=== PATIENT | male | born 1960 ===

== ENCOUNTER → 2020-06-30 15:35 | Outpatient (BNVA) | payer OTHER, SELFPAY | PROVIDERS: Visit Provider Surgery | DX: K61.0 Anal abscess (principal); Z98.890 Other specified postprocedural states | CPT/HCPCS: 99213 ==

== ENCOUNTER → 2020-08-13 15:09 | Outpatient (BNVA) | payer OTHER, SELFPAY | PROVIDERS: Visit Provider Dietitian, Registered | DX: Z76.89 Persons encountering health services in other specified circumstances (principal) ==

== ENCOUNTER → 2020-09-01 15:40 | Outpatient (BNVA) | payer OTHER, SELFPAY | PROVIDERS: Visit Provider Surgery | DX: K62.89 Other specified diseases of anus and rectum (principal) | CPT/HCPCS: 99212 ==

== ENCOUNTER → 2020-09-07 13:16 | Outpatient (BNVA) | payer OTHER, SELFPAY | PROVIDERS: Visit Provider Nurse Practitioner Gerontology | DX: Z76.89 Persons encountering health services in other specified circumstances (principal) ==

== ENCOUNTER → 2020-09-08 14:40 | Outpatient (BNVA) | payer OTHER, SELFPAY | PROVIDERS: Visit Provider Surgery | DX: L72.9 Follicular cyst of the skin and subcutaneous tissue, unspecified (principal) | CPT/HCPCS: 99212 ==

== ENCOUNTER 2020-09-21 09:04 | Day surgery (SDC) | payer OTHER, SELFPAY ==
[2020-09-16 09:50] VITALS: BMI 28.1
--- NOTE | 2020-09-16 09:52 | HO.ANESPROP2 ---
Documented by User: Johanna Yaneli 09/16/20 09:59 HPI - Anesthesia Eval Consult details Narrative: 60yo M for Wider Excision left buttocks Cyst (Previously done under local) [facility] Past Medical History Medical History Arthritis Diabetes type 2, controlled High cholesterol Hyperlipidemia LDL goal <100 Lazy eye of left side Smoking Type 2 diabetes mellitus with diabetic polyneuropathy Type 2 diabetes mellitus with hyperglycemia, with long-term current use of insulin Family History Family History Father No problems noted. Mother History of cardiovascular disorder Surgical History Surgical History History of hemorrhoids History of penile implant (~03/17/20) History of renal stone (~06/01/20) History of sebaceous cyst (~05/28/20) Social History Social History Smoking Status: Current every day smoker Tobacco Type: Cigarette Second Hand Smoke Exposure: No Meds Allergies Allergy/AdvReac Type Severity Reaction Status Date / Time No Known Allergies Allergy Verified 09/21/20 10:24 [No Known Allergies*] Home Medications Medication Instructions Recorded Confirmed Type atorvastatin 40 mg tablet 40 mg PO DAILY 06/27/20 09/08/20 History empagliflozin 10 mg tablet 10 mg PO DAILY 06/27/20 09/08/20 History flash glucose sensor #1 ea 06/27/20 09/08/20 History ibuprofen 800 mg tablet 800 mg PO TID 06/27/20 09/08/20 History pantoprazole 40 mg tablet,delayed 40 mg PO DAILY 06/27/20 09/08/20 History release sertraline 25 mg tablet 25 mg PO DAILY 06/27/20 09/08/20 History duloxetine 20 mg capsule,delayed 20 mg PO BID cap 09/07/20 09/08/20 History release glucose 4 gram chewable tablet 4 g PO tab 09/07/20 09/08/20 History insulin glargine 100 unit/mL (3 32 unit SUBCUT QPM ml 09/07/20 09/08/20 History mL) subcutaneous pen metformin 500 mg tablet 500 mg PO BID tab 09/07/20 09/08/20 History pen needle, diabetic 32 gauge x #50 ea 09/07/20 09/08/20 History Exam Exam Date and Time: September 16, 2020951 Height,Weight and Vital Signs: Height 5 ft 8 in Weight 84 kg Pertinent Lab Results Pertinent Lab Results: Laboratory Tests 03/20/20 03/20/20 21:59 21:59 WBC 8.9 Hgb 10.9 L D Hct 32.5 L D Plt Count 112 L Sodium 139 Potassium 3.5 Chloride 107 BUN 13 Creatinine 1.08 Assessment and Plan Assessment Anesthesia Assessment: Chart Reviewed Documented by User: Kody Oglesby MD 09/21/20 11:07 [facility] Past Medical History Medical History Arthritis Diabetes type 2, controlled High cholesterol Hyperlipidemia LDL goal <100 Lazy eye of left side Smoking Type 2 diabetes mellitus with diabetic polyneuropathy Type 2 diabetes mellitus with hyperglycemia, with long-term current use of insulin Family History Family History Father No problems noted. Mother History of cardiovascular disorder Surgical History Surgical History History of hemorrhoids History of penile implant (~03/17/20) History of renal stone (~06/01/20) History of sebaceous cyst (~05/28/20) Social History Social History Smoking Status: Current every day smoker Tobacco Type: Cigarette Second Hand Smoke Exposure: No Meds Allergies Allergy/AdvReac Type Severity Reaction Status Date / Time No Known Allergies Allergy Verified 09/21/20 10:24 [No Known Allergies*] Home Medications Medication Instructions Recorded Confirmed Type atorvastatin 40 mg tablet 40 mg PO DAILY 06/27/20 09/08/20 History empagliflozin 10 mg tablet 10 mg PO DAILY 06/27/20 09/08/20 History flash glucose sensor #1 ea 06/27/20 09/08/20 History ibuprofen 800 mg tablet 800 mg PO TID 06/27/20 09/08/20 History pantoprazole 40 mg tablet,delayed 40 mg PO DAILY 06/27/20 09/08/20 History release sertraline 25 mg tablet 25 mg PO DAILY 06/27/20 09/08/20 History duloxetine 20 mg capsule,delayed 20 mg PO BID cap 09/07/20 09/08/20 History release glucose 4 gram chewable tablet 4 g PO tab 09/07/20 09/08/20 History insulin glargine 100 unit/mL (3 32 unit SUBCUT QPM ml 09/07/20 09/08/20 History mL) subcutaneous pen metformin 500 mg tablet 500 mg PO BID tab 09/07/20 09/08/20 History pen needle, diabetic 32 gauge x #50 ea 09/07/20 09/08/20 History 5 Exam Airway Mallampati Class: II TM Dist: >3cm Neck ROM: Full Denture: Upper Loose/Missing/Broken Teeth: Yes Heart: RRR Lungs: nl Assessment and Plan Assessment Anesthesia Assessment: Anesthesia Plan Discussed and Chart Reviewed Final Anesthetic Review NPO: Yes ASA Class: III Final Preanesthetic Review: No Changes in Pt Med Stat, Meds/Allgs Chart Reviewed, Consent Obtained/Reviewed and Anes Risks/Benef Reviewed Patient Risk: Low Procedure Risk: Intermediate Anesthetic Plan Anesthetic Plan: MAC: Disposition: Standard PACU
[2020-09-21 10:34] VITALS: BP 102/68; PULSE 80; RESP 18; TEMP 36.2; O2SAT 98
[2020-09-21 10:42] LABS: Glucose, Whole Blood 150 mg/dL (60-115)
[2020-09-21] MEDS: Lactated Ringers 1,000 ML 100 ML IVCONT (10:54)
--- NOTE | 2020-09-21 11:07 | MHC.SHP ---
Pre-Procedural Eval Section A The patient is an INPATIENT: No Changes since office visit: Yes Patient answered all questions; No Cold of Flu in the past 2 weeks, No New Medical Problems and No Changes in Medication The History & Physical has been completed within 30 days and I have reviewed it.: Yes Section B Chief Complaint: follicular cyst of skin on buttocks Allergies: Allergies Allergy/AdvReac Type Severity Reaction Status Date / Time No Known Allergies Allergy Verified 09/21/20 10:24 [No Known Allergies*] Plan Diagnosis/Plan: Unchanged I have reviewed the history and physical and performed a pertinent physical examination on my patient. No changes have occurred unless specified.
--- NOTE | 2020-09-21 11:57 | W.PM.OPN ---
Operative Note Operative Note Date of Service: 09/21/20 Narrative: Preoperative diagnosis: Left buttock recurrence cyst Postoperative diagnosis: Same Procedure: Wide excision of left buttock recurrence cyst Surgeon: Ramiro Segundo MD [facility] Program Representative: SERG Cid Indications for procedure: 60-year-old male presenting with a recurrent infected cyst of the posterior left buttock just lateral to the intergluteal cleft. This was previously excised but has become infected once again with a palpable nodularity suggestive of a recurrence cyst. Operative findings: Patient found to have an area of inflammation with a well-healed incision the lateral intergluteal cleft extending over the left buttock. Lesion measured approximately 4 cm x 2 cm. Specimen: Cyst left buttock Complications: None Estimated blood loss: 5 mL Procedure details: Patient was brought to the OR and placed in a supine position. After administering light sedation he was placed in a prone position. The left buttock was prepped with Betadine and draped in a sterile fashion. A surgical time-out was called and consent confirmed. Patient received preoperative antibiotics and Venodyne boots were in place. Local anesthesia consisting of 0.75% Sensorcaine with epinephrine was then infiltrated circumferentially around the previous excision site. A 15 blade was then used to create an elliptical incision around the previous excision site measuring 4 by 2 cm. This was carried out through subcutaneous tissue and around the cyst wall. Hemostasis was assured using electrocautery. The cyst was excised and sent to pathology for further examination. Wounds were recheck for hemostasis using electrocautery. Deep subcutaneous tissue was then reapproximated using interrupted 3 0 Polysorb sutures. Dermis was reapproximated using interrupted 3 0 Polysorb sutures. Skin was then closed using interrupted 3 0 nylon sutures. Sterile dressings were then applied. The patient tolerated the procedure well. Sponge, instrument, and needle counts reported as correct. The patient was transferred to PACU in stable condition.
--- NOTE | 2020-09-21 12:04 | PM.OP ---
Brief Operative Note Date of Service: 09/21/20 Pre-op diagnosis: Recurrent left buttock cyst Post-op diagnosis: same Procedure: Excision of a recurrent left buttock cyst Implants: None Surgeon: Ramiro Segundo MD Anesthesia: MAC [employer]str[employer] Bi Developer: Airam Griggs Estimated blood loss (mL): 5 Pathology: other (Recurrent left buttock cyst) Condition: stable Disposition: PACU
[2020-09-21 12:05] VITALS: BP 90/55; PULSE 69; RESP 16; TEMP 36.4; O2SAT 98
[2020-09-21 12:20] VITALS: BP 97/60; PULSE 68; RESP 16; O2SAT 97
[2020-09-21 12:35] VITALS: BP 96/54; PULSE 79; RESP 17; TEMP 36.6; O2SAT 99
[2020-09-21 12:50] VITALS: BP 106/66; PULSE 62; RESP 17; O2SAT 99
--- NOTE | 2020-09-21 13:29 | HO.POSTANES ---
Post Anesthesia Evaluation Post Anesthesia Evaluation Vital Signs: Vital Signs Temp Pulse Resp BP Pulse Ox 09/21/20 12:50 97.8 F 62 17 106/66 99 09/21/20 12:35 97.8 F 79 17 96/54 L 99 09/21/20 12:20 68 16 97/60 97 09/21/20 12:05 97.6 F 69 16 90/55 L 98 09/21/20 10:34 97.1 F 80 18 102/68 98 Anesthesia: General (tiva) Mental Status: Awake Pain Control: Satisfactory Nausea/Vomiting: None Hydration: Adequate Anesthesia-Related Issues: No Anes. Related Issues
== END 2020-09-21 13:51 | disposition home or self-care (01) ==
PROVIDERS: Visit Provider Surgery
PROC: (CPT 11406; principal; 2020-09-21 10:10)
DX: L72.0 Epidermal cyst (principal); E11.65 Type 2 diabetes mellitus with hyperglycemia; E11.42 Type 2 diabetes mellitus with diabetic polyneuropathy; Z79.4 Long term (current) use of insulin; F17.210 Nicotine dependence, cigarettes, uncomplicated; Z96.0 Presence of urogenital implants
CPT/HCPCS: 11406; 12032; 82947; 88304; J2250; J2370; J2405; J3010

== ENCOUNTER 2020-09-21 09:41 | Outpatient (REF) | payer OTHER, SELFPAY ==
[2020-09-21 11:13] LABS: Hematocrit 46.6 % (42-52); Hemoglobin 15.5 g/dl (14.0-18.0); Mean Corpuscular HGB Conc 33.3 g/dl (31.0-36.0); Mean Corpuscular Hemoglobin 30.5 pg (27.0-33.0); Mean Corpuscular Volume 91.6 fL (80-98); Mean Platelet Volume 13.1 fL (9.4-12.4); PLT CLUMP 1; Red Blood Count 5.09 X10*6/uL (4.60-5.80); Red Cell Distribution Width 12.5 % (11.0-16.0)
[2020-09-21 11:29] LABS: Alanine Aminotransferase 27 U/L (0-40); Albumin Level 4.2 g/dL (3.5-5.0); Alkaline Phosphatase 86 U/L (39-117); Anion Gap 12 (12-20); Aspartate Amino Transferase 19 U/L (5-37); Bilirubin Total 0.5 mg/dL (0.0-1.0); Blood Urea Nitrogen 14 mg/dL (9-16); Calcium 9.2 mg/dL (8.4-10.2); Carbon Dioxide 27 mmol/L (22-29); Chloride 107 mmol/L (96-108); Cholesterol 199 mg/dL; Estimated Glomerular Filt Rate > 60; Glucose Fasting 159 mg/dL (60-99); HDL Cholesterol 29 mg/dL; LDL Cholesterol Calculated 113 mg/dl; Potassium 4.7 mmol/l (3.3-5.1); Sodium 141 mmol/L (135-145); Total Protein 7.2 g/dL (6.5-8.0); Triglycerides 289 mg/dL
[2020-09-21 11:30] LABS: Estimated Average Glucose 157 mg/dL; Hemoglobin A1c % 7.1 %
[2020-09-21 11:33] LABS: Alanine Aminotransferase 26 U/L (0-40); Alkaline Phosphatase 83 U/L (39-117); Aspartate Amino Transferase 20 U/L (5-37); Bilirubin Direct 0.2 mg/dL (0.0-0.5); Bilirubin Total 0.5 mg/dL (0.0-1.0); Total Protein 7.1 g/dL (6.5-8.0)
[2020-09-21 11:54] LABS: Free T4 (Free Thyroxine) 0.79 ng/dL (0.71-1.85); Prostate Specific Antigen 0.83 ng/mL (<0.05-4.0); Thyroid Stimulating Hormone 0.55 uIU/mL (0.32-4.0)
[2020-09-21 11:59] LABS: Vitamin B12 548 pg/mL (200-900)
[2020-09-21 12:03] LABS: Creatinine Urine 76.48 mg/dL
[2020-09-21 14:00] LABS: White Blood Count 6.9 X10*3/uL (4.8-10.8)
[2020-09-21 14:01] LABS: Platelet Count 121 X10*3/uL (160-400)
== END 2020-09-21 09:42 | disposition home or self-care (01) ==
LOC: HO.LAB 09:41
PROVIDERS: Visit Provider Nurse Practitioner Gerontology
DX: E11.42 Type 2 diabetes mellitus with diabetic polyneuropathy (principal); Z79.4 Long term (current) use of insulin
CPT/HCPCS: 36415; 80053; 80061; 80076; 82043; 82248; 82607; 83036; 84153; 84439; 84443; 85027

== ENCOUNTER → 2020-09-29 11:55 | Outpatient (BNVA) | payer OTHER, SELFPAY | PROVIDERS: Visit Provider Surgery | DX: L72.9 Follicular cyst of the skin and subcutaneous tissue, unspecified (principal) | CPT/HCPCS: 99212 ==

== ENCOUNTER → 2020-10-06 14:06 | Outpatient (BNVA) | payer OTHER, SELFPAY | PROVIDERS: Visit Provider Surgery | DX: L72.9 Follicular cyst of the skin and subcutaneous tissue, unspecified (principal) | CPT/HCPCS: 99212 ==

== ENCOUNTER 2020-10-29 13:15 | Emergency (ER) | payer OTHER, SELFPAY ==
--- NOTE | ~2020-10-29 | XR_ITS ---
EXAMINATION: XR FOOT, LEFT CLINICAL INFORMATION: Injury. Pain. COMPARISON: None TECHNIQUE: AP, lateral, and oblique views of the left foot. FINDINGS: No fracture or dislocation. Alignment is anatomic. Joint spaces are maintained. The soft tissues are unremarkable. XR/XR foot LT min 3V IMPRESSION: No fracture or malalignment.
--- NOTE | 2020-10-29 13:51 | ED_ITS ---
HPI - General Adult General Chief complaint: Dizziness Stated complaint: toe inj Time Seen by Provider: 10/29/20 13:51 Related Data Home Medications Medication Instructions Recorded Confirmed flash glucose sensor #1 ea 06/27/20 10/06/20 ibuprofen 800 mg tablet 800 mg PO TID 06/27/20 10/06/20 pantoprazole 40 mg tablet,delayed 40 mg PO DAILY 06/27/20 10/06/20 release sertraline 25 mg tablet 25 mg PO DAILY 06/27/20 10/06/20 duloxetine 20 mg capsule,delayed 20 mg PO BID cap 09/07/20 10/06/20 release glucose 4 gram chewable tablet 4 g PO tab 09/07/20 10/06/20 metformin 500 mg tablet 500 mg PO BID tab 09/07/20 10/06/20 pen needle, diabetic 32 gauge x #50 ea 09/07/20 10/06/20 Previous Rx's Medication Instructions Recorded blood sugar diagnostic #25 ea 09/07/20 flash glucose sensor 1 ea TOPICAL Q2W #2 ea 09/07/20 amoxicillin 875 mg-potassium 1 tab PO BID #20 tab 09/10/20 clavulanate 125 mg tablet atorvastatin 80 mg tablet 80 mg PO DAILY #30 tab 09/29/20 insulin glargine 100 unit/mL (3 32 unit SUBCUT QPM 30 Days #15 ml 09/29/20 mL) subcutaneous pen insulin lispro 100 unit/mL 15 unit SUBCUT TID 30 Days #15 ml 09/29/20 subcutaneous pen empagliflozin 10 mg tablet 10 mg PO DAILY #30 tab 10/07/20 blood sugar diagnostic #150 ea 10/21/20 Allergies Allergy/AdvReac Type Severity Reaction Status Date / Time No Known Allergies Allergy Verified 10/29/20 13:56 [No Known Allergies*] [facility] Past Medical History Medical History Arthritis Diabetes type 2, controlled High cholesterol Hyperlipidemia LDL goal <100 Lazy eye of left side Smoking Type 2 diabetes mellitus with diabetic polyneuropathy Type 2 diabetes mellitus with hyperglycemia, with long-term current use of insulin Surgical History History of hemorrhoids History of penile implant (~03/17/20) History of renal stone (~06/01/20) History of sebaceous cyst (~05/28/20) Family History Family History Father No problems noted. Mother History of cardiovascular disorder Social History Social History Smoking Status: Current every day smoker Tobacco Type: Cigarette Second Hand Smoke Exposure: No Course Course Course Narrative: 1350-This is a rapid medical exam. 60 yo male with IDDM, neuropathy, HLD here with weakness, tired, dizzy and feeling like his blood sugar is low x 1 day. Also injured left foot 10 days ago. Has alot of pain over the 3rd and 4th toes, worsened with weight bearing. Will check labs, EKG, left foot x-ray. Deferred HPI, ROS, PE for primary provider. Discharge Plan Discharge Prescriptions: No Action atorvastatin 80 mg tablet 80 mg PO DAILY Qty: 30 RF: 6 Lantus Solostar U-100 Insulin 100 unit/mL (3 mL) insulin pen 32 unit subcut QPM 30 Days Qty: 15 RF: 2 insulin lispro [Humalog KwikPen Insulin] 100 unit/mL insulin pen 15 unit subcut TID 30 Days Qty: 15 RF: 2 empagliflozin [Jardiance] 10 mg tablet 10 mg PO DAILY Qty: 30 RF: 2 (DME) FreeStyle Lite Strips Strip See Rx Instructions .ROUTE .MEDSUPPLY Qty: 150 RF: 6 (DME) pen needle, diabetic 32 gauge x 5/32 needle See Rx Instructions ea subcut QID Qty: 50 RF: 0 FreeStyle Mayco 14 Day Sensor Kit 1 ea topical Q2W Qty: 2 RF: 11 (DME) FreeStyle Precision Junaid Strips Strip See Rx Instructions .ROUTE .MEDSUPPLY Qty: 25 RF: 11 sertraline 25 mg tablet 25 mg PO DAILY RF: 0 pantoprazole 40 mg tablet,delayed release (DR/EC) 40 mg PO DAILY RF: 0 (DME) flash glucose sensor Kit See Rx Instructions ea topical .MEDSUPPLY Qty: 1 RF: 0 ibuprofen 800 mg tablet 800 mg PO TID RF: 0 duloxetine 20 mg capsule,delayed release(DR/EC) 20 mg PO BID RF: 0 glucose 4 gram tablet,chewable 4 g PO RF: 0 metformin 500 mg tablet 500 mg PO BID RF: 0 amoxicillin-pot clavulanate [Augmentin] 875-125 mg tablet 1 tab PO BID Qty: 20 RF: 0
[2020-10-29 13:52] VITALS: BP 114/69; PULSE 98; RESP 18; TEMP 37; O2SAT 95; BMI 28.1
--- NOTE | 2020-10-29 13:57 | ECG_ITS ---
Test Reason : DIZZINESS Blood Pressure : / mmHG Vent. Rate : 074 BPM Atrial Rate : 074 BPM P-R Int : 168 ms QRS Dur : 078 ms QT Int : 368 ms P-R-T Axes : 062 055 037 degrees QTc Int : 408 ms Normal sinus rhythm Normal ECG When compared with ECG of 17-MAR-2020 06:40, No significant change was found Referred By: Bridgett Whitehead Electronically Signed By:ALECIA REYES
[2020-10-29 13:59] LABS: Glucose, Whole Blood 178 mg/dL (60-115)
[2020-10-29 14:48] LABS: MANUAL DIFF FLAG NO
[2020-10-29 14:50] LABS: Basophils Absolute Auto 0.1 X10*3/uL (0.0-0.2); Basophils Percent Auto 0.9 % (0-2); Eosinophils Absolute Auto 0.3 X10*3/uL (0.0-0.4); Eosinophils Percent Auto 4.9 % (0-4); Hematocrit 44.4 % (42-52); Hemoglobin 14.6 g/dl (14.0-18.0); Imm Gran Abs Auto 0.03 X10*3/uL (0.00-0.03); Imm Gran Pct Auto 0.4 % (0.0-0.4); Lymphocytes Absolute Auto 2.9 X10*3/uL (1.2-4.9); Lymphocytes Percent Auto 42.4 % (20-40); Mean Corpuscular HGB Conc 32.9 g/dl (31.0-36.0); Mean Corpuscular Hemoglobin 29.9 pg (27.0-33.0); Mean Platelet Volume 12.4 fL (9.4-12.4); Monocytes Absolute Auto 0.5 X10*3/uL (0.1-1.2); Monocytes Percent Auto 7.4 % (2-11); Platelet Count 113 X10*3/uL (160-400); Red Blood Count 4.88 X10*6/uL (4.60-5.80); Red Cell Distribution Width 12.7 % (11.0-16.0); White Blood Count 6.7 X10*3/uL (4.8-10.8)
[2020-10-29 15:19] LABS: Alanine Aminotransferase 25 U/L (0-40); Anion Gap 12 (12-20); Aspartate Amino Transferase 17 U/L (5-37); Bilirubin Direct 0.2 mg/dL (0.0-0.5); Bilirubin Total 0.2 mg/dL (0.0-1.0); Blood Urea Nitrogen 14 mg/dL (9-16); Calcium 9.1 mg/dL (8.4-10.2); Carbon Dioxide 27 mmol/L (22-29); Chloride 105 mmol/L (96-108); Estimated Glomerular Filt Rate > 60; Glucose Random 133 mg/dL (60-115); Magnesium 2.1 mg/dL (1.6-2.6); Potassium 4.1 mmol/L (3.3-5.1); Sodium 140 mmol/L (135-145)
[2020-10-29 15:20] LABS: Alkaline Phosphatase 86 U/L (39-117)
[2020-10-29 21:06] LABS: Glucose, Whole Blood 121 mg/dL (60-115)
== END 2020-10-29 20:23 | disposition left against medical advice (07) ==
PROVIDERS: Nurse Practitioner Family; Emergency Provider Internal Medicine
DX: M79.672 Pain in left foot (principal); E11.9 Type 2 diabetes mellitus without complications; Z79.4 Long term (current) use of insulin; Z79.899 Other long term (current) drug therapy
CPT/HCPCS: 36415; 73630; 80048; 80076; 82947; 83735; 85025; 93005; 99282; 99283

== ENCOUNTER → 2020-11-17 12:29 | Outpatient (BNVA) | payer OTHER, SELFPAY | PROVIDERS: PCP Internal Medicine; Visit Provider Dietitian, Registered ==

== ENCOUNTER 2021-02-01 12:27 | Outpatient (REF) | payer OTHER, SELFPAY ==
[2021-02-01 14:08] LABS: MANUAL DIFF FLAG NO
[2021-02-01 14:17] LABS: Basophils Absolute Auto 0.1 X10*3/uL (0.0-0.2); Basophils Percent Auto 0.5 % (0-2); Eosinophils Absolute Auto 0.3 X10*3/uL (0.0-0.4); Eosinophils Percent Auto 2.7 % (0-4); Hematocrit 45.4 % (42-52); Imm Gran Abs Auto 0.03 X10*3/uL (0.00-0.03); Imm Gran Pct Auto 0.3 % (0.0-0.4); Lymphocytes Absolute Auto 4.7 X10*3/uL (1.2-4.9); Mean Corpuscular Hemoglobin 30.5 pg (27.0-33.0); Mean Corpuscular Volume 92.3 fL (80-98); Monocytes Absolute Auto 0.6 X10*3/uL (0.1-1.2); Neutrophils Absolute Auto 4.2 X10*3/uL (2.0-8.3); Neutrophils Percent Auto 42.5 % (45-73); Platelet Count 133 X10*3/uL (160-400); Red Blood Count 4.92 X10*6/uL (4.60-5.80); Red Cell Distribution Width 12.8 % (11.0-16.0); White Blood Count 9.8 X10*3/uL (4.8-10.8)
== END 2021-02-01 12:28 | disposition home or self-care (01) ==
LOC: HO.HMGCLDS 12:27
PROVIDERS: PCP Internal Medicine; Visit Provider Internal Medicine
DX: D69.6 Thrombocytopenia, unspecified (principal)
CPT/HCPCS: 36415; 85025

== ENCOUNTER → 2021-03-02 13:00 | Outpatient (BNVA) | payer OTHER, SELFPAY | PROVIDERS: PCP Internal Medicine; Visit Provider Nurse Practitioner Gerontology | DX: E11.65 Type 2 diabetes mellitus with hyperglycemia (principal); E11.42 Type 2 diabetes mellitus with diabetic polyneuropathy; E78.5 Hyperlipidemia, unspecified; F17.200 Nicotine dependence, unspecified, uncomplicated; Z79.4 Long term (current) use of insulin | CPT/HCPCS: 82947 ==

== ENCOUNTER → 2021-05-18 13:46 | Outpatient (BNVA) | payer OTHER, SELFPAY | PROVIDERS: PCP Internal Medicine; Visit Provider Dietitian, Registered | DX: E11.65 Type 2 diabetes mellitus with hyperglycemia (principal) | CPT/HCPCS: 97803 ==

== ENCOUNTER → 2021-06-03 12:17 | Outpatient (BNVA) | payer OTHER, SELFPAY | PROVIDERS: PCP Internal Medicine; Visit Provider Nurse Practitioner Gerontology | DX: E11.65 Type 2 diabetes mellitus with hyperglycemia (principal); E11.42 Type 2 diabetes mellitus with diabetic polyneuropathy; E78.5 Hyperlipidemia, unspecified; F17.200 Nicotine dependence, unspecified, uncomplicated; Z79.4 Long term (current) use of insulin | CPT/HCPCS: 82947; 83036; 99212 ==

== ENCOUNTER 2021-06-08 12:40 | Outpatient (REF) | payer OTHER, SELFPAY | END 2021-06-08 12:41 | disposition home or self-care (01) | LOC: HO.HMGCLDS 12:40 | PROVIDERS: PCP Internal Medicine; Visit Provider Internal Medicine | DX: Z20.822 Contact with and (suspected) exposure to COVID-19 (principal) | CPT/HCPCS: C9803; U0003; U0005 ==

== ENCOUNTER 2021-07-08 16:36 | Outpatient (REF) | payer OTHER, SELFPAY ==
--- NOTE | ~2021-07-08 | US_ITS ---
EXAMINATION: US THYROID CLINICAL INFORMATION: Nontoxic goiter, unspecified. COMPARISON: None TECHNIQUE: Linear transducer blevins-scale and color Doppler examination with attention to the region of the thyroid. FINDINGS: SIZE: Measurements of the thyroid lobes and nodules are given in sagittal, anteroposterior and transverse dimensions respectively. Right Thyroid Lobe: 5.1 x 2.7 x 2.9 cm, volume 21 mL. Parenchyma: The gland echotexture is heterogeneous. Thyroid vascularity is normal. Left Thyroid Lobe: 5.2 x 3.2 x 2.7 cm, volume 23 mL. Parenchyma: The gland echotexture is heterogeneous. Thyroid vascularity is normal. Isthmus: 0.1 cm in maximum AP dimension. Estimated total number of nodules greater than or equal to 1 cm: 5. There are multiple additional bilateral thyroid nodules. Timber Surveyor nodules are described as follows: 1. Location: Right mid pole. Size: 1.4 x 1.1 x 1.8 cm, volume 1.4 mL. Nodule characteristics: Composition: Solid/almost completely solid (2). Echogenicity: Isoechoic (1). Shape: Not taller than wide (0). Margins: Smooth (0). Echogenic Foci: None (0). ACR TI-RADS total points: 3 ACR TI-RADS category: 3 2. Location: Right lower pole. Size: 1.4 x 1.1 x 0.9 cm, volume 0.68 mL. Nodule characteristics: Composition: Mixed cystic and solid (1). Echogenicity: Hypoechoic (2). Shape: Not taller than wide (0). Margins: Smooth (0). Echogenic Foci: None (0). ACR TI-RADS total points: 3 ACR TI-RADS category: 3 3. Location: Left upper pole. Size: 1.0 x 0.3 x 0.8 cm, volume 0.13 mL. Nodule characteristics: Composition: Solid/almost completely solid (2). Echogenicity: Hypoechoic (2). Shape: Not taller than wide (0). Margins: Smooth (0). Echogenic Foci: None (0). ACR TI-RADS total points: 4 ACR TI-RADS category: 4 4. Location: Left mid pole. Size: 1.8 x 1.0 x 1.5 cm, volume 1.4 mL. Nodule characteristics: Composition: Mixed cystic and solid (1). Echogenicity: Hypoechoic (2). Shape: Not taller than wide (0). Margins: Smooth (0). Echogenic Foci: None (0). ACR TI-RADS total points: 3 ACR TI-RADS category: 3 5. Location: Left mid pole. Size: 1.7 x 0.6 x 1.0 cm, volume 0.53 mL. Nodule characteristics: Composition: Solid/almost completely solid (2). Echogenicity: Isoechoic (1). Shape: Not taller than wide (0). Margins: Smooth (0). Echogenic Foci: None (0). ACR TI-RADS total points: 3 ACR TI-RADS category: 3 NODES: No lymphadenopathy is seen in the tissue surrounding the thyroid gland. US/US thyroid IMPRESSION: Heterogeneous thyroid parenchyma with normal vascularity. Thyromegaly. Multiple bilateral thyroid nodules with ultrasound characteristics consistent with TI-RADS category 3. These nodules measure 1.7 to 1.8 cm in greatest dimension. Followup ultrasound recommended in 1, 3, and 5 years. Upper left thyroid nodule measuring 1.0 cm with ultrasound characteristics consistent with TI-RADS category 4. Followup ultrasound recommended in 1, 2, 3, and 5 years. ACR TI-RADS RECOMMENDATION REFERENCE: Ultrasound-guided fine-needle aspiration, followup ultrasound, no further followup. * TR1 (0 point) and TR 2 (2 points): No FNA or followup. * TR3 (3 points): FNA if more than or equal to 2.5 cm in maximum dimension, followup ultrasound in 1, 3 and 5 years if 1.5 to 2.4 cm in maximum dimension. * TR4 (4-6 points): FNA if more than or equal to 1.5 cm in maximum dimension, followup ultrasound in 1, 2, 3 and 5 years if 1 to 1.4 cm in maximum dimension. * TR5 (more than or equal to 7 points): FNA if more than or equal to 1 cm in maximum dimension, followup ultrasound every year for 5 years if 0.5 to 0.9 cm in maximum dimension. * TR3, TR4 or TR5 nodules that are below the size threshold for followup receive no followup.
== END 2021-07-08 16:37 | disposition home or self-care (01) ==
LOC: HO.US 16:36
PROVIDERS: PCP Internal Medicine; Visit Provider Internal Medicine
DX: E04.9 Nontoxic goiter, unspecified (principal)
CPT/HCPCS: 76536

== ENCOUNTER 2021-08-27 06:56 | Outpatient (REF) | payer OTHER, SELFPAY ==
[2021-08-27 08:36] LABS: Creatinine Urine 151.54 mg/dL; Microalbum/Creatinine Ratio Ur 31.6 ug/mg cr
[2021-08-27 08:41] LABS: Alanine Aminotransferase 22 U/L (0-40); Alkaline Phosphatase 84 U/L (39-117); Anion Gap 13 (12-20); Aspartate Amino Transferase 15 U/L (5-37); Bilirubin Total 0.7 mg/dL (0.0-1.0); Blood Urea Nitrogen 13 mg/dL (9-16); Calcium 9.5 mg/dL (8.4-10.2); Carbon Dioxide 27 mmol/L (22-29); Chloride 107 mmol/L (96-108); Cholesterol 188 mg/dL; Estimated Glomerular Filt Rate > 60; Glucose Fasting 171 mg/dL (60-99); HDL Cholesterol 24 mg/dL; LDL Cholesterol Calculated 121 mg/dl; Potassium 4.8 mmol/L (3.3-5.1); Sodium 142 mmol/L (135-145); Triglycerides 216 mg/dL
[2021-08-27 08:54] LABS: Free T4 (Free Thyroxine) 0.87 ng/dL (0.71-1.85); Thyroid Stimulating Hormone 0.41 uIU/mL (0.32-4.0); Vitamin D 25-OH Total 7.2 ng/mL (>30)
[2021-08-30 14:42] LABS: Thyroglobulin Antibodies <1 IU/mL (< or = 1); Thyroid Peroxidase Antibodies 3 IU/mL (<9)
== END 2021-08-27 06:57 | disposition home or self-care (01) ==
LOC: HO.LAB 06:56
PROVIDERS: PCP Internal Medicine; Visit Provider Nurse Practitioner Gerontology
DX: E11.65 Type 2 diabetes mellitus with hyperglycemia (principal); E04.9 Nontoxic goiter, unspecified; Z79.4 Long term (current) use of insulin
CPT/HCPCS: 36415; 80053; 80061; 82043; 82306; 84439; 84443; 86376; 86800

== ENCOUNTER → 2021-08-30 11:08 | Outpatient (BNVA) | payer OTHER, SELFPAY | PROVIDERS: PCP Internal Medicine; Visit Provider Internal Medicine | DX: E04.2 Nontoxic multinodular goiter (principal); E55.9 Vitamin D deficiency, unspecified | CPT/HCPCS: 99212 ==

== ENCOUNTER → 2021-10-07 12:30 | Outpatient (BNVA) | payer OTHER, SELFPAY | PROVIDERS: PCP Internal Medicine; Visit Provider Nurse Practitioner Gerontology | DX: E11.65 Type 2 diabetes mellitus with hyperglycemia (principal); E11.42 Type 2 diabetes mellitus with diabetic polyneuropathy; E78.5 Hyperlipidemia, unspecified; E55.9 Vitamin D deficiency, unspecified; F17.200 Nicotine dependence, unspecified, uncomplicated; Z79.4 Long term (current) use of insulin; Z79.84 Long term (current) use of oral hypoglycemic drugs | CPT/HCPCS: 82947; 83036; 99212 ==

== ENCOUNTER → 2021-11-18 12:33 | Outpatient (BNVA) | payer OTHER, SELFPAY | PROVIDERS: PCP Internal Medicine; Visit Provider Dietitian, Registered | DX: E11.65 Type 2 diabetes mellitus with hyperglycemia (principal); Z71.3 Dietary counseling and surveillance | CPT/HCPCS: 97803 ==

== ENCOUNTER → 2022-01-13 12:50 | Outpatient (BNVA) | payer OTHER, SELFPAY | PROVIDERS: PCP Internal Medicine; Visit Provider Nurse Practitioner Gerontology | DX: E11.65 Type 2 diabetes mellitus with hyperglycemia (principal); E11.42 Type 2 diabetes mellitus with diabetic polyneuropathy; E78.5 Hyperlipidemia, unspecified; E55.9 Vitamin D deficiency, unspecified; F17.210 Nicotine dependence, cigarettes, uncomplicated; Z79.4 Long term (current) use of insulin; Z79.899 Other long term (current) drug therapy | CPT/HCPCS: 82947; 83036; 99212 ==

== ENCOUNTER → 2022-05-18 13:05 | Outpatient (BNVA) | payer OTHER, SELFPAY | PROVIDERS: PCP Internal Medicine; Visit Provider Dietitian, Registered | DX: E11.65 Type 2 diabetes mellitus with hyperglycemia (principal) | CPT/HCPCS: 97803 ==

== ENCOUNTER 2022-08-24 09:07 | Outpatient (REF) | payer OTHER, SELFPAY ==
--- NOTE | 2022-08-24 09:53 | PM.OP ---
Brief Operative Note Date of Service: 08/24/22 Pre-op diagnosis: Multinodular Thyroid Procedure: This is doctor Temi Moody. This is an ultrasound-guided fine-needle aspiration report. Date of Examination: 08/24/2022 Indication: Multinodular Thyroid Porcedure: Procedure was explained to the patient. Alternatives, the risk and benefits were discussed. Written consent was obtained. A time-out was also obtained. After sterile preparation, fine-needle aspiration of a right mid pole 2.5 cm thyroid nodule was performed using direct ultrasound guidance to confirm accurate needle placement. Four aspirations were made using 27 gauge needles. Samples were submitted for cytology. 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 The patient tolerated the procedure well. Aftercare instructions were provided. Impression: Uncomplicated fine needle aspiration biopsy of a right mid pole 2.5 cm thyroid nodule thyroid nodule under ultrasound guidance. Of note, the patient has a diffuse goiter that extends substernally bilaterally. No nodules were identified in the Left lobe. It was difficult to determine if the R lobe contained one large heterogenous nodule, or multiple nodules conglomerated together. We checked a bryan sign which was positive. The patient is also complaining of compressive symptoms, though he is quite nonchalant about this (dysphagia as well as vocal hoarseness). I advised a total thyroidectomy at this time as well as CT neck to determine the extent of substernal extension of the thyroid and also any posterior extension. All of his questions were answered. I will send the surgical referral now. Surgeon: Temi Moody, DO Was an Glass Crusher used for this Procedure?: No Estimated blood loss (mL): 0
[2022-08-24] MEDS: Lidocaine HCl 1 % MPF 5 ML VIAL SUBCUT (10:10)
== END 2022-08-24 09:08 | disposition home or self-care (01) ==
LOC: HO.US 09:07
PROVIDERS: Visit Provider Internal Medicine
DX: E04.2 Nontoxic multinodular goiter (principal)
CPT/HCPCS: 10005; 88173

== ENCOUNTER 2022-09-14 10:01 | Outpatient (REF) | payer OTHER, SELFPAY ==
[2022-09-14 12:14] LABS: Alanine Aminotransferase 23 U/L (0-40); Alkaline Phosphatase 86 U/L (39-117); Anion Gap 14 (12-20); Aspartate Amino Transferase 16 U/L (5-37); Bilirubin Total 0.8 mg/dL (0.0-1.0); Blood Urea Nitrogen 16 mg/dL (9-16); Calcium 9.7 mg/dL (8.4-10.2); Carbon Dioxide 26 mmol/L (22-29); Chloride 105 mmol/L (96-108); Estimated Glomerular Filt Rate 57; Free T4 (Free Thyroxine) 0.94 ng/dL (0.71-1.85); Glucose Random 294 mg/dL (60-115); Phosphorus 3.8 mg/dL (2.7-4.5); Potassium 4.5 mmol/L (3.3-5.1); Sodium 140 mmol/L (135-145); Thyroid Stimulating Hormone 0.48 uIU/mL (0.32-4.0); Total Protein 7.1 g/dL (6.5-8.0); Vitamin D 25-OH Total 32.6 ng/mL (>30)
[2022-09-15 17:47] LABS: Calcium (PTHI) 9.9 mg/dL (8.6-10.3); PTHI 59 pg/mL (16-77)
== END 2022-09-14 10:02 | disposition home or self-care (01) ==
LOC: HO.LAB 10:01
PROVIDERS: PCP Internal Medicine; Visit Provider Internal Medicine
DX: E04.2 Nontoxic multinodular goiter (principal); E55.9 Vitamin D deficiency, unspecified
CPT/HCPCS: 36415; 80053; 82306; 83970; 84100; 84439; 84443; 99212

== ENCOUNTER 2022-09-16 12:59 | Outpatient (REF) | payer OTHER, SELFPAY ==
--- NOTE | ~2022-09-16 | CT_ITS ---
EXAMINATION: CT SOFT TISSUE NECK WITHOUT CONTRAST CLINICAL INFORMATION: Nontoxic multinodular goiter. COMPARISON: Thyroid ultrasound 07/08/2021. TECHNIQUE: Helical imaging was performed in the axial plane with generation of coronal and sagittal reformatted images. This CT examination was performed using dose optimization techniques as appropriate, including one or more of the following: Automated exposure control, iterative reconstruction, and adjustment of technique factors (mA and/or kVp) according to patient size (this includes techniques or standardized protocols for targeted exams where dose is matched to indication/reason for exam). Fleischner Society criteria for the followup of incidental pulmonary nodules was implemented if appropriate. DLP: 410 mGy-cm. FINDINGS: There is an enlarged heterogeneous thyroid gland which coincides with the findings demonstrated on the sonographic imaging from 08/24/2022. There are no pathologically enlarged cervical lymph nodes. No mediastinal or axillary adenopathy is visualized within the [id number] of this examination. Pharyngeal mucosal spaces are symmetric. Parapharyngeal and retromaxillary fat is preserved. Field Placement Director spaces are normal. The parotid and submandibular glands are normal. The tongue base and epiglottis are normal. Preepiglottic fat is preserved. Glottic and subglottic airways are widely patent. Lung apices are clear. The aortic arch apex is unremarkable. Carotid spaces are unremarkable. There is advanced multilevel degenerative spondylosis of the cervical spine. Disc osteophyte spurring in conjunction with facet degenerative change at C3-C4 causes severe canal stenosis with likely compression of the cervical spinal cord. There is also at least moderate canal stenosis at levels of C2-C3, C4-C5, and C5-C6. There is no acute osseous finding. No worrisome lytic or blastic osseous lesion. There are exuberant anterior disc osteophyte complexes at multiple levels within the cervical spine. The skull base is grossly intact. No mastoid middle ear effusion. [id number] paranasal sinus disease. Limited visualization of the intracranial anatomy reveals no abnormal finding. CT/CT soft tissue neck wo IV con IMPRESSION: There is a multinodular thyroid goiter. No pathologically enlarged cervical lymph nodes. There is advanced multilevel degenerative spondylosis of the cervical spine causing severe canal stenosis and likely compression of the cervical cord at C3-C4. There is also at least moderate canal stenosis at levels of C2-C3, C4-C5, and C5-C6. If there are clinical symptoms of compressive myelopathy then a dedicated cervical spine MRI can be obtained for better anatomic characterization of the cord and canal.
== END 2022-09-16 13:00 | disposition home or self-care (01) ==
LOC: HO.CT 12:59
PROVIDERS: Visit Provider Internal Medicine
DX: E04.2 Nontoxic multinodular goiter (principal)
CPT/HCPCS: 70490

== ENCOUNTER → 2023-02-15 13:54 | Outpatient (BNVA) | payer OTHER, SELFPAY | PROVIDERS: PCP Internal Medicine; Visit Provider Internal Medicine | DX: E04.2 Nontoxic multinodular goiter (principal); E55.9 Vitamin D deficiency, unspecified | CPT/HCPCS: 99212 ==

== ENCOUNTER 2023-03-10 12:22 | Outpatient (REF) | payer OTHER, SELFPAY ==
[2023-03-10 16:02] LABS: Creatinine Urine 96.82 mg/dL; Microalbum/Creatinine Ratio Ur 67.1 ug/mg cr
[2023-03-10 16:08] LABS: Estimated Average Glucose 157 mg/dL; Hemoglobin A1c % 7.1 %
[2023-03-10 18:49] LABS: Alanine Aminotransferase 19 U/L (0-40); Albumin Level 4.2 g/dL (3.5-5.0); Alkaline Phosphatase 84 U/L (39-117); Anion Gap 16 (12-20); Aspartate Amino Transferase 17 U/L (5-37); Bilirubin Total 0.8 mg/dL (0.0-1.0); Blood Urea Nitrogen 11 mg/dL (9-16); Calcium 10.3 mg/dL (8.4-10.2); Carbon Dioxide 22 mmol/L (22-29); Chloride 108 mmol/L (96-108); Cholesterol 199 mg/dL; Estimated Glomerular Filt Rate > 60; Glucose Random 143 mg/dL (60-115); HDL Cholesterol 27 mg/dL; LDL Cholesterol Calculated 121 mg/dl; Sodium 142 mmol/L (135-145); Triglycerides 256 mg/dL
[2023-03-10 19:07] LABS: Free T4 (Free Thyroxine) 0.98 ng/dL (0.71-1.85); Thyroid Stimulating Hormone 0.44 uIU/mL (0.32-4.0)
[2023-03-10 19:13] LABS: Vitamin B12 412 pg/mL (200-900)
[2023-03-12 14:29] LABS: LDL Cholesterol Direct 136 mg/dL (<100)
== END 2023-03-10 12:23 | disposition home or self-care (01) ==
LOC: HO.LAB 12:22
PROVIDERS: PCP Internal Medicine; Visit Provider Internal Medicine
DX: E04.2 Nontoxic multinodular goiter (principal); E55.9 Vitamin D deficiency, unspecified; E11.65 Type 2 diabetes mellitus with hyperglycemia; E78.5 Hyperlipidemia, unspecified; I10 Essential (primary) hypertension; Z79.4 Long term (current) use of insulin
CPT/HCPCS: 36415; 80053; 80061; 82043; 82607; 82947; 83036; 83721; 84439; 84443; 99212

== ENCOUNTER 2023-04-12 14:13 | Outpatient (AMB) | payer OTHER, SELFPAY ==
--- NOTE | 2023-04-12 14:45 | A.OFFVIS_ITS ---
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: F/U T2DM Web Page Designer Required: No Accompanied by: Self / Same As Patient Allergies No Known Allergies [No Known Allergies*] Allergy (Verified 03/29/23 14:01) HPI Comprehensive Diabetes Asmnt Most Recent Diabetes Results: Microalb/Creat Ratio 67.1 ug/mg cr 03/10/23 Cholesterol 199 mg/dL 03/10/23 HDL Cholesterol 27 mg/dL 03/10/23 Triglycerides 256 mg/dL 03/10/23 Creatinine 1.03 mg/dL (0.5-1.4) 03/10/23 Blood Urea Nitrogen 11 mg/dL (9-16) 03/10/23 Sodium 142 mmol/L (135-145) 03/10/23 Potassium 4.0 mmol/L (3.3-5.1) 03/10/23 Chloride 108 mmol/L (96-108) 03/10/23 Carbon Dioxide 22 mmol/L (22-29) 03/10/23 Calcium 10.3 mg/dL (8.4-10.2) H 03/10/23 AST 17 U/L (5-37) 03/10/23 ALT 19 U/L (0-40) 03/10/23 Total Protein 8.0 g/dL (6.5-8.0) 03/10/23 Albumin 4.2 g/dL (3.5-5.0) 03/10/23 [facility] Medical History Arthritis Diabetes type 2, controlled High cholesterol HLD (hyperlipidemia) HTN (hypertension) Hyperlipidemia LDL goal <100 Lazy eye of left side Multinodular thyroid Multinodular thyroid Smoking Type 2 diabetes mellitus with diabetic polyneuropathy Type 2 diabetes mellitus with hyperglycemia, with long-term current use of insulin Vitamin D deficiency Surgical History History of hemorrhoids History of penile implant (~03/17/20) History of renal stone (~06/01/20) History of sebaceous cyst (~05/28/20) History of surgery Family History Father No problems noted. Mother History of cardiovascular disorder Social History Household Members: None Housing: Apartment Alcohol intake: never Patient Tobacco Use Status: Current everyday Tobacco user Cigarette Packs Per Day: 1 e-Cigarette/Vaping Use: Currently Using Second Hand Smoke Exposure: No Substance Use Type: Marijuana service: No Current occupational status: retired Cognitive needs: No Hearing needs: No Vision needs: Yes Assessment & Plan Assessment & Plan (1) Type 2 diabetes mellitus with hyperglycemia, with long-term current use of insulin: Code(s): E11.65 - Type 2 diabetes mellitus with hyperglycemia; Z79.4 - [facility] (current) use of insulin Plan: Learning objectives: The patient was provided with verbal and written education on the following topics as outlined below. The patient met all learning objectives and was able to verbalize understanding and provide teach back of education topics discussed . The patient was provided with the opportunity to ask questions and all questions were answered. Patient Assessment Assess patient education level/literacy/barriers Patient questions/concerns: Patient reports that he started Ozempic 0.25 mg approximately 4 weeks ago, patient his having significant nausea and some vomiting for the past 2 weeks. Patient reports he has lost his appetite and sometimes even thinking about food makes him feel nauseous. At today's visit he seemed to be in discomfort due to GI pain. Recommended to patient he stop Ozempic, message will be sent to Dr. Barker. If pain persists also recommended patient contact PCP, if vomiting and fever developed recommended patient go to ED. What is Diabetes? Pathophysiology How the body produces and uses insulin Identify type of DM Risk factors Signs of Diabetes Brief overview of Diabetes Management Monitoring blood sugar Following a meal plan Regular exercise Maintaining a healthy weight Taking medication as needed Members of the care team (PCP, RN, MA, RD, CDE, lead software architect) Blood glucose monitoring When/how often to test Target blood sugar ranges Patient using freestyle Mayco 2 Patient's average glucose for the past 2 weeks 189 mg/dL Patient above target 53% Patient at target 47% Patient below target 0% Introduction to Nutrition Importance of healthy diet in managing DM Diet is personalized to individual preference Review patient?s regular diet/food preferences Who prepares meals/does food shopping/ Dining out?/ Barriers? How diet effects glucose Eating 3 balanced meals a day with small, healthy snacks between meals Review food groups Carbohydrates: What is a carbohydrate/Which food/food groups are considered carbohydrates Effect of carbohydrates on blood glucose Portion sizes Reading food labels Basic carb counting (if applicable per nursing assessment) Plate method Meal planning Recommendations: Follow plate method, consistent carbs and read nutritional labels. Smart Goal: Patient will keep meals from 45-to 60 carbs per meal Educational Materials: The patient was provided with the following written educational materials: Planning Healthy Meals Handout Patient Response to instructions: Comprehension of Instructions: Fair Readiness to make changes: Contemplation How confident they feel about making changes: Positive . Patient Instructions: Include regular daily activity. ADA recommends 30 minutes of exercise 5 days a week. Weight loss talk to PCP or Tool Specialist before starting new plan. Test blood sugar as directed; Fasting and 2hpp largest meal. Watch trends in results. Utilize results and to assess how food, physical activity and medications affect blood sugar results. Bring glucometer or CGM to next visit. Be knowledgeable about diabetes medication, its action, side effects, efficacy, toxicity, prescribed dosage, appropriate timing and frequency of administration, effect of missed and delayed doses and instructions for storage, travel and safety Discuss alternative to Ozempic with Dr. Barker at next provider visit on 12/23/2022 Coding Level of Care Code Est Pt Level 1 (84702) Diagnoses Type 2 diabetes mellitus with hyperglycemia, with long-term current use of insulin E11.65; Z79.4
== END 2023-04-12 14:57 | disposition home or self-care (01) ==
PROVIDERS: PCP Internal Medicine; Visit Provider Registered Nurse Diabetes Educator
DX: E11.65 Type 2 diabetes mellitus with hyperglycemia (principal); Z79.4 Long term (current) use of insulin

== ENCOUNTER → 2023-04-12 14:13 | Outpatient (BNVA) | payer OTHER, SELFPAY | PROVIDERS: PCP Internal Medicine; Visit Provider Registered Nurse Diabetes Educator | DX: E11.65 Type 2 diabetes mellitus with hyperglycemia (principal); Z79.4 Long term (current) use of insulin | CPT/HCPCS: 99211 ==

== ENCOUNTER 2023-10-03 12:59 | Outpatient (REF) | payer OTHER, SELFPAY ==
[2023-10-03 17:39] LABS: Estimated Average Glucose 174 mg/dL; Hemoglobin A1c % 7.7 % (<6.0)
[2023-10-03 17:47] LABS: Alanine Aminotransferase 38 U/L (0-40); Albumin Level 4.2 g/dL (3.5-5.0); Alkaline Phosphatase 74 U/L (39-117); Anion Gap 16 (12-20); Aspartate Amino Transferase 47 U/L (5-37); Bilirubin Total 0.5 mg/dL (0.0-1.0); Blood Urea Nitrogen 15 mg/dL (9-16); Calcium 9.9 mg/dL (8.4-10.2); Carbon Dioxide 23 mmol/L (22-29); Chloride 103 mmol/L (96-108); Estimated Glomerular Filt Rate > 60; Glucose Random 84 mg/dL (60-115); Potassium 3.7 mmol/L (3.3-5.1); Sodium 138 mmol/L (135-145); Total Protein 8.2 g/dL (6.5-8.0)
[2023-10-03 17:54] LABS: Free T4 (Free Thyroxine) 0.98 ng/dL (0.71-1.85); Thyroid Stimulating Hormone 0.83 uIU/mL (0.32-4.0)
== END 2023-10-03 13:00 | disposition home or self-care (01) ==
LOC: HO.HMGCLDS 12:59
PROVIDERS: PCP Internal Medicine; Visit Provider Internal Medicine
DX: E04.2 Nontoxic multinodular goiter (principal); E11.65 Type 2 diabetes mellitus with hyperglycemia
CPT/HCPCS: 36415; 80053; 83036; 84439; 84443

== ENCOUNTER 2023-10-12 13:46 | Outpatient (AMB) | payer OTHER, SELFPAY ==
[2023-10-12 13:47] VITALS: BP 106/64; PULSE 95; BMI 29.2
--- NOTE | 2023-10-12 13:47 | A.OFFVIS_ITS ---
Intake Vital Signs 10/12/23 13:47 Height 5 ft 8 in Weight 192 lb 3.889 oz BMI 29.2 BP 106/64 Blood Pressure Location Lt brachial Position Sitting Pulse 95 Pulse Source Pulse Oximeter Intake Visit Reasons: F/U T2DM and NTMNG-confirmed Intake Note: Patient presents today to follow up on DMT2 and NTMNG follow up visit. Last Diabetic Eye exam: 11/2022 Last Podiatry Visit: 08/2023 Random Glucose: 142 mg/dl HgA1C: 7.7% 10/03/23 Early Years Teacher Required: No Accompanied by: Self / Same As Patient Allergies No Known Allergies [No Known Allergies*] Allergy (Verified 10/12/23 13:59) Medication List - Last Reconciled 10/12/23 by Yvon Warner MD acetaminophen ER (Tylenol Arthritis Pain) 650 mg PO Q12H 30 days blood sugar diagnostic (FreeStyle Precision Junaid Strips) As directed checks 4X/day cholecalciferol (vitamin D3) 50 mcg PO DAILY 30 days diazepam mg PO docusate sodium 100 mg PO BID PRN duloxetine 30 mg PO BID empagliflozin (Jardiance) 25 mg PO QAM flash glucose sensor (FreeStyle Mayco 14 Day Sensor kit) 1 ea topical Q2W glucose 4 grams PO Humalog KwikPen Insulin (insulin lispro) 19 units (0.19 mL) subcut TID NS insulin glargine (Lantus Solostar U-100 Insulin) 32 units subcut QPM lancets (FreeStyle Lancets) As directed three time a day metformin 1,000 mg PO BID pantoprazole 40 mg PO DAILY 90 days pen needle, diabetic five times a day pneumococcal 23-sean ps vaccine (Pneumovax-23) 0.5 mL IM ONCE 30 days rosuvastatin 40 mg PO DAILY sertraline 25 mg PO DAILY HPI HPI Comments History of Present Illness Details 63 YO M with PMHx T2DM, Multinodular thy roid who is seen in F/U for T2DM and a multinodular thyroid.. The patient last saw Dr. Barker on 03/10/2023 Initially diagnosed with T2DM in 1989. Was initially started on treatment with Metformin. Current regimen Metformin 1000 mg PO BID, Jardiance 25 mg PO daily, Lantus 32 units qHS and Lispro 19 units AC. . Had tried Ozempic but had to stop because of nausea or vomiting. Lapse in insulin use at end of yr /beginning of new yr Has CGM Expedit.use. 14 days of data downloaded and interpreted from 09/29/2023 through 10/12/2023. This reveals an average glucose of 209, with GMI of 8.3%. He is at goal 40% of the time, above goal 60% of the time, and below goal 0% of the time. Reports low sugars occasionally, not often. Has symptoms of fatigue with low sugars. Treats lows with candy. Checks sugar after to ensure it is rising. Treats according to rule of 15's. Most recent A1C 7.7% 10/03/2023 Has eyes checked yearly, last eye exam 11/2022, has retinopathy. Denies neuropathy, sees podiatry. Denies nephropathy, not on MINE/ARB. No recent UAC on file. Has HLD, on rosuvastatin 40 mg PO daily. No recent LDL on file. Denies CAD. Diet: Does not follow any particular diet. Weight: Stable Has not had diabetes education. 2) Multinodular Thyroid: He had an US completed due to a thyroid nodule that was palpated during his exam by Parris Neff.? This revealed a multinodular thyroid, and he was then referred to me for FNA biopsy. I performed an FNA biopsy of his RMP 2.5 cm thyroid nodule 08/24/2022 with benign cytology. At that time he was found to have a large goiter with substernal extension.? Mayco sign was positive.? He was complaining of hoarseness of voice and some dysphagia.? He was referred to Dr. Mustafa for a surgical thyroidectomy and also CT of the neck was ordered.? Decision was made not to operate He denies any symptoms of hyper or hypothyroidism currently.? He denies a personal history of head or neck irradiation.? He denies a family history of thyroid cancer. He saw Dr. Mustafa but did not want to proceed with thyroidectomy US Thyroid: 07/08/2021 Right Thyroid Lobe: 5.1 x 2.7 x 2.9 cm, volume 21 mL. Parenchyma: The gland echotexture is heterogeneous. Thyroid vascularity is normal. Left Thyroid Lobe: 5.2 x 3.2 x 2.7 cm, volume 23 mL. Parenchyma: The gland echotexture is heterogeneous. Thyroid vascularity is normal. Isthmus: 0.1 cm in maximum AP dimension. Estimated total number of nodules greater than or equal to 1 cm: 5. There are multiple additional bilateral thyroid nodules. Orchestra Teacher nodules are described as follows: 1. Location: Right mid pole. ?? ? Size: 1.4 x 1.1 x 1.8 cm, volume 1.4 mL. ?? ? Nodule characteristics: ?? ? Composition: Solid/almost completely solid (2). ?? ? Echogenicity: Isoechoic (1). ?? ? Shape: Not taller than wide (0). ?? ? Margins: Smooth (0). ?? ? Echogenic Foci: None (0).? ACR TI-RADS total points: 3 ?? ? ACR TI-RADS category: 3 2. Location: Right lower pole. ?? ? Size: 1.4 x 1.1 x 0.9 cm, volume 0.68 mL. ?? ? Nodule characteristics: ?? ? Composition: Mixed cystic and solid (1). ?? ? Echogenicity: Hypoechoic (2). ?? ? Shape: Not taller than wide (0). ?? ? Margins: Smooth (0). ?? ? Echogenic Foci: None (0). ?? ? ACR TI-RADS total points: 3 ?? ? ACR TI-RADS category: 3 3. Location: Left upper pole. ?? ? Size: 1.0 x 0.3 x 0.8 cm, volume 0.13 mL. ?? ? Nodule characteristics: ?? ? Composition: Solid/almost completely solid (2). ?? ? Echogenicity: Hypoechoic (2). ?? ? Shape: Not taller than wide (0). ?? ? Margins: Smooth (0). ?? ? Echogenic Foci: None (0).? ACR TI-RADS total points: 4 ?? ? ACR TI-RADS category: 4 4. Location: Left mid pole. ?? ? Size: 1.8 x 1.0 x 1.5 cm, volume 1.4 mL. ?? ? Nodule characteristics: ?? ? Composition: Mixed cystic and solid (1). ?? ? Echogenicity: Hypoechoic (2). ?? ? Shape: Not taller than wide (0). ?? ? Margins: Smooth (0). ?? ? Echogenic Foci: None (0).? ACR TI-RADS total points: 3 ?? ? ACR TI-RADS category: 3 5.? Location: Left mid pole. ?? ? Size: 1.7 x 0.6 x 1.0 cm, volume 0.53 mL. ?? ? Nodule characteristics: ?? ? Composition: Solid/almost completely solid (2). ?? ? Echogenicity: Isoechoic (1). ?? ? Shape: Not taller than wide (0). ?? ? Margins: Smooth (0). ?? ? Echogenic Foci: None (0).? ACR TI-RADS total points: 3 ?? ? ACR TI-RADS category: 3 NODES: No lymphadenopathy is seen in the tissue surrounding the thyroid gland. CT Neck: 09/16/2022 FINDINGS: There is an enlarged heterogeneous thyroid gland which coincides with the findings demonstrated on the sonographic imaging from 08/24/2022. There are no pathologically enlarged cervical lymph nodes. No mediastinal or axillary adenopathy is visualized within the [id number] of this examination. Pharyngeal mucosal spaces are symmetric. Parapharyngeal and retromaxillary fat is preserved. Credit Assessment Analyst spaces are normal. The parotid and submandibular glands are normal. The tongue base and epiglottis are normal. Preepiglottic fat is preserved. Glottic and subglottic airways are widely patent. Lung apices are clear. The aortic arch apex is unremarkable. Carotid spaces are unremarkable. There is advanced multilevel degenerative spondylosis of the cervical spine. Disc osteophyte spurring in conjunction with facet degenerative change at C3-C4 causes severe canal stenosis with likely compression of the cervical spinal cord. There is also at least moderate canal stenosis at levels of C2-C3, C4-C5, and C5-C6. There is no acute osseous finding. No worrisome lytic or blastic osseous lesion. There are exuberant anterior disc osteophyte complexes at multiple levels within the cervical spine. The skull base is grossly intact. No mastoid middle ear effusion. [id number] paranasal sinus disease. Limited visualization of the intracranial anatomy reveals no abnormal finding. CT/CT soft tissue neck wo IV con IMPRESSION: There is a multinodular thyroid goiter. No pathologically enlarged cervical lymph nodes. There is advanced multilevel degenerative spondylosis of the cervical spine causing severe canal stenosis and likely compression of the cervical cord at C3-C4. There is also at least moderate canal stenosis at levels of C2-C3, C4-C5, and C5-C6. If there are clinical symptoms of compressive myelopathy then a dedicated cervical spine MRI can be obtained for better anatomic characterization of the cord and canal. [facility] Medical History Arthritis Diabetes type 2, controlled High cholesterol HLD (hyperlipidemia) HTN (hypertension) Hyperlipidemia LDL goal <100 Lazy eye of left side Multinodular thyroid Multinodular thyroid Smoking Type 2 diabetes mellitus with diabetic polyneuropathy Type 2 diabetes mellitus with hyperglycemia, with long-term current use of insulin Vitamin D deficiency Surgical History History of surgery History of renal stone (~06/01/20) History of sebaceous cyst (~05/28/20) History of penile implant (~03/17/20) History of hemorrhoids Family History Father No problems noted. Mother History of cardiovascular disorder Social History Household Members: None Housing: Apartment Alcohol intake: never Patient Tobacco Use Status: Current everyday Tobacco user Cigarette Packs Per Day: 1 e-Cigarette/Vaping Use: Currently Using Second Hand Smoke Exposure: No Substance Use Type: Marijuana service: No Current occupational status: retired Cognitive needs: No Hearing needs: No Vision needs: Yes Physical Exam Vital Signs: Last Vital Signs Pulse 95 10/12/23 13:47 BP 106/64 10/12/23 13:47 BMI result Body Mass Index 29.2 Absence of Cushingoid features. Absence of acromegalic features. Neck exam reveals nl size thyroid about 15 gms. No thyroid nodules palpable. No carotid bruits present. Lungs CTA. Heart S1 S2, Reg R/R. No M/R/ G. Skin exam reveals absence of vitiligo or acanthosis nigricans. Abdominal exam reveals Soft NT/ND with NA BS. No organomegaly present. There is a positive Mayco sign Neck Other: . Extrem Other: Visual exam of foot performed. No ulcerations or open lesions. No onchomycosis, no callouses.Pulses 2 + distally Sensation intact to monofilament exam. Vibratory sensation sensed is decreased with 128 Hz tuning fork Results Reviewed Results Reviewed: Laboratory Last Values Glucose (Clinic) 142 mg/dL (60-115) H 10/12/23 13:56 Assessment & Plan Assessment & Plan (1) Type 2 diabetes mellitus with hyperglycemia: Code(s): E11.65 - Type 2 diabetes mellitus with hyperglycemia Qualifiers: Diabetes mellitus prison insulin use: with intermodal customer service use Qualified Code(s): E11.65 - Type 2 diabetes mellitus with hyperglycemia; Z79.4 - remote computer terminal operator (current) use of insulin Plan: This is a 63-year-old male with a history of type 2 diabetes being treated with Jardiance, metformin and basal-bolus insulin with poor glycemic control and known microvascular complications namely retinopathy. The plan is to talk to the patient about potentially starting an alternative G LP 1/GI P like Mounjaro. He will be told to report any hypoglycemia for adjustment of insulin. Will have him follow up with museum educator. Went over correlation of poor glycemic control development of progression of complications. We will check anti-shu 65 antibodies to rule out type 1 diabetes (2) HLD (hyperlipidemia): Code(s): E78.5 - Hyperlipidemia, unspecified Plan: LDL is not at goal on rosuvastatin 40 mg. However, patient admits to n oncompliance . Will recheck lipid profile in 2 months' time once patient takes rosuvastatin on a regular basis (3) Multinodular thyroid: Code(s): E04.2 - Nontoxic multinodular goiter Plan: History of multinodular goiter FNA biopsy of his RMP 2.5 cm thyroid nodule 08/24/2022 with benign cytology. Appears to be clinically biochemically euthyroid Discussed possible need for thyroidectomy considering compressive symptoms and [place] sign. He is dealing with some other health issues but states in the future he will contact Dr. Mustafa to schedule a thyroidectomy (4) Type 2 diabetes mellitus with diabetic polyneuropathy: Code(s): E11.42 - Type 2 diabetes mellitus with diabetic polyneuropathy Qualifiers: Diabetes mellitus prison insulin use: with intermodal customer service use Qualified Code(s): E11.42 - Type 2 diabetes mellitus with diabetic polyneuropathy; Z79.4 - nursing home (current) use of insulin Plan: See above (5) Hyperlipidemia LDL goal <100: Code(s): E78.5 - Hyperlipidemia, unspecified Plan: See above Orders: Orders Glutamic acid decarboxylase Ab Today E11.42 - Type 2 diabetes mellitus with diabetic polyneuropathy Lipid Panel 2 Months E78.5 - Hyperlipidemia, unspecified Medications: New flash glucose scanning reader (FreeStyle Mayco 2 [place]) As directed 1 ea 0RF insulin glargine (Lantus Solostar U-100 Insulin) 32 units (0.32 mL) subcut QPM 45 mL 0RF E11.65 - Type 2 diabetes mellitus with hyperglycemia, Z79.4 - nursing home (current) use of insulin flash glucose sensor (FreeStyle Mayco 2 Sensor kit) As directed change every 14 days 2 ea 5RF Refilled pen needle, diabetic five times a day 150 ea 11RF Discontinued flash glucose sensor (FreeStyle Mayco 14 Day Sensor kit) Discontinued Reason: Doctor's Order 1 ea topical Q2W 2 ea 11RF E11.42 - Type 2 diabetes mellitus with diabetic polyneuropathy, Z79.4 - remote computer terminal operator (current) use of insulin Coding Level of Care Code Est Pt Level 4 (96131) Diagnoses Type 2 diabetes mellitus with hyperglycemia, with long-term current use of insulin E11.65; Z79.4 Diabetes mellitus prison insulin use: with prison use HLD (hyperlipidemia) E78.5 Multinodular thyroid E04.2 Type 2 diabetes mellitus with diabetic polyneuropathy, with long-term current use of insulin E11.42; Z79.4 Diabetes mellitus intermodal customer service insulin use: with intermodal customer service use Hyperlipidemia LDL goal <100 E78.5
[2023-10-12 14:01] LABS: Glucose, Whole Blood 142 mg/dL (60-115)
== END 2023-10-12 14:37 | disposition home or self-care (01) ==
PROVIDERS: PCP Internal Medicine; Visit Provider Internal Medicine Endocrinology, Diabetes & Metabolism
DX: E11.65 Type 2 diabetes mellitus with hyperglycemia (principal); Z79.4 Long term (current) use of insulin; E78.5 Hyperlipidemia, unspecified; E04.2 Nontoxic multinodular goiter; E11.42 Type 2 diabetes mellitus with diabetic polyneuropathy
CPT/HCPCS: 99214

== ENCOUNTER → 2023-10-12 13:46 | Outpatient (BNVA) | payer OTHER, SELFPAY | PROVIDERS: PCP Internal Medicine; Visit Provider Internal Medicine Endocrinology, Diabetes & Metabolism | DX: E11.65 Type 2 diabetes mellitus with hyperglycemia (principal); E11.42 Type 2 diabetes mellitus with diabetic polyneuropathy; E78.5 Hyperlipidemia, unspecified; E04.2 Nontoxic multinodular goiter; Z79.4 Long term (current) use of insulin | CPT/HCPCS: 82947; 99212 ==

== ENCOUNTER 2023-10-23 14:50 | Outpatient (AMB) | payer OTHER, SELFPAY ==
--- NOTE | 2023-10-23 15:34 | A.OFFVIS_ITS ---
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: T2DM Allopathic Doctor Required: No Accompanied by: Self / Same As Patient Allergies No Known Allergies [No Known Allergies*] Allergy (Verified 10/12/23 13:59) HPI Comprehensive Diabetes Asmnt Most Recent Diabetes Results: Microalb/Creat Ratio 67.1 ug/mg cr 03/10/23 Cholesterol 199 mg/dL 03/10/23 HDL Cholesterol 27 mg/dL 03/10/23 Triglycerides 256 mg/dL 03/10/23 Creatinine 1.14 mg/dL (0.5-1.4) 10/03/23 Blood Urea Nitrogen 15 mg/dL (9-16) 10/03/23 Sodium 138 mmol/L (135-145) 10/03/23 Potassium 3.7 mmol/L (3.3-5.1) 10/03/23 Chloride 103 mmol/L (96-108) 10/03/23 Carbon Dioxide 23 mmol/L (22-29) 10/03/23 Calcium 9.9 mg/dL (8.4-10.2) 10/03/23 AST 47 U/L (5-37) H 10/03/23 ALT 38 U/L (0-40) 10/03/23 Total Protein 8.2 g/dL (6.5-8.0) H 10/03/23 Albumin 4.2 g/dL (3.5-5.0) 10/03/23 [facility] Medical History Arthritis Diabetes type 2, controlled High cholesterol HLD (hyperlipidemia) HTN (hypertension) Hyperlipidemia LDL goal <100 Lazy eye of left side Multinodular thyroid Multinodular thyroid Smoking Type 2 diabetes mellitus with diabetic polyneuropathy Type 2 diabetes mellitus with hyperglycemia, with long-term current use of insulin Vitamin D deficiency Surgical History History of surgery History of renal stone (~06/01/20) History of sebaceous cyst (~05/28/20) History of penile implant (~03/17/20) History of hemorrhoids Family History Father No problems noted. Mother History of cardiovascular disorder Social History Household Members: None Housing: Apartment Alcohol intake: never Patient Tobacco Use Status: Current everyday Tobacco user Cigarette Packs Per Day: 1 e-Cigarette/Vaping Use: Currently Using Second Hand Smoke Exposure: No Substance Use Type: Marijuana service: No Current occupational status: retired Cognitive needs: No Hearing needs: No Vision needs: Yes Assessment & Plan Assessment & Plan (1) Type 2 diabetes mellitus with hyperglycemia, with long-term current use of insulin: Code(s): E11.65 - Type 2 diabetes mellitus with hyperglycemia; Z79.4 - skilled nursing (current) use of insulin Plan: Learning objectives: The patient was provided with verbal and written education on the following topics as outlined below. Assess patient education level/literacy/barriers Patient questions/concerns, at visit with Dr. Timmy Warner changed patient's mealtime insulin from lispro to Fiasp, reviewed with patient difference between actions. Instructed patient once he begins Fiasp he will no longer be administering lispro. Also discussed with patient the importance of scanning Mayco 2 sensor every 4-6 hours while awake, patient was currently using Mayco 14 day which did not have alerts and alarms. Patient will now upgrade to Mayco 2, instructed patient if he needs assistance setting up Mayco 2 torrey on smart phone or new Mayco 2 platform consultant to contact ict educator In addition patient will have J LUIS antibody test drawn before next visit with Dr. Warner, patient reported that he had had adverse GI side effects when taking Ozempic, discussed side effects of Moujaro with Pt. Encourage patient to discuss GLP 1 at next visit with provider The patient met all learning objectives and was able to verbalize understanding and provide teach back of education topics discussed . The patient was provided with the opportunity to ask questions and all questions were answered. Topics covered in today?s session included: Medications (If applicable) * Name of medication? * Dosing/administration instructions? * Mechanism of action? * Potential side effects? * Potential adverse reaction and appropriate treatment? * Review onset, peak, duration Assess for concerns re: insurance coverage, cost, barriers to compliance Insulin/Injectables (If applicable) * Storage/care of insulin?? * Injection sites? * Site rotation? * Onset, peak, duration * Drawing up insulin? * Injecting insulin/other injectables? * Sharps disposal Continuous blood glucose monitoring (if applicable) Hypoglycemia and Hyperglycemia * Signs and symptoms? * Causes?? * Treatment? * Preventing hypoglycemia? * When to seek medical attention * Blood glucose targets and how you feel when your blood glucose is in and out of your target ranges. * Monitoring and knowing your A1C. * What can make blood glucose go up and down and preventing high and low blood glucose. * Review of blood sugar targets in expected goal range and outside of expected goal range. * Problem solving and preventing hyper/hypoglycemia. * Sick day management of diabetes. * Using blood sugar results in decision making process in managing diabetes. ?Patient was receptive to information provided and participated in the discussion. Asked?appropriate questions and demonstrated good understanding of the topics discussed.? ? Comprehension of Instructions: Fair Readiness to make changes:? contemplation How confident they feel about making changes:fair Coding Level of Care Code Est Pt Level 1 (96530) Diagnoses Type 2 diabetes mellitus with hyperglycemia, with long-term current use of insulin E11.65; Z79.4
== END 2023-10-23 15:47 | disposition home or self-care (01) ==
PROVIDERS: PCP Internal Medicine; Visit Provider Registered Nurse Diabetes Educator
DX: E11.65 Type 2 diabetes mellitus with hyperglycemia (principal); Z79.4 Long term (current) use of insulin

== ENCOUNTER → 2023-10-23 14:50 | Outpatient (BNVA) | payer OTHER, SELFPAY | PROVIDERS: PCP Internal Medicine; Visit Provider Registered Nurse Diabetes Educator | DX: E11.65 Type 2 diabetes mellitus with hyperglycemia (principal); Z79.4 Long term (current) use of insulin | CPT/HCPCS: 99211 ==

== ENCOUNTER 2023-10-27 14:00 | Outpatient (AMB) | payer OTHER, SELFPAY ==
[2023-10-27 14:03] VITALS: BP 122/72; PULSE 104; O2SAT 95; BMI 28.9
--- NOTE | 2023-10-27 14:03 | A.OFFPC_ITS ---
Vital Signs 10/27/23 14:03 Height 5 ft 8 in Weight 190 lb BMI 28.9 BP 122/72 Blood Pressure Location Rt brachial Position Sitting Pulse 104 H Pulse Source Pulse Oximeter Pulse Oximetry (%) 95 Oxygen Delivery Method Room Air Intake Visit Reasons: Annual Pe Allergies No Known Allergies [No Known Allergies*] Allergy (Verified 10/27/23 14:03) Medication List - Last Reconciled 10/27/23 by Sandra Hodges MD acetaminophen ER (Tylenol Arthritis Pain) 650 mg PO Q12H 30 days blood sugar diagnostic ([employer]iki[employer] Precision Junaid Strips) As directed checks 4X/day cholecalciferol (vitamin D3) 50 mcg PO DAILY 30 days diazepam mg PO docusate sodium 100 mg PO BID PRN duloxetine 30 mg PO BID empagliflozin (Jardiance) 25 mg PO QAM flash glucose scanning reader ([employer]Style Mayco 2 [place]) As directed flash glucose sensor ([employer]Style Mayco 2 Sensor kit) As directed change every 14 days insulin aspart (niacinamide) 100 unit/mL (3 mL) (Fiasp FlexTouch U-100 Insulin) 19 units subcut TID insulin glargine (Lantus Solostar U-100 Insulin) 32 units (0.32 mL) subcut QPM lancets (FreeStyle Lancets) As directed three time a day metformin 1,000 mg PO BID pantoprazole 40 mg PO DAILY 90 days pen needle, diabetic five times a day rosuvastatin 40 mg PO DAILY sertraline 25 mg PO DAILY Tobacco use date assessed: 10/27/23 Fall risk assessment: No Falls in past year Last assessed Fall Risk: 10/27/23 Dental Screening Dental Screen Date: 10/27/23 Did you have a dental visit in the last 12 months?: Yes Did you have a dental problem in the last 6 months where you did not have access to dental care?: No Was dental information given to patient?: Patient has dentist HPI Annual Pe HPI Details Patient is 63-year-old gentleman with a history of diabetes mellitus currently seeing endocrinology for the management Patient have chronic pilonidal cyst or that he is seeing surgery and has been having a number of procedure He has a polyneuropathy secondary to diabetes Continued to smoke 1 pack per day patient says that he has tried to stop many time but he can not BMI is slightly elevated need to lose weight Patient also have a arthritis multiple joints Chronic GERD, stable with pantoprazole He is also seeing Neurology for anxiety Tells me that he had a colonoscopy done last year at [facility] G[facility] Only medication from this office is pantoprazole Patient also needed paperwork filled for state reimbursement due to his health , supplemental manager financial planning Which I have filled for him [facility] Medical History HTN (hypertension) HLD (hyperlipidemia) Multinodular thyroid Vitamin D deficiency Multinodular thyroid Type 2 diabetes mellitus with hyperglycemia, with long-term current use of insulin Type 2 diabetes mellitus with diabetic polyneuropathy Hyperlipidemia LDL goal <100 Smoking Lazy eye of left side Arthritis High cholesterol Diabetes type 2, controlled Surgical History History of surgery History of renal stone (~06/01/20) History of sebaceous cyst (~05/28/20) History of penile implant (~03/17/20) History of hemorrhoids Family History Father No problems noted. Mother History of cardiovascular disorder Social History Household Members: None Housing: Apartment Alcohol intake: never Patient Tobacco Use Status: Current everyday Tobacco user Cigarette Packs Per Day: 1 e-Cigarette/Vaping Use: Currently Using Second Hand Smoke Exposure: No Substance Use Type: Marijuana service: No Current occupational status: retired Cognitive needs: No Hearing needs: No Vision needs: Yes Questionnaire Thrive Questionnaire Date Thrive assessed: 08/10/22 AUDIT C Alcohol Use Questionnaire (AUDIT-C) 1. How often do you have a drink containing alcohol?: Never 3. How often do you have six or more drinks on one occasion?: Never Total Score: 0 Score Reviewed/Action Taken: Yes J LUIS-7 AMB Questionnaire J LUIS-7 Date J LUIS - 7 assessed: 08/10/22 Source: Developed by Drs. Yvon Rodgers, Yanely Koch, Magdy Cee and colleagues, with an educational jyotsna from [employer]. Review of Systems Const Denies chills and Denies fever(s) ENT Denies epistaxis and Denies nasal discharge Card Denies chest pain Resp Denies chest congestion, Denies cough and Denies hemoptysis GI Denies diarrhea and Denies nausea Skin/Breast Denies rash Neuro Reports no additional complaints Psych Reports no additional complaints Endo Reports no additional complaints Physical exam (Primary Care) Vital Signs: Last Vital Signs Pulse 104 H 10/27/23 14:03 BP 122/72 10/27/23 14:03 Pulse Ox 95 10/27/23 14:03 Oxygen Delivery Method Room Air 10/27/23 14:03 BMI result Body Mass Index 28.9 Tobacco/Smoking Status: Tobacco use Status Tobacco use date assessed 10/27/23 10/27/23 14:10 Patient Tobacco Use Status Current everyday Tobacco 10/27/23 14:10 e-Cigarette/Vaping Use Currently Using 10/27/23 14:10 Thrive Assessment: Date of Thrive Assessment Date Thrive assessed 08/10/22 10/27/23 14:10 Const General: cooperative, comfortable and no acute distress Orientation/consciousness: patient oriented x3 HENMT Head: Yes normocephalic Eyes General: appearance normal, both eyes and all related structures Neck Neck: Yes supple Resp Effort & Inspection: normal respiratory effort, no cough and no stridor Cardio Rhythm: regular rhythm Heart sounds: S1 normal heart sound present and S2 normal heart sound present Skin General skin exam: turgor normal Neuro General: patient oriented x3, tone normal and moves all extremities Extrem Right lower extremity: no edema Left lower extremity: no edema Assessment and Plan Assessment & Plan (1) Type 2 diabetes mellitus with diabetic polyneuropathy: Code(s): E11.42 - Type 2 diabetes mellitus with diabetic polyneuropathy Qualifiers: Diabetes mellitus residential insulin use: 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 Qualified Code(s): E11.42 - Type 2 diabetes mellitus with diabetic polyneuropathy; Z79.4 - termite exterminator (current) use of insulin (2) Dyspepsia: Code(s): R10.13 - Epigastric pain (3) Smoking: Code(s): F17.200 - Nicotine dependence, unspecified, uncomplicated (4) Arthrosis: Code(s): M19.90 - Unspecified osteoarthritis, unspecified site (5) HLD (hyperlipidemia): Code(s): E78.5 - Hyperlipidemia, unspecified Qualifiers: Hyperlipidemia type: unspecified Qualified Code(s): E78.5 - Hyperlipidemia, unspecified (6) Cervical stenosis of spinal canal: Code(s): M48.02 - Spinal stenosis, cervical region (7) Thrombocytopenia: Code(s): D69.6 - Thrombocytopenia, unspecified (8) Type 2 diabetes mellitus with hyperglycemia, with long-term current use of insulin: Code(s): E11.65 - Type 2 diabetes mellitus with hyperglycemia; Z79.4 - assisted (current) use of insulin (9) Perianal cyst: Code(s): K62.89 - Other specified diseases of anus and rectum (10) Nicotine dependence: Code(s): F17.200 - Nicotine dependence, unspecified, uncomplicated Qualifiers: Nicotine product type: cigarettes Substance use status: uncomplicated Qualified Code(s): F17.210 - Nicotine dependence, cigarettes, uncomplicated Plan Patient is 63-year-old gentleman with a history of diabetes mellitus currently seeing endocrinology for the management Patient have chronic pilonidal cyst or that he is seeing surgery and has been having a number of procedure He has a polyneuropathy secondary to diabetes Continued to smoke 1 pack per day patient says that he has tried to stop many time but he can not BMI is slightly elevated need to lose weight Patient also have a arthritis multiple joints Chronic GERD, stable with pantoprazole He is also seeing Neurology for anxiety Tells me that he had a colonoscopy done 2021 at [facility] G[facility] Only medication from this office is pantoprazole Patient also needed paperwork filled for state reimbursement due to his health , supplemental manager financial planning Which I have filled for him Coding Level of Care Code Est Pt Level 4 (80870) Diagnoses Type 2 diabetes mellitus with diabetic polyneuropathy, with long-term current use of insulin E11.42; Z79.4 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
== END 2023-10-27 16:21 | disposition home or self-care (01) ==
PROVIDERS: PCP Internal Medicine; Visit Provider Internal Medicine
DX: E11.42 Type 2 diabetes mellitus with diabetic polyneuropathy (principal); Z79.4 Long term (current) use of insulin; D69.6 Thrombocytopenia, unspecified; E11.65 Type 2 diabetes mellitus with hyperglycemia; R10.13 Epigastric pain; F17.200 Nicotine dependence, unspecified, uncomplicated; M19.90 Unspecified osteoarthritis, unspecified site; M48.02 Spinal stenosis, cervical region; E78.5 Hyperlipidemia, unspecified; K62.89 Other specified diseases of anus and rectum; F17.210 Nicotine dependence, cigarettes, uncomplicated
CPT/HCPCS: 99214

== ENCOUNTER 2023-12-21 14:42 | Outpatient (AMB) | payer OTHER, SELFPAY ==
--- NOTE | 2023-12-21 15:20 | MHC.AMDMED ---
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: DM-confirmed Assistant Federal Public Defender Required: No Accompanied by: Self / Same As Patient Allergies No Known Allergies [No Known Allergies*] Allergy (Verified 10/27/23 14:03) HPI Comprehensive Diabetes Asmnt Most Recent Diabetes Results: Hemoglobin A1c 9.0 % 05/07/19 Microalb/Creat Ratio 67.1 ug/mg cr 03/10/23 Cholesterol 199 mg/dL 03/10/23 HDL Cholesterol 27 mg/dL 03/10/23 Triglycerides 256 mg/dL 03/10/23 Creatinine 1.14 mg/dL (0.5-1.4) 10/03/23 Blood Urea Nitrogen 15 mg/dL (9-16) 10/03/23 Sodium 138 mmol/L (135-145) 10/03/23 Potassium 3.7 mmol/L (3.3-5.1) 10/03/23 Chloride 103 mmol/L (96-108) 10/03/23 Carbon Dioxide 23 mmol/L (22-29) 10/03/23 Calcium 9.9 mg/dL (8.4-10.2) 10/03/23 AST 47 U/L (5-37) H 10/03/23 ALT 38 U/L (0-40) 10/03/23 Total Protein 8.2 g/dL (6.5-8.0) H 10/03/23 Albumin 4.2 g/dL (3.5-5.0) 10/03/23 [facility] Medical History HTN (hypertension) HLD (hyperlipidemia) Multinodular thyroid Vitamin D deficiency Multinodular thyroid Type 2 diabetes mellitus with hyperglycemia, with long-term current use of insulin Type 2 diabetes mellitus with diabetic polyneuropathy Hyperlipidemia LDL goal <100 Smoking Lazy eye of left side Arthritis High cholesterol Diabetes type 2, controlled Surgical History History of surgery History of renal stone (~06/01/20) History of sebaceous cyst (~05/28/20) History of penile implant (~03/17/20) History of hemorrhoids Family History Father No problems noted. Mother History of cardiovascular disorder Social History Household Members: None Housing: Apartment Alcohol intake: never Patient Tobacco Use Status: Current everyday Tobacco user Cigarette Packs Per Day: 1 e-Cigarette/Vaping Use: Currently Using Second Hand Smoke Exposure: No Substance Use Type: Marijuana service: No Current occupational status: retired Cognitive needs: No Hearing needs: No Vision needs: Yes Assessment & Plan Assessment & Plan (1) Type 2 diabetes mellitus with diabetic polyneuropathy: Code(s): E11.42 - Type 2 diabetes mellitus with diabetic polyneuropathy Qualifiers: Diabetes mellitus fdc insulin use: with fdc use Qualified Code(s): E11.42 - Type 2 diabetes mellitus with diabetic polyneuropathy; Z79.4 - equipment operator intermodal yard (current) use of insulin Plan: Personal Continuous Glucose Monitor: Patients CGM information reviewed Reviewed patient's sensor data: Hypoglycemia: ? 1% Hyperglycemia:? 43% Time in Range:? 56% Average glucose for the last 2 weeks? 171 mg/dL Patient has not started the Fiasp, he is still using Mayco 14 day sensors and has not had J LUIS antibody test drawn Patient had 1 episode overnight hypoglycemia. Patient reports he took his lispro, and his Lantus and then did not eat supper. Reviewed with patient how to treat hypoglycemia with rule of 15s, patient uses schedules to treat low blood sugar At today's visit set up Mayco 2 torrey in patient's phone, encourage patient to switch to Mayco 2 sensors which contain hypoglycemia alerts Reviewed how to interpret trend arrows Reminded patient that to check finger sticks if symptoms do not match sensor reading. Discussed lag time between finger stick and sensor data.? Patient able to insert sensor independently at home without issue.? Instructed patient if he has difficulty setting, Mayco 2 sensor or any issues after starting Fiasp to contact electronic equipment repairmen Patient Instructions: Follow-up with electronic equipment repairmen in 3 months Coding Level of Care Code Est Pt Level 1 (46045) Diagnoses Type 2 diabetes mellitus with diabetic polyneuropathy, with long-term current use of insulin E11.42; Z79.4 Diabetes mellitus emt intermediate insulin use: with fdc use
== END 2023-12-21 15:23 | disposition home or self-care (01) ==
PROVIDERS: PCP Internal Medicine; Visit Provider Registered Nurse Diabetes Educator
DX: E11.42 Type 2 diabetes mellitus with diabetic polyneuropathy (principal); Z79.4 Long term (current) use of insulin

== ENCOUNTER → 2023-12-21 14:42 | Outpatient (BNVA) | payer OTHER, SELFPAY | PROVIDERS: PCP Internal Medicine; Visit Provider Registered Nurse Diabetes Educator | DX: E11.42 Type 2 diabetes mellitus with diabetic polyneuropathy (principal); Z79.4 Long term (current) use of insulin | CPT/HCPCS: 99211 ==

== ENCOUNTER 2024-01-09 10:50 | Outpatient (REF) | payer OTHER, SELFPAY ==
[2024-01-09 14:35] LABS: Cholesterol 170 mg/dL (<200); HDL Cholesterol 30 mg/dL (>40); LDL Cholesterol Calculated 95 mg/dL (<100); Triglycerides 227 mg/dL (<150)
== END 2024-01-09 10:51 | disposition home or self-care (01) ==
LOC: HO.HMGCLDS 10:50
PROVIDERS: PCP Internal Medicine; Visit Provider Internal Medicine Endocrinology, Diabetes & Metabolism
DX: E78.5 Hyperlipidemia, unspecified (principal)
CPT/HCPCS: 36415; 80061

== ENCOUNTER 2024-03-05 11:24 | Outpatient (AMB) | payer OTHER, SELFPAY ==
--- NOTE | 2024-03-05 11:31 | MHC.OFFWIV ---
Intake Vital Signs 03/05/24 11:32 Height 5 ft 8 in Weight 180 lb BMI 27.4 BP 102/62 Blood Pressure Location Lt brachial Position Sitting Pulse 100 Pulse Source Pulse Oximeter Temp 98.9 F Temp Source Oral Pulse Oximetry (%) 98 Oxygen Delivery Method Room Air Intake Visit Reasons: EP Severe case of Diarrhea/has sample Intake Note: pt here c/o severe diarrhea x 1 week. Patient Tobacco Use Status: Current everyday Tobacco user Allergies No Known Allergies [No Known Allergies*] Allergy (Verified 03/05/24 11:32) HPI HPI Comments History of Present Illness Details Patient is a 63-year-old male complaining of 1 week of severe diarrhea. He states his diarrhea is watery, foul smelling and he has associated gas and bloating. He denies any bloody or black stools, he denies mucus in his stools, he denies any travel to foreign countries recently or history of diverticulitis or diverticulosis. He denies any fevers. He said on February 08 had surgery at [facility] for his fistula and they did give him on medication he believes his metronidazole after the surgery. He has brought a sample and with him today. He states he is able to drink but has reduced p.o. intake with food [facility] Medical History HTN (hypertension) HLD (hyperlipidemia) Multinodular thyroid Vitamin D deficiency Multinodular thyroid Type 2 diabetes mellitus with hyperglycemia, with long-term current use of insulin Type 2 diabetes mellitus with diabetic polyneuropathy Hyperlipidemia LDL goal <100 Smoking Lazy eye of left side Arthritis High cholesterol Diabetes type 2, controlled Surgical History History of surgery History of renal stone (~06/01/20) History of sebaceous cyst (~05/28/20) History of penile implant (~03/17/20) History of hemorrhoids Family History Father No problems noted. Mother History of cardiovascular disorder Social History Household Members: None Housing: Apartment Alcohol intake: never Patient Tobacco Use Status: Current everyday Tobacco user Cigarette Packs Per Day: 1 e-Cigarette/Vaping Use: Currently Using Second Hand Smoke Exposure: No Substance Use Type: Marijuana service: No Current occupational status: retired Cognitive needs: No Hearing needs: No Vision needs: Yes Review of Systems Const All systems reviewed & are unremarkable except as noted in HPI and below Physical Exam Vital Signs: Last Vital Signs Temp 98.9 F 03/05/24 11:32 Pulse 100 03/05/24 11:32 BP 102/62 03/05/24 11:32 Pulse Ox 98 03/05/24 11:32 Oxygen Delivery Method Room Air 03/05/24 11:32 BMI result Body Mass Index 27.4 Const General: cooperative, healthy appearing, comfortable, no acute distress and well developed Orientation/consciousness: patient oriented x3 Limitations: no limitations HEENT Head: Yes normal to inspection Eyes General: appearance normal, both eyes and all related structures Neck Neck: Yes normal visual inspection and Yes full ROM Resp Effort & Inspection: normal respiratory effort and able to speak in complete sentences GI Inspection: Yes normal to inspection Palpation (GI): Soft to palpation and nontender Skin General skin exam: no rashes or lesions noted Neuro General: patient oriented x3 Extrem General: Yes normal to inspection Assessment & Plan Assessment & Plan (1) Watery diarrhea: Code(s): R19.7 - Diarrhea, unspecified Plan: Sent for GI panel and C diff testing with recent antibiotic use. Advised to keep up with p.o. intake and that I would call him with the results as soon as I have them. Plan See above Orders: Orders CDiff Gene PCR Today R19.7 - Diarrhea, unspecified GI Panel Today R19.7 - Diarrhea, unspecified Coding Level of Care Code Est Pt Level 4 (27373) Diagnoses Watery diarrhea R19.7
[2024-03-05 11:32] VITALS: BP 102/62; PULSE 100; TEMP 37.2; O2SAT 98; BMI 27.4
== END 2024-03-05 12:44 | disposition home or self-care (01) ==
PROVIDERS: PCP Internal Medicine; Visit Provider Physician Assistant
DX: R19.7 Diarrhea, unspecified (principal)
CPT/HCPCS: 99213

== ENCOUNTER 2024-03-05 12:10 | Outpatient (REF) | payer OTHER, SELFPAY ==
[2024-03-05 20:51] LABS: CDiff Gene PCR NEGATIVE (Negative)
[2024-03-06 11:23] LABS: Adenovirus F 40/41 Not Detected (Not Detect.); Astrovirus Not Detected (Not Detect.); Campylobacter Not Detected (Not Detect.); Cryptosporidium Not Detected (Not Detect.); Cyclospora cayetanensis Not Detected (Not Detect.); E. coli EAEC Not Detected (Not Detect.); E. coli EPEC Not Detected (Not Detect.); E. coli ETEC Not Detected (Not Detect.); E. coli STEC Not Detected (Not Detect.); Entamoeba histolytica Not Detected (Not Detect.); Giardia lamblia Not Detected (Not Detect.); Norovirus GI/GII Not Detected (Not Detect.); Plesiomonas shigelloides Not Detected (Not Detect.); Rotavirus A Not Detected (Not Detect.); Salmonella Not Detected (Not Detect.); Sapovirus Not Detected (Not Detect.); Shigella sp./EIEC Not Detected (Not Detect.); Vibrio Not Detected (Not Detect.); Vibrio Cholerae Not Detected (Not Detect.); Yersinia enterocolitica Not Detected (Not Detect.)
== END 2024-03-05 12:11 | disposition home or self-care (01) ==
LOC: HO.LAB 12:10
PROVIDERS: Visit Provider Physician Assistant
DX: R19.7 Diarrhea, unspecified (principal)
CPT/HCPCS: 87493; 87507

== ENCOUNTER 2024-03-25 13:52 | Outpatient (AMB) | payer OTHER, SELFPAY ==
--- NOTE | 2024-03-25 14:16 | MHC.AMDMED ---
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 Required: No Accompanied by: Self / Same As Patient Allergies No Known Allergies [No Known Allergies*] Allergy (Verified 03/05/24 11:32) HPI Comprehensive Diabetes Asmnt Most Recent Diabetes Results: Hemoglobin A1c 9.0 % 05/07/19 Microalb/Creat Ratio 67.1 ug/mg cr 03/10/23 Cholesterol 170 mg/dL (<200) 01/09/24 HDL Cholesterol 30 mg/dL (>40) L 01/09/24 Triglycerides 227 mg/dL (<150) H 01/09/24 Creatinine 1.14 mg/dL (0.5-1.4) 10/03/23 Blood Urea Nitrogen 15 mg/dL (9-16) 10/03/23 Sodium 138 mmol/L (135-145) 10/03/23 Potassium 3.7 mmol/L (3.3-5.1) 10/03/23 Chloride 103 mmol/L (96-108) 10/03/23 Carbon Dioxide 23 mmol/L (22-29) 10/03/23 Calcium 9.9 mg/dL (8.4-10.2) 10/03/23 AST 47 U/L (5-37) H 10/03/23 ALT 38 U/L (0-40) 10/03/23 Total Protein 8.2 g/dL (6.5-8.0) H 10/03/23 Albumin 4.2 g/dL (3.5-5.0) 10/03/23 [facility] Medical History HTN (hypertension) HLD (hyperlipidemia) Multinodular thyroid Vitamin D deficiency Multinodular thyroid Type 2 diabetes mellitus with hyperglycemia, with long-term current use of insulin Type 2 diabetes mellitus with diabetic polyneuropathy Hyperlipidemia LDL goal <100 Smoking Lazy eye of left side Arthritis High cholesterol Diabetes type 2, controlled Surgical History History of surgery History of renal stone (~06/01/20) History of sebaceous cyst (~05/28/20) History of penile implant (~03/17/20) History of hemorrhoids Family History Father No problems noted. Mother History of cardiovascular disorder Social History Household Members: None Housing: Apartment Alcohol intake: never Patient Tobacco Use Status: Current everyday Tobacco user Cigarette Packs Per Day: 1 e-Cigarette/Vaping Use: Currently Using Second Hand Smoke Exposure: No Substance Use Type: Marijuana service: No Current occupational status: retired Cognitive needs: No Hearing needs: No Vision needs: Yes Assessment & Plan Assessment & Plan (1) Type 2 diabetes mellitus with hyperglycemia, with long-term current use of insulin: Code(s): E11.65 - Type 2 diabetes mellitus with hyperglycemia; Z79.4 - predatory animal exterminator (current) use of insulin Plan: Personal Continuous Glucose Monitor: Patients CGM information reviewed Reviewed patient's sensor data: Hypoglycemia: ? 0% Hyperglycemia:?49% Time in Range:? 50% Average glucose for the last 2 weeks 190? mg/dL Patient is still using Humalog for mealtime insulin has not switched over Fiasp, due to postprandial hyperglycemia recommended patient increase Humalog to 22 units before meals. Patient is currently taking Lantus 34 units, he has 3 episodes of hypoglycemia in the last 14 days in the machine mover. Because of increased to prandial insulin and would recommend to patient to reduce Lantus to 30 units daily, if he continues to have machine mover hypoglycemia reduce Lantus further to 28 units. Reviewed how to treat hypoglycemia with rule of 15s Patient has been having chronic diarrhea, was told by MD at [facility] to discontinue Jardiance 25 mg, and metformin 1000 mg b.i.d. Patient does have upcoming appointment with Dr. Warner in 03/2024. Recommended patient discuss if it is appropriate for him to start on alternative oral diabetes medication at this time Reviewed how to interpret trend arrows Reminded patient that to check finger sticks if symptoms do not match sensor reading. Discussed lag time between finger stick and sensor data.? Patient able to insert sensor independently at home without issue.? Portions of this note were created using voice recognition software, please excuse any words or phrases that may have been misinterpreted. Coding Level of Care Code Est Pt Level 1 (75139) Diagnoses Type 2 diabetes mellitus with hyperglycemia, with long-term current use of insulin E11.65; Z79.4
== END 2024-03-25 14:19 | disposition home or self-care (01) ==
PROVIDERS: PCP Internal Medicine; Visit Provider Registered Nurse Diabetes Educator
DX: E11.65 Type 2 diabetes mellitus with hyperglycemia (principal); Z79.4 Long term (current) use of insulin

== ENCOUNTER → 2024-03-25 13:52 | Outpatient (BNVA) | payer OTHER, SELFPAY | PROVIDERS: PCP Internal Medicine; Visit Provider Registered Nurse Diabetes Educator | DX: E11.65 Type 2 diabetes mellitus with hyperglycemia (principal); Z79.4 Long term (current) use of insulin | CPT/HCPCS: 99211 ==

== ENCOUNTER 2024-03-25 14:22 | Outpatient (REF) | payer OTHER, SELFPAY ==
[2024-03-25 16:45] LABS: Free T4 (Free Thyroxine) 0.91 ng/dL (0.71-1.85); Thyroid Stimulating Hormone 0.19 uIU/mL (0.32-4.0)
[2024-03-28 17:24] LABS: Glutamic acid decarboxylase Ab <5 IU/mL (<5)
== END 2024-03-25 14:23 | disposition home or self-care (01) ==
LOC: HO.LAB 14:22
PROVIDERS: Internal Medicine; PCP Internal Medicine; Visit Provider Internal Medicine Endocrinology, Diabetes & Metabolism
DX: E11.42 Type 2 diabetes mellitus with diabetic polyneuropathy (principal); E04.2 Nontoxic multinodular goiter
CPT/HCPCS: 36415; 84439; 84443; 86341

== ENCOUNTER 2024-04-10 14:08 | Outpatient (AMB) | payer OTHER, SELFPAY ==
[2024-04-10 14:09] VITALS: BP 120/70; PULSE 96; O2SAT 97; BMI 28.1
--- NOTE | 2024-04-10 14:09 | MHC.PC.OV ---
Vital Signs 04/10/24 14:09 Height 5 ft 8 in Weight 185 lb BMI 28.1 BP 120/70 Blood Pressure Location Rt brachial Position Sitting Pulse 96 Pulse Source Pulse Oximeter Pulse Oximetry (%) 97 Oxygen Delivery Method Room Air Intake Visit Reasons: PE Shoe Worker Required: No Accompanied by: Self / Same As Patient Allergies No Known Allergies [No Known Allergies*] Allergy (Verified 04/10/24 14:10) Medication List - Last Reconciled 04/10/24 by Sandra Hodges MD acetaminophen ER (Tylenol Arthritis Pain) 650 mg PO Q12H 30 days blood sugar diagnostic (Nflight TechnologyStyle Precision Junaid Strips) DIRECTED TO CHECK BLOOD SUGAR 4X/DAY diazepam mg PO docusate sodium 100 mg PO BID PRN duloxetine 30 mg PO BID empagliflozin (Jardiance) 25 mg PO QAM flash glucose scanning reader (Nflight TechnologyStyle Mayco 2 [place]) DIRECTED flash glucose sensor (FreeStyle Mayco 2 Sensor kit) As directed change every 14 days insulin aspart (niacinamide) 100 unit/mL (3 mL) (Fiasp FlexTouch U-100 Insulin) 19 units subcut TID insulin glargine (Lantus Solostar U-100 Insulin) 32 units (0.32 mL) subcut QPM lancets (FreeStyle Lancets) As directed three time a day metformin 1,000 mg PO BID pantoprazole 40 mg PO DAILY 90 days pen needle, diabetic five times a day rosuvastatin 40 mg PO DAILY sertraline 25 mg PO DAILY Tobacco use date assessed: 10/27/23 Fall risk assessment: No Falls in past year Last assessed Fall Risk: 04/10/24 Dental Screening Dental Screen Date: 10/27/23 HPI PE HPI Details Patient is 63-year-old gentleman came in today for physical exam Only medication patient is getting from this office is pantoprazole and Tylenol for arthritis Patient has developed diarrhea for the past 2 months which is not getting better He was seen in walk-in clinic extensive stool studies were done and they came back all negative He has taken Imodium [id number] which does slow down the diarrhea He is complaining of cramping before the diarrhea I am prescribing dicyclomine to be taken 20 minutes before meals Also patient was instructed to eliminate all dairy I will be booking him appointment with the gastroenterology for further evaluation. Recently he had labs done and his TSH level came back at 0.19, patient says that he has appointment with Dr. Warner for evaluation coming up Continue to smoke 1 pack per day once again patient was advised to stop as soon as possible Patient says that the colonoscopy was in 2021 at [facility] He is also seeing Endocrinology for the management of diabetes And neurologist for anxiety, sertraline is through neurology Telemedicine visit in 2 weeks to see if dicyclomine is helping him [facility] Medical History HTN (hypertension) HLD (hyperlipidemia) Multinodular thyroid Vitamin D deficiency Multinodular thyroid Type 2 diabetes mellitus with hyperglycemia, with long-term current use of insulin Type 2 diabetes mellitus with diabetic polyneuropathy Hyperlipidemia LDL goal <100 Smoking Lazy eye of left side Arthritis High cholesterol Diabetes type 2, controlled Surgical History History of surgery History of renal stone (~06/01/20) History of sebaceous cyst (~05/28/20) History of penile implant (~03/17/20) History of hemorrhoids Family History Father No problems noted. Mother History of cardiovascular disorder Social History Household Members: None Housing: Apartment Alcohol intake: never Patient Tobacco Use Status: Current everyday Tobacco user Cigarette Packs Per Day: 1 e-Cigarette/Vaping Use: Currently Using Second Hand Smoke Exposure: No Substance Use Type: Marijuana service: No Current occupational status: retired Cognitive needs: No Hearing needs: No Vision needs: Yes Questionnaire PHQ-9 Over the last 2 weeks, how often have you been bothered by any of the following problems? 47463 - PHQ-9 Billing: Patient declined-do not bill Source: Developed by Drs. Yvon Rodgers, Yanely Koch, Magdy Cee and colleagues, with an educational jyotsna from [employer]. Thrive Questionnaire Date Thrive assessed: 04/10/24 I am a: Patient What is your living situation today?: I choose not to answer this question Within the past 12 months, did the food you bought not last and you didn't have the money to get more?: I choose not to answer this question Within the past 12 months, did you worry whether your food would run out before you got money to buy more?: I choose not to answer this question Do you have trouble paying for medicines?: I choose not to answer this question Do you have trouble getting transportation to medical appointments?: I choose not to answer this question Do you have trouble paying your heating and electricity bill?: I choose not to answer this question Do you have trouble taking care of your child, family member or friend?: I choose not to answer this question Do you have trouble with day-to-day activities such as bathing, preparing meals, shopping, managing finances, etc.?: I choose not to answer this question Are you currently unemployed and looking for a job?: I choose not to answer this question Are you interested in more education?: I choose not to answer this question Please select the resources that you would like help with: None Currently or been in a relationship where the following occur: I choose not to answer THRIVE Score: 0 AUDIT C Alcohol Use Questionnaire (AUDIT-C) 1. How often do you have a drink containing alcohol?: Never 3. How often do you have six or more drinks on one occasion?: Never Total Score: 0 Score Reviewed/Action Taken: Yes J LUIS-7 AMB Questionnaire J LUIS-7 Date J LUIS - 7 assessed: 04/10/24 Source: Developed by Drs. Yvon Rodgers, Yanely Koch, Magdy Cee and colleagues, with an educational jyotsna from [employer]. J LUIS-7 Assessment Billing J LUIS-7 Assessment Tool: pt declined-do not bill Review of Systems Const Denies chills, Denies fever(s) and Denies headache(s) Eyes Denies blurry vision ENT Denies headache(s), Denies nasal discharge, Denies nasal obstruction, Denies odynophagia and Denies sinus pain Card Denies chest pain at rest and Denies chest pain with activity Resp Denies cough and Denies hemoptysis GI Denies odynophagia, Denies vomiting and Denies hematemesis Reports as per HPI Musc Denies abnormal gait Skin/Breast Reports as per HPI Neuro Denies Neuro-related abnormal movements, Denies Abnormal speech present, Denies abnormal gait and Denies headache(s) Psych Denies mood swings and Denies paranoia Endo Reports as per HPI Jose/Lymph Reports as per HPI Aller/Immun Reports as per HPI Physical exam (Primary Care) Vital Signs: Last Vital Signs Pulse 96 04/10/24 14:09 BP 120/70 04/10/24 14:09 Pulse Ox 97 04/10/24 14:09 Oxygen Delivery Method Room Air 04/10/24 14:09 BMI result Body Mass Index 28.1 Tobacco/Smoking Status: Tobacco use Status Tobacco use date assessed 10/27/23 04/10/24 14:11 Patient Tobacco Use Status Current everyday Tobacco 04/10/24 14:11 e-Cigarette/Vaping Use Currently Using 04/10/24 14:11 Thrive Assessment: Date of Thrive Assessment Date Thrive assessed 04/10/24 04/10/24 14:11 Currently or been in a relationship where the following occur: I choose not to answer Const General: cooperative, comfortable and no acute distress Orientation/consciousness: patient oriented x3 HENMT Head: Yes normocephalic and Yes atraumatic Eyes General: appearance normal, both eyes and all related structures Pupils: Equal, round and reactive pupils present EOM: EOMs intact bilaterally Neck Neck: Yes supple and No lymphadenopathy Thyroid: Thyroid normal Lymphatic: no lymphadenopathy noted Chest Breast/axilla palpation: normal palpation of the breasts Resp Effort & Inspection: normal respiratory effort and able to speak in complete sentences Auscultation: clear to auscultation bilaterally Cardio Heart sounds: S1 normal heart sound present and S2 normal heart sound present GI Palpation (GI): Soft to palpation and nontender Auscultation: normal bowel sounds General: Yes no CVA tenderness Back/Spine/Pelvis Back: no CVA tenderness Skin General skin exam: elasticity normal and turgor normal Neuro General: patient oriented x3 and gait normal Cranial nerves: Yes Equal, round and reactive pupils present Speech: No Abnormal speech present Coordination: Romberg test negative Extrem General: Yes normal exam except as noted and No edema Assessment and Plan Assessment & Plan (1) Encounter for general adult medical examination with abnormal findings: Code(s): Z00.01 - Encounter for general adult medical examination with abnormal findings (2) Watery diarrhea: Code(s): R19.7 - Diarrhea, unspecified (3) Abdominal cramping: Code(s): R10.9 - Unspecified abdominal pain (4) Low TSH level: Code(s): R79.89 - Other specified abnormal findings of blood chemistry (5) Type 2 diabetes mellitus with diabetic polyneuropathy: Code(s): E11.42 - Type 2 diabetes mellitus with diabetic polyneuropathy Qualifiers: Diabetes mellitus skilled nursing insulin use: with longitudinal float operator use Qualified Code(s): E11.42 - Type 2 diabetes mellitus with diabetic polyneuropathy; Z79.4 - intermediate card tender (current) use of insulin (6) Dyspepsia: Code(s): R10.13 - Epigastric pain (7) Smoking: Code(s): F17.200 - Nicotine dependence, unspecified, uncomplicated (8) Arthrosis: Code(s): M19.90 - Unspecified osteoarthritis, unspecified site (9) HLD (hyperlipidemia): Code(s): E78.5 - Hyperlipidemia, unspecified Qualifiers: Hyperlipidemia type: unspecified Qualified Code(s): E78.5 - Hyperlipidemia, unspecified (10) Cervical stenosis of spinal canal: Code(s): M48.02 - Spinal stenosis, cervical region (11) Thrombocytopenia: Code(s): D69.6 - Thrombocytopenia, unspecified (12) Type 2 diabetes mellitus with hyperglycemia, with long-term current use of insulin: Code(s): E11.65 - Type 2 diabetes mellitus with hyperglycemia; Z79.4 - intermediate card tender (current) use of insulin (13) Perianal cyst: Code(s): K62.89 - Other specified diseases of anus and rectum (14) Nicotine dependence: Code(s): F17.200 - Nicotine dependence, unspecified, uncomplicated Qualifiers: Nicotine product type: cigarettes Substance use status: uncomplicated Qualified Code(s): F17.210 - Nicotine dependence, cigarettes, uncomplicated Plan Patient is 63-year-old gentleman came in today for physical exam Only medication patient is getting from this office is pantoprazole and Tylenol for arthritis Patient has developed diarrhea for the past 2 months which is not getting better He was seen in walk-in clinic extensive stool studies were done and they came back all negative He has taken Imodium [id number] which does slow down the diarrhea He is complaining of cramping before the diarrhea I am prescribing dicyclomine to be taken 20 minutes before meals Also patient was instructed to eliminate all dairy I will be booking him appointment with the gastroenterology for further evaluation. Recently he had labs done and his TSH level came back at 0.19, patient says that he has appointment with Dr. Warner for evaluation coming up Continue to smoke 1 pack per day once again patient was advised to stop as soon as possible Patient says that the colonoscopy was in 2021 at [facility] He is also seeing Endocrinology for the management of diabetes And neurologist for anxiety, sertraline is through neurology Patient has failed tandem walk today Telemedicine visit in 2 weeks to see if dicyclomine is helping him Orders: Referrals Gastroenterology Referral R19.7 - Diarrhea, unspecified Medications: New dicyclomine 20 mg PO TID 15 days 45 tabs 0RF Abdominal cramping Coding Level of Care Code Est Pt Level 4 (52226) Est Pt Prev Care >65y(65277) Diagnoses Encounter for general adult medical examination with abnormal findings Z00.01 Watery diarrhea R19.7 Abdominal cramping R10.9 Low TSH level R79.89 Type 2 diabetes mellitus with diabetic polyneuropathy, with long-term current use of insulin E11.42; Z79.4 Diabetes mellitus skilled nursing insulin use: with skilled nursing use Dyspepsia R10.13 Smoking F17.200 Arthrosis M19.90 Hyperlipidemia, unspecified hyperlipidemia type E78.5 Hyperlipidemia type: unspecified Cervical stenosis of spinal canal M48.02 Thrombocytopenia D69.6 Type 2 diabetes mellitus with hyperglycemia, with long-term current use of insulin E11.65; Z79.4 Perianal cyst K62.89 Cigarette nicotine dependence without complication F17.210 Nicotine product type: cigarettes Substance use status: uncomplicated
== END 2024-04-10 14:38 | disposition home or self-care (01) ==
PROVIDERS: PCP Internal Medicine; Visit Provider Internal Medicine
DX: Z00.01 Encounter for general adult medical examination with abnormal findings (principal); R19.7 Diarrhea, unspecified; R10.9 Unspecified abdominal pain; R79.89 Other specified abnormal findings of blood chemistry; E11.42 Type 2 diabetes mellitus with diabetic polyneuropathy; Z79.4 Long term (current) use of insulin; R10.13 Epigastric pain; F17.200 Nicotine dependence, unspecified, uncomplicated; M19.90 Unspecified osteoarthritis, unspecified site; E78.5 Hyperlipidemia, unspecified; D69.6 Thrombocytopenia, unspecified; E11.65 Type 2 diabetes mellitus with hyperglycemia; M48.02 Spinal stenosis, cervical region; K62.89 Other specified diseases of anus and rectum; F17.210 Nicotine dependence, cigarettes, uncomplicated
CPT/HCPCS: 99214; 99397

== ENCOUNTER 2024-04-12 14:25 | Outpatient (AMB) | payer OTHER, SELFPAY ==
--- NOTE | 2024-04-12 14:26 | A.OFFVIS_ITS ---
Vital Signs 04/12/24 14:35 Height 5 ft 8 in Weight 187 lb 6.287 oz BMI 28.5 BP 122/80 Blood Pressure Location Rt brachial Position Sitting Pulse 86 Pulse Source Pulse Oximeter Intake Visit Reasons: DM/CONFIRMED Intake Note: New patient presents today to establish treatment for DMT2 Last diabetic eye exam was on- DUE Last Podiatry visit was on- Pt does not see a Materials Handling Coordinator Random Glucose- 102 mg/dL, Today Most resent HgA1C- 7.6%, 04/12/2024 Cell Assembly Pinner Required: No Accompanied by: Self / Same As Patient Allergies No Known Allergies [No Known Allergies*] Allergy (Verified 04/12/24 14:35) Medication List - Last Reconciled 04/12/24 by Meghan Harp PA-C acetaminophen ER (Tylenol Arthritis Pain) 650 mg PO Q12H 30 days blood sugar diagnostic (FreeStyle Precision Junaid Strips) DIRECTED TO CHECK BLOOD SUGAR 4X/DAY diazepam mg PO dicyclomine 20 mg PO TID 15 days docusate sodium 100 mg PO BID PRN duloxetine 30 mg PO BID empagliflozin (Jardiance) 25 mg PO QAM flash glucose scanning reader (FreeStyle Mayco 2 [place]) DIRECTED flash glucose sensor (FreeStyle Mayco 2 Sensor kit) As directed change every 14 days insulin glargine (Lantus Solostar U-100 Insulin) 32 units (0.32 mL) subcut QPM insulin lispro (Humalog KwikPen (U-100) Insulin) 19 units subcut lancets (FreeStyle Lancets) As directed three time a day metformin 1,000 mg PO BID pantoprazole 40 mg PO DAILY 90 days pen needle, diabetic five times a day rosuvastatin 40 mg PO DAILY sertraline 25 mg PO DAILY HPI HPI DM/CONFIRMED: Details: 63 YO M with PMHx T2DM, Multinodular thyroid who is seen in F/U for T2DM. The patient last saw Dr. Warner on 10/12/23. Initially diagnosed with T2DM in 1989. Was initially started on treatment with Metformin. Current regimen Metformin 1000 mg PO BID, Jardiance 25 mg PO daily, Lantus 32 units qHS and Lispro 15-19 units AC. . Had tried Ozempic but had to stop because of nausea or vomiting. Has CGM Freestyle Mayco. 14 days of data downloaded and interpreted-This reveals an average glucose of 142, with GMI of 6.7%. He is very high 2%, high 21%, target 73%, low 4% -He has the freestyle2 right now and states that he did vegetable picker the three and will use it next time. -Most of the low blood sugars are occurring in the evening from 15:00 to 21:00. Has symptoms of fatigue with low sugars. Treats lows with candy. Checks sugar after to ensure it is rising. Treats according to rule of 15's. He states that his sugars are running low in the evening because he has not wanted to eat as much because he has had diarrhea for the last 2 months. He states that it every day. He states he has had stool studies, imaging and has tried different medications most recently trying Bentyl. He has an upcoming appointment with GI. No weight loss or abdominal pain. No travel. He has never had issues before the metformin causing diarrhea. No known family history of IBD. Last TSH did come back low. He states because of the reduced portion sizes over the last week he has actually cut down on has looks well. He is now taking between 15-19 units depending on what he is eating. Since making this adjustment he has not had any lows. Most recent A1C 7.6. Has eyes checked yearly, has retinopathy. Denies neuropathy, sees podiatry. Denies nephropathy, not on MINE/ARB. Has HLD, on rosuvastatin 40 mg PO daily. LDL 95 Denies CAD. Diet: Does not follow any particular diet. Thyroid: rechecking tsh next month. He has a follow up arranged with Dr. Warner in April. [facility] Medical History HTN (hypertension) HLD (hyperlipidemia) Multinodular thyroid Vitamin D deficiency Multinodular thyroid Type 2 diabetes mellitus with hyperglycemia, with long-term current use of insulin Type 2 diabetes mellitus with diabetic polyneuropathy Hyperlipidemia LDL goal <100 Smoking Lazy eye of left side Arthritis High cholesterol Diabetes type 2, controlled Surgical History History of surgery History of renal stone (~06/01/20) History of sebaceous cyst (~05/28/20) History of penile implant (~03/17/20) History of hemorrhoids Family History Father No problems noted. Mother History of cardiovascular disorder Social History Household Members: None Housing: Apartment Alcohol intake: never Patient Tobacco Use Status: Current everyday Tobacco user Cigarette Packs Per Day: 1 e-Cigarette/Vaping Use: Currently Using Second Hand Smoke Exposure: No Substance Use Type: Marijuana service: No Current occupational status: retired Cognitive needs: No Hearing needs: No Vision needs: Yes Physical Exam Vital Signs: Last Vital Signs Pulse 86 04/12/24 14:35 BP 122/80 04/12/24 14:35 BMI result Body Mass Index 28.5 Const Orientation/consciousness: patient oriented x3 Neck Neck: Yes no lymphadenopathy Carotids: no bruits Resp Auscultation: clear to auscultation bilaterally Cardio Rate: regular rate Rhythm: regular rhythm Heart sounds: S1 normal heart sound present and S2 normal heart sound present Peripheral pulses: dorsalis pedis present Neuro General: patient oriented x3, gait normal and no focal motor deficits Extrem Other: Skin intact. General: Yes normal to inspection Results AMB Hemoglobin A1c AMB Hemoglobin A1c 7.6 % Last Edit by SOPHIE Ayon on 04/12/24 14:51 Results Reviewed Results Reviewed: Laboratory Last Values Glucose (Clinic) 102 mg/dL (60-115) 04/12/24 14:41 Laboratory Tests 10/03/23 10/12/23 01/09/24 13:25 13:56 10:55 Glucose (Clinic) 142 H Random Glucose 84 Estimat Average Glucose 174 Hemoglobin A1c % 7.7 H Calcium 9.9 Total Bilirubin 0.5 AST 47 H ALT 38 Alkaline Phosphatase 74 Triglycerides 227 H Cholesterol 170 HDL Cholesterol 30 L Assessment & Plan Assessment & Plan (1) Type 2 diabetes mellitus with hyperglycemia, with long-term current use of insulin: Code(s): E11.65 - Type 2 diabetes mellitus with hyperglycemia; Z79.4 - police captain (current) use of insulin Category: Medical Plan: He is going to continue current regimen. He is being worked up for this diarrhea. He is reduce his mealtime insulin depending on what he is eating. No longer getting hypoglycemic events. He is going to consider switching to the freestyle Mayco 3. He has this at home. Follow-up in 3 months. Labs prior to appointment. (2) HTN (hypertension): Code(s): I10 - Essential (primary) hypertension Category: Medical Qualifiers: Hypertension type: primary hypertension Qualified Code(s): I10 - Essential (primary) hypertension Plan: BP WNL. Continue current regimen (3) Low TSH level: Code(s): R79.89 - Other specified abnormal findings of blood chemistry Category: Medical Plan: Has follow-up arranged. Orders: Orders AMB Hemoglobin A1c Today E11.9 - Type 2 diabetes mellitus without complications Microalbumin, Random (w Creat) 3 Months E11.65 - Type 2 diabetes mellitus with hyperglycemia, I10 - Essential (primary) hypertension, Z79.4 - police captain (current) use of insulin Hemoglobin A1c 3 Months E11.65 - Type 2 diabetes mellitus with hyperglycemia, I10 - Essential (primary) hypertension, Z79.4 - [facility] (current) use of insulin Lipid Panel 3 Months E11.65 - Type 2 diabetes mellitus with hyperglycemia, I10 - Essential (primary) hypertension, Z79.4 - police captain (current) use of insulin Medications: New glucose (Dex4 Glucose) until symptoms of low blood sugar are controlled 16 grams (4 x 4 gram) PO Q15M PRN 100 tabs 0RF hypoglycemia cholecalciferol (vitamin D3) 50 mcg PO DAILY 90 caps 3RF Coding Level of Care Code Est Pt Level 4 (67987) Complex EM visit Add On G2211 Diagnoses Type 2 diabetes mellitus with hyperglycemia, with long-term current use of insulin E11.65; Z79.4 Primary hypertension I10 Hypertension type: primary hypertension Low TSH level R79.89
[2024-04-12 14:35] VITALS: BP 122/80; PULSE 86; BMI 28.5
[2024-04-12 14:45] LABS: Glucose, Whole Blood 102 mg/dL (60-115)
== END 2024-04-12 14:59 | disposition home or self-care (01) ==
PROVIDERS: PCP Internal Medicine; Visit Provider Physician Assistant
DX: E11.65 Type 2 diabetes mellitus with hyperglycemia (principal); Z79.4 Long term (current) use of insulin; I10 Essential (primary) hypertension; R79.89 Other specified abnormal findings of blood chemistry; E11.9 Type 2 diabetes mellitus without complications
CPT/HCPCS: 99214; G2211

== ENCOUNTER → 2024-04-12 14:25 | Outpatient (BNVA) | payer OTHER, SELFPAY | PROVIDERS: PCP Internal Medicine; Visit Provider Nurse Practitioner Adult Health | DX: E11.65 Type 2 diabetes mellitus with hyperglycemia (principal); I10 Essential (primary) hypertension; R79.89 Other specified abnormal findings of blood chemistry; Z79.4 Long term (current) use of insulin | CPT/HCPCS: 82947; 83036; 99212 ==

== ENCOUNTER 2024-04-25 08:15 | Outpatient (AMB) | payer OTHER, SELFPAY ==
--- NOTE | 2024-04-25 08:33 | MHC.PC.OV ---
Intake Visit Reasons: 2 week follow up Allergies No Known Allergies [No Known Allergies*] Allergy (Verified 04/25/24 08:33) Medication List - Last Reconciled 04/25/24 by Sandra Hodges MD acetaminophen ER (Tylenol Arthritis Pain) 650 mg PO Q12H 30 days blood sugar diagnostic (FreeStyle Precision Junaid Strips) DIRECTED TO CHECK BLOOD SUGAR 4X/DAY cholecalciferol (vitamin D3) 50 mcg PO DAILY diazepam mg PO dicyclomine 20 mg PO TID 15 days docusate sodium 100 mg PO BID PRN duloxetine 30 mg PO BID empagliflozin (Jardiance) 25 mg PO QAM flash glucose scanning reader (The [employer] 2 [place]) DIRECTED flash glucose sensor (The [employer] May[employer] 2 Sensor kit) As directed change every 14 days glucose (Dex4 Glucose) 16 grams (4 x 4 gram) PO Q15M PRN insulin glargine (Lantus Solostar U-100 Insulin) 32 units (0.32 mL) subcut QPM insulin lispro (Humalog KwikPen (U-100) Insulin) 19 units subcut lancets (FreeStyle Lancets) As directed three time a day metformin 1,000 mg PO BID pantoprazole 40 mg PO DAILY 90 days pen needle, diabetic five times a day rosuvastatin 40 mg PO DAILY sertraline 25 mg PO DAILY Tobacco use date assessed: 04/25/24 Fall risk assessment: No Falls in past year Last assessed Fall Risk: 04/25/24 Dental Screening Dental Screen Date: 04/25/24 Did you have a dental visit in the last 12 months?: Yes Did you have a dental problem in the last 6 months where you did not have access to dental care?: No Was dental information given to patient?: Patient has dentist HPI 2 week follow up HPI Details I started him on dicyclomine 20 mg when he verbalize to having diarrhea for few weeks his gastro apt is not until few weeks he is feeling better taking dicyclomine tid he may increase the dose to qid especially 20 min before meals PFSH Medical History HTN (hypertension) HLD (hyperlipidemia) Multinodular thyroid Vitamin D deficiency Multinodular thyroid Type 2 diabetes mellitus with hyperglycemia, with long-term current use of insulin Type 2 diabetes mellitus with diabetic polyneuropathy Hyperlipidemia LDL goal <100 Smoking Lazy eye of left side Arthritis High cholesterol Diabetes type 2, controlled Surgical History History of surgery History of renal stone (~06/01/20) History of sebaceous cyst (~05/28/20) History of penile implant (~03/17/20) History of hemorrhoids Family History Father No problems noted. Mother History of cardiovascular disorder Social History Household Members: None Housing: Apartment Alcohol intake: never Patient Tobacco Use Status: Current everyday Tobacco user Cigarette Packs Per Day: 1 e-Cigarette/Vaping Use: Currently Using Second Hand Smoke Exposure: No Substance Use Type: Marijuana service: No Current occupational status: retired Cognitive needs: No Hearing needs: No Vision needs: Yes Questionnaire Thrive Questionnaire Date Thrive assessed: 04/10/24 AUDIT C Alcohol Use Questionnaire (AUDIT-C) 1. How often do you have a drink containing alcohol?: Never 3. How often do you have six or more drinks on one occasion?: Never Total Score: 0 Score Reviewed/Action Taken: Yes J LUIS-7 AMB Questionnaire J LUIS-7 Date J LUIS - 7 assessed: 04/10/24 Source: Developed by Drs. Yvon Rodgers, Yanely Koch, Magdy Cee and colleagues, with an educational jyotsna from [employer] ([employer]). Review of Systems Const Denies chills and Denies fever(s) ENT Denies epistaxis and Denies nasal discharge Card Denies chest pain Resp Denies chest congestion, Denies cough and Denies hemoptysis GI Denies nausea Skin/Breast Denies rash Neuro Reports no additional complaints Psych Reports no additional complaints Endo Reports no additional complaints Physical exam (Primary Care) Tobacco/Smoking Status: Tobacco use Status Tobacco use date assessed 04/25/24 04/25/24 08:34 Patient Tobacco Use Status Current everyday Tobacco 04/25/24 08:34 e-Cigarette/Vaping Use Currently Using 04/25/24 08:34 Thrive Assessment: Date of Thrive Assessment Date Thrive assessed 04/10/24 04/25/24 08:34 Telehealth Telehealth Telehealth Platform: [employer] Location of provider rendering services: practice address Location of patient: address on file Patient Identification confirmed using: Name, : Yes Telehealth method: voice only Patient verbally consented to treatment: Yes Patient verbally consented to billing insurance company: Yes Patient informed of any privacy concerns related to visit: Yes Minutes spent on Phone/Video with Pt.: 12 Assessment and Plan Assessment & Plan (1) Watery diarrhea: Code(s): R19.7 - Diarrhea, unspecified Plan I started him on dicyclomine 20 mg when he verbalize to having diarrhea for few weeks his gastro apt is not until few weeks he is feeling better taking dicyclomine tid he may increase the dose to qid especially 20 min before meals Medications: Changed From dicyclomine 20 mg PO TID 15 days 45 tabs 0RF Abdominal cramping To dicyclomine 20 mg PO QID 120 tabs 1RF Abdominal cramping 30 days Coding Level of Care Code Tele Est Pt Level 3 (43771) Diagnoses Watery diarrhea R19.7
== END 2024-04-25 11:17 | disposition home or self-care (01) ==
LOC: HO.HMGC 08:15
PROVIDERS: PCP Internal Medicine; Visit Provider Internal Medicine
DX: R19.7 Diarrhea, unspecified (principal)
CPT/HCPCS: 99441

== ENCOUNTER → 2024-05-02 10:21 | Outpatient (REF) | payer OTHER, SELFPAY ==
--- NOTE | ~2024-05-02 | NM_ITS ---
EXAMINATION: THYROID UPTAKE AND SCAN CLINICAL INFORMATION: Nontoxic multinodular goiter. COMPARISON: CT of the soft tissue neck done on 09/16/2022. TECHNIQUE: Following the oral administration of 273 microcuries of I-123 sodium iodide, thyroid uptake was performed and expressed as a percentage of the administrated dose. Gamma scintillation camera images of the thyroid in the anterior and right and left anterior oblique views were obtained using a pinhole collimator following the administration of 10 mCi Tc-99m pertechnetate. FINDINGS: The uptake is 3.45% at 4 hours and 11.60% at 24 hours (Normal radioiodine uptake at 4 to 6 hours is about 5-15% and at 24 hours is 10% to 30%). The radioiodine uptake is normal. The radiopertechnetate thyroid scintigram shows minimal tracer avidity within the entire thyroid gland, most consistent with diffuse thyroiditis. Subtle focal asymmetric increased tracer avidity however is noted along the mid medial aspect of the left and mid to inferior aspect of the right lobe of the gland. The findings appear concordant between iodine as well as technetium pertechnetate images. NM/NM thyroid w uptake IMPRESSION: 1. Normal radioiodine uptake. 2. Minimal tracer avidity involving the thyroid gland on both iodine as well as technetium pertechnetate, consistent with nonspecific diffuse thyroiditis. 3. Superimposed mild focal asymmetric warm nodule at inferior medial part of the right and mid medial part of the left lobe of the gland.
== END ==
LOC: HO.NUCMED 10:21
PROVIDERS: PCP Internal Medicine; Visit Provider Internal Medicine Endocrinology, Diabetes & Metabolism
DX: E04.2 Nontoxic multinodular goiter (principal)
CPT/HCPCS: 78014; A9512; A9516

== ENCOUNTER 2024-05-06 13:27 | Outpatient (AMB) | payer OTHER, SELFPAY ==
[2024-05-06 13:28] VITALS: BP 102/56; PULSE 64; BMI 28.6
--- NOTE | 2024-05-06 13:28 | MHC.OFFVIS ---
Vital Signs 05/06/24 13:28 Height 5 ft 8 in Weight 188 lb 0.869 oz BMI 28.6 BP 102/56 L Blood Pressure Location Lt brachial Position Sitting Pulse 64 Pulse Source Pulse Oximeter Intake Visit Reasons: f/u after US-confirmed Intake Note: Patient present today for ultrasound follow up. Education Program Manager Required: No Accompanied by: Self / Same As Patient Allergies No Known Allergies [No Known Allergies*] Allergy (Verified 05/06/24 13:32) HPI Comments Details: 63 YO M with PMHx T2DM, Multinodular thyroid who is seen in F/U for T2DM and a multinodular thyroid.. Initially diagnosed with T2DM in 1989. Was initially started on treatment with Metformin. Current regimen Metformin 1000 mg PO BID, Jardiance 25 mg PO daily, Lantus 32 units qHS and Lispro 19 units AC. . Had tried Ozempic but had to stop because of nausea or vomiting. Lapse in insulin use at end of yr /beginning of new yr Has CGM [employer]. 14 days of data downloaded and interpreted from 09/29/2023 through 10/12/2023. This reveals an average glucose of 209, with GMI of 8.3%. He is at goal 40% of the time, above goal 60% of the time, and below goal 0% of the time. Reports low sugars occasionally, not often. Has symptoms of fatigue with low sugars. Treats lows with candy. Checks sugar after to ensure it is rising. Treats according to rule of 15's. Most recent A1C 7.7% 10/03/2023 Has eyes checked yearly, last eye exam 11/2022, has retinopathy. Denies neuropathy, sees podiatry. Denies nephropathy, not on MINE/ARB. No recent UAC on file. Has HLD, on rosuvastatin 40 mg PO daily. No recent LDL on file. Denies CAD. Diet: Does not follow any particular diet. Weight: Stable Has not had diabetes education. 2) Multinodular Thyroid: He had an US completed due to a thyroid nodule that was palpated during his exam by Parris Neff.? This revealed a multinodular thyroid, and he was then referred to me for FNA biopsy. I performed an FNA biopsy of his RMP 2.5 cm thyroid nodule 08/24/2022 with benign cytology. At that time he was found to have a large goiter with substernal extension.? [place] sign was positive.? He was complaining of hoarseness of voice and some dysphagia.? He was referred to Dr. Mustafa for a surgical thyroidectomy and also CT of the neck was ordered.? Decision was made not to operate He denies any symptoms of hyper or hypothyroidism currently.? He denies a personal history of head or neck irradiation.? He denies a family history of thyroid cancer. He saw Dr. Mustafa but did not want to proceed with thyroidectomy US Thyroid: 07/08/2021 Right Thyroid Lobe: 5.1 x 2.7 x 2.9 cm, volume 21 mL. Parenchyma: The gland echotexture is heterogeneous. Thyroid vascularity is normal. Left Thyroid Lobe: 5.2 x 3.2 x 2.7 cm, volume 23 mL. Parenchyma: The gland echotexture is heterogeneous. Thyroid vascularity is normal. Isthmus: 0.1 cm in maximum AP dimension. Estimated total number of nodules greater than or equal to 1 cm: 5. There are multiple additional bilateral thyroid nodules. [place] nodules are described as follows: 1. Location: Right mid pole. ?? ? Size: 1.4 x 1.1 x 1.8 cm, volume 1.4 mL. ?? ? Nodule characteristics: ?? ? Composition: Solid/almost completely solid (2). ?? ? Echogenicity: Isoechoic (1). ?? ? Shape: Not taller than wide (0). ?? ? Margins: Smooth (0). ?? ? Echogenic Foci: None (0).? ACR TI-RADS total points: 3 ?? ? ACR TI-RADS category: 3 2. Location: Right lower pole. ?? ? Size: 1.4 x 1.1 x 0.9 cm, volume 0.68 mL. ?? ? Nodule characteristics: ?? ? Composition: Mixed cystic and solid (1). ?? ? Echogenicity: Hypoechoic (2). ?? ? Shape: Not taller than wide (0). ?? ? Margins: Smooth (0). ?? ? Echogenic Foci: None (0). ?? ? ACR TI-RADS total points: 3 ?? ? ACR TI-RADS category: 3 3. Location: Left upper pole. ?? ? Size: 1.0 x 0.3 x 0.8 cm, volume 0.13 mL. ?? ? Nodule characteristics: ?? ? Composition: Solid/almost completely solid (2). ?? ? Echogenicity: Hypoechoic (2). ?? ? Shape: Not taller than wide (0). ?? ? Margins: Smooth (0). ?? ? Echogenic Foci: None (0).? ACR TI-RADS total points: 4 ?? ? ACR TI-RADS category: 4 4. Location: Left mid pole. ?? ? Size: 1.8 x 1.0 x 1.5 cm, volume 1.4 mL. ?? ? Nodule characteristics: ?? ? Composition: Mixed cystic and solid (1). ?? ? Echogenicity: Hypoechoic (2). ?? ? Shape: Not taller than wide (0). ?? ? Margins: Smooth (0). ?? ? Echogenic Foci: None (0).? ACR TI-RADS total points: 3 ?? ? ACR TI-RADS category: 3 5.? Location: Left mid pole. ?? ? Size: 1.7 x 0.6 x 1.0 cm, volume 0.53 mL. ?? ? Nodule characteristics: ?? ? Composition: Solid/almost completely solid (2). ?? ? Echogenicity: Isoechoic (1). ?? ? Shape: Not taller than wide (0). ?? ? Margins: Smooth (0). ?? ? Echogenic Foci: None (0).? ACR TI-RADS total points: 3 ?? ? ACR TI-RADS category: 3 NODES: No lymphadenopathy is seen in the tissue surrounding the thyroid gland. CT Neck: 09/16/2022 FINDINGS: There is an enlarged heterogeneous thyroid gland which coincides with the findings demonstrated on the sonographic imaging from 08/24/2022. There are no pathologically enlarged cervical lymph nodes. No mediastinal or axillary adenopathy is visualized within the [id number] of this examination. Pharyngeal mucosal spaces are symmetric. Parapharyngeal and retromaxillary fat is preserved. Back Tender Cylinder spaces are normal. The parotid and submandibular glands are normal. The tongue base and epiglottis are normal. Preepiglottic fat is preserved. Glottic and subglottic airways are widely patent. Lung apices are clear. The aortic arch apex is unremarkable. Carotid spaces are unremarkable. There is advanced multilevel degenerative spondylosis of the cervical spine. Disc osteophyte spurring in conjunction with facet degenerative change at C3-C4 causes severe canal stenosis with likely compression of the cervical spinal cord. There is also at least moderate canal stenosis at levels of C2-C3, C4-C5, and C5-C6. There is no acute osseous finding. No worrisome lytic or blastic osseous lesion. There are exuberant anterior disc osteophyte complexes at multiple levels within the cervical spine. The skull base is grossly intact. No mastoid middle ear effusion. Bsre-sc-[id number] paranasal sinus disease. Limited visualization of the intracranial anatomy reveals no abnormal finding. CT/CT soft tissue neck wo IV con IMPRESSION: There is a multinodular thyroid goiter. No pathologically enlarged cervical lymph nodes. There is advanced multilevel degenerative spondylosis of the cervical spine causing severe canal stenosis and likely compression of the cervical cord at C3-C4. There is also at least moderate canal stenosis at levels of C2-C3, C4-C5, and C5-C6. If there are clinical symptoms of compressive myelopathy then a dedicated cervical spine MRI can be obtained for better anatomic characterization of the cord and canal. Thyroid uptake and scan was performed with pertechonate unfortunately but showed [address] [place] [address] Nuclear Medicine Report Signed Patient: Gerson Mazariegos MR#: [id number] : 1960 Acct:[id number] Age/Sex: 63 / M ADM Date: 05/02/24 Loc: [facility] Attending Dr: Yvon Warner MD Ordering Physician: Yvon Warner MD Date of Service: 05/02/24 Procedure(s): NM thyroid w uptake Accession Number(s): [id number] cc: Yvon Warner MD; Sandra Hodges MD~ EXAMINATION: THYROID UPTAKE AND SCAN CLINICAL INFORMATION: Nontoxic multinodular goiter. COMPARISON: CT of the soft tissue neck done on 09/16/2022. TECHNIQUE: Following the oral administration of 273 microcuries of I-123 sodium iodide, thyroid uptake was performed and expressed as a percentage of the administrated dose. Gamma scintillation camera images of the thyroid in the anterior and right and left anterior oblique views were obtained using a pinhole collimator following the administration of 10 mCi Tc-99m pertechnetate. FINDINGS: The uptake is 3.45% at 4 hours and 11.60% at 24 hours (Normal radioiodine uptake at 4 to 6 hours is about 5-15% and at 24 hours is 10% to 30%). The radioiodine uptake is normal. The radiopertechnetate thyroid scintigram shows minimal tracer avidity within the entire thyroid gland, most consistent with diffuse thyroiditis. Subtle focal asymmetric increased tracer avidity however is noted along the mid medial aspect of the left and mid to inferior aspect of the right lobe of the gland. The findings appear concordant between iodine as well as technetium pertechnetate images. NM/NM thyroid w uptake IMPRESSION: 1. Normal radioiodine uptake. 2. Minimal tracer avidity involving the thyroid gland on both iodine as well as technetium pertechnetate, consistent with nonspecific diffuse thyroiditis. 3. Superimposed mild focal asymmetric warm nodule at inferior medial part of the right and mid medial part of the left lobe of the gland. [facility] Medical History HTN (hypertension) HLD (hyperlipidemia) Multinodular thyroid Vitamin D deficiency Multinodular thyroid Type 2 diabetes mellitus with hyperglycemia, with long-term current use of insulin Type 2 diabetes mellitus with diabetic polyneuropathy Hyperlipidemia LDL goal <100 Smoking Lazy eye of left side Arthritis High cholesterol Diabetes type 2, controlled Surgical History History of surgery History of renal stone (~06/01/20) History of sebaceous cyst (~05/28/20) History of penile implant (~03/17/20) History of hemorrhoids Family History Father No problems noted. Mother History of cardiovascular disorder Social History Household Members: None Housing: Apartment Alcohol intake: never Patient Tobacco Use Status: Current everyday Tobacco user Cigarette Packs Per Day: 1 e-Cigarette/Vaping Use: Currently Using Second Hand Smoke Exposure: No Substance Use Type: Marijuana service: No Current occupational status: retired Cognitive needs: No Hearing needs: No Vision needs: Yes Physical Exam Const Other: Thyroid gland is normal size weighs about 15 g . There are no discrete nodules palpated. There is a negative [place] sign Assessment & Plan Assessment & Plan (1) Multinodular thyroid: Code(s): E04.2 - Nontoxic multinodular goiter Category: Medical Plan: History of multinodular goiter FNA biopsy of his RMP 2.5 cm thyroid nodule 08/24/2022 with benign cytology. Appears to be clinically euthyroid but last TSH was slightly suppressed. Thyroid scan done with pertechnate showed the nodule that was previously biopsied to be cold Plan is to repeat TSH, free T4, free T3. With a mild degree of TSH suppression, do not feel a a anti-thyroid medications warranted at the present time. However will refer to Dr. Liban roper medical case manager starting this practice with expertise in thyroid ultrasound to correlate the previous ultrasound with the scan. At this point, patient does not want to consider surgery it does not appear he has compressive symptoms on today's exam. If TSH becomes suppressed to <0.1, may consider use of anti-thyroid medication at that point Orders: Orders Triiodothyronine T3 Free Today E04.2 - Nontoxic multinodular goiter Free T4 (Free Thyroxine) Today E04.2 - Nontoxic multinodular goiter Thyroid Stimulating Hormone Today E04.2 - Nontoxic multinodular goiter Coding Level of Care Code Est Pt Level 3 (92614) Diagnoses Multinodular thyroid E04.2
== END 2024-05-06 13:41 | disposition home or self-care (01) ==
PROVIDERS: PCP Internal Medicine; Visit Provider Internal Medicine Endocrinology, Diabetes & Metabolism
DX: E04.2 Nontoxic multinodular goiter (principal)
CPT/HCPCS: 99213

== ENCOUNTER → 2024-05-06 13:27 | Outpatient (BNVA) | payer OTHER, SELFPAY | PROVIDERS: PCP Internal Medicine; Visit Provider Internal Medicine Endocrinology, Diabetes & Metabolism | DX: E04.2 Nontoxic multinodular goiter (principal); E11.9 Type 2 diabetes mellitus without complications; Z79.84 Long term (current) use of oral hypoglycemic drugs; Z79.4 Long term (current) use of insulin | CPT/HCPCS: 99212 ==

== ENCOUNTER 2024-05-28 14:00 | Outpatient (AMB) | payer OTHER, SELFPAY ==
--- NOTE | 2024-05-28 14:20 | A.OFFVIS_ITS ---
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: 30 min Hopper Operator Required: No Accompanied by: Self / Same As Patient Allergies No Known Allergies [No Known Allergies*] Allergy (Verified 05/06/24 13:32) HPI Comprehensive Diabetes Asmnt Most Recent Diabetes Results: Hemoglobin A1c 9.0 % 05/07/19 Microalb/Creat Ratio 67.1 ug/mg cr 03/10/23 Cholesterol 170 mg/dL (<200) 01/09/24 HDL Cholesterol 30 mg/dL (>40) L 01/09/24 Triglycerides 227 mg/dL (<150) H 01/09/24 Creatinine 1.14 mg/dL (0.5-1.4) 10/03/23 Blood Urea Nitrogen 15 mg/dL (9-16) 10/03/23 Sodium 138 mmol/L (135-145) 10/03/23 Potassium 3.7 mmol/L (3.3-5.1) 10/03/23 Chloride 103 mmol/L (96-108) 10/03/23 Carbon Dioxide 23 mmol/L (22-29) 10/03/23 Calcium 9.9 mg/dL (8.4-10.2) 10/03/23 AST 47 U/L (5-37) H 10/03/23 ALT 38 U/L (0-40) 10/03/23 Total Protein 8.2 g/dL (6.5-8.0) H 10/03/23 Albumin 4.2 g/dL (3.5-5.0) 10/03/23 [facility] Medical History HTN (hypertension) HLD (hyperlipidemia) Multinodular thyroid Vitamin D deficiency Multinodular thyroid Type 2 diabetes mellitus with hyperglycemia, with long-term current use of insulin Type 2 diabetes mellitus with diabetic polyneuropathy Hyperlipidemia LDL goal <100 Smoking Lazy eye of left side Arthritis High cholesterol Diabetes type 2, controlled Surgical History History of surgery History of renal stone (~06/01/20) History of sebaceous cyst (~05/28/20) History of penile implant (~03/17/20) History of hemorrhoids Family History Father No problems noted. Mother History of cardiovascular disorder Social History Household Members: None Housing: Apartment Alcohol intake: never Patient Tobacco Use Status: Current everyday Tobacco user Cigarette Packs Per Day: 1 e-Cigarette/Vaping Use: Currently Using Second Hand Smoke Exposure: No Substance Use Type: Marijuana service: No Current occupational status: retired Cognitive needs: No Hearing needs: No Vision needs: Yes Assessment & Plan Assessment & Plan (1) Type 2 diabetes mellitus with hyperglycemia, with long-term current use of insulin: Code(s): E11.65 - Type 2 diabetes mellitus with hyperglycemia; Z79.4 - intermediate designer (current) use of insulin Plan: Learning objectives: The patient was provided with verbal and written education on the following topics as outlined below. The patient met all learning objectives and was able to verbalize understanding and provide teach back of education topics discussed . The patient was provided with the opportunity to ask questions and all questions were answered. Patient Assessment Assess patient education level/literacy/barriers Patient questions/concerns, patient's last A1c on 04/12/2024 7.6%. Reviewed with patient target A1c. Patient is currently taking Lantus 30 units Humalog 19 units before meals Jardiance 25 mg daily Metformin 1000 mg b.i.d. Exercise Medical clearance Effect of exercise on blood sugar Start slowly and gradually increase pace/duration over time Goal amount of exercise Checking blood glucose/have a source of carbs with you Patient reports he does walk several times a week around his building, encourage patient to add 10-15 minutes of resistance exercises as well as his walking Medications (If applicable) * Name of medication * Dosing/administration instructions * Mechanism of action * Potential side effects * Potential adverse reaction and appropriate treatment * Review onset, peak, duration Assess for concerns re: insurance coverage, cost, barriers to compliance Insulin/Injectables (If applicable) * Storage/care of insulin * Injection sites * Site rotation * Onset, peak, duration * Drawing up insulin * Injecting insulin/other injectables * Sharps disposal Continuous blood glucose monitoring (if applicable) Hypoglycemia and Hyperglycemia * Signs and symptoms * Causes * Treatment * Preventing hypoglycemia * When to seek medical attention Medical alert bracelet Lifestyle * Work * Travel * Stress management * Problem solving Know your goals * A1C * Blood sugar targets * Blood pressure * Cholesterol/LDL Urine microalbumin Smart Goal Assessment: Patient will keep meals from 45-60 g of carbohydrate Pt met goal 50% New Goal:? Patient will bring meter to every visit at [facility] Educational Materials: The patient was provided with the following written educational materials: ADCES 7 Healthy Behaviors Reducing Risks handout Patient Response to instructions: Comprehension of Instructions: Positive Readiness to make changes: Action How confident they feel about making changes: Fair Portions of this note were created using voice recognition software, please excuse any words or phrases that may have been misinterpreted. Patient Instructions: Include regular daily activity. ADA recommends 30 minutes of exercise 5 days a week. Weight loss talk to PCP or Newspaper Manager before starting new plan. Test blood sugar as directed; Fasting and 2hpp largest meal. Watch trends in results. Utilize results and to assess how food, physical activity and medications affect blood sugar results. Bring glucometer or CGM to next visit. Be knowledgeable about diabetes medication, its action, side effects, efficacy, toxicity, prescribed dosage, appropriate timing and frequency of administration, effect of missed and delayed doses and instructions for storage, travel and safety. Problem solving techniques to monitor hypo/hyperglycemia episodes and treatments. Reduce risk reduction behaviors, smoking cessation, regular eye, foot and dental examinations. Patient will follow-up in 3 months Coding Level of Care Code Est Pt Level 1 (96520) Diagnoses Type 2 diabetes mellitus with hyperglycemia, with long-term current use of insulin E11.65; Z79.4
== END 2024-05-28 14:29 | disposition home or self-care (01) ==
PROVIDERS: PCP Internal Medicine; Visit Provider Registered Nurse Diabetes Educator
DX: E11.65 Type 2 diabetes mellitus with hyperglycemia (principal); Z79.4 Long term (current) use of insulin

== ENCOUNTER → 2024-05-28 14:00 | Outpatient (BNVA) | payer OTHER, SELFPAY | PROVIDERS: PCP Internal Medicine; Visit Provider Registered Nurse Diabetes Educator | DX: E11.65 Type 2 diabetes mellitus with hyperglycemia (principal); Z79.4 Long term (current) use of insulin | CPT/HCPCS: 99211 ==

== ENCOUNTER 2024-06-28 10:43 | Outpatient (AMB) | payer OTHER, SELFPAY ==
--- NOTE | 2024-06-28 10:44 | MHC.OFFVIS ---
Vital Signs 06/28/24 10:45 Height 5 ft 8 in Weight 189 lb 9.561 oz BMI 28.8 BP 129/66 Blood Pressure Location Lt brachial Position Sitting Pulse 87 Intake Visit Reasons: Diarrhea; transfer AB > TH Intake Note: Gerson presents in the office as a new patient for diarrhea. CC: He states that he had a colonoscopy at [facility] 2 weeks ago and he had a poor prep. No constipation - stictly diarrhea. He states he does not get pains and denies any blood in the stool. Radio Electrician Required: No Allergies No Known Allergies [No Known Allergies*] Allergy (Verified 06/28/24 11:02) HPI HPI Diarrhea; transfer AB > TH: Details: HPI 63 yr old m being seen for assessment for diarrhea 3 month of liquid stools can be severe at times no blood no abdominal pain no nausea or vomiting had at the beginning he had colo scheduled 2 weeks ago at [facility] but was r/s due to prep issues PCP gave bentyl which helps, prn imodium stool was neg for c diff and neg for GI PCR he had recent sigmoidoscopy with poor prep and anstomosis noted, due for repeat soon--he has established care there with Dr Westbrook ROS: Constitutional : No Weight loss, No Fever, No Chills ENT/Mouth : No sore throat, No Rhinorrhea Eyes: No Swelling, No Redness Cardiovascular : No Chest Pain, No SOB, No Edema Respiratory : No Cough, No Sputum, No Wheezing Gastrointestinal : see HPI Genitourinary : NO Dysuria, No Urinary Frequency, No Hematuria, No Urgency--he has hesitancy for last 3 months Musculoskeletal : + joint pain, No Myalgias, No Joint Swelling Skin : No Skin Lesions, No rash Neuro : No Weakness, No Numbness, No Dizziness, No Headache Psych : No Anxiety/Panic, No Depression Heme/Lymph: No Bruising, No Lymphadenopathy Endocrine : No Polyuria, No Polydipsia All other systems reviewed and are negative. PFSH Medical History HTN (hypertension) HLD (hyperlipidemia) Multinodular thyroid Vitamin D deficiency Multinodular thyroid Type 2 diabetes mellitus with hyperglycemia, with long-term current use of insulin Type 2 diabetes mellitus with diabetic polyneuropathy Hyperlipidemia LDL goal <100 Smoking Lazy eye of left side Arthritis High cholesterol Diabetes type 2, controlled Surgical History History of surgery History of renal stone (~06/01/20) History of sebaceous cyst (~05/28/20) History of penile implant (~03/17/20) History of hemorrhoids Family History Father No problems noted. Mother History of cardiovascular disorder Social History Household Members: None Housing: Apartment Alcohol intake: never Patient Tobacco Use Status: Current everyday Tobacco user Cigarette Packs Per Day: 1 e-Cigarette/Vaping Use: Currently Using Second Hand Smoke Exposure: No Substance Use Type: Marijuana no alcohol EXAM: GENERAL: The patient is well developed and nontoxic. VITAL SIGNS:see workflow HEENT: Nonicteric sclerae, PERRLA, EOMI. Oropharynx clear. Moist mucous membranes. Conjunctivae appear well perfused. No thyroid mass. CHEST: Chest wall is nontender. HEART: Regular rate and rhythm without murmurs. LUNGS: Clear to auscultation bilaterally. ABDOMEN: Soft, positive bowel sounds, nontender, no organomegaly.no flank tenderness SKIN: No rash, no excessive bruising, petechiae, or purpura. NEUROLOGIC: Cranial nerves II-XII intact without motor/sensory deficit. Psych: normal affect A/P: 1/ Diarrhea, many causes possible, could be colitis, BAM, drug effect, microscopic colitis PLAN: 1/ He wants to f/u with Gi at [facility], if any issues can reach back to us, would also recommend EGD as well [facility] Medical History Type 2 diabetes mellitus with hyperglycemia Hyperlipidemia LDL goal <100 Cyst of buttocks Establishing care with new doctor, encounter for Dyspepsia Encounter for general adult medical examination with abnormal findings Vocal cord polyp Hospital discharge follow-up Arthrosis Abdominal cramping HTN (hypertension) HLD (hyperlipidemia) Multinodular thyroid Vitamin D deficiency Multinodular thyroid Type 2 diabetes mellitus with hyperglycemia, with long-term current use of insulin Type 2 diabetes mellitus with diabetic polyneuropathy Smoking Lazy eye of left side Arthritis High cholesterol Diabetes type 2, controlled Surgical History (Updated 06/28/24 @ 11:02 by SOPHIE Hazel) Hx of colonoscopy History of surgery History of renal stone (~06/01/20) History of sebaceous cyst (~05/28/20) History of penile implant (~03/17/20) History of hemorrhoids Family History Father No problems noted. Mother History of cardiovascular disorder Social History Household Members: None Housing: Apartment Alcohol intake: never Patient Tobacco Use Status: Current everyday Tobacco user Cigarette Packs Per Day: 1 e-Cigarette/Vaping Use: Currently Using Second Hand Smoke Exposure: No Substance Use Type: Marijuana service: No Current occupational status: retired Cognitive needs: No Hearing needs: No Vision needs: Yes Assessment & Plan Assessment & Plan (1) Watery diarrhea: Code(s): R19.7 - Diarrhea, unspecified Category: Medical Plan: see above Coding Level of Care Code New Pt Level 3 (38173) Diagnoses Watery diarrhea R19.7
[2024-06-28 10:45] VITALS: BP 129/66; PULSE 87; BMI 28.8
== END 2024-06-28 11:27 | disposition home or self-care (01) ==
PROVIDERS: PCP Internal Medicine; Visit Provider Internal Medicine Gastroenterology
DX: R19.7 Diarrhea, unspecified (principal)
CPT/HCPCS: 99203

== ENCOUNTER → 2024-06-28 10:43 | Outpatient (BNVA) | payer OTHER, SELFPAY | PROVIDERS: PCP Internal Medicine; Visit Provider Internal Medicine Gastroenterology | DX: R19.7 Diarrhea, unspecified (principal) | CPT/HCPCS: 99202 ==

== ENCOUNTER 2024-07-16 14:04 | Outpatient (AMB) | payer OTHER, SELFPAY ==
[2024-07-16 14:09] VITALS: BP 110/68; PULSE 65; BMI 29.4
--- NOTE | 2024-07-16 14:09 | A.OFFVIS_ITS ---
Vital Signs 3 07/16/24 14:09 Height 5 ft 8 in Weight 193 lb 5.526 oz BMI 29.4 BP 110/68 Blood Pressure Location Lt brachial Position Sitting Pulse 65 Pulse Source Pulse Oximeter Intake Visit Reasons: MNG-lvm Intake Note: Patient present today for MNG follow up visit. Insurance Premium Auditor Required: No Accompanied by: Self / Same As Patient Allergies No Known Allergies [No Known Allergies*] Allergy (Verified 07/16/24 14:21) HPI Comments Details: 63 YO M with PMHx T2DM, Multinodular thyroid who is seen in F/U for multinodular thyroid.. Also seen in our practice for type 2 diabetes mellitus, has upcoming appointment with Sasha rubio in [place] on 07/22/2024 for management of diabetes mellitus. Was previously being seen by Dr. Warner for multinodular thyroid, last visit April 2024. Multinodular Thyroid: HPI from prior visit He had an US completed due to a thyroid nodule that was palpated during exam by Parris Neff in 2019 or 2021.? This revealed a multinodular thyroid, and he was then referred to Dr. Barker for FNA biopsy. Dr. Barker performed an FNA biopsy of his RMP 2.5 cm thyroid nodule 08/24/2022 with benign cytology. At that time he was found to have a large goiter with substernal extension.? Mayco sign was positive.? He was complaining of hoarseness of voice and some dysphagia.? He was referred to Dr. Mustafa for a surgical thyroidectomy and also CT of the neck was ordered.? Decision was made not to operate ,He saw Dr. Mustafa but did not want to proceed with thyroidectomy He denies any symptoms of hyper or hypothyroidism currently.? He denies a personal history of head or neck irradiation.? He denies a family history of thyroid cancer. Most recently labs from March 2024 showed low TSH of 0.19. Previously he has always had normal TSH. Free T4 was normal at 0.91. Thyroid uptake and scan April 2024 showed minimal tracer avidity overall consistent with thyroiditis. It did possibly point towards slightly increased uptake in the right inferior and left mid poles. Interval history He has been having loose stools for the past 3 months Dysphagia persists but not worsened Denies palpitations, excessive diaphoresis, weight changes, tremors. Physical exam General: sitting comfortably in no acute distress HEENT: normocephalic/atraumatic, moist oral mucosa Neck: supple, palpable 1-2 cm thyroid nodule on the right side, palpable 2 cm thyroid nodule on left side, no dorsocervical or supraclavicular fat pads Cardiac: normal heart sounds Pulm: normal breath sounds B/L, no added breath sounds Abd: not distended, no tenderness Extremities: no edema, no signs of myxedema Neuro: AAO x3, Speech: normal, no facial droop, moving all 4 extremities [facility] Medical History (Updated 07/16/24 @ 14:31 by Yadi Louie MD) Subclinical hyperthyroidism Type 2 diabetes mellitus with hyperglycemia Hyperlipidemia LDL goal <100 Cyst of buttocks Establishing care with new doctor, encounter for Dyspepsia Encounter for general adult medical examination with abnormal findings Vocal cord polyp Hospital discharge follow-up Arthrosis Abdominal cramping HTN (hypertension) HLD (hyperlipidemia) Multinodular thyroid Vitamin D deficiency Multinodular thyroid Type 2 diabetes mellitus with hyperglycemia, with long-term current use of insulin Type 2 diabetes mellitus with diabetic polyneuropathy Smoking Lazy eye of left side Arthritis High cholesterol Diabetes type 2, controlled Surgical History (Updated 06/28/24 @ 11:02 by SOPHIE Hazel) Hx of colonoscopy History of surgery History of renal stone (~06/01/20) History of sebaceous cyst (~05/28/20) History of penile implant (~03/17/20) History of hemorrhoids Family History Father No problems noted. Mother History of cardiovascular disorder Social History Household Members: None Housing: Apartment Alcohol intake: never Patient Tobacco Use Status: Current everyday Tobacco user Cigarette Packs Per Day: 1 e-Cigarette/Vaping Use: Currently Using Second Hand Smoke Exposure: No Substance Use Type: Marijuana service: No Current occupational status: retired Cognitive needs: No Hearing needs: No Vision needs: Yes Results Reviewed Results Reviewed: Laboratory Tests 09/21/20 08/27/21 09/14/22 10:05 07:13 10:49 TSH 0.55 0.41 0.48 Free T4 0.79 0.87 0.94 06/16/23 01/09/24 07/01/24 14:08 13:25 14:41 TSH 0.44 0.83 0.19 L Free T4 0.98 0.98 0.91 Laboratory Tests 08/27/21 07:13 Thyroglobulin Antibody <1 Thyroid Peroxidase Ab 3 THYROID UPTAKE AND SCAN April 2024 CLINICAL INFORMATION: Nontoxic multinodular goiter. COMPARISON: CT of the soft tissue neck done on 09/16/2022. TECHNIQUE: Following the oral administration of 273 microcuries of I-123 sodium iodide, thyroid uptake was performed and expressed as a percentage of the administrated dose. Gamma scintillation camera images of the thyroid in the anterior and right and left anterior oblique views were obtained using a pinhole collimator following the administration of 10 mCi Tc-99m pertechnetate. FINDINGS: The uptake is 3.45% at 4 hours and 11.60% at 24 hours (Normal radioiodine uptake at 4 to 6 hours is about 5-15% and at 24 hours is 10% to 30%). The radioiodine uptake is normal. The radiopertechnetate thyroid scintigram shows minimal tracer avidity within the entire thyroid gland, most consistent with diffuse thyroiditis. Subtle focal asymmetric increased tracer avidity however is noted along the mid medial aspect of the left and mid to inferior aspect of the right lobe of the gland. The findings appear concordant between iodine as well as technetium pertechnetate images. NM/NM thyroid w uptake IMPRESSION: 1. Normal radioiodine uptake. 2. Minimal tracer avidity involving the thyroid gland on both iodine as well as technetium pertechnetate, consistent with nonspecific diffuse thyroiditis. 3. Superimposed mild focal asymmetric warm nodule at inferior medial part of the right and mid medial part of the left lobe of the gland. CT SOFT TISSUE NECK WITHOUT CONTRAST Sep 15 CLINICAL INFORMATION: Nontoxic multinodular goiter. COMPARISON: Thyroid ultrasound 07/08/2021. TECHNIQUE: Helical imaging was performed in the axial plane with generation of coronal and sagittal reformatted images. This CT examination was performed using dose optimization techniques as appropriate, including one or more of the following: Automated exposure control, iterative reconstruction, and adjustment of technique factors (mA and/or kVp) according to patient size (this includes techniques or standardized protocols for targeted exams where dose is matched to indication/reason for exam). Fleischner Society criteria for the followup of incidental pulmonary nodules was implemented if appropriate. DLP: 410 mGy-cm. FINDINGS: There is an enlarged heterogeneous thyroid gland which coincides with the findings demonstrated on the sonographic imaging from 08/24/2022. There are no pathologically enlarged cervical lymph nodes. No mediastinal or axillary adenopathy is visualized within the [id number] of this examination. Pharyngeal mucosal spaces are symmetric. Parapharyngeal and retromaxillary fat is preserved. Eyeglass Cutter spaces are normal. The parotid and submandibular glands are normal. The tongue base and epiglottis are normal. Preepiglottic fat is preserved. Glottic and subglottic airways are widely patent. Lung apices are clear. The aortic arch apex is unremarkable. Carotid spaces are unremarkable. There is advanced multilevel degenerative spondylosis of the cervical spine. Disc osteophyte spurring in conjunction with facet degenerative change at C3-C4 causes severe canal stenosis with likely compression of the cervical spinal cord. There is also at least moderate canal stenosis at levels of C2-C3, C4-C5, and C5-C6. There is no acute osseous finding. No worrisome lytic or blastic osseous lesion. There are exuberant anterior disc osteophyte complexes at multiple levels within the cervical spine. The skull base is grossly intact. No mastoid middle ear effusion. [id number] paranasal sinus disease. Limited visualization of the intracranial anatomy reveals no abnormal finding. CT/CT soft tissue neck wo IV con IMPRESSION: There is a multinodular thyroid goiter. No pathologically enlarged cervical lymph nodes. There is advanced multilevel degenerative spondylosis of the cervical spine causing severe canal stenosis and likely compression of the cervical cord at C3-C4. There is also at least moderate canal stenosis at levels of C2-C3, C4-C5, and C5-C6. If there are clinical symptoms of compressive myelopathy then a dedicated cervical spine MRI can be obtained for better anatomic characterization of the cord and canal. US THYROID nov 15 CLINICAL INFORMATION: Nontoxic goiter, unspecified. COMPARISON: None TECHNIQUE: Linear transducer blevins-scale and color Doppler examination with attention to the region of the thyroid. FINDINGS: SIZE: Measurements of the thyroid lobes and nodules are given in sagittal, anteroposterior and transverse dimensions respectively. Right Thyroid Lobe: 5.1 x 2.7 x 2.9 cm, volume 21 mL. Parenchyma: The gland echotexture is heterogeneous. Thyroid vascularity is normal. Left Thyroid Lobe: 5.2 x 3.2 x 2.7 cm, volume 23 mL. Parenchyma: The gland echotexture is heterogeneous. Thyroid vascularity is normal. Isthmus: 0.1 cm in maximum AP dimension. Estimated total number of nodules greater than or equal to 1 cm: 5. There are multiple additional bilateral thyroid nodules. 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 Location: Right mid pole. Size: 1.4 x 1.1 x 1.8 cm, volume 1.4 mL. Nodule characteristics: Composition: Solid/almost completely solid (2). Echogenicity: Isoechoic (1). Shape: Not taller than wide (0). Margins: Smooth (0). Echogenic Foci: None (0). ACR TI-RADS total points: 3 ACR TI-RADS category: 3 2. Location: Right lower pole. Size: 1.4 x 1.1 x 0.9 cm, volume 0.68 mL. Nodule characteristics: Composition: Mixed cystic and solid (1). Echogenicity: Hypoechoic (2). Shape: Not taller than wide (0). Margins: Smooth (0). Echogenic Foci: None (0). ACR TI-RADS total points: 3 ACR TI-RADS category: 3 3. Location: Left upper pole. Size: 1.0 x 0.3 x 0.8 cm, volume 0.13 mL. Nodule characteristics: Composition: Solid/almost completely solid (2). Echogenicity: Hypoechoic (2). Shape: Not taller than wide (0). Margins: Smooth (0). Echogenic Foci: None (0). ACR TI-RADS total points: 4 ACR TI-RADS category: 4 4. Location: Left mid pole. Size: 1.8 x 1.0 x 1.5 cm, volume 1.4 mL. Nodule characteristics: Composition: Mixed cystic and solid (1). Echogenicity: Hypoechoic (2). Shape: Not taller than wide (0). Margins: Smooth (0). Echogenic Foci: None (0). ACR TI-RADS total points: 3 ACR TI-RADS category: 3 5. Location: Left mid pole. Size: 1.7 x 0.6 x 1.0 cm, volume 0.53 mL. Nodule characteristics: Composition: Solid/almost completely solid (2). Echogenicity: Isoechoic (1). Shape: Not taller than wide (0). Margins: Smooth (0). Echogenic Foci: None (0). ACR TI-RADS total points: 3 ACR TI-RADS category: 3 NODES: No lymphadenopathy is seen in the tissue surrounding the thyroid gland. US/US thyroid IMPRESSION: Heterogeneous thyroid parenchyma with normal vascularity. Thyromegaly. Multiple bilateral thyroid nodules with ultrasound characteristics consistent with TI-RADS category 3. These nodules measure 1.7 to 1.8 cm in greatest dimension. Followup ultrasound recommended in 1, 3, and 5 years. Upper left thyroid nodule measuring 1.0 cm with ultrasound characteristics consistent with TI-RADS category 4. Followup ultrasound recommended in 1, 2, 3, and 5 years. Assessment & Plan Assessment & Plan (1) Subclinical hyperthyroidism: Code(s): E05.90 - Thyrotoxicosis, unspecified without thyrotoxic crisis or storm Category: Medical Plan: Patient with labs in March 2024 showing TSH low at 0.19 with normal free T4 of 0.9. He has previously never had abnormal thyroid function. He did develop loose stools recently but otherwise denies any other symptoms of hyperthyroidism. TPO and thyroglobulin antibody levels have been negative in the past. We will check a TSI antibody level. He does not have any history of heart disease, no history of fracture/osteoporosis. However given his age if he has subclinical hyperthyroidism he could qualify for treatment potentially. Hence she will evaluate with a TSI antibody level. I will also repeat his thyroid function testing since before this he has always had normal thyroid function. Less he has a history of nodule so more likely if he does have subclinical hyperthyroidism this is from toxic multinodular goiter. He had a thyroid uptake and scan in April 2024 which showed decreased avidity overall consistent with thyroiditis but did show slightly warmer areas in the region of right inferior and left mid poles this process assistant with heterogenous appearance and likely toxic multinodular goiter. I discussed with him that treatment for these would be total thyroidectomy ideally to get rid of both is nodules and subclinical hyperthyroidism. 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 We can also consider low-dose methimazole for this. Plan: -repeat free T4, TSH, check TSI antibody levels, also check total T3 (2) Multinodular thyroid: Code(s): E04.2 - Nontoxic multinodular goiter Category: Medical Plan: Patient with no family history of thyroid cancer with no personal history of head or neck radiation who is coming in for follow up of multinodular goiter. Recently as mentioned above he has developed subclinical hyperthyroidism and a set of labs in March 2024 with thyroid uptake and scan from April 2024 showing heterogenous areas of increased tracer uptake consistent with toxic multinodular goiter. He has had biopsy July [address] Barker of his right midpole nodule which she measured as 2.5 cm during the biopsy, with benign cytology. His last thyroid ultrasound was from 2020 which had not shown such a big nodule. At this time he has not had any recent ultrasound. We will repeat a thyroid ultrasound. He has had some persistent compressive symptoms such as hoarseness of voice and dysphagia that have not significantly worsened. He was evaluated by Dr. Flavio Mustafa at [facility] in February [address] scan of the soft tissue neck as well Plan: -ordered thyroid ultrasound -follow up in 12 weeks to discuss results Plan I spent 30 minutes in reviewing the record, seeing the patient and documenting in the medical record. Orders: Orders 2 Free T4 (Free Thyroxine) Today E05.90 - Thyrotoxicosis, unspecified without thyrotoxic crisis or storm Triiodothyronine T3 Total Today E05.90 - Thyrotoxicosis, unspecified without thyrotoxic crisis or storm Thyroid Stimulating Immunoglob Today E05.90 - Thyrotoxicosis, unspecified without thyrotoxic crisis or storm Thyroid Stimulating Hormone Today E05.90 - Thyrotoxicosis, unspecified without thyrotoxic crisis or storm US thyroid Today E04.2 - Nontoxic multinodular goiter Patient Instructions: Do blood work We will contact you with results over the phone Do thyroid ultrasound Follow up in 12 weeks to discuss results Coding Level of Care Code Est Pt Level 4 (40615) Diagnoses Subclinical hyperthyroidism E05.90 Multinodular thyroid E04.2 Time Spent (min) 30
== END 2024-07-16 14:38 | disposition home or self-care (01) ==
PROVIDERS: PCP Internal Medicine; Visit Provider Student in an Organized Health Care Education/Training Program
DX: E05.90 Thyrotoxicosis, unspecified without thyrotoxic crisis or storm (principal); E04.2 Nontoxic multinodular goiter
CPT/HCPCS: 99214

== ENCOUNTER → 2024-07-16 14:04 | Outpatient (BNVA) | payer OTHER, SELFPAY | PROVIDERS: PCP Internal Medicine; Visit Provider Student in an Organized Health Care Education/Training Program | DX: E04.2 Nontoxic multinodular goiter (principal); E05.90 Thyrotoxicosis, unspecified without thyrotoxic crisis or storm | CPT/HCPCS: 99212 ==

== ENCOUNTER 2024-07-22 13:47 | Outpatient (AMB) | payer OTHER, SELFPAY ==
--- NOTE | 2024-07-22 13:51 | A.OFFVIS_ITS ---
Vital Signs 07/22/24 13:53 Height 5 ft 8 in Weight 191 lb 12.835 oz BMI 29.2 BP 118/78 Blood Pressure Location Rt brachial Position Sitting Pulse 96 Pulse Source Pulse Oximeter Intake Visit Reasons: DM/CONFIRMED Intake Note: Patient presents today to re-establish treatment for Type Diabetes Mellitus: Last Diabetic eye exam was on: 11/2023 Last Podiatry exam was on: Does not see a Con[facility] Most recent HbA1c: 8.1%, 07/22/2024 Random Glucose- 199 mg/dL, Today Corporation Secretary Required: No Accompanied by: Self / Same As Patient Allergies No Known Allergies [No Known Allergies*] Allergy (Verified 07/22/24 13:54) Medication List - Last Reconciled 07/22/24 by Meghan Harp PA-C acetaminophen ER (Tylenol Arthritis Pain) 650 mg PO Q12H 30 days blood sugar diagnostic (FreeStyle Precision Junaid Strips) DIRECTED TO CHECK BLOOD SUGAR 4X/DAY cholecalciferol (vitamin D3) 50 mcg PO DAILY diazepam mg PO dicyclomine 20 mg PO QID 30 days docusate sodium 100 mg PO BID PRN duloxetine 30 mg PO BID empagliflozin (Jardiance) 25 mg PO QAM flash glucose scanning reader (CreditPing.comStyle Mayco 2 [place]) DIRECTED flash glucose sensor (FreeStyle Amyco 2 Sensor kit) As directed change every 14 days gabapentin 100 mg PO TID glucose (Dex4 Glucose) 16 grams (4 x 4 gram) PO Q15M PRN insulin glargine (Lantus Solostar U-100 Insulin) 30 units subcut QPM insulin lispro (Humalog KwikPen (U-100) Insulin) 19 units subcut lancets (FreeStyle Lancets) As directed three time a day loperamide mg PO BID pantoprazole 40 mg PO DAILY 90 days pen needle, diabetic five times a day rosuvastatin 40 mg PO DAILY sertraline 25 mg PO DAILY HPI HPI DM/CONFIRMED: Details: Patient is a 63 YO M with PMHx T2DM, multinodular goiter, chronic diarrhea, rectal fistulas, htn, hld, and memory changes. Endo: Dm- Initially diagnosed with T2DM in 1989. His last A1c was 7.6. Today his A1c is 8.1. He is currently on Lantus 30 units nightly, Humalog 19 units, Jardiance 25 mg daily/ - At last visit we d/cd the metformin which helped lessen the diarrhea. Diarrhea still present and being worked up. He is dealing with a rectal fistula and int ermittent infections. Believes this is contributing to elevated glucose readings. -Ozempic cause nausea vomiting. States so severe does not want to try another GLP. Metformin caused diarrhea. Has CGM [employer] Libre2 but forgot the reader at home. States blood sugars are generally normal. States that sometimes he will get hypoglycemic around 22:00 and he has been eating a little less dinner because of the diarrhea. He does wake up slightly elevated blood sugars. Has eyes checked yearly, has retinopathy. Denies neuropathy, sees podiatry. Denies nephropathy, not on MINE/ARB. Has HLD, on rosuvastatin 40 mg PO daily. LDL 95 Denies CAD. CV: bp today is 118/78, GI: dealing with a rectal fistula and getting intermittently infected. [facility] Medical History (Updated 07/16/24 @ 14:31 by Yadi Louie MD) Subclinical hyperthyroidism Type 2 diabetes mellitus with hyperglycemia Hyperlipidemia LDL goal <100 Cyst of buttocks Establishing care with new doctor, encounter for Dyspepsia Encounter for general adult medical examination with abnormal findings Vocal cord polyp Hospital discharge follow-up Arthrosis Abdominal cramping HTN (hypertension) HLD (hyperlipidemia) Multinodular thyroid Vitamin D deficiency Multinodular thyroid Type 2 diabetes mellitus with hyperglycemia, with long-term current use of insulin Type 2 diabetes mellitus with diabetic polyneuropathy Smoking Lazy eye of left side Arthritis High cholesterol Diabetes type 2, controlled Surgical History Hx of colonoscopy History of surgery History of renal stone (~06/01/20) History of sebaceous cyst (~05/28/20) History of penile implant (~03/17/20) History of hemorrhoids Family History Father No problems noted. Mother History of cardiovascular disorder Social History Household Members: None Housing: Apartment Alcohol intake: never Patient Tobacco Use Status: Current everyday Tobacco user Cigarette Packs Per Day: 1 e-Cigarette/Vaping Use: Currently Using Second Hand Smoke Exposure: No Substance Use Type: Marijuana service: No Current occupational status: retired Cognitive needs: No Hearing needs: No Vision needs: Yes Physical Exam Vital Signs: Last Vital Signs Pulse 96 07/22/24 13:53 BP 118/78 07/22/24 13:53 BMI result Body Mass Index 29.2 Const Orientation/consciousness: patient oriented x3 Neck Neck: Yes no lymphadenopathy Carotids: no bruits Resp Auscultation: clear to auscultation bilaterally Cardio Rate: regular rate Rhythm: regular rhythm Heart sounds: S1 normal heart sound present and S2 normal heart sound present Neuro General: patient oriented x3, gait normal and no focal motor deficits Extrem General: Yes normal to inspection Results AMB Hemoglobin A1c AMB Hemoglobin A1c 8.1 % Last Edit by SOPHIE Ayon on 07/22/24 14:15 Results Reviewed Results Reviewed: Laboratory Last Values Glucose (Clinic) 199 mg/dL (60-115) H 07/22/24 14:01 Hgb A1c (Clinic) 8.1 % (4.0-6.0) H 07/22/24 14:13 Laboratory Tests 01/09/24 03/25/24 04/12/24 10:55 14:41 14:51 Hgb A1c (Clinic) 7.6 H Triglycerides 227 H Cholesterol 170 LDL Cholesterol, Calc 95 HDL Cholesterol 30 L TSH 0.19 L 07/22/24 14:13 Hgb A1c (Clinic) 8.1 H Triglycerides Cholesterol LDL Cholesterol, Calc HDL Cholesterol TSH Assessment & Plan Assessment & Plan (1) Type 2 diabetes mellitus with hyperglycemia, with long-term current use of insulin: Code(s): E11.65 - Type 2 diabetes mellitus with hyperglycemia; Z79.4 - snf (current) use of insulin Category: Medical Plan: Increase Lantus to 34 nightly. Decrease the Humalog to 16 units 3 times a day as he is eating less. Continue Jardiance. Follow up in 3 months. Labs prior to appointment. Patient understands and agrees with this plan. (2) HTN (hypertension): Code(s): I10 - Essential (primary) hypertension Category: Medical Qualifiers: Hypertension type: primary hypertension Qualified Code(s): I10 - Essential (primary) hypertension Plan: WNL. Continue current regimen Orders: Orders AMB Hemoglobin A1c Today E11.65 - Type 2 diabetes mellitus with hyperglycemia, Z79.4 - ocean transportation intermediary (current) use of insulin Medications: Changed From insulin glargine (Lantus Solostar U-100 Insulin) 30 units subcut QPM E11.65 - Type 2 diabetes mellitus with hyperglycemia, Z79.4 - ocean transportation intermediary (current) use of insulin To insulin glargine (Lantus Solostar U-100 Insulin) 34 units (0.34 mL) subcut QPM 15 mL 0RF E11.65 - Type 2 diabetes mellitus with hyperglycemia, Z79.4 - snf (current) use of insulin From insulin lispro (Humalog KwikPen (U-100) Insulin) 19 units subcut To insulin lispro (Humalog KwikPen (U-100) Insulin) with meals 16 units (0.16 mL) subcut TID 15 mL 3RF Refilled cholecalciferol (vitamin D3) 50 mcg PO DAILY 90 caps 3RF Discontinued metformin Discontinued Reason: Duplicate 1,000 mg PO BID 180 tabs 1RF E11.65 - Type 2 diabetes mellitus with hyperglycemia, Z79.4 - snf (current) use of insulin Coding Level of Care Code Est Pt Level 4 (48878) Diagnoses Type 2 diabetes mellitus with hyperglycemia, with long-term current use of insulin E11.65; Z79.4 Primary hypertension I10 Hypertension type: primary hypertension
[2024-07-22 13:53] VITALS: BP 118/78; PULSE 96; BMI 29.2
[2024-07-22 14:09] LABS: Glucose, Whole Blood 199 mg/dL (60-115)
== END 2024-07-22 14:34 | disposition home or self-care (01) ==
LOC: HO.ENCR 13:47
PROVIDERS: PCP Internal Medicine; Visit Provider Physician Assistant
DX: E11.65 Type 2 diabetes mellitus with hyperglycemia (principal); Z79.4 Long term (current) use of insulin; I10 Essential (primary) hypertension

== ENCOUNTER → 2024-07-22 13:47 | Outpatient (BNVA) | payer OTHER, SELFPAY | PROVIDERS: PCP Internal Medicine; Visit Provider Physician Assistant | DX: E11.65 Type 2 diabetes mellitus with hyperglycemia (principal); I10 Essential (primary) hypertension; Z79.4 Long term (current) use of insulin | CPT/HCPCS: 82947; 83036; 99212 ==

== ENCOUNTER 2024-08-27 13:55 | Outpatient (AMB) | payer OTHER, SELFPAY ==
--- NOTE | 2024-08-27 13:58 | MHC.AMDMED ---
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: 30 min-confirmed Extract Operator Required: No Accompanied by: Self / Same As Patient Allergies No Known Allergies [No Known Allergies*] Allergy (Verified 07/22/24 13:54) HPI Comprehensive Diabetes Asmnt Most Recent Diabetes Results: Hemoglobin A1c 9.0 % 05/07/19 Microalb/Creat Ratio 67.1 ug/mg cr 03/10/23 Cholesterol 170 mg/dL (<200) 01/09/24 HDL Cholesterol 30 mg/dL (>40) L 01/09/24 Triglycerides 227 mg/dL (<150) H 01/09/24 Creatinine 1.14 mg/dL (0.5-1.4) 10/03/23 Blood Urea Nitrogen 15 mg/dL (9-16) 10/03/23 Sodium 138 mmol/L (135-145) 10/03/23 Potassium 3.7 mmol/L (3.3-5.1) 10/03/23 Chloride 103 mmol/L (96-108) 10/03/23 Carbon Dioxide 23 mmol/L (22-29) 10/03/23 Calcium 9.9 mg/dL (8.4-10.2) 10/03/23 AST 47 U/L (5-37) H 10/03/23 ALT 38 U/L (0-40) 10/03/23 Total Protein 8.2 g/dL (6.5-8.0) H 10/03/23 Albumin 4.2 g/dL (3.5-5.0) 10/03/23 [facility], [facility] Medical History (Updated 07/16/24 @ 14:31 by Yadi Louie MD) Subclinical hyperthyroidism Type 2 diabetes mellitus with hyperglycemia Hyperlipidemia LDL goal <100 Cyst of buttocks Establishing care with new doctor, encounter for Dyspepsia Encounter for general adult medical examination with abnormal findings Vocal cord polyp Hospital discharge follow-up Arthrosis Abdominal cramping HTN (hypertension) HLD (hyperlipidemia) Multinodular thyroid Vitamin D deficiency Multinodular thyroid Type 2 diabetes mellitus with hyperglycemia, with long-term current use of insulin Type 2 diabetes mellitus with diabetic polyneuropathy Smoking Lazy eye of left side Arthritis High cholesterol Diabetes type 2, controlled Surgical History Hx of colonoscopy History of surgery History of renal stone (~06/01/20) History of sebaceous cyst (~05/28/20) History of penile implant (~03/17/20) History of hemorrhoids Family History Father No problems noted. Mother History of cardiovascular disorder Social History Household Members: None Housing: Apartment Alcohol intake: never Patient Tobacco Use Status: Current everyday Tobacco user Cigarette Packs Per Day: 1 e-Cigarette/Vaping Use: Currently Using Second Hand Smoke Exposure: No Substance Use Type: Marijuana service: No Current occupational status: retired Cognitive needs: No Hearing needs: No Vision needs: Yes Assessment & Plan Assessment & Plan (1) Type 2 diabetes mellitus with hyperglycemia, with long-term current use of insulin: Code(s): E11.65 - Type 2 diabetes mellitus with hyperglycemia; Z79.4 - terminal make up operator (current) use of insulin Plan: Personal Continuous Glucose Monitor: Patients CGM information reviewed, Pt uses [id number] Mayco 2, with smart phone Sensor data: Hypoglycemia: ?1% Hyperglycemia:? 44% Time in Range:? 55% Average glucose for the last 2 weeks? 173 mg/dL Patient's last A1c on 07/22/2024 8.1% Instructed patient to try and scan Mayco 2 sensor every 4-6 hours while awake in order to capture consistent data. Discussed with patient: Storage/care of insulin?? Injection sites? Site rotation? Onset, peak, duration Explained to patient importance of eating consistent carbohydrates when taking fixed dose of insulin before meals Patient reports that he takes anywhere from 15 to 19 units of mealtime insulin, if glucose level is high before bedtime he will take correction of Humalog 6 units, in addition reports eating high carbohydrate snacks before bedtime, which is causing spiking glucose level. Encourage patient to reduce carbohydrate snack at bedtime, low carbohydrate snack list given to patient Reviewed with patient how to treat low blood sugar with rule of 15s Reminded patient that to check finger sticks if symptoms do not match sensor reading. Patient able to insert sensor independently at home without issue.? Smart goal Assessment: Patient has been bringing meter [facility] Portions of this note were created using voice recognition software, please excuse any words or phrases that may have been misinterpreted. Patient Instructions: Follow-up with dominatrix in 3 months Coding Level of Care Code Est Pt Level 1 (04776) Diagnoses Type 2 diabetes mellitus with hyperglycemia, with long-term current use of insulin E11.65; Z79.4
--- OUTSIDE RECORDS SUMMARY | 2024-09-03 14:47 | XMS_ITS | Data Portability ---
Author Organization [facility] [place] [place] [facility] Address [address] [place] [address] Care Team Providers Care Executive Chairman Of The Board Name Role Phone HIM CCA OTHER Assessment Encounter Date Assessment Date Assessment LastModified by Organization Details LastModified Time 03/04/2024 03/04/2024 I have reviewed and agree with the assessment and plan as documented by the health and fitness professor. I provided real time medical direction for this encounter and was immediately available to provide additional phone based assistance as needed. History as noted by health and fitness professor. Pt with history of DM, recent surgery for anal fissure about 1 month ago, reporting history of intermittent diarrhea in past as well as constipation, now reports about 5 days of water brown NB diarrhea 4-6 episodes/d as well as occasional incontinence at night time. He reports a single episode of NB vomiting several days ago but this has resolved. Using immodium at home with no relief. No abdominal pain, fevers, chills. Tolerating po fluids well. No recent foreign travel. Had been prescribed flagyl after his surgery last month but was only taking this intermittently. On exam, pt appears well, no distress. Vitals ok, abdomen soft, non tender. POC BMP ok, anion gap normal. Blood sugar 236. H/H normal. Impression: Pt reports 5 days of watery, NB diarrhea up to 6x/d, no abdominal pain or fevers. No relief with immodium. Afebrile, abdomen soft and non tender on exam today. POC BMP is reassuring with normal lytes and renal function. Speak with patient that he will need to provide a stool sample for testing to help guide treatment and management. [facility], this will have to be arranged through the pt's primary care team. Pt reports that he was at his surgeon's office for a follow up visit 3 days ago but left the office before being seen since his scheduled ride had come to pick him up. Pt told to call and arrange for a visit with his primary care for evaluation and to have them arrange for stool testing including c. diff, C&S, O&P and calprotectin. He is also told to reschedule the f/u with his surgeon that he missed 3d ago. For Primary Care Team: Please contact this patient this week to arrange for repeat visit and stool testing. Pt instructed to seek medical attention right away with any worsening or new symptoms, which are reviewed with him. [email or web address] Not available 03/04/2024 10:43:28 Plan of Treatment Reminders Order Date Submit Date Provider Last Modified By Organization Details Last Modified Time Details Appointments None recorded . Lab BMP, serum or plasma 024 03/04/20 [facility], [address] [place] [address], [id number], 10:05:19 Referral None recorded . Procedures None recorded . Surgeries None recorded . Imaging None recorded . Medication Orders None recorded . Patient TargetsNo targets recorded. Patient InstructionsNo instructions recorded. Reason for Referral None Reported. Results Created Date Observation Date Name Description Value Unit Range Abnormal Flag Note LastModifiedBy Organization Detail LastModifiedTime Result Notes None recorded. Medical Equipment None Reported. Medications Name Sig Start Date Stop Date Status Note LastModified by Organization Details LastModified Time acetaminophe n 325 mg tablet TAKE 3 TABS BY MOUTH EVERY 6 HOURS FOR 14 DAYS active Not Available Not Available No t Available ibuprofen 800 mg tablet TAKE 1 TABLET BY MOUTH 3 TIMES A DAY NEEDED active Not Available Not Available No t Available acetaminophe n ER 650 mg tablet,exten ded release TAKE 1 TABLET BY MOUTH EVERY 12 HOURS active Not Available Not Available No t Available ofloxacin 0.3 % ear drops INSTILL 10 DROPS INTO BOTH EARS DAILY FOR 10 DAYS active Not Available Not Available No t Available hydromorphon e 2 mg tablet TAKE 2 TABLET BY MOUTH EVERY 6 HOURS NEEDED FOR MODERATE PAIN FOR 5 DAYS active Not Available Not Available No t Available pantoprazole 40 mg tablet,delay ed release TAKE 1 TABLET BY MOUTH EVERY DAY active Not Available Not Available No t Available docusate sodium 100 mg capsule TAKE 1 CAPSULE BY MOUTH 2 TIMES A DAY NEEDED FOR CONSTIPATIO N active Not Available Not Available No t Available sertraline 25 mg tablet active Not Available Not Available Not Available gabapentin 100 mg capsule TAKE 1 CAPSULE BY MOUTH 3 TIMES A DAY active Not Available Not Available Not Available fluticasone propionate 50 mcg/actuatio n nasal spray,suspen genia SPRAY 1 SPRAY INTO EACH NOSTRIL EVERY DAY active Not Available Not Available No t Available diazepam 5 mg tablet TAKE 1 TABLET BY MOUTH 3 TIMES A DAY NEEDED FOR ANAL SPASM active Not Available Not Available No t Available amoxicillin 875 mg-potassium clavulanate 125 mg tablet TAKE 1 TABLET BY MOUTH EVERY 12 HOURS UNTIL GONE active Not Available Not Available N ot Available insulin lispro (U-100) 100 unit/mL subcutaneous pen 19 UNIT (0.19 ML) SUBCUTANEOU SLY 4 TIMES A DAY active Not Available Not Available No t Available rosuvastatin 40 mg tablet TAKE 1 TABLET BY MOUTH EVERY DAY active Not Available Not Available No t Available duloxetine 30 mg capsule,connor yed release TAKE 1 CAPSULE BY MOUTH TWICE A DAY active Not Available Not Available No t Available Lantus Solostar U-100 Insulin 100 unit/mL (3 mL) subcutaneous pen INJECT 30 UNITS SUBCUTANEOU SLY EVERY EVENING active Not Available Not Available No t Available Gavilax 17 gram/dose oral powder TAKE 17 GM BY MOUTH DAILY active Not Available Not Available No t Available Vitamin D3 50 mcg (2,000 unit) capsule TAKE 1 CAPSULE DAILY active Not Available Not Available No t Available Jardiance 25 mg tablet TAKE 1 TABLET BY MOUTH EVERY DAY IN THE MORNING active Not Available Not Available No t Available Probiotic Formula (inulin) 1 billion cell-250 mg capsule TAKE 1 CAPSULE BY MOUTH EVERY DAY (NC) active Not Available Not Available No t Available FreeStyle Precision Junaid Strips active Not Available Not Available N ot Available Vitals Date Recorded Body temperature Body weight Body height Heart rate Oxygen saturation Oxygen saturation in Arterial blood by Pulse oximetry Respiratory rate Systolic blood pressure Diastolic blood pressure Provider Name and Address Organization Details Last Updated DateTime 4 98.4 [degF] 83310.8 g 162.56 cm 80 /min 98 % 98 % 14 /min 125 mm[Hg] 84 mm[Hg] Not Available [facility] 4 20:02:34 Date Recorded Oxygen saturation Oxygen saturation in Arterial blood by Pulse oximetry Body weight Heart rate Body height Respiratory rate Body temperature Systolic blood pressure Diastolic blood pressure Provider Name and Address Organization Details Last Updated DateTime 98 % 98 % 49007.5 6 g 98 /min 172.72 cm 16 /min 97.3 [degF] 154 mm[Hg] 61 mm[Hg] Not Available [facility] 10:03:23 Social History None recorded. Functional Status None recorded. Mental Status None recorded. Family History Nothing Reported. Medical History No medical history recorded. Past Encounters Encounter ID Performer Location Encounter Start Date Encounter Closed Date Diagnosis/Indication Diagnosis SNOMED-CT Code Diagnosis ICD10 Code [id number] Marilu Schmid MD [facility] [address] [place] [phone] 09/30/2023 20:02:30 10/01/2023 15:25:02 Viral upper respiratory tract infection 680273603 J06.9 [id number] Greyson Wan MD [facility] [address] [place] [phone] 03/04/2024 10:03:18 03/06/2024 04:37:12 Diarrhea 24179976 R19.7 Health Concerns Section Related Observation LastModified by Organization Detai ls LastModified Time None Recorded Concern Status LastModified by Organization Details LastModified Time None Recorded Advance Directives Directive None Recorded Payers Encounter Date Sequence Insurance Name Policy Number Policy Warner Covered Member ID Warner Member ID Guarantor Name 09/30/2023 1 [facility] - DOS ON OR AFTER 2022 - DUAL ELIGIBLE - [facility] OPTIONS AND ONE CARE (MEDICARE REPLACEMENT/ADV ANTAGE - HMO) Gerson Allam [id number] Gerson A Allam 03/04/2024 1 [facility] - DOS ON OR AFTER 2022 - DUAL ELIGIBLE - [facility] OPTIONS AND ONE CARE (MEDICARE REPLACEMENT/ADV ANTAGE - HMO) Gerson Allam [id number] Gerson A Allam Notes Date Note Type Note Provider Name and Address Organization Details Recorded Time 09/30/2023 text/html [facility] Nurse Triage Notes (Agatha Hernández): Reason For Request: URI Chief Complaints: URI PMH: Diabetes, Other Allergies: Unknown Comments: Verified identity / address Member started having URI symptoms yesterday. Member MEDEIROS/ congestion/ but denies cough/ fever/ chills/ n/v/d. Member has increased fatigue. Member has taken Nasal spray but it has not helped. Member denies any sob. Member BS WNL 135 PMH > RA > DM2 ................... ................... ................... ................... ................... ................... ................... ........ Team Manager Note From Ramiro Reyes: PT caox3 complains of headache and nasal congestion and tiredness x 24 hours. Pt denies chest pain, chest congestion, cough, sore throat, difficulty breathing, n/v/d, dizziness, weakness or any other pain or complaints. Pt reports he used nasal decongestant but couldn't get it to work. Pt pink warm and dry, secondary exam unremarkable. Lung sounds clear, negative increased work of breathing. Several large sneezes with thick discharge noted. No redness to sputum or throat. Pt covid and flu negative via rapid test. [facility] advises supportive care, nasal rinse, steam and antihistamine if needed. Red flags and pt education discussed. Pt assisted with his nasal spray. ................... ................... ................... ................... ................... ................... ................... ........ Disposition: Eduardo Schmid MD [address] [facility],[address], [place], [address], [employer] 10/01/2023 02:50:55 03/04/2024 text/html This was a supervised home visit with health and fitness professor Teto Beckett. [facility] Nurse Triage Notes (Odette Chin): Chief Complaints: Diarrhea PMH: Diabetes Allergies: No Known Comments: Diarrhea ongoing for the past week. Incontinent during sleep. States diarrhea is severe. Vomited last week. No known fever. Since surgical procedure in January member states health has declined. Unsteady balance, dizziness. On Oxycodone 10mg daily since January. Team Manager POC Test [facility] from [facility] (09:59:37) pH: 7.41 pH units pCO2: 35.8 mmHg pO2: 65.7 mmHg Na: 145 mmol/L K: 4.0 mmol/L iCa: 1.19 mmol/L Cl: 110 mmol/L TCO2: 22.6 mEq/L Hct: 47 % Hb: 15.8 g/dL Glu: 236 mg/dL Lac: 1.7 mmol/L Cr: 0.9 mg/dL BUN: 8 mg/dL A ................... ................... ................... ................... ................... ................... ................... ........ Team Manager Note From Teto Beckett: Pt reports having 13 surgeries over the past 4 years to treat his anal fissures. Most recent surgery was 02/09/24. Today pt ? ? severe? watery diarrhea 4-6 times per day. Pt had appointment with surgeon on Monday but was forced to leave w/o being seen due to ride constraints. Pt sts he vomited once 4 days ago. Pt denies CP, SOB, ABD discomfort, fever, chills. Pt is alert, NAD. VSS. Afebrile. Non focal neuro exam. Normal gait. Lungs CTA. ABD is soft, non tender, non distended. No LE edema. Unremarkable POC labs. Pt instructed to continue the Imodium per directions and to f/u with PCP for stool testing. Red flags reviewed. ................... ................... ................... ................... ................... ................... ................... ........ Disposition: Fulfilled Greyson Wan MD [address] [facility],[address], [place], [phone], [facility] 03/04/2024 10:43:44
== END 2024-08-27 14:31 | disposition home or self-care (01) ==
PROVIDERS: PCP Internal Medicine; Visit Provider Registered Nurse Diabetes Educator
DX: E11.65 Type 2 diabetes mellitus with hyperglycemia (principal); Z79.4 Long term (current) use of insulin

== ENCOUNTER → 2024-08-27 13:55 | Outpatient (BNVA) | payer OTHER, SELFPAY | PROVIDERS: PCP Internal Medicine; Visit Provider Registered Nurse Diabetes Educator | DX: E11.65 Type 2 diabetes mellitus with hyperglycemia (principal); Z79.4 Long term (current) use of insulin | CPT/HCPCS: 99211 ==

== ENCOUNTER 2024-10-08 13:54 | Outpatient (AMB) | payer OTHER, SELFPAY ==
--- NOTE | 2024-10-08 13:57 | A.OFFVIS_ITS ---
Vital Signs 3 10/08/24 13:58 Height 5 ft 8 in Weight 194 lb 3.636 oz BMI 29.5 BP 106/74 Blood Pressure Location Rt brachial Position Sitting Pulse 96 Pulse Source Pulse Oximeter Intake Visit Reasons: MNG Intake Note: Patient present today for MNG follow up. Remote Sensing Specialist Required: No Accompanied by: Self / Same As Patient Allergies No Known Allergies [No Known Allergies*] Allergy (Verified 10/08/24 14:02) HPI Comments Details: 63 YO M with PMHx T2DM, Multinodular thyroid who is seen in F/U for multinodular thyroid.. Also seen in our practice for type 2 diabetes mellitus, last visit with Sasha GRAY on 07/22/2024 for management of diabetes mellitus. Multinodular Thyroid: HPI from prior visit He had an US completed due to a thyroid nodule that was palpated during exam by Parris Neff in 2019 or 2021.? This revealed a multinodular thyroid, and he was then referred to Dr. Barker for FNA biopsy. Dr. Barker performed an FNA biopsy of his RMP 2.5 cm thyroid nodule 08/24/2022 with benign cytology. At that time he was found to have a large goiter with substernal extension.? Greybull sign was positive.? He was complaining of hoarseness of voice and some dysphagia.? He was referred to Dr. Mustafa for a surgical thyroidectomy and also CT of the neck was ordered.? Decision was made not to operate ,He saw Dr. Mustafa but did not want to proceed with thyroidectomy He denies any symptoms of hyper or hypothyroidism currently.? He denies a personal history of head or neck irradiation.? He denies a family history of thyroid cancer. Most recently labs from March 2024 showed low TSH of 0.19. Previously he has always had normal TSH. Free T4 was normal at 0.91. Thyroid uptake and scan April 2024 showed minimal tracer avidity overall consistent with thyroiditis. It did possibly point towards slightly increased uptake in the right inferior and left mid poles. Interval history Continues to report loose stools 3-4 times a day , and now having heat intolerance and diarrhea Weight stable , reports tremors, denies palpitations Dysphagia persists but not worsened Didnt do blood work or ultrasound thyroid Physical exam General: sitting comfortably in no acute distress HEENT: normocephalic/atraumatic, moist oral mucosa Neck: supple, palpable 1-2 cm thyroid nodule on the right side, palpable 2 cm thyroid nodule on left side, no dorsocervical or supraclavicular fat pads Cardiac: normal heart sounds Pulm: normal breath sounds B/L, no added breath sounds Abd: not distended, no tenderness Extremities: no edema, no signs of myxedema, no tremors Neuro: AAO x3, Speech: normal, no facial droop, moving all 4 extremities Laboratory Tests 09/21/20 08/27/21 09/14/22 10:05 07:13 10:49 TSH 0.55 0.41 0.48 Free T4 0.79 0.87 0.94 03/10/23 10/03/23 03/25/24 14:08 13:25 14:41 TSH 0.44 0.83 0.19 L Free T4 0.98 0.98 0.91 Laboratory Tests 08/27/21 07:13 Thyroglobulin Antibody <1 Thyroid Peroxidase Ab 3 THYROID UPTAKE AND SCAN April 2024 CLINICAL INFORMATION: Nontoxic multinodular goiter. COMPARISON: CT of the soft tissue neck done on 09/16/2022. TECHNIQUE: Following the oral administration of 273 microcuries of I-123 sodium iodide, thyroid uptake was performed and expressed as a percentage of the administrated dose. Gamma scintillation camera images of the thyroid in the anterior and right and left anterior oblique views were obtained using a pinhole collimator following the administration of 10 mCi Tc-99m pertechnetate. FINDINGS: The uptake is 3.45% at 4 hours and 11.60% at 24 hours (Normal radioiodine uptake at 4 to 6 hours is about 5-15% and at 24 hours is 10% to 30%). The radioiodine uptake is normal. The radiopertechnetate thyroid scintigram shows minimal tracer avidity within the entire thyroid gland, most consistent with diffuse thyroiditis. Subtle focal asymmetric increased tracer avidity however is noted along the mid medial aspect of the left and mid to inferior aspect of the right lobe of the gland. The findings appear concordant between iodine as well as technetium pertechnetate images. NM/NM thyroid w uptake IMPRESSION: 1. Normal radioiodine uptake. 2. Minimal tracer avidity involving the thyroid gland on both iodine as well as technetium pertechnetate, consistent with nonspecific diffuse thyroiditis. 3. Superimposed mild focal asymmetric warm nodule at inferior medial part of the right and mid medial part of the left lobe of the gland. CT SOFT TISSUE NECK WITHOUT CONTRAST Sep 15 CLINICAL INFORMATION: Nontoxic multinodular goiter. COMPARISON: Thyroid ultrasound 07/08/2021. TECHNIQUE: Helical imaging was performed in the axial plane with generation of coronal and sagittal reformatted images. This CT examination was performed using dose optimization techniques as appropriate, including one or more of the following: Automated exposure control, iterative reconstruction, and adjustment of technique factors (mA and/or kVp) according to patient size (this includes techniques or standardized protocols for targeted exams where dose is matched to indication/reason for exam). Fleischner Society criteria for the followup of incidental pulmonary nodules was implemented if appropriate. DLP: 410 mGy-cm. FINDINGS: There is an enlarged heterogeneous thyroid gland which coincides with the findings demonstrated on the sonographic imaging from 08/24/2022. There are no pathologically enlarged cervical lymph nodes. No mediastinal or axillary adenopathy is visualized within the [id number] of this examination. Pharyngeal mucosal spaces are symmetric. Parapharyngeal and retromaxillary fat is preserved. Medical Physics Researcher spaces are normal. The parotid and submandibular glands are normal. The tongue base and epiglottis are normal. Preepiglottic fat is preserved. Glottic and subglottic airways are widely patent. Lung apices are clear. The aortic arch apex is unremarkable. Carotid spaces are unremarkable. There is advanced multilevel degenerative spondylosis of the cervical spine. Disc osteophyte spurring in conjunction with facet degenerative change at C3-C4 causes severe canal stenosis with likely compression of the cervical spinal cord. There is also at least moderate canal stenosis at levels of C2-C3, C4-C5, and C5-C6. There is no acute osseous finding. No worrisome lytic or blastic osseous lesion. There are exuberant anterior disc osteophyte complexes at multiple levels within the cervical spine. The skull base is grossly intact. No mastoid middle ear effusion. Ilwk-in-[id number] paranasal sinus disease. Limited visualization of the intracranial anatomy reveals no abnormal finding. CT/CT soft tissue neck wo IV con IMPRESSION: There is a multinodular thyroid goiter. No pathologically enlarged cervical lymph nodes. There is advanced multilevel degenerative spondylosis of the cervical spine causing severe canal stenosis and likely compression of the cervical cord at C3-C4. There is also at least moderate canal stenosis at levels of C2-C3, C4-C5, and C5-C6. If there are clinical symptoms of compressive myelopathy then a dedicated cervical spine MRI can be obtained for better anatomic characterization of the cord and canal. US THYROID nov 15 CLINICAL INFORMATION: Nontoxic goiter, unspecified. COMPARISON: None TECHNIQUE: Linear transducer blevins-scale and color Doppler examination with attention to the region of the thyroid. FINDINGS: SIZE: Measurements of the thyroid lobes and nodules are given in sagittal, anteroposterior and transverse dimensions respectively. Right Thyroid Lobe: 5.1 x 2.7 x 2.9 cm, volume 21 mL. Parenchyma: The gland echotexture is heterogeneous. Thyroid vascularity is normal. Left Thyroid Lobe: 5.2 x 3.2 x 2.7 cm, volume 23 mL. Parenchyma: The gland echotexture is heterogeneous. Thyroid vascularity is normal. Isthmus: 0.1 cm in maximum AP dimension. Estimated total number of nodules greater than or equal to 1 cm: 5. There are multiple additional bilateral thyroid nodules. Stock Roller nodules are described as follows: 1. Location: Right mid pole. Size: 1.4 x 1.1 x 1.8 cm, volume 1.4 mL. Nodule characteristics: Composition: Solid/almost completely solid (2). Echogenicity: Isoechoic (1). Shape: Not taller than wide (0). Margins: Smooth (0). Echogenic Foci: None (0). ACR TI-RADS total points: 3 ACR TI-RADS category: 3 2. Location: Right lower pole. Size: 1.4 x 1.1 x 0.9 cm, volume 0.68 mL. Nodule characteristics: Composition: Mixed cystic and solid (1). Echogenicity: Hypoechoic (2). Shape: Not taller than wide (0). Margins: Smooth (0). Echogenic Foci: None (0). ACR TI-RADS total points: 3 ACR TI-RADS category: 3 3. Location: Left upper pole. Size: 1.0 x 0.3 x 0.8 cm, volume 0.13 mL. Nodule characteristics: Composition: Solid/almost completely solid (2). Echogenicity: Hypoechoic (2). Shape: Not taller than wide (0). Margins: Smooth (0). Echogenic Foci: None (0). ACR TI-RADS total points: 4 ACR TI-RADS category: 4 4. Location: Left mid pole. Size: 1.8 x 1.0 x 1.5 cm, volume 1.4 mL. Nodule characteristics: Composition: Mixed cystic and solid (1). Echogenicity: Hypoechoic (2). Shape: Not taller than wide (0). Margins: Smooth (0). Echogenic Foci: None (0). ACR TI-RADS total points: 3 ACR TI-RADS category: 3 5. Location: Left mid pole. Size: 1.7 x 0.6 x 1.0 cm, volume 0.53 mL. Nodule characteristics: Composition: Solid/almost completely solid (2). Echogenicity: Isoechoic (1). Shape: Not taller than wide (0). Margins: Smooth (0). Echogenic Foci: None (0). ACR TI-RADS total points: 3 ACR TI-RADS category: 3 NODES: No lymphadenopathy is seen in the tissue surrounding the thyroid gland. US/US thyroid IMPRESSION: Heterogeneous thyroid parenchyma with normal vascularity. Thyromegaly. Multiple bilateral thyroid nodules with ultrasound characteristics consistent with TI-RADS category 3. These nodules measure 1.7 to 1.8 cm in greatest dimension. Followup ultrasound recommended in 1, 3, and 5 years. Upper left thyroid nodule measuring 1.0 cm with ultrasound characteristics consistent with TI-RADS category 4. Followup ultrasound recommended in 1, 2, 3, and 5 years. [facility] Medical History (Updated 07/16/24 @ 14:31 by Yadi Louie MD) Subclinical hyperthyroidism Type 2 diabetes mellitus with hyperglycemia Hyperlipidemia LDL goal <100 Cyst of buttocks Establishing care with new doctor, encounter for Dyspepsia Encounter for general adult medical examination with abnormal findings Vocal cord polyp Hospital discharge follow-up Arthrosis Abdominal cramping HTN (hypertension) HLD (hyperlipidemia) Multinodular thyroid Vitamin D deficiency Multinodular thyroid Type 2 diabetes mellitus with hyperglycemia, with long-term current use of insulin Type 2 diabetes mellitus with diabetic polyneuropathy Smoking Lazy eye of left side Arthritis High cholesterol Diabetes type 2, controlled Surgical History Hx of colonoscopy History of surgery History of renal stone (~06/01/20) History of sebaceous cyst (~05/28/20) History of penile implant (~03/17/20) History of hemorrhoids Family History Father No problems noted. Mother History of cardiovascular disorder Social History Household Members: None Housing: Apartment Alcohol intake: never Patient Tobacco Use Status: Current everyday Tobacco user Cigarette Packs Per Day: 1 e-Cigarette/Vaping Use: Currently Using Second Hand Smoke Exposure: No Substance Use Type: Marijuana service: No Current occupational status: retired Cognitive needs: No Hearing needs: No Vision needs: Yes Physical Exam Vital Signs: BMI result Body Mass Index 29.5 Assessment & Plan Assessment & Plan (1) Subclinical hyperthyroidism: Code(s): E05.90 - Thyrotoxicosis, unspecified without thyrotoxic crisis or storm Category: Medical Plan: Patient with labs in March 2024 showing TSH low at 0.19 with normal free T4 of 0.9. He has previously never had abnormal thyroid function. TPO and thyroglobulin antibody levels have been negative in the past. We will check a TSI antibody level. He does not have any history of heart disease, no history of fracture/osteoporosis. However given his age if he has subclinical hyperthyroidism he could qualify for treatment potentially. Hence will evaluate with a TSI antibody level. I will also repeat his thyroid function testing since before this he has always had normal thyroid function. Less he has a history of nodule so more likely if he does have subclinical hyperthyroidism this is from toxic multinodular goiter. He had a thyroid uptake and scan in April 2024 which showed decreased avidity overall consistent with thyroiditis but did show slightly warmer areas in the region of right inferior and left mid poles this executive assistant with heterogenous appearance and likely toxic multinodular goiter. I discussed with him that treatment for these would be total thyroidectomy ideally to get rid of both is nodules and subclinical hyperthyroidism. 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 We can also consider low-dose methimazole for this. Last visit we had ordered all the above testing but he forgot to get the thyroid ultrasound as well as blood work done. Reiterated to him importance of getting his testing done in follow up in 4 weeks. Plan: -check free T4, TSH, check TSI antibody levels, also check total T3 -follow up in 4 weeks (2) Multinodular thyroid: Code(s): E04.2 - Nontoxic multinodular goiter Category: Medical Plan: Patient with no family history of thyroid cancer with no personal history of head or neck radiation who is coming in for follow up of multinodular goiter. Recently as mentioned above he has developed subclinical hyperthyroidism and a set of labs in March 2024 with thyroid uptake and scan from April 2024 showing heterogenous areas of increased tracer uptake consistent with toxic multinodular goiter. He has had biopsy July [address] Barker of his right midpole nodule which she measured as 2.5 cm during the biopsy, with benign cytology. His last thyroid ultrasound was from 2020 which had not shown such a big nodule. At this time he has not had any recent ultrasound. We will repeat a thyroid ultrasound. He has had some persistent compressive symptoms such as hoarseness of voice and dysphagia that have not significantly worsened. He was evaluated by Dr. Flavio Mustafa at [facility] in February [address] scan of the soft tissue neck as well, however he did not want to get surgery. 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 Louie and Meghan Harp Follow up in 4 weeks Coding Level of Care Code Est Pt Level 3 (65373) Diagnoses Subclinical hyperthyroidism E05.90 Multinodular thyroid E04.2
[2024-10-08 13:58] VITALS: BP 106/74; PULSE 96; BMI 29.5
== END 2024-10-08 14:30 | disposition home or self-care (01) ==
PROVIDERS: PCP Internal Medicine; Visit Provider Student in an Organized Health Care Education/Training Program
DX: E05.90 Thyrotoxicosis, unspecified without thyrotoxic crisis or storm (principal); E04.2 Nontoxic multinodular goiter
CPT/HCPCS: 99213

== ENCOUNTER → 2024-10-08 13:54 | Outpatient (BNVA) | payer OTHER, SELFPAY | PROVIDERS: PCP Internal Medicine; Visit Provider Student in an Organized Health Care Education/Training Program | DX: E05.90 Thyrotoxicosis, unspecified without thyrotoxic crisis or storm (principal); E04.2 Nontoxic multinodular goiter | CPT/HCPCS: 99212 ==

== ENCOUNTER 2024-10-17 14:01 | Outpatient (REF) | payer OTHER, SELFPAY ==
--- NOTE | ~2024-10-17 | US_ITS ---
EXAMINATION: US THYROID HISTORY: E04.2 - Nontoxic multinodular goiter TECHNIQUE: Real-time grayscale ultrasound imaging was performed and images were reviewed. COMPARISON: Comparison is made with the prior examination dated 07/08/2021. FINDINGS: SIZE: The right thyroid lobe measures 6.7 x 4.0 x 3.1 cm. The left thyroid lobe measures 6.2 x 3.2 x 2.8 cm. The isthmus measures 11 mm. FLOW: Flow to the gland is normal. ECHOGENICITY: The echotexture of the gland is heterogeneous. NODULES: Multiple bilateral thyroid nodules are again identified with imaging characteristics is as follows: Nodule #: 1 Location: Right upper pole measuring 2.1 x 1.2 x 2.0 cm (previously 1.4 x 1.1 x 1.8 cm). Shape: Ovoid Margins: Ill-defined Echotexture: Hyperechoic Morphology: Solid Calcifications: None TIRADS: TR3: Mildly suspicious. Nodule #: 2 Location: Interpolar region of the right thyroid lobe measuring 1.2 x 1.0 x 1.3 cm (previously 1.4 x 1.1 x 0.9 cm). Shape: Round Margins: Ill-defined Echotexture: Hypoechoic Morphology: Indeterminate Calcifications: None TIRADS: TR4: Moderately suspicious. Nodule #: 3 Location: Mid to lower pole of the right thyroid lobe measuring 3.4 x 2.0 x 2.5 cm. This is a new nodule from the prior study. Shape: Ovoid Margins: Smooth Echotexture: Hyperechoic Morphology: Solid Calcifications: None TIRADS: TR3: Mildly suspicious. Nodule #: 4 Location: Upper pole of the left thyroid lobe measuring 1.6 x 0.7 x 1.0 cm (previously 1.7 x 0.6 x 1.0 cm. Shape: Ovoid Margins: Smooth Echotexture: Hyperechoic Morphology: Mostly solid Calcifications: None TIRADS: TR3: Mildly suspicious. Nodule #: 4 Location: Midportion of the left thyroid lobe measuring 1.8 x 1.6 x 1.8 cm (previously 1.7 x 1.0 x 1.5 cm). Shape: Ovoid Margins: Smooth Echotexture: Hyperechoic Morphology: Mixed Calcifications: None TIRADS: TR3: Mildly suspicious. US/US thyroid IMPRESSION: Multiple thyroid nodules are again identified as described above. There is a new mildly suspicious 3.4 x 2.0 x 2.5 cm nodule in the mid to lower pole region of the right thyroid lobe for which ultrasound-guided fine needle aspiration is recommended. ACR TI-RADS Guidelines TR1: Benign, No follow-up or biopsy required TR2: Not Suspicious, No biopsy indicated TR3: Mildly Suspicious, FNA if >= 2.5 cm, Follow if >= 1.5 cm TR4: Moderately Suspicious, FNA if >= 1.5 cm, Follow if >= 1.0 cm TR5: Highly Suspicious, FNA if >= 1.0 cm, Follow if >= 0.5 cm Electronically signed by: Yvon Morrison MD 10/21/2024 09:10 AM [facility]
--- OUTSIDE RECORDS SUMMARY | 2024-10-17 16:38 | XMS_ITS | Data Portability ---
Author Organization [employer] Address [address] [place] [address] Care Team Providers Care Nurse Supervisor Name Role Phone HIM CCA OTHER Assessment Encounter Date Assessment Date Assessment LastModified by Organization Details LastModified Time 03/04/2024 03/04/2024 I have reviewed and agree with the assessment and plan as documented by the literacy consultant. I provided real time medical direction for this encounter and was immediately available to provide additional phone based assistance as needed. History as noted by literacy consultant. Pt with history of DM, recent surgery [...] to help guide treatment and management. [facility] [...] BMP, serum or plasma 024 [facility]04/[facility], [address] [place] [address], [phone], 10:05:19 Referral None recorded . Procedures None [...] Details Last Updated DateTime 4 98.4 [degF] 42405.8 g 162.56 cm 80 /min 98 % 98 % 14 /min 125 mm[Hg] 84 mm[Hg] Not Available [facility] - production 4 20:02:34 Date Recorded Oxygen saturation Oxygen saturation in Arterial blood by Pulse oximetry Body weight Heart rate Body height Respiratory rate Body temperature Systolic blood pressure Diastolic blood pressure Provider Name and Address Organization Details Last Updated DateTime 4 98 % 98 % 66740.5 6 g 98 /min 172.72 cm 16 /min 97.3 [degF] 154 mm[Hg] 61 mm[Hg] Not Available [facility] 4 10:03:23 Social History None recorded. Functional Status None recorded. Mental Status None recorded. Family History Nothing Reported. Medical History No medical history recorded. Past Encounters Encounter ID Performer Location Encounter Start Date Encounter Closed Date Diagnosis/Indication Diagnosis SNOMED-CT Code Diagnosis ICD10 Code Diagnosis Note [id number] Marilu Schmid MD Main - [facility] [address] [place] [phone] 09/30/2023 20:02:30 10/01/2023 15:25:02 Viral upper respiratory tract infection [id number] J06.9 I provided real -time medical direction via phone for this encounter, and was available for additional phone based assistance as needed. I have reviewed and agree with the Assessment and Plan as documented by the Book Reviewer. Patient given the opportunit y to ask questions. 63 yo w/ 24h of URI (nasal congestion + fatigue). no cough/sob. covid/flu negative. lungs clear, exam reassuring . recommende d supportive care (nasal rinse, antihistam ine). advised calling back if worsens. [id number] Greyson Wan MD Main - [facility] [address] [place] [phone] 03/04/2024 10:03:18 03/06/2024 04:37:12 Diarrhea 76129100 R19.7 Health Concerns Section Related Observation LastModified by Organization Detai ls LastModified Time None Recorded Concern Status LastModified by Organization Details LastModified Time None Recorded Advance Directives Directive None Recorded Payers Encounter Date Sequence Insurance Name Policy Number Policy Warner Covered Member ID Warner Member ID Guarantor Name 09/30/2023 1 [facility] [employer] - DOS ON OR AFTER 2022 - DUAL ELIGIBLE - SENIOR LIVING OPTIONS AND ONE CARE (MEDICARE REPLACEMENT/ADV ANTAGE - HMO) Gerson Allam [id number] Gerson hCoe Allam 03/04/2024 1 [facility] [employer] - DOS ON OR AFTER 2022 - DUAL ELIGIBLE - SENIOR LIVING OPTIONS AND ONE CARE (MEDICARE REPLACEMENT/ADV ANTAGE - HMO) Gerson Allam [id number] Gerson Mazariegos Notes Date Note Type Note Provider Name [...] ................... ................... ................... ................... ................... ................... ........ Book Reviewer Note From Ramiro Reyes: PT caox3 complains [...] covid and flu negative via rapid test. [facility] advises supportive care, nasal rinse, steam and antihistamine if needed. Red flags and pt education discussed. Pt assisted with his nasal spray. ................... ................... ................... ................... ................... ................... ................... ........ Disposition: Fulfilled Marilu Schmid MD [address] [facility],[address], [place], [phone], [employer] 10/01/2023 02:50:55 03/04/2024 text/html This was a supervised home visit with literacy consultant Teto Beckett. CRC Nurse Triage Notes (Odette Chin): Chief Complaints: Diarrhea PMH: Diabetes Allergies: No Known Comments: Diarrhea ongoing for the past week. Incontinent during sleep. States diarrhea is severe. Vomited last week. No known fever. Since surgical procedure in January member states health has declined. Unsteady balance, dizziness. On Oxycodone 10mg daily since January. Book Reviewer POC Test Results from Teto Beckett [facility] (09:59:37) pH: 7.41 pH units pCO2: 35.8 mmHg pO2: 65.7 mmHg Na: 145 mmol/L K: 4.0 mmol/L iCa: 1.19 mmol/L Cl: 110 mmol/L TCO2: 22.6 mEq/L Hct: 47 % Hb: 15.8 g/dL Glu: 236 mg/dL Lac: 1.7 mmol/L Cr: 0.9 mg/dL BUN: 8 mg/dL A ................... ................... ................... ................... ................... ................... ................... ........ Book Reviewer Note From Teto Beckett: Pt reports having [...] ........ Disposition: Fulfilled Greyson Wan MD [address] [facility],[address], [place], [phone], [employer] 03/04/2024 10:43:44
== END 2024-10-17 14:02 | disposition home or self-care (01) ==
LOC: HO.US 14:01
PROVIDERS: PCP Internal Medicine; Visit Provider Student in an Organized Health Care Education/Training Program
DX: E04.2 Nontoxic multinodular goiter (principal)
CPT/HCPCS: 76536

== ENCOUNTER → 2024-10-17 14:03 | Outpatient (BNV) | payer OTHER, SELFPAY | PROVIDERS: PCP Internal Medicine; Visit Provider Radiology Diagnostic Radiology | DX: E04.2 Nontoxic multinodular goiter (principal) | CPT/HCPCS: 76536 ==

== ENCOUNTER 2024-11-05 10:36 | Outpatient (REF) | payer OTHER, SELFPAY ==
[2024-11-05 11:30] LABS: Estimated Average Glucose 183 mg/dL; Hemoglobin A1C 246.0249 umol/L; Total Hemoglobin (HGBA1C) 3868.8837 umol/L
--- OUTSIDE RECORDS SUMMARY | 2024-11-05 11:52 | XMS_ITS | Clinical Summary ---
Author Organization [facility] Address [address] [place] [address] Care Team Providers Care Backroom Associate Name Role Phone Marcela Foster DDAnette Primary Care Provider [phone] Source Comments PLEASE NOTE, if this patient is a minor, it may be UNLAWFUL to discuss sensitive information that is contained in these records (such as FAMILY PLANNING, MENTAL HEALTH or SUBSTANCE ABUSE) with the minor patient's parent or other person without the patient's specific authorization.[facility] Social History Tobacco Use Types Packs/Day Years Used Date Smoking Tobacco: Never Assessed Social Connections Answer Date Recorded Social Connections and Isolation 0 01/11/2021 Financial Resource Strain Answer Date R ecorded Financial Resource Strain 0 2020 Stress Answer Date Recorded Stress 0 01/11/2021 Physical Activity Answer Date Recorded Physical Activity 0 01/11/2021 Food Insecurity Answer Date Recorded Food 0 01/11/2021 Transportation Needs Answer Date Record ed Transportation 0 01/11/2021 Housing Stability Answer Date Recorded Housing 0 01/11/2021 Safety and Environment Answer Date Bryce rded Safety 0 01/11/2021 Utilities Answer Date Recorded Utilities 0 01/11/2021 Employment Answer Date Recorded Employment 0 01/11/2021 Sex and Gender Information Value Date Recorded Sex Assigned at Not on file Legal Sex Male 8:56 AM PDT Gender Identity Not on file Sexual Orientation Not on file Plan of Treatment Not on file Insurance [place] MEDICA[place] DENTAL [facility] Care Teams Backroom Associate Relationship Specialty Start Date End Date Marcela Foster DDS [address] [place] [phone] PCP - General Dental Food Dehydrator Operator 05/09/19
--- OUTSIDE RECORDS SUMMARY | 2024-11-05 11:52 | XMS_ITS | Data Portability ---
Author Organization [employer] Address [address] [place] [address] Care Team Providers Care Solar Process Engineer Name Role Phone HIM CCA OTHER Assessment Encounter Date Assessment Date Assessment LastModified by Organization Details LastModified Time 03/04/2024 03/04/2024 I have reviewed and agree with the assessment and plan as documented by the fuel manager. I provided real time medical direction for this encounter and was immediately available to provide additional phone based assistance as needed. History as noted by fuel manager. Pt with history of DM, recent surgery [...] to help guide treatment and management. Unfortunately[facility] [...] BMP, serum or plasma 024 03/04/20 [facility], [address] [place] [address], [phone], 10:05:19 Referral None recorded . Procedures None [...] Details Last Updated DateTime 4 98.4 [degF] 55211.8 g 162.56 cm 80 /min 98 % [...] Updated DateTime 4 98 % 98 % 32509.5 6 g 98 /min 172.72 cm 16 [...] SNOMED-CT Code Diagnosis ICD10 Code Diagnosis Note [id number] Marilu Schmid MD [facility] - [facility] [address] [place] [phone] 09/30/2023 20:02:30 10/01/2023 15:25:02 Viral upper respiratory tract infection [id number] J06.9 I provided real -time medical direction via phone for this encounter, and was available for additional phone based assistance as needed. I have reviewed and agree with the Assessment and Plan as documented by the Epic Specialist. Patient given the opportunit y to ask questions. 63 yo w/ 24h of URI (nasal congestion + fatigue). no cough/sob. covid/flu negative. lungs clear, exam reassuring . recommende d supportive care (nasal rinse, antihistam ine). advised calling back if worsens. [id number] Greyson Wan MD [facility] - [facility] [address] [place] [phone] 03/04/2024 10:03:18 03/06/2024 04:37:12 Diarrhea [id number] R19.7 Health Concerns Section Related Observation LastModified by Organization Detai ls LastModified Time None Recorded Concern Status LastModified by Organization Details LastModified Time None Recorded Advance Directives Directive None Recorded Payers Encounter Date Sequence Insurance Name Policy Number Policy Warner Covered Member ID Warner Member ID Guarantor Name 09/30/2023 1 [facility] - DOS ON OR AFTER 2022 - DUAL ELIGIBLE - DETENTION OPTIONS AND ONE CARE (MEDICARE REPLACEMENT/ADV ANTAGE - HMO) Gerson Allam [id number] Gerson Choe Allam 03/04/2024 1 [facility] - DOS ON OR AFTER 2022 - DUAL ELIGIBLE - DETENTION OPTIONS AND ONE CARE (MEDICARE REPLACEMENT/ADV ANTAGE - HMO) Gerson Allam [id number] Gerson Mazariegos Notes Date Note Type Note [...] ................... ................... ................... ................... ................... ................... ........ Epic Specialist Note From Ramiro Ryees: PT caox3 complains of headache and nasal [...] covid and flu negative via rapid test. [facility] advises supportive care, nasal rinse, steam and antihistamine if needed. Red flags and pt education discussed. Pt assisted with his nasal spray. ................... ................... ................... ................... ................... ................... ................... ........ Disposition: Fulfilled Marilu Schmid MD [address] [facility],[address], [place], [address], [employer] 10/01/2023 02:50:55 03/04/2024 text/html This was a supervised home visit with fuel manager Teto Beckett. CRC Nurse Triage Notes (Odette Chin): Chief Complaints: Diarrhea PMH: Diabetes Allergies: No Known Comments: Diarrhea ongoing for the past week. Incontinent during sleep. States diarrhea is severe. Vomited last week. No known fever. Since surgical procedure in January member states health has declined. Unsteady balance, dizziness. On Oxycodone 10mg daily since January. Epic Specialist POC Test Results from Teto Beckett [facility] (09:59:37) pH: 7.41 pH units pCO2: 35.8 mmHg pO2: 65.7 mmHg Na: 145 mmol/L K: 4.0 mmol/L iCa: 1.19 mmol/L Cl: 110 mmol/L TCO2: 22.6 mEq/L Hct: 47 % Hb: 15.8 g/dL Glu: 236 mg/dL Lac: 1.7 mmol/L Cr: 0.9 mg/dL BUN: 8 mg/dL A ................... ................... ................... ................... ................... ................... ................... ........ 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 Most recent surgery was 02/09/24. Today pt ? s evere? watery diarrhea 4-6 times per day. Pt [...] ........ Disposition: Fulfilled Greyson Wan MD [address] [facility],[address], [place], [address], [employer] 03/04/2024 10:43:44
[2024-11-05 12:52] LABS: Cholesterol 190 mg/dL (<200); HDL Cholesterol 30 mg/dL (>40); LDL Cholesterol Calculated 111 mg/dL (<100); Triglycerides 249 mg/dL (<150)
[2024-11-05 13:00] LABS: Free T4 (Free Thyroxine) 0.97 ng/dL (0.71-1.85)
[2024-11-05 13:09] LABS: Creatinine Urine 73.98 mg/dL; Microalbum/Creatinine Ratio Ur 32.4 ug/mg cr (<30)
[2024-11-06 23:29] LABS: Triiodothyronine T3 Total 96 ng/dL (76-181)
[2024-11-11 15:48] LABS: Thyroid Stimulating Immunoglob <89 % baseline (<140)
== END 2024-11-05 10:37 | disposition home or self-care (01) ==
LOC: HO.LAB 10:36
PROVIDERS: Absent Provider Student in an Organized Health Care Education/Training Program; PCP Internal Medicine; Visit Provider Physician Assistant
DX: I10 Essential (primary) hypertension (principal); E05.90 Thyrotoxicosis, unspecified without thyrotoxic crisis or storm; E11.65 Type 2 diabetes mellitus with hyperglycemia; Z79.4 Long term (current) use of insulin
CPT/HCPCS: 36415; 80061; 82043; 82570; 83036; 84439; 84443; 84445; 84480

== ENCOUNTER 2024-11-06 14:34 | Outpatient (AMB) | payer OTHER, SELFPAY ==
[2024-11-06 14:39] VITALS: BP 120/66; PULSE 88; O2SAT 96; BMI 29.5
--- NOTE | 2024-11-06 14:39 | MHC.PC.OV ---
Vital Signs 11/06/24 14:39 Height 5 ft 8 in Weight 194 lb BMI 29.5 BP 120/66 Blood Pressure Location Rt brachial Position Sitting Pulse 88 Pulse Source Pulse Oximeter Pulse Oximetry (%) 96 Oxygen Delivery Method Room Air Intake Visit Reasons: Annual PE Allergies No Known Allergies [No Known Allergies*] Allergy (Verified 11/06/24 14:40) Medication List - Last Reconciled 11/06/24 by Sandra Hodges MD acetaminophen ER (Tylenol Arthritis Pain) 650 mg PO Q12H 30 days blood sugar diagnostic (Qualiteam SoftwareStyle Precision Junaid Strips) DIRECTED TO CHECK BLOOD SUGAR 4X/DAY cholecalciferol (vitamin D3) 50 mcg PO DAILY diazepam mg PO dicyclomine 20 mg PO QID 30 days docusate sodium 100 mg PO BID PRN duloxetine 30 mg PO BID empagliflozin (Jardiance) 25 mg PO QAM flash glucose scanning reader (Qualiteam SoftwareStyle [place] 2 [place]) DIRECTED flash glucose sensor (Qualiteam SoftwareStyle [place] 2 Sensor kit) As directed change every 14 days gabapentin 100 mg PO TID glucose (Dex4 Glucose) 16 grams (4 x 4 gram) PO Q15M PRN insulin glargine (Lantus Solostar U-100 Insulin) 34 units (0.34 mL) subcut QPM insulin lispro (Humalog KwikPen (U-100) Insulin) 19 units (0.19 mL) subcut TID lancets (FreeStyle Lancets) As directed three time a day loperamide mg PO BID pantoprazole 40 mg PO DAILY 90 days pen needle, diabetic five times a day rosuvastatin 40 mg PO DAILY sertraline 25 mg PO DAILY Tobacco use date assessed: 11/06/24 Fall risk assessment: No Falls in past year Last assessed Fall Risk: 11/06/24 Dental Screening Dental Screen Date: 11/06/24 Did you have a dental visit in the last 12 months?: Yes Did you have a dental problem in the last 6 months where you did not have access to dental care?: No Was dental information given to patient?: Patient has dentist HPI Annual PE HPI Details Physical exam - The patient is a 64-year-old male presenting for a physical examination and management of ongoing medical issues. - Persistent tobacco use disorder, with the patient smoking one pack daily and no current intention to cease. - History and management of diabetes mellitus, under node js developer care, with recent blood tests performed. 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 - Presented with difficulties in maintaining balance, especially during physical activities, indicating possible neurologic involvement. To be discussed with the Neurology Health Maintenance - Blood tests recommended for kidney and liver function to monitor metabolic impact of medications. - Advisement to keep hemoglobin A1c below 7 to prevent complications associated with high glucose levels. - Encouraged exercises to improve balance and reduce wobbliness. Diagnostic results - Recent blood test results for sugar and thyroid conducted by node js developer. Patient Instructions - Continue current medication regimen as prescribed. - Inform Dr. Hodges neurology about memory issues and the use of both sertraline and duloxetine in the upcoming visit. - Practice balance exercises regularly at home to improve stability. - Complete recommended kidney and liver function blood tests. Review of Systems - General: No fever no chills - Neurological: No headaches no dizziness - Ear nose throat: No sore throat no hearing difficulty no ear pain - Cardiovascular: No syncope, no chest pain, no palpitations - Gastrointestinal: No nausea vomiting or diarrhea - Endocrine: No polyuria polydipsia no heat intolerance - Genitourinary: No dysuria - Skin: No new complaints Physical Exam General: Cooperative, healthy appearing, comfortable, no acute distress Orientation: Patient oriented x3 Head: Normal to inspection Ears: Within normal limit visually Nose: Normal external nose present Face and sinus: Normal facial exam Eyes: Appearance normal, extraocular movement intact pupils reactive Neck: Normal visual inspection and supple Respiratory: Normal respiratory effort and able to speak in complete sentences. Clear to auscultation, no stridor Cardiovascular: S1 and S2 GI: Normal to inspection. Soft to palpation and nontender Skin: Turgor normal, no acute findings Neuro: Patient oriented x3, motor sensory intact, balance intact, tandem failed. Patient reports memory problems and dizziness. Extremities: Normal to inspection [facility] Medical History Encounter for general adult medical examination with abnormal findings Subclinical hyperthyroidism Type 2 diabetes mellitus with hyperglycemia Hyperlipidemia LDL goal <100 Cyst of buttocks Establishing care with new doctor, encounter for Dyspepsia Vocal cord polyp Hospital discharge follow-up Arthrosis Abdominal cramping HTN (hypertension) HLD (hyperlipidemia) Multinodular thyroid Vitamin D deficiency Multinodular thyroid Type 2 diabetes mellitus with hyperglycemia, with long-term current use of insulin Type 2 diabetes mellitus with diabetic polyneuropathy Smoking Lazy eye of left side Arthritis High cholesterol Diabetes type 2, controlled Surgical History Hx of colonoscopy History of surgery History of renal stone (~06/01/20) History of sebaceous cyst (~05/28/20) History of penile implant (~03/17/20) History of hemorrhoids Family History Father No problems noted. Mother History of cardiovascular disorder Social History Household Members: None Housing: Apartment Alcohol intake: never Patient Tobacco Use Status: Current everyday Tobacco user Cigarette Packs Per Day: 1 e-Cigarette/Vaping Use: Currently Using Second Hand Smoke Exposure: No Substance Use Type: Marijuana service: No Current occupational status: retired Cognitive needs: No Hearing needs: No Vision needs: Yes Questionnaire PHQ-9 Over the last 2 weeks, how often have you been bothered by any of the following problems? 1. Little interest or pleasure in doing things: not at all 2. Feeling down, depressed, or hopeless: not at all 3. Trouble falling or staying asleep, or sleeping too much: not at all 4. Feeling tired or having little energy: not at all 5. Poor appetite or overeating: not at all 6. Feeling bad about yourself - or that you are a failure or have let yourself or your family down: not at all 7. Trouble concentrating on things, such as reading the newspaper or watching television: not at all 8. Moving or speaking so slowly that other people could have noticed. Or the opposite - being so fidgety or restless that you have been moving around a lot more than usual: not at all 9. Thoughts that you would be better off or of hurting yourself in some way: not at all Total score: 0 Depression Screening Interpretation: Negative Depression Screening Done: Yes 51257 - PHQ-9 Billing: Yes Source: Developed by Drs. Yvon Rodgers, Magdy Hathaway and colleagues, with an educational jyotsna from [employer]. Thrive Questionnaire Date Thrive assessed: 11/06/24 I am a: Patient What is your living situation today?: I have a steady place to live Within the past 12 months, did the food you bought not last and you didn't have the money to get more?: Never true Within the past 12 months, did you worry whether your food would run out before you got money to buy more?: Never true Do you have trouble paying for medicines?: No Do you have trouble getting transportation to medical appointments?: No Do you have trouble paying your heating and electricity bill?: No Do you have trouble taking care of your child, family member or friend?: No Do you have trouble with day-to-day activities such as bathing, preparing meals, shopping, managing finances, etc.?: No Are you currently unemployed and looking for a job?: No Are you interested in more education?: No Please select the resources that you would like help with: None Currently or been in a relationship where the following occur: No concerns reported THRIVE Score: 0 AUDIT C Alcohol Use Questionnaire (AUDIT-C) 1. How often do you have a drink containing alcohol?: Never 3. How often do you have six or more drinks on one occasion?: Never Total Score: 0 Score Reviewed/Action Taken: Yes J LUIS-7 AMB Questionnaire J LUIS-7 Date J LUIS - 7 assessed: 11/06/24 Feeling nervous, anxious, or on edge: 0 = Not at all Not being able to stop or control worryin = Not at all Worrying too much about different things: 0 = Not at all Trouble relaxin = Not at all Being so restless that it is hard to sit still: 0 = Not at all Becoming easily annoyed or irritable: 0 = Not at all Feeling afraid as if something awful might happen: 0 = Not at all Total J LUIS-7 score (0-4 normal; 5-9 mild; 10-14 moderate; 15-21 severe): 0 Source: Developed by Yanely Gilliam Kurt Kroenke and colleagues, with an educational jyotsna from [employer]. J LUIS-7 Assessment Billing J LUIS-7 Assessment Tool: J LUIS-7 Assessment 48928 Physical exam (Primary Care) Vital Signs: Last Vital Signs Pulse 88 11/06/24 14:39 BP 120/66 11/06/24 14:39 Pulse Ox 96 11/06/24 14:39 Oxygen Delivery Method Room Air 11/06/24 14:39 BMI result Body Mass Index 29.5 Tobacco/Smoking Status: Tobacco use Status Tobacco use date assessed 11/06/24 11/06/24 14:42 Patient Tobacco Use Status Current everyday Tobacco 11/06/24 14:42 e-Cigarette/Vaping Use Currently Using 11/06/24 14:42 PHQ-9: PHQ-9 Score PHQ-9: Total score 0 11/06/24 15:07 Depression Screening Interpretation: Negative Thrive Assessment: Date of Thrive Assessment Date Thrive assessed 11/06/24 11/06/24 14:42 Currently or been in a relationship where the following occur: No concerns reported Coding Level of Care Code Est Pt Level 3 (23130) Est Pt Prev Care >65y(27110) Diagnoses Encounter for general adult medical examination with abnormal findings Z00.01 Balance problem R26.89 Memory changes R41.3 Cigarette nicotine dependence without complication F17.210 Nicotine product type: cigarettes Substance use status: uncomplicated Primary hypertension I10 Hypertension type: primary hypertension Type 2 diabetes mellitus with hyperglycemia, with long-term current use of insulin E11.65; Z79.4 Type 2 diabetes mellitus with diabetic polyneuropathy, with long-term current use of insulin E11.42; Z79.4 Diabetes mellitus emd special education teacher insulin use: with emd special education teacher use Colonoscopy refused Z53.20 Additional Codes J LUIS-7 Assessment Billing - J LUIS-7 Assessment Tool: J LUIS-7 Assessment [id number] ([id number]) PHQ-9 - 53020 - PHQ-9 Billing: Yes ([id number]) Assessment & Plan Assessment & Plan (1) Encounter for general adult medical examination with abnormal findings: Code(s): Z00.01 - Encounter for general adult medical examination with abnormal findings Category: Medical (2) Balance problem: Code(s): R26.89 - Other abnormalities of gait and mobility Category: Medical (3) Memory changes: Code(s): R41.3 - Other amnesia Category: Medical (4) Nicotine dependence: Code(s): F17.200 - Nicotine dependence, unspecified, uncomplicated Category: Medical Qualifiers: Nicotine product type: cigarettes Substance use status: uncomplicated Qualified Code(s): F17.210 - Nicotine dependence, cigarettes, uncomplicated (5) HTN (hypertension): Code(s): I10 - Essential (primary) hypertension Category: Medical Qualifiers: Hypertension type: primary hypertension Qualified Code(s): I10 - Essential (primary) hypertension (6) Type 2 diabetes mellitus with hyperglycemia, with long-term current use of insulin: Code(s): E11.65 - Type 2 diabetes mellitus with hyperglycemia; Z79.4 - roads superintendent (current) use of insulin Category: Medical (7) Type 2 diabetes mellitus with diabetic polyneuropathy: Code(s): E11.42 - Type 2 diabetes mellitus with diabetic polyneuropathy Category: Medical Qualifiers: Diabetes mellitus long-term insulin use: with long-term use Qualified Code(s): E11.42 - Type 2 diabetes mellitus with diabetic polyneuropathy; Z79.4 - roads superintendent (current) use of insulin (8) Colonoscopy refused: Code(s): Z53.20 - Procedure and treatment not carried out because of patient's decision for unspecified reasons Category: Medical Plan Physical exam - The patient is a 64-year-old male presenting for a physical examination and management of ongoing medical issues. - Persistent tobacco use disorder, with the patient smoking one pack daily and no current intention to cease. - History and management of diabetes mellitus, under node js developer care, with recent blood tests performed. 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 - Presented with difficulties in maintaining balance, especially during physical activities, indicating possible neurologic involvement. To be discussed with the Neurology Health Maintenance - Blood tests recommended for kidney and liver function to monitor metabolic impact of medications. - Advisement to keep hemoglobin A1c below 7 to prevent complications associated with high glucose levels. - Encouraged exercises to improve balance and reduce wobbliness. Diagnostic results - Recent blood test results for sugar and thyroid conducted by node js developer. Patient Instructions - Continue current medication regimen as prescribed. - Inform Dr. Carroll hamilton about memory issues and the use of both sertraline and duloxetine in the upcoming visit. - Practice balance exercises regularly at home to improve stability. - Complete recommended kidney and liver function blood tests. Orders: Orders Comprehensive Met. Panel Today E11.42 - Type 2 diabetes mellitus with diabetic polyneuropathy, E11.65 - Type 2 diabetes mellitus with hyperglycemia, F17.210 - Nicotine dependence, cigarettes, uncomplicated, I10 - Essential (primary) hypertension, R26.89 - Other abnormalities of gait and mobility, R41.3 - Other amnesia, Z00.01 - Encounter for general adult medical examination with abnormal findings, Z79.4 - skilled nursing (current) use of insulin Complete Blood Count Auto Diff Today E11.42 - Type 2 diabetes mellitus with diabetic polyneuropathy, E11.65 - Type 2 diabetes mellitus with hyperglycemia, F17.210 - Nicotine dependence, cigarettes, uncomplicated, I10 - Essential (primary) hypertension, R26.89 - Other abnormalities of gait and mobility, R41.3 - Other amnesia, Z00.01 - Encounter for general adult medical examination with abnormal findings, Z79.4 - skilled nursing (current) use of insulin
--- OUTSIDE RECORDS SUMMARY | 2024-11-06 15:49 | XMS_ITS | Clinical Summary ---
Author Organization [facility] Address [address] [place] [address] Care Team Providers Care Online Journalist Name Role Phone Marcela Foster DDAnette Primary Care Provider [phone] Source Comments PLEASE NOTE, if this patient [...] Plan of Treatment Not on file Insurance [place] MED[place] D[place] [facility] Care Teams Online Journalist Relationship Specialty Start Date End Date Marcela Foster DDS [address] [place] [id number] PCP - General Dental Tumbler Drier Operator 05/09/19
== END 2024-11-06 15:55 | disposition home or self-care (01) ==
PROVIDERS: PCP Internal Medicine; Visit Provider Internal Medicine
DX: Z00.00 Encounter for general adult medical examination without abnormal findings (principal); E11.65 Type 2 diabetes mellitus with hyperglycemia; Z79.4 Long term (current) use of insulin; E11.42 Type 2 diabetes mellitus with diabetic polyneuropathy; R26.89 Other abnormalities of gait and mobility; R41.3 Other amnesia; F17.210 Nicotine dependence, cigarettes, uncomplicated; I10 Essential (primary) hypertension; Z53.20 Procedure and treatment not carried out because of patient's decision for unspecified reasons

== ENCOUNTER → 2024-11-06 14:34 | Outpatient (BNVA) | payer OTHER, SELFPAY | PROVIDERS: PCP Internal Medicine; Visit Provider Internal Medicine | DX: Z00.01 Encounter for general adult medical examination with abnormal findings (principal); R26.89 Other abnormalities of gait and mobility; R41.3 Other amnesia; I10 Essential (primary) hypertension; E11.65 Type 2 diabetes mellitus with hyperglycemia; E11.42 Type 2 diabetes mellitus with diabetic polyneuropathy; Z79.4 Long term (current) use of insulin; F17.210 Nicotine dependence, cigarettes, uncomplicated; Z71.3 Dietary counseling and surveillance | CPT/HCPCS: 96127; 99397 ==

== ENCOUNTER 2024-11-07 14:08 | Outpatient (AMB) | payer OTHER, SELFPAY ==
[2024-11-07 14:09] VITALS: BP 102/64; PULSE 56; O2SAT 97; BMI 29.7
--- NOTE | 2024-11-07 14:09 | MHC.OFFVIS ---
Vital Signs 11/07/24 14:09 Height 5 ft 8 in Weight 195 lb 5.273 oz BMI 29.7 BP 102/64 Blood Pressure Location Lt brachial Position Sitting Pulse 56 Pulse Source Pulse Oximeter Pulse Oximetry (%) 97 Oxygen Delivery Method Room Air Intake Visit Reasons: DM & MNG Intake Note: Patient present today for Type 2 Diabetes Mellitus and MNG Last Diabetic eye exam: 11/2023 Last Podiatry Visit: Doesn't have one Random Glucose: 126 mg/dl HgA1C: 8.0% 11/05/24 Dry Cleaner Hand Required: No Accompanied by: Self / Same As Patient Allergies No Known Allergies [No Known Allergies*] Allergy (Verified 11/06/24 14:40) Medication List - Last Reconciled 11/07/24 by Yadi Louie MD acetaminophen ER (Tylenol Arthritis Pain) 650 mg PO Q12H 30 days blood sugar diagnostic (FreeStyle Precision Junaid Strips) DIRECTED TO CHECK BLOOD SUGAR 4X/DAY cholecalciferol (vitamin D3) 50 mcg PO DAILY diazepam mg PO dicyclomine 20 mg PO QID 30 days docusate sodium 100 mg PO BID PRN duloxetine 30 mg PO BID empagliflozin (Jardiance) 25 mg PO QAM flash glucose scanning reader (FreeStyle Mayco 2 [place]) DIRECTED flash glucose sensor (FreeStyle Mayco 2 Sensor kit) As directed change every 14 days gabapentin 100 mg PO TID glucose (Dex4 Glucose) 16 grams (4 x 4 gram) PO Q15M PRN insulin glargine (Lantus Solostar U-100 Insulin) 34 units (0.34 mL) subcut QPM insulin lispro (Humalog KwikPen (U-100) Insulin) 19 units (0.19 mL) subcut TID lancets (FreeStyle Lancets) As directed three time a day loperamide mg PO BID pantoprazole 40 mg PO DAILY 90 days pen needle, diabetic five times a day rosuvastatin 40 mg PO DAILY sertraline 25 mg PO DAILY HPI Comments Details: 63 YO M with PMHx T2DM, Multinodular thyroid who is seen in F/U for multinodular thyroid.. Multinodular Thyroid: HPI from prior visit He had an US completed due to a thyroid nodule that was palpated during exam by Parris Neff in 2019 or 2021.? This revealed a multinodular thyroid, and he was then referred to Dr. Barker for FNA biopsy. Dr. Barker performed an FNA biopsy of his RMP 2.5 cm thyroid nodule 08/24/2022 with benign cytology. At that time he was found to have a large goiter with substernal extension.? Mayco sign was positive.? He was complaining of hoarseness of voice and some dysphagia.? He was referred to Dr. Mustafa for a surgical thyroidectomy and also CT of the neck was ordered.? Decision was made not to operate ,He saw Dr. Mustafa but did not want to proceed with thyroidectomy He denies any symptoms of hyper or hypothyroidism currently.? He denies a personal history of head or neck irradiation.? He denies a family history of thyroid cancer. Most recently labs from March 2024 showed low TSH of 0.19. Previously he has always had normal TSH. Free T4 was normal at 0.91. Thyroid uptake and scan April 2024 showed minimal tracer avidity overall consistent with thyroiditis. It did possibly point towards slightly increased uptake in the right inferior and left mid poles. Interval history Reports improvement in diarrhea on medication. Weight stable , reports tremors, denies palpitations Dysphagia persists but not worsened 11/19: Normal thyroid function 10/19: US thyroid showed stable size of previous nodules, new right lower pole 3.4 cm nodule, when I review his old images I see he hs a conglomelerate of nodules on the right side, hard to tell if this nodule is really new, but we will repeat FNA. Diabetes mellitus Endo: Dm- Initially diagnosed with T2DM in 1989. 07/19 A1c is 8.1. currently Lantus 34 units nightly, Humalog 16 units TID Jardiance 25 mg daily/ Forgot his sensor reader today, data could not be downloaded. Says hypoglycemia now much less. Prior therapy - At last visit we d/cd the metformin which helped lessen the diarrhea. Diarrhea still present and being worked up. He is dealing with a rectal fistula and intermittent infections. Believes this is contributing to elevated glucose readings. -Ozempic cause nausea vomiting. States so severe does not want to try another GLP. Metformin caused diarrhea. Has eyes checked yearly, has retinopathy. Denies neuropathy, sees podiatry. Has microalbuminuria, not on MINE/ARB. Has HLD, on rosuvastatin 40 mg PO daily. LDL 110 . 2/25 up from 95 previously Denies CAD. CV: bp today normal GI: dealing with a rectal fistula and getting intermittently infected. Physical exam General: sitting comfortably in no acute distress HEENT: normocephalic/atraumatic, moist oral mucosa Neck: supple, palpable 1-2 cm thyroid nodule on the right side, palpable 2 cm thyroid nodule on left side, no dorsocervical or supraclavicular fat pads Cardiac: normal heart sounds Pulm: normal breath sounds B/L, no added breath sounds Abd: not distended, no tenderness Extremities: no edema, no signs of myxedema, no tremors Neuro: AAO x3, Speech: normal, no facial droop, moving all 4 extremities Laboratory Tests 09/21/20 08/27/21 09/14/22 10:05 07:13 10:49 TSH 0.55 0.41 0.48 Free T4 0.79 0.87 0.94 03/10/23 10/03/23 03/25/24 14:08 13:25 14:41 TSH 0.44 0.83 0.19 L Free T4 0.98 0.98 0.91 Laboratory Tests 08/27/21 07:13 Thyroglobulin Antibody <1 Thyroid Peroxidase Ab 3 EXAMINATION: US THYROID 10/17/24 HISTORY: E04.2 - Nontoxic multinodular goiter TECHNIQUE: Real-time grayscale ultrasound imaging was performed and images were reviewed. COMPARISON: Comparison is made with the prior examination dated 07/08/2021. FINDINGS: SIZE: The right thyroid lobe measures 6.7 x 4.0 x 3.1 cm. The left thyroid lobe measures 6.2 x 3.2 x 2.8 cm. The isthmus measures 11 mm. FLOW: Flow to the gland is normal. ECHOGENICITY: The echotexture of the gland is heterogeneous. NODULES: Multiple bilateral thyroid nodules are again identified with imaging characteristics is as follows: Nodule #: 1 Location: Right upper pole measuring 2.1 x 1.2 x 2.0 cm (previously 1.4 x 1.1 x 1.8 cm). Shape: Ovoid Margins: Ill-defined Echotexture: Hyperechoic Morphology: Solid Calcifications: None TIRADS: TR3: Mildly suspicious. Nodule #: 2 Location: Interpolar region of the right thyroid lobe measuring 1.2 x 1.0 x 1.3 cm (previously 1.4 x 1.1 x 0.9 cm). Shape: Round Margins: Ill-defined Echotexture: Hypoechoic Morphology: Indeterminate Calcifications: None TIRADS: TR4: Moderately suspicious. Nodule #: 3 Location: Mid to lower pole of the right thyroid lobe measuring 3.4 x 2.0 x 2.5 cm. This is a new nodule from the prior study. Shape: Ovoid Margins: Smooth Echotexture: Hyperechoic Morphology: Solid Calcifications: None TIRADS: TR3: Mildly suspicious. Nodule #: 4 Location: Upper pole of the left thyroid lobe measuring 1.6 x 0.7 x 1.0 cm (previously 1.7 x 0.6 x 1.0 cm. Shape: Ovoid Margins: Smooth Echotexture: Hyperechoic Morphology: Mostly solid Calcifications: None TIRADS: TR3: Mildly suspicious. Nodule #: 4 Location: Midportion of the left thyroid lobe measuring 1.8 x 1.6 x 1.8 cm (previously 1.7 x 1.0 x 1.5 cm). Shape: Ovoid Margins: Smooth Echotexture: Hyperechoic Morphology: Mixed Calcifications: None TIRADS: TR3: Mildly suspicious. US/US thyroid IMPRESSION: Multiple thyroid nodules are again identified as described above. There is a new mildly suspicious 3.4 x 2.0 x 2.5 cm nodule in the mid to lower pole region of the right thyroid lobe for which ultrasound-guided fine needle aspiration is recommended. ACR TI-RADS Guidelines TR1: Benign, No follow-up or biopsy required TR2: Not Suspicious, No biopsy indicated TR3: Mildly Suspicious, FNA if >= 2.5 cm, Follow if >= 1.5 cm TR4: Moderately Suspicious, FNA if >= 1.5 cm, Follow if >= 1.0 cm TR5: Highly Suspicious, FNA if >= 1.0 cm, Follow if >= 0.5 cm Electronically signed by: Yvon Morrison MD 10/21/2024 09:10 AM [facility] THYROID UPTAKE AND SCAN April 2024 CLINICAL INFORMATION: Nontoxic multinodular goiter. COMPARISON: CT of the soft tissue neck done on 09/16/2022. TECHNIQUE: Following the oral administration of 273 microcuries of I-123 sodium iodide, thyroid uptake was performed and expressed as a percentage of the administrated dose. Gamma scintillation camera images of the thyroid in the anterior and right and left anterior oblique views were obtained using a pinhole collimator following the administration of 10 mCi Tc-99m pertechnetate. FINDINGS: The uptake is 3.45% at 4 hours and 11.60% at 24 hours (Normal radioiodine uptake at 4 to 6 hours is about 5-15% and at 24 hours is 10% to 30%). The radioiodine uptake is normal. The radiopertechnetate thyroid scintigram shows minimal tracer avidity within the entire thyroid gland, most consistent with diffuse thyroiditis. Subtle focal asymmetric increased tracer avidity however is noted along the mid medial aspect of the left and mid to inferior aspect of the right lobe of the gland. The findings appear concordant between iodine as well as technetium pertechnetate images. NM/NM thyroid w uptake IMPRESSION: 1. Normal radioiodine uptake. 2. Minimal tracer avidity involving the thyroid gland on both iodine as well as technetium pertechnetate, consistent with nonspecific diffuse thyroiditis. 3. Superimposed mild focal asymmetric warm nodule at inferior medial part of the right and mid medial part of the left lobe of the gland. Laboratory Tests 09/21/20 08/27/21 09/14/22 10:05 07:13 10:49 Glucose (Clinic) Hgb A1c (Clinic) Hemoglobin A1c % TSH 0.55 0.41 0.48 Free T4 0.79 0.87 0.94 Total T3 Thyroglobulin Antibody <1 Thyroid Peroxidase Ab 3 J LUIS Antibody 03/10/23 10/03/23 03/25/24 14:08 13:25 14:41 Glucose (Clinic) Hgb A1c (Clinic) Hemoglobin A1c % TSH 0.44 0.83 0.19 L Free T4 0.98 0.98 0.91 Total T3 Thyroglobulin Antibody Thyroid Peroxidase Ab J LUIS Antibody <5 07/22/24 11/05/24 11/07/24 14:13 10:53 14:16 Glucose (Clinic) 126 H Hgb A1c (Clinic) 8.1 H Hemoglobin A1c % 8.0 H TSH 0.60 Free T4 0.97 Total T3 96 Thyroglobulin Antibody Thyroid Peroxidase Ab J LUIS Antibody CT SOFT TISSUE NECK WITHOUT CONTRAST Sep 15 CLINICAL INFORMATION: Nontoxic multinodular goiter. COMPARISON: Thyroid ultrasound 07/08/2021. TECHNIQUE: Helical imaging was performed in the axial plane with generation of coronal and sagittal reformatted images. This CT examination was performed using dose optimization techniques as appropriate, including one or more of the following: Automated exposure control, iterative reconstruction, and adjustment of technique factors (mA and/or kVp) according to patient size (this includes techniques or standardized protocols for targeted exams where dose is matched to indication/reason for exam). Fleischner Society criteria for the followup of incidental pulmonary nodules was implemented if appropriate. DLP: 410 mGy-cm. FINDINGS: There is an enlarged heterogeneous thyroid gland which coincides with the findings demonstrated on the sonographic imaging from 08/24/2022. There are no pathologically enlarged cervical lymph nodes. No mediastinal or axillary adenopathy is visualized within the [id number] of this examination. Pharyngeal mucosal spaces are symmetric. Parapharyngeal and retromaxillary fat is preserved. Letter Stamping Machine Operator spaces are normal. The parotid and submandibular glands are normal. The tongue base and epiglottis are normal. Preepiglottic fat is preserved. Glottic and subglottic airways are widely patent. Lung apices are clear. The aortic arch apex is unremarkable. Carotid spaces are unremarkable. There is advanced multilevel degenerative spondylosis of the cervical spine. Disc osteophyte spurring in conjunction with facet degenerative change at C3-C4 causes severe canal stenosis with likely compression of the cervical spinal cord. There is also at least moderate canal stenosis at levels of C2-C3, C4-C5, and C5-C6. There is no acute osseous finding. No worrisome lytic or blastic osseous lesion. There are exuberant anterior disc osteophyte complexes at multiple levels within the cervical spine. The skull base is grossly intact. No mastoid middle ear effusion. [id number] paranasal sinus disease. Limited visualization of the intracranial anatomy reveals no abnormal finding. CT/CT soft tissue neck wo IV con IMPRESSION: There is a multinodular thyroid goiter. No pathologically enlarged cervical lymph nodes. There is advanced multilevel degenerative spondylosis of the cervical spine causing severe canal stenosis and likely compression of the cervical cord at C3-C4. There is also at least moderate canal stenosis at levels of C2-C3, C4-C5, and C5-C6. If there are clinical symptoms of compressive myelopathy then a dedicated cervical spine MRI can be obtained for better anatomic characterization of the cord and canal. US THYROID nov 15 CLINICAL INFORMATION: Nontoxic goiter, unspecified. COMPARISON: None TECHNIQUE: Linear transducer blevins-scale and color Doppler examination with attention to the region of the thyroid. FINDINGS: SIZE: Measurements of the thyroid lobes and nodules are given in sagittal, anteroposterior and transverse dimensions respectively. Right Thyroid Lobe: 5.1 x 2.7 x 2.9 cm, volume 21 mL. Parenchyma: The gland echotexture is heterogeneous. Thyroid vascularity is normal. Left Thyroid Lobe: 5.2 x 3.2 x 2.7 cm, volume 23 mL. Parenchyma: The gland echotexture is heterogeneous. Thyroid vascularity is normal. Isthmus: 0.1 cm in maximum AP dimension. Estimated total number of nodules greater than or equal to 1 cm: 5. There are multiple additional bilateral thyroid nodules. 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 Location: Right mid pole. Size: 1.4 x 1.1 x 1.8 cm, volume 1.4 mL. Nodule characteristics: Composition: Solid/almost completely solid (2). Echogenicity: Isoechoic (1). Shape: Not taller than wide (0). Margins: Smooth (0). Echogenic Foci: None (0). ACR TI-RADS total points: 3 ACR TI-RADS category: 3 2. Location: Right lower pole. Size: 1.4 x 1.1 x 0.9 cm, volume 0.68 mL. Nodule characteristics: Composition: Mixed cystic and solid (1). Echogenicity: Hypoechoic (2). Shape: Not taller than wide (0). Margins: Smooth (0). Echogenic Foci: None (0). ACR TI-RADS total points: 3 ACR TI-RADS category: 3 3. Location: Left upper pole. Size: 1.0 x 0.3 x 0.8 cm, volume 0.13 mL. Nodule characteristics: Composition: Solid/almost completely solid (2). Echogenicity: Hypoechoic (2). Shape: Not taller than wide (0). Margins: Smooth (0). Echogenic Foci: None (0). ACR TI-RADS total points: 4 ACR TI-RADS category: 4 4. Location: Left mid pole. Size: 1.8 x 1.0 x 1.5 cm, volume 1.4 mL. Nodule characteristics: Composition: Mixed cystic and solid (1). Echogenicity: Hypoechoic (2). Shape: Not taller than wide (0). Margins: Smooth (0). Echogenic Foci: None (0). ACR TI-RADS total points: 3 ACR TI-RADS category: 3 5. Location: Left mid pole. Size: 1.7 x 0.6 x 1.0 cm, volume 0.53 mL. Nodule characteristics: Composition: Solid/almost completely solid (2). Echogenicity: Isoechoic (1). Shape: Not taller than wide (0). Margins: Smooth (0). Echogenic Foci: None (0). ACR TI-RADS total points: 3 ACR TI-RADS category: 3 NODES: No lymphadenopathy is seen in the tissue surrounding the thyroid gland. US/US thyroid IMPRESSION: Heterogeneous thyroid parenchyma with normal vascularity. Thyromegaly. Multiple bilateral thyroid nodules with ultrasound characteristics consistent with TI-RADS category 3. These nodules measure 1.7 to 1.8 cm in greatest dimension. Followup ultrasound recommended in 1, 3, and 5 years. Upper left thyroid nodule measuring 1.0 cm with ultrasound characteristics consistent with TI-RADS category 4. Followup ultrasound recommended in 1, 2, 3, and 5 years. [facility] Medical History Encounter for general adult medical examination with abnormal findings Subclinical hyperthyroidism Type 2 diabetes mellitus with hyperglycemia Hyperlipidemia LDL goal <100 Cyst of buttocks Establishing care with new doctor, encounter for Dyspepsia Vocal cord polyp Hospital discharge follow-up Arthrosis Abdominal cramping HTN (hypertension) HLD (hyperlipidemia) Multinodular thyroid Vitamin D deficiency Multinodular thyroid Type 2 diabetes mellitus with hyperglycemia, with long-term current use of insulin Type 2 diabetes mellitus with diabetic polyneuropathy Smoking Lazy eye of left side Arthritis High cholesterol Diabetes type 2, controlled Surgical History Hx of colonoscopy History of surgery History of renal stone (~06/01/20) History of sebaceous cyst (~05/28/20) History of penile implant (~03/17/20) History of hemorrhoids Family History Father No problems noted. Mother History of cardiovascular disorder Social History Household Members: None Housing: Apartment Alcohol intake: never Patient Tobacco Use Status: Current everyday Tobacco user Cigarette Packs Per Day: 1 e-Cigarette/Vaping Use: Currently Using Second Hand Smoke Exposure: No Substance Use Type: Marijuana service: No Current occupational status: retired Cognitive needs: No Hearing needs: No Vision needs: Yes Physical Exam Vital Signs: Last Vital Signs Pulse 56 11/07/24 14:09 BP 102/64 11/07/24 14:09 Pulse Ox 97 11/07/24 14:09 Oxygen Delivery Method Room Air 11/07/24 14:09 BMI result Body Mass Index 29.7 Assessment & Plan Assessment & Plan (1) Subclinical hyperthyroidism: Code(s): E05.90 - Thyrotoxicosis, unspecified without thyrotoxic crisis or storm Category: Medical Plan: Patient with labs in March 2024 showing TSH low at 0.19 with normal free T4 of 0.9. He has previously never had abnormal thyroid function. TPO and thyroglobulin antibody levels have been negative in the past. TSI antibody levels are pending. Most recent labs from October 2024 showed normal labs. He does not have any history of heart disease, no history of fracture/osteoporosis. However given his age if he has subclinical hyperthyroidism he could qualify for treatment potentially. For now no need for treatment intervention given thyroid function has normalized, we will follow up on the TSI antibody levels. I will also repeat his thyroid function testing since before this he has always had normal thyroid function. Less he has a history of nodule so more likely if he does have subclinical hyperthyroidism this is from toxic multinodular goiter. 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 I discussed with him that treatment for these would be total thyroidectomy ideally to get rid of both is nodules and subclinical hyperthyroidism. 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 We can also consider low-dose methimazole for this. Most recent labs from October 2024 showed normal thyroid function. Plan: -we will plan to repeat TSH, free T4 and total T3 in 3 months sometime around January/February 2025 -follow up on TSI antibody levels (2) Multinodular thyroid: Code(s): E04.2 - Nontoxic multinodular goiter Category: Medical Plan: Patient with no family history of thyroid cancer with no personal history of head or neck radiation who is coming in for follow up of multinodular goiter. Recently as mentioned above he has developed subclinical hyperthyroidism and a set of labs in March 2024 with thyroid uptake and scan from April 2024 showing heterogenous areas of increased tracer uptake consistent with toxic multinodular goiter. He has had biopsy July [address] Barker of his right midpole nodule which she measured as 2.5 cm during the biopsy, with benign cytology. His last thyroid ultrasound was from 2020 which had not shown such a big nodule. He has had some persistent compressive symptoms such as hoarseness of voice and dysphagia that have not significantly worsened. He was evaluated by Dr. Flavio Mustafa at [facility] in February [address] scan of the soft tissue neck as well, however he did not want to get surgery. 10/19: US thyroid showed stable size of previous nodules, new right lower pole 3.4 cm nodule, when I review his old images I see he hs a conglomelerate of nodules on the right side, hard to tell if this nodule is really new, but we will repeat FNA. I explained that it is common to have thyroid nodules. About 95% of the time these nodules are benign. However if the nodule is > 1 cm in size or suspicious on ultrasound then a fine need aspiration biopsy is recommended. We discussed that a FNAB involves 4-5 passes with a small gauge needle and material obtained is sent off for cytology.If the cytopathology is benign then the nodule will be followed annually with repeat ultrasounds. However if it is suspicious or malignant, we will need to discuss further management. Indeterminate cytology can be further investigated with repeat FNA, genetic testing or empiric lobectomy. Malignant cytology is managed with either lobectomy or total thyroidectomy. We discussed briefly that thyroid cancer is, in most patients, an indolent disease that does not affect mortality. We will arrange for FNA of the right mid/lower 3.4 cm thyroid nodule at next available opening and patient will follow up with me in clinic thereafter for results and further decision making. Plan: -scheduled for FNA of the right mid/lower 3.4 cm thyroid nodule and follow up 2 weeks after to discuss results (3) HLD (hyperlipidemia): Code(s): E78.5 - Hyperlipidemia, unspecified Category: Medical Qualifiers: Hyperlipidemia type: unspecified Qualified Code(s): E78.5 - Hyperlipidemia, unspecified Plan: LDL up at 110 mg/dL from October 2024 which is increased from 95 previously. He is already on rosuvastatin 40 mg daily. Says he is adherent to it. Plan: -start Zetia 10 mg daily -continue rosuvastatin 40 mg daily -we will plan to repeat lipid panel in 3 months sometime around 1024 (4) Type 2 diabetes mellitus with hyperglycemia, with long-term current use of insulin: Code(s): E11.65 - Type 2 diabetes mellitus with hyperglycemia; Z79.4 - USP (current) use of insulin Category: Medical Plan: 64-year-old male with a history of type 2 diabetes mellitus with long-term insulin use with complications of retinopathy, neuropathy, microalbuminuria. A1c elevated at 8% 11/07/2024. CGM data could not be downloaded as he forgot to bring his reader. However he says his hypoglycemia is much less now that the Humalog is decreased. At this time I will not make any changes to his insulin because I do not have enough data. He is also missing his Lantus on a lot of the days, reiterated importance of controlling blood sugars and risk of hypoglycemia. Plan: -continue Lantus 34 units daily -continue Humalog 16 units t.i.d. before meals -hypoglycemia education provided -continue Jardiance 25 mg daily -follow up in 5 weeks Plan I spent 30 minutes in reviewing the record, seeing the patient and documenting in the medical record. Medications: New ezetimibe 10 mg PO DAILY 30 tabs 5RF Patient Instructions: Rule of 15 Treatment for Hypoglycemia (Low blood sugar) If your blood glucose is low (70 and below)*, follow the steps below to treat: Eat or drink something from the list below equal to 15 grams of carbohydrate (carb). Rest for 15 minutes Re-check your blood glucose. If it is still low, (below 70), repeat step 1 above. ? If your next meal is more than an hour away, you will need to eat one carbohydrate choice as a snack to keep your blood glucose from going low again. ?If you can't figure out why you have low blood glucose, call your healthcare provider, as your medicine may need to be adjusted. ?Always carry something with you to treat an insulin reaction. Use food from the list below. ? Foods equal to One Carbohydrate Choice (15 grams of carbohydrate): 3 Glucose ?tablets or 4 Dextrose tablets 4 ounces of fruit juice 5-6 ounces (about 1/2 can) of regular soda such as Coke or Pepsi ? 7-8 gummy or regular Life Savers ? 1 Tbsp. of sugar or jelly NOTE: If your blood sugar is less than 50, double the portion above for a total of 30 gm. ?Carbohydrate. ? Follow meal plan of 45-60 g of consistent carbohydrates at 3 meals each day and 15 g of carbohydrate at 1-2 snacks each day. Bring alternative financing specialist to next appointment Start ezetimibe 10 mg daily Continue insulin as it is Continue Jardiance 25 mg daily Coding Level of Care Code Est Pt Level 4 (30602) Complex EM visit Add On G2211 Diagnoses Subclinical hyperthyroidism E05.90 Multinodular thyroid E04.2 Hyperlipidemia, unspecified hyperlipidemia type E78.5 Hyperlipidemia type: unspecified Type 2 diabetes mellitus with hyperglycemia, with long-term current use of insulin E11.65; Z79.4 Time Spent (min) 30
--- OUTSIDE RECORDS SUMMARY | 2024-11-07 14:11 | XMS_ITS | Data Portability ---
Author Organization [facility], [place] - [employer] Address [address] [place] [address] Care Team Providers Care Cotton Acreage Measurer Name Role Phone HIM CCA OTHER Assessment Encounter Date Assessment Date Assessment LastModified by Organization Details LastModified Time 03/04/2024 03/04/2024 I have reviewed and agree with the assessment and plan as documented by the rn med surg. I provided real time medical direction for this encounter and was immediately available to provide additional phone based assistance as needed. History as noted by rn med surg. Pt with history of DM, recent surgery [...] to help guide treatment and management. [facility] [...] BMP, serum or plasma 024 03/04/20 24 [facility], [address] [place] [address], [phone], 10:05:19 Referral None recorded . Procedures None [...] Details Last Updated DateTime 4 98.4 [degF] 86969.8 g 162.56 cm 80 /min 98 % [...] Updated DateTime 4 98 % 98 % 29318.5 6 g 98 /min 172.72 cm 16 [...] SNOMED-CT Code Diagnosis ICD10 Code Diagnosis Note [id number] Marilu Schmid MD Main - [facility] [address] [place] [phone] 09/30/2023 20:02:30 10/01/2023 15:25:02 Viral upper respiratory tract infection [id number] J06.9 I provided real -time medical direction via phone for this encounter, and was available for additional phone based assistance as needed. I have reviewed and agree with the Assessment and Plan as documented by the Registry Rn. Patient given the opportunit y to ask questions. 63 yo w/ 24h of URI (nasal congestion + fatigue). no cough/sob. covid/flu negative. lungs clear, exam reassuring . recommende d supportive care (nasal rinse, antihistam ine). advised calling back if worsens. [id number] Greyson Wan MD Main - [facility] [address] [place] [phone] 03/04/2024 10:03:18 03/06/2024 04:37:12 Diarrhea [id number] R19.7 Health Concerns Section Related Observation LastModified by Organization Detai ls LastModified Time None Recorded Concern Status LastModified by Organization Details LastModified Time None Recorded Advance Directives Directive None Recorded Payers Encounter Date Sequence Insurance Name Policy Number Policy Warner Covered Member ID Warner Member ID Guarantor Name 09/30/2023 1 [facility] - DOS ON OR AFTER 2022 - DUAL ELIGIBLE - FCI OPTIONS AND ONE CARE (MEDICARE REPLACEMENT/ADV ANTAGE - HMO) Gerson Allam [id number] Gerson Choe Allam 03/04/2024 1 [facility] - DOS ON OR AFTER 2022 - DUAL ELIGIBLE - FCI OPTIONS AND ONE CARE (MEDICARE REPLACEMENT/ADV ANTAGE - HMO) Gerson Allam [id number] Gerson Mazariegos Notes Date Note Type Note [...] ................... ................... ................... ................... ................... ................... ........ Registry Rn Note From Ramiro Reyes: PT caox3 complains [...] covid and flu negative via rapid test. [facility] advises supportive care, nasal rinse, steam and antihistamine if needed. Red flags and pt education discussed. Pt assisted with his nasal spray. ................... ................... ................... ................... ................... ................... ................... ........ Disposition: Fulfilled Marilu Schmid MD [address] [facility],[address], [place], [address], [employer] 10/01/2023 02:50:55 03/04/2024 text/html This was a supervised home visit with rn med surg Teto Beckett. CRC Nurse Triage Notes (Odette Chin): Chief Complaints: Diarrhea PMH: Diabetes Allergies: No Known Comments: Diarrhea ongoing for the past week. Incontinent during sleep. States diarrhea is severe. Vomited last week. No known fever. Since surgical procedure in January member states health has declined. Unsteady balance, dizziness. On Oxycodone 10mg daily since January. Registry Rn POC Test Results from Teto Beckett [facility] (09:59:37) pH: 7.41 pH units pCO2: 35.8 mmHg pO2: 65.7 mmHg Na: 145 mmol/L K: 4.0 mmol/L iCa: 1.19 mmol/L Cl: 110 mmol/L TCO2: 22.6 mEq/L Hct: 47 % Hb: 15.8 g/dL Glu: 236 mg/dL Lac: 1.7 mmol/L Cr: 0.9 mg/dL BUN: 8 mg/dL A ................... ................... ................... ................... ................... ................... ................... ........ Registry Rn Note From Teto Beckett: Pt reports having [...] ........ Disposition: Fulfilled Greyson Wan MD [address] [facility],[address], [place], [address], [facility] 03/04/2024 10:43:44
--- OUTSIDE RECORDS SUMMARY | 2024-11-07 14:11 | XMS_ITS | Clinical Summary ---
Author Organization [facility] Address [address] [place] [address] Care Team Providers Care Knockdown Man Name Role Phone Marcela Foster DDAnette Primary Care Provider [phone] Source Comments PLEASE NOTE, if this patient [...] Plan of Treatment Not on file Insurance [place] D[place] [facility] D[facility]AL Care Teams Knockdown Man Relationship Specialty Start Date End Date Marcela Foster DDS [address] [place] [address] PCP - General Dental Tire Fabric Impregnating Range Tender 05/09/19
[2024-11-07 14:19] LABS: Glucose, Whole Blood 126 mg/dL (60-115)
== END 2024-11-07 14:48 | disposition home or self-care (01) ==
PROVIDERS: PCP Internal Medicine; Visit Provider Student in an Organized Health Care Education/Training Program
DX: E05.90 Thyrotoxicosis, unspecified without thyrotoxic crisis or storm (principal); E04.2 Nontoxic multinodular goiter; E78.5 Hyperlipidemia, unspecified; E11.65 Type 2 diabetes mellitus with hyperglycemia; Z79.4 Long term (current) use of insulin
CPT/HCPCS: 99214; G2211

== ENCOUNTER → 2024-11-07 14:08 | Outpatient (BNVA) | payer OTHER, SELFPAY | PROVIDERS: PCP Internal Medicine; Visit Provider Student in an Organized Health Care Education/Training Program | DX: E05.90 Thyrotoxicosis, unspecified without thyrotoxic crisis or storm (principal); E04.2 Nontoxic multinodular goiter; E78.5 Hyperlipidemia, unspecified; E11.65 Type 2 diabetes mellitus with hyperglycemia; Z79.4 Long term (current) use of insulin | CPT/HCPCS: 82947; 99212 ==

== ENCOUNTER 2024-11-27 10:54 | Outpatient (REF) | payer OTHER, SELFPAY ==
--- NOTE | 2024-11-27 11:35 | PM.PROC ---
Brief Operative Note Date of procedure: 11/27/24 Pre-op diagnosis: right lower 3.4 cm thyroid nodule FNA biopsy Post-op diagnosis: same Procedure: THYROID FINE NEEDLE ASPIRATION PROCEDURE NOTE ? PROCEDURE PERFORMED: Ultrasound-guided FNA of thyroid nodule ? OPERATORS: Dr. Yadi Louie ? INDICATION:right lower 3.4 cm thyroid nodule ; FNA performed to assess for malignancy ? DESCRIPTION OF PROCEDURE: The indications for FNA (to assess for malignancy) were reviewed with the patient in detail. Potential complications (e.g., bleeding, infection, damage to local structures, absence of clear diagnosis after FNA) were reviewed. Alternatives to FNA including conservative observation or surgery were described. The patient understood and agreed to proceed. This was documented by the signing of the written informed consent form. A time-out was performed to confirm the patient's identity and the site of planned FNA. The nodule of interest was identified using ultrasound (14 MHz linear array probe). The site of FNA was then draped in the usual fashion and carefully cleaned and prepared using alcohol swabs. The skin at the previously-identified site of needle insertion was iced and sprayed with numbing spray. Under ultrasound guidance, _4_ passes were performed using a 1.5-inch, 25-gauge needle, and sample was obtained via capillary action. The needle tip was clearly visualized to be within the nodule at the time of sampling for 4__ of _4_ passes The patient tolerated the procedure well. There were no immediate complications. A small adhesive bandage was applied, and the patient was advised to take acetaminophen (rather than NSAIDs) for any discomfort and to report any signs of inflammation/infection or marked swelling. IMPRESSION: Technically successful ultrasound-guided fine needle aspiration of right lower 3.4 cm thyroid nodule . PLAN: The patient was advised that I will provide follow-up regarding the cytology result and any subsequent plans. Yadi Louie MD Endocrinology Attending Condition: stable Disposition: same day
--- OUTSIDE RECORDS SUMMARY | 2024-11-27 13:13 | XMS_ITS | Encounter Summary ---
Author Organization [facility] Address [address] [place] [address] Care Team Providers Care Hyster Driver Name Role Phone Sandra Hodges Primary Care Provider [phone] Reason for Referral * MRI/CAT/PET Scan (Routine) - Authorized Specialty Diagnoses / Procedures Referred By Contac t Referred To Contact Radiology Diagnoses Anal fistula Procedures MRI Pelvis W WO Contrast Ruthie Dodge MD [address] [place] [address] Phone: tel: fax: Referral ID Status Reason Start Date Expiration Date V isits Requested Visits Authorized [id number] Authorized 11/15/2024 09/24/2025 1 1 Reason for Visit * Reason Comments New Patient Anal fissure * Consultation (Routine) - Pending Review Specialty Diagnoses / Procedures Referred By Contac t Referred To Contact Colon and Rectal Surgery Diagnoses Anal fissure Anorectal pain [facility] [address] [place] [address] Phone: tel: fax: Referral ID Status Reason Start Date Expiration Date V isits Requested Visits Authorized [id number] Pending Review 11/08/2024 05/10/2026 6 6 Encounter Details Date Type Department Care Team (Late st Contact Info) Description 11/14/2024 2:30 PM EST Office Visit [facility] Colorectal Surgery [address] [place] [address] Evaluation Specialist: Ruthie Aleman MD [address] [place] [phone] Anal fistula (Primary Dx) Social History Tobacco Use Types Packs/Day Years Used Date Smoking Tobacco: Every Day Cigarettes Tobacco Cessation:Ready to Q uit: Not Asked; Counseling Given: Not Answered Alcohol Use Standard Drinks/Week Comments Never 0 (1 standard drink = 0.6 oz pur e alcohol) Sex and Gender Information Value Date Recorded Sex Assigned at Male 11/08/2024 9:28 AM EST Legal Sex Male 9:06 AM EST Gender Identity Male 11/08/2024 9:28 AM EST Sexual Orientation Not on file documented as of this encounter Last Filed Vital Signs Vital Sign Reading Time Taken Comments Blood Pressure 126/81 11/14/2024 2:39 PM EST Pulse 93 11/14/2024 2:39 PM EST Temperature 36.2 ??C (97.2 ??F) 11/14/2024 2:39 PM ES T Respiratory Rate - - Oxygen Saturation 97% 11/14/2024 2:39 PM EST Inhaled Oxygen Concentration - - Weight 90.7 kg (200 lb) 11/14/2024 2:39 PM EST Height - - Body Mass Index - - documented in this encounter Plan of Treatment Upcoming Encounters Date Type Department Care Team (Late st Contact Info) Description 12/17/2024 10:00 AM EDT Follow-Up [facility] Colorectal Surgery [address] [place] [phone] Evaluation Specialist: Ruthie Aleman MD [address] [place] [address] Scheduled Orders Name Type Priority Associated Diagnoses Orde r Schedule MRI Pelvis W WO Contrast Imaging [place] Routine Anal fistula Expected: 11/14/2024, Expires: 11/14/2025 BUN Lab Routine Anal fistula Expected: 11/14/2024, Expires: 11/14/2025 Creatinine Lab Routine Anal fistula Expected: 11/14/2024, Expires: 11/14/2025 documented as of this encounter Visit Diagnoses Diagnosis Anal fistula- Primary documented in this encounter Care Teams Hyster Driver Relationship Specialty Start Date End Date CarrollSandra [address] [place] [address] PCP - General Internal Medicine 11/08/24 documented as of this encounter
--- OUTSIDE RECORDS SUMMARY | 2024-11-27 13:13 | XMS_ITS | Clinical Summary ---
Author Organization [facility] Address [address] [place] [address] Care Team Providers Care Mushroom Cultivator Name Role Phone Sandra Hodges Primary Care Provider [phone] Allergies No known active allergies Medications ibuprofen (MOTRIN) 800 mg tablet Take 1 tablet (800 mg total) by mouth every 6 hours as needed for pain for up to 14 days. 30 tablet 11/14/2024 Active Encounters Date Type Department Care Team Description 11/18/2024 Telephone [facility] Colorectal Surgery [address] [place] [address] County Program Technician: Ruthie Aleman MD 11/15/2024 Telephone [facility] Colorectal Surgery [address] [place] [address] County Program Technician: Ruthie Aleman MD 11/14/2024 2:30 PM EST Office Visit [facility] Colorectal Surgery [address] [place] [address] County Program Technician: Ruthie Aleman MD Anal fistula (Primary Dx) from Last 3 Months Social History Tobacco Use Types Packs/Day Years [...] AM EST Sexual Orientation Not on file Last Filed Vital Signs Vital Sign Reading [...] - - Body Mass Index - - Plan of Treatment Upcoming Encounters Date Type Department Care Team (Late st Contact Info) Description 12/17/2024 10:00 AM EDT Follow-Up [facility] Colorectal Surgery [address] [place] [address] County Program Technician: Ruthie Aleman MD [address] [place] [address] Health Maintenance Due Date Last Done Comments Cologuard 1958 Colon Cancer Screening 1960 Colonoscopy 1958 FOBT / Fit Test 1958 Hepatitis C Screening 1958 Sigmoidoscopy 1958 Pneumococcal Vaccine: 50+ Ye ars (1 of 2 - PCV) 1977 DTaP,Tdap,and Td Vaccines (1 - Tdap) 1980 CT Lung Cancer Screening (Baseline) 2008 Zoster Vaccines (1 of 2) 2008 Abdominal Aortic Aneurysm (A AA) Screening 2023 COVID-19 Vaccine (1 - 2023-2 5 season) 2024 Influenza Vaccine (#1) 2024 Alcohol/Substance Use Screening 09/25/2024 Depression Screening and Follow-Up 09/25/2024 Health Care Proxy Review 09/25/2024 Social Drivers of Health Claudia ual Screening 09/25/2024 RSV Vaccine (60+ years old a nd patients) (1 - 1-dose 75+ series) 2033 Hepatitis B Vaccines Aged Out No long er eligible based on patient's age to complete this topic [place] [address] [place] [address] ISAAC [id number] [id number] Care Teams Mushroom Cultivator Relationship Specialty Start Date End Date Sandra Hodges [address] [place] [address] PCP - General Internal Medicine 11/08/24
--- OUTSIDE RECORDS SUMMARY | 2024-11-27 13:14 | XMS_ITS | Encounter Summary ---
Author Organization [facility] Address [address] [place] [address] Care Team Providers Care Lead Qa Analyst Name Role Phone Sandra Hodges Primary Care Provider [phone] Encounter Details Date Type Department Care Team ([facility] st Contact Info) Description 11/15/2024 Telephone [facility] Colorectal Surgery [address] [place] [address] Substance Abuse Clinician: Ruthie Aleman MD [address] [place] [address] Social History Tobacco Use Types Packs/Day Years Used Date Smoking Tobacco: Every Day Cigarettes Alcohol Use Standard Drinks/Week Comments Never 0 (1 standard drink = 0.6 oz pur e alcohol) Sex and Gender Information Value Date Recorded Sex Assigned at Male 11/08/2024 9:28 AM EST Legal Sex Male 9:06 AM EST Gender Identity Male 11/08/2024 9:28 AM EST Sexual Orientation Not on file documented as of this encounter Miscellaneous Notes * Telephone Encounter - Georgiana Flaherty - 11/15/2024 11:06 AM EST 11/15/24- LMOM via garage manager, MRI information ([facility] [address] [facility], [place] [address] on November 29 at 8:30 am. No food or drink 4 hours prior). Also needs tele health follow up with Dr. Dodge on 12/17 Admin day). [place] documented in this encounter Plan of Treatment Upcoming Encounters Date Type Department Care Team (Late st Contact Info) Description 12/17/2024 10:00 AM EDT Follow-Up [facility] Colorectal Surgery [address] [place] [address] [phone] Substance Abuse Clinician: Ruthie Aleman MD [address] [place] [phone] documented as of this encounter Visit Diagnoses Not on filedocumented in this encounter Care Teams Lead Qa Analyst Relationship Specialty Start Date End Date Sandra Hodges [address] [place] [address] PCP - General Internal Medicine 11/08/24 documented as of this encounter
--- OUTSIDE RECORDS SUMMARY | 2024-11-27 13:14 | XMS_ITS | Encounter Summary ---
Author Organization [facility] Address [address] [place] [address] Care Team Providers Care Medical Affairs Specialist Name Role Phone Sandra Hodges Primary Care Provider [phone] Encounter Details Date Type Department Care Team (Late Contact Info) Description 11/18/2024 Telephone [facility] Colorectal Surgery [address] [place] [address] Assembler Garment Form: Ruthie Aleman MD [address] [place] [address] Social History Tobacco Use Types Packs/Day Years [...] * Telephone Encounter - Georgiana Flaherty - 11/18/2024 9:16 AM EST 11/18/24- LVM via educational sign language interpreter, follow up on 12/17. ks documented in this encounter Plan of Treatment Upcoming Encounters Date Type Department Care Team (Late Contact Info) Description 12/17/2024 10:00 AM EDT Follow-Up [facility] Colorectal Surgery [address] [place] [phone] Assembler Garment Form: Ruthie Aleman MD [address] [place] [address] [phone] documented as of this encounter Visit Diagnoses Not on filedocumented in this encounter Care Teams Medical Affairs Specialist Relationship Specialty Start Date End Date Sandra Hodges [address] [place] [address] PCP - General Internal Medicine 11/08/24 documented as of this encounter
--- OUTSIDE RECORDS SUMMARY | 2024-11-27 13:14 | XMS_ITS | Clinical Summary ---
Author Organization [facility] Address [address] [place] [address] Care Team Providers Care Gem Carver Name Role Phone Marcela Foster DDAnette Primary Care Provider Source Comments PLEASE NOTE, if this patient [...] Plan of Treatment Not on file Insurance [place] D[place] [facility] DENTAL DENTAL Care Teams Gem Carver Relationship Specialty Start Date End Date Marcela Foster DDS [address] [place] [phone] PCP - General Dental Car Installations Supervisor 05/09/19
--- OUTSIDE RECORDS SUMMARY | 2024-11-27 13:14 | XMS_ITS | Referral Summary ---
Author Organization [facility] Address [address] [place], [place] [phone] Care Team Providers Care Industrial Aerial Installer Name Role Phone Sandra Hodges Primary Care Provider [phone] Encounters Date Type Department Care Team Description 11/18/2024 Telephone [facility] Colorectal Surgery [address] [place] [address] Disaster Recovery Manager: Ruthie Aleman MD 11/15/2024 Telephone [facility] Colorectal Surgery [address] [place] [address] Disaster Recovery Manager: Ruthie Aleman MD 11/14/2024 2:30 PM EST Office Visit [facility] Colorectal Surgery [address] [place] [address] Disaster Recovery Manager: Ruthie Aleman MD Anal fistula (Primary Dx) from Last 3 Months Allergies No known active allergies Medications ibuprofen (MOTRIN) 800 mg tablet Take 1 tablet (800 mg total) by mouth every 6 hours as needed for pain for up to 14 days. 30 tablet 11/14/2024 Active Social History Tobacco Use Types Packs/Day Years [...] Info) Description 12/17/2024 10:00 AM EDT Follow-Up [facility] Colorectal Surgery [address] [place] [address] Disaster Recovery Manager: Ruthie Aleman MD [address] [place] [phone] Insurance [facility] Care Teams Industrial Aerial Installer Relationship Specialty Start Date End Date Carroll Sandra [address] [place] [address] PCP - General Internal Medicine 11/08/24
== END 2024-11-27 10:55 | disposition home or self-care (01) ==
LOC: HO.US 10:54
PROVIDERS: PCP Internal Medicine; Visit Provider Student in an Organized Health Care Education/Training Program
DX: E04.2 Nontoxic multinodular goiter (principal)
CPT/HCPCS: 10005; 88173; 88305

== ENCOUNTER → 2024-11-27 10:54 | Outpatient (BNV) | payer OTHER, SELFPAY | PROVIDERS: PCP Internal Medicine; Visit Provider Student in an Organized Health Care Education/Training Program | DX: E04.1 Nontoxic single thyroid nodule (principal) | CPT/HCPCS: 10005 ==

== ENCOUNTER 2024-12-11 13:29 | Outpatient (AMB) | payer OTHER, SELFPAY ==
--- NOTE | 2024-12-11 13:31 | MHC.OFFVIS ---
Vital Signs 12/11/24 13:32 Height 5 ft 8 in Weight 198 lb 6.656 oz BMI 30.2 BP 116/68 Blood Pressure Location Rt brachial Position Sitting Pulse 98 Pulse Source Pulse Oximeter Pulse Oximetry (%) 96 Oxygen Delivery Method Room Air Intake Visit Reasons: Biopsy f/u Intake Note: Patient present today for biopsy results. Crystal Growing Technician Required: No Accompanied by: Self / Same As Patient Allergies No Known Allergies [No Known Allergies*] Allergy (Verified 12/11/24 13:33) HPI Comments Details: 63 YO M with PMHx T2DM, Multinodular thyroid who is seen in F/U for multinodular thyroid.. Multinodular Thyroid: HPI from prior visit He had an US completed due to a thyroid nodule that was palpated during exam by Parris Neff in 2019 or 2021.? This revealed a multinodular thyroid, and he was then referred to Dr. Barker for FNA biopsy. Dr. Barker performed an FNA biopsy of his RMP 2.5 cm thyroid nodule 08/24/2022 with benign cytology. At that time he was found to have a large goiter with substernal extension.? [place] sign was positive.? He was complaining of hoarseness of voice and some dysphagia.? He was referred to Dr. Mustafa for a surgical thyroidectomy and also CT of the neck was ordered.? Decision was made not to operate ,He saw Dr. Mustafa but did not want to proceed with thyroidectomy He denies any symptoms of hyper or hypothyroidism currently.? He denies a personal history of head or neck irradiation.? He denies a family history of thyroid cancer. Most recently labs from March 2024 showed low TSH of 0.19. Previously he has always had normal TSH. Free T4 was normal at 0.91. Thyroid uptake and scan April 2024 showed minimal tracer avidity overall consistent with thyroiditis. It did possibly point towards slightly increased uptake in the right inferior and left mid poles. 11/19: Normal thyroid function 10/19: US thyroid showed stable size of previous nodules, new right lower pole 3.4 cm nodule, when I review his old images I see he hs a conglomelerate of nodules on the right side, hard to tell if this nodule is really new, but we will repeat FNA. Interval history Reports improvement in diarrhea on medication. Weight stable , reports tremors, denies palpitations Dysphagia persists but not worsened 11/27/24: Underwent FNA of the right lower 3.4 cm nodule with benign cytology, [place] 2. Diabetes mellitus: Endo: Dm- Initially diagnosed with T2DM in 1989. 07/19 A1c is 8.1. A1c 8% currently Lantus 34 units nightly, Humalog 16 units TID Jardiance 25 mg daily/ (has been out of it for a week) Forgot his sensor reader today AGAIN, data could not be downloaded. Says hypoglycemia now much less. Prior therapy -end 2023 we d/cd the metformin which helped lessen the diarrhea. Diarrhea still present and being worked up. He is dealing with a rectal fistula and intermittent infections. Believes this is contributing to elevated glucose readings. -Ozempic cause nausea vomiting. States so severe does not want to try another GLP. Metformin caused diarrhea. Has eyes checked yearly, has retinopathy. Denies neuropathy, sees podiatry. Has microalbuminuria, not on MINE/ARB. Has HLD, on rosuvastatin 40 mg PO daily. LDL 110 . 11/19 up from 95 previously , started on Zetia 11/19 Denies CAD. CV: bp today normal GI: dealing with a rectal fistula and getting intermittently infected. Physical exam General: sitting comfortably in no acute distress HEENT: normocephalic/atraumatic, moist oral mucosa Neck: supple, palpable 1-2 cm thyroid nodule on the right side, palpable 2 cm thyroid nodule on left side, no dorsocervical or supraclavicular fat pads Cardiac: normal heart sounds Pulm: normal breath sounds B/L, no added breath sounds Abd: not distended, no tenderness Extremities: no edema, no signs of myxedema, no tremors Neuro: AAO x3, Speech: normal, no facial droop, moving all 4 extremities Laboratory Tests 09/21/20 08/27/21 09/14/22 10:05 07:13 10:49 TSH 0.55 0.41 0.48 Free T4 0.79 0.87 0.94 03/10/23 10/03/23 03/25/24 14:08 13:25 14:41 TSH 0.44 0.83 0.19 L Free T4 0.98 0.98 0.91 Laboratory Tests 08/27/21 07:13 Thyroglobulin Antibody <1 Thyroid Peroxidase Ab 3 Laboratory Tests 11/05/24 11/05/24 10:46 10:53 Triglycerides 249 H Cholesterol 190 LDL Cholesterol, Calc 111 H HDL Cholesterol 30 L Thyroid Stim Immunoglob <89 Urine Creatinine 73.98 Urine Microalbumin 24.0 Microalb/Creat Ratio 32.4 H Laboratory Tests 11/05/24 10:53 Hemoglobin A1c % 8.0 H EXAMINATION: US THYROID 10/17/24 HISTORY: E04.2 - Nontoxic multinodular goiter TECHNIQUE: Real-time grayscale ultrasound imaging was performed and images were reviewed. COMPARISON: Comparison is made with the prior examination dated 07/08/2021. FINDINGS: SIZE: The right thyroid lobe measures 6.7 x 4.0 x 3.1 cm. The left thyroid lobe measures 6.2 x 3.2 x 2.8 cm. The isthmus measures 11 mm. FLOW: Flow to the gland is normal. ECHOGENICITY: The echotexture of the gland is heterogeneous. NODULES: Multiple bilateral thyroid nodules are again identified with imaging characteristics is as follows: Nodule #: 1 Location: Right upper pole measuring 2.1 x 1.2 x 2.0 cm (previously 1.4 x 1.1 x 1.8 cm). Shape: Ovoid Margins: Ill-defined Echotexture: Hyperechoic Morphology: Solid Calcifications: None TIRADS: TR3: Mildly suspicious. Nodule #: 2 Location: Interpolar region of the right thyroid lobe measuring 1.2 x 1.0 x 1.3 cm (previously 1.4 x 1.1 x 0.9 cm). Shape: Round Margins: Ill-defined Echotexture: Hypoechoic Morphology: Indeterminate Calcifications: None TIRADS: TR4: Moderately suspicious. Nodule #: 3 Location: Mid to lower pole of the right thyroid lobe measuring 3.4 x 2.0 x 2.5 cm. This is a new nodule from the prior study. Shape: Ovoid Margins: Smooth Echotexture: Hyperechoic Morphology: Solid Calcifications: None TIRADS: TR3: Mildly suspicious. Nodule #: 4 Location: Upper pole of the left thyroid lobe measuring 1.6 x 0.7 x 1.0 cm (previously 1.7 x 0.6 x 1.0 cm. Shape: Ovoid Margins: Smooth Echotexture: Hyperechoic Morphology: Mostly solid Calcifications: None TIRADS: TR3: Mildly suspicious. Nodule #: 4 Location: Midportion of the left thyroid lobe measuring 1.8 x 1.6 x 1.8 cm (previously 1.7 x 1.0 x 1.5 cm). Shape: Ovoid Margins: Smooth Echotexture: Hyperechoic Morphology: Mixed Calcifications: None TIRADS: TR3: Mildly suspicious. US/US thyroid IMPRESSION: Multiple thyroid nodules are again identified as described above. There is a new mildly suspicious 3.4 x 2.0 x 2.5 cm nodule in the mid to lower pole region of the right thyroid lobe for which ultrasound-guided fine needle aspiration is recommended. ACR TI-RADS Guidelines TR1: Benign, No follow-up or biopsy required TR2: Not Suspicious, No biopsy indicated TR3: Mildly Suspicious, FNA if >= 2.5 cm, Follow if >= 1.5 cm TR4: Moderately Suspicious, FNA if >= 1.5 cm, Follow if >= 1.0 cm TR5: Highly Suspicious, FNA if >= 1.0 cm, Follow if >= 0.5 cm Electronically signed by: Yvon Morrison MD 10/21/2024 09:10 AM [facility] THYROID UPTAKE AND SCAN April 2024 CLINICAL INFORMATION: Nontoxic multinodular goiter. COMPARISON: CT of the soft tissue neck done on 09/16/2022. TECHNIQUE: Following the oral administration of 273 microcuries of I-123 sodium iodide, thyroid uptake was performed and expressed as a percentage of the administrated dose. Gamma scintillation camera images of the thyroid in the anterior and right and left anterior oblique views were obtained using a pinhole collimator following the administration of 10 mCi Tc-99m pertechnetate. FINDINGS: The uptake is 3.45% at 4 hours and 11.60% at 24 hours (Normal radioiodine uptake at 4 to 6 hours is about 5-15% and at 24 hours is 10% to 30%). The radioiodine uptake is normal. The radiopertechnetate thyroid scintigram shows minimal tracer avidity within the entire thyroid gland, most consistent with diffuse thyroiditis. Subtle focal asymmetric increased tracer avidity however is noted along the mid medial aspect of the left and mid to inferior aspect of the right lobe of the gland. The findings appear concordant between iodine as well as technetium pertechnetate images. NM/NM thyroid w uptake IMPRESSION: 1. Normal radioiodine uptake. 2. Minimal tracer avidity involving the thyroid gland on both iodine as well as technetium pertechnetate, consistent with nonspecific diffuse thyroiditis. 3. Superimposed mild focal asymmetric warm nodule at inferior medial part of the right and mid medial part of the left lobe of the gland. Laboratory Tests 09/21/20 08/27/21 09/14/22 10:05 07:13 10:49 Glucose (Clinic) Hgb A1c (Clinic) Hemoglobin A1c % TSH 0.55 0.41 0.48 Free T4 0.79 0.87 0.94 Total T3 Thyroglobulin Antibody <1 Thyroid Peroxidase Ab 3 J LUIS Antibody 03/10/23 10/03/23 03/25/24 14:08 13:25 14:41 Glucose (Clinic) Hgb A1c (Clinic) Hemoglobin A1c % TSH 0.44 0.83 0.19 L Free T4 0.98 0.98 0.91 Total T3 Thyroglobulin Antibody Thyroid Peroxidase Ab J LUIS Antibody <5 07/22/24 11/05/24 11/07/24 14:13 10:53 14:16 Glucose (Clinic) 126 H Hgb A1c (Clinic) 8.1 H Hemoglobin A1c % 8.0 H TSH 0.60 Free T4 0.97 Total T3 96 Thyroglobulin Antibody Thyroid Peroxidase Ab J LUIS Antibody CT SOFT TISSUE NECK WITHOUT CONTRAST Sep 15 CLINICAL INFORMATION: Nontoxic multinodular goiter. COMPARISON: Thyroid ultrasound 07/08/2021. TECHNIQUE: Helical imaging was performed in the axial plane with generation of coronal and sagittal reformatted images. This CT examination was performed using dose optimization techniques as appropriate, including one or more of the following: Automated exposure control, iterative reconstruction, and adjustment of technique factors (mA and/or kVp) according to patient size (this includes techniques or standardized protocols for targeted exams where dose is matched to indication/reason for exam). Fleischner Society criteria for the followup of incidental pulmonary nodules was implemented if appropriate. DLP: 410 mGy-cm. FINDINGS: There is an enlarged heterogeneous thyroid gland which coincides with the findings demonstrated on the sonographic imaging from 08/24/2022. There are no pathologically enlarged cervical lymph nodes. No mediastinal or axillary adenopathy is visualized within the vnadz-ki-xkyg of this examination. Pharyngeal mucosal spaces are symmetric. Parapharyngeal and retromaxillary fat is preserved. Fitness Sales Associate spaces are normal. The parotid and submandibular glands are normal. The tongue base and epiglottis are normal. Preepiglottic fat is preserved. Glottic and subglottic airways are widely patent. Lung apices are clear. The aortic arch apex is unremarkable. Carotid spaces are unremarkable. There is advanced multilevel degenerative spondylosis of the cervical spine. Disc osteophyte spurring in conjunction with facet degenerative change at C3-C4 causes severe canal stenosis with likely compression of the cervical spinal cord. There is also at least moderate canal stenosis at levels of C2-C3, C4-C5, and C5-C6. There is no acute osseous finding. No worrisome lytic or blastic osseous lesion. There are exuberant anterior disc osteophyte complexes at multiple levels within the cervical spine. The skull base is grossly intact. No mastoid middle ear effusion. Onzc-bi-lnjmwgmz paranasal sinus disease. Limited visualization of the intracranial anatomy reveals no abnormal finding. CT/CT soft tissue neck wo IV con IMPRESSION: There is a multinodular thyroid goiter. No pathologically enlarged cervical lymph nodes. There is advanced multilevel degenerative spondylosis of the cervical spine causing severe canal stenosis and likely compression of the cervical cord at C3-C4. There is also at least moderate canal stenosis at levels of C2-C3, C4-C5, and C5-C6. If there are clinical symptoms of compressive myelopathy then a dedicated cervical spine MRI can be obtained for better anatomic characterization of the cord and canal. US THYROID nov 15 CLINICAL INFORMATION: Nontoxic goiter, unspecified. COMPARISON: None TECHNIQUE: Linear transducer blevins-scale and color Doppler examination with attention to the region of the thyroid. FINDINGS: SIZE: Measurements of the thyroid lobes and nodules are given in sagittal, anteroposterior and transverse dimensions respectively. Right Thyroid Lobe: 5.1 x 2.7 x 2.9 cm, volume 21 mL. Parenchyma: The gland echotexture is heterogeneous. Thyroid vascularity is normal. Left Thyroid Lobe: 5.2 x 3.2 x 2.7 cm, volume 23 mL. Parenchyma: The gland echotexture is heterogeneous. Thyroid vascularity is normal. Isthmus: 0.1 cm in maximum AP dimension. Estimated total number of nodules greater than or equal to 1 cm: 5. There are multiple additional bilateral thyroid nodules. Test Engine Operator nodules are described as follows: 1. Location: Right mid pole. Size: 1.4 x 1.1 x 1.8 cm, volume 1.4 mL. Nodule characteristics: Composition: Solid/almost completely solid (2). Echogenicity: Isoechoic (1). Shape: Not taller than wide (0). Margins: Smooth (0). Echogenic Foci: None (0). ACR TI-RADS total points: 3 ACR TI-RADS category: 3 2. Location: Right lower pole. Size: 1.4 x 1.1 x 0.9 cm, volume 0.68 mL. Nodule characteristics: Composition: Mixed cystic and solid (1). Echogenicity: Hypoechoic (2). Shape: Not taller than wide (0). Margins: Smooth (0). Echogenic Foci: None (0). ACR TI-RADS total points: 3 ACR TI-RADS category: 3 3. Location: Left upper pole. Size: 1.0 x 0.3 x 0.8 cm, volume 0.13 mL. Nodule characteristics: Composition: Solid/almost completely solid (2). Echogenicity: Hypoechoic (2). Shape: Not taller than wide (0). Margins: Smooth (0). Echogenic Foci: None (0). ACR TI-RADS total points: 4 ACR TI-RADS category: 4 4. Location: Left mid pole. Size: 1.8 x 1.0 x 1.5 cm, volume 1.4 mL. Nodule characteristics: Composition: Mixed cystic and solid (1). Echogenicity: Hypoechoic (2). Shape: Not taller than wide (0). Margins: Smooth (0). Echogenic Foci: None (0). ACR TI-RADS total points: 3 ACR TI-RADS category: 3 5. Location: Left mid pole. Size: 1.7 x 0.6 x 1.0 cm, volume 0.53 mL. Nodule characteristics: Composition: Solid/almost completely solid (2). Echogenicity: Isoechoic (1). Shape: Not taller than wide (0). Margins: Smooth (0). Echogenic Foci: None (0). ACR TI-RADS total points: 3 ACR TI-RADS category: 3 NODES: No lymphadenopathy is seen in the tissue surrounding the thyroid gland. US/US thyroid IMPRESSION: Heterogeneous thyroid parenchyma with normal vascularity. Thyromegaly. Multiple bilateral thyroid nodules with ultrasound characteristics consistent with TI-RADS category 3. These nodules measure 1.7 to 1.8 cm in greatest dimension. Followup ultrasound recommended in 1, 3, and 5 years. Upper left thyroid nodule measuring 1.0 cm with ultrasound characteristics consistent with TI-RADS category 4. Followup ultrasound recommended in 1, 2, 3, and 5 years. [facility] Medical History Encounter for general adult medical examination with abnormal findings Subclinical hyperthyroidism Type 2 diabetes mellitus with hyperglycemia Hyperlipidemia LDL goal <100 Cyst of buttocks Establishing care with new doctor, encounter for Dyspepsia Vocal cord polyp Hospital discharge follow-up Arthrosis Abdominal cramping HTN (hypertension) HLD (hyperlipidemia) Multinodular thyroid Vitamin D deficiency Multinodular thyroid Type 2 diabetes mellitus with hyperglycemia, with long-term current use of insulin Type 2 diabetes mellitus with diabetic polyneuropathy Smoking Lazy eye of left side Arthritis High cholesterol Diabetes type 2, controlled Surgical History Hx of colonoscopy History of surgery History of renal stone (~06/01/20) History of sebaceous cyst (~05/28/20) History of penile implant (~03/17/20) History of hemorrhoids Family History Father No problems noted. Mother History of cardiovascular disorder Social History Household Members: None Housing: Apartment Alcohol intake: never Patient Tobacco Use Status: Current everyday Tobacco user Cigarette Packs Per Day: 1 e-Cigarette/Vaping Use: Currently Using Second Hand Smoke Exposure: No Substance Use Type: Marijuana service: No Current occupational status: retired Cognitive needs: No Hearing needs: No Vision needs: Yes Physical Exam Vital Signs: Last Vital Signs Pulse 98 12/11/24 13:32 BP 116/68 12/11/24 13:32 Pulse Ox 96 12/11/24 13:32 Oxygen Delivery Method Room Air 12/11/24 13:32 BMI result Body Mass Index 30.2 Assessment & Plan Assessment & Plan (1) Subclinical hyperthyroidism: Code(s): E05.90 - Thyrotoxicosis, unspecified without thyrotoxic crisis or storm Category: Medical Plan: Patient with labs in March 2024 showing TSH low at 0.19 with normal free T4 of 0.9. He has previously never had abnormal thyroid function. TPO and thyroglobulin antibody levels have been negative in the past. TSI antibody levels negative. Most recent labs from October 2024 showed normal labs. He does not have any history of heart disease, no history of fracture/osteoporosis. However given his age if he has subclinical hyperthyroidism he could qualify for treatment potentially. For now no need for treatment intervention given thyroid function has normalized, I will also repeat his thyroid function testing since before this he has always had normal thyroid function. Less he has a history of nodule so more likely if he does have subclinical hyperthyroidism this is from toxic multinodular goiter. He had a thyroid uptake and scan in April 2024 which showed decreased avidity overall consistent with thyroiditis but did show slightly warmer areas in the region of right inferior and left mid poles this surgical services assistant with heterogenous appearance and likely toxic multinodular goiter. I discussed with him that treatment for these would be total thyroidectomy ideally to get rid of both is nodules and subclinical hyperthyroidism. 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 We can also consider low-dose methimazole for this. Most recent labs from October 2024 showed normal thyroid function. Plan: -Do TSH, free T4 and total T3 prior to follow up in 6 weeks. (2) Multinodular thyroid: Code(s): E04.2 - Nontoxic multinodular goiter Category: Medical Plan: Patient with no family history of thyroid cancer with no personal history of head or neck radiation who is coming in for follow up of multinodular goiter. Recently as mentioned above he has developed subclinical hyperthyroidism and a set of labs in March 2024 with thyroid uptake and scan from April 2024 showing heterogenous areas of increased tracer uptake consistent with toxic multinodular goiter. He has had biopsy July [address] Barker of his right midpole nodule which she measured as 2.5 cm during the biopsy, with benign cytology. His last thyroid ultrasound was from 2020 which had not shown such a big nodule. He has had some persistent compressive symptoms such as hoarseness of voice and dysphagia that have not significantly worsened. He was evaluated by Dr. Flavio Mustafa at [facility] in February [address] scan of the soft tissue neck as well, however he did not want to get surgery. 10/19: US thyroid showed stable size of previous nodules, new right lower pole 3.4 cm nodule, when I review his old images I see he hs a conglomelerate of nodules on the right side, hard to tell if this nodule is really new, but we will repeat FNA. 11/27/24: Underwent FNA of the right lower 3.4 cm nodule with benign cytology, [place] 2. At this time he doesnt have any significant compressive symptoms and still does not want to pursue surgery. Plan: -Next US ordered for 1 year in November 2025 (3) HLD (hyperlipidemia): Code(s): E78.5 - Hyperlipidemia, unspecified Category: Medical Qualifiers: Hyperlipidemia type: unspecified Qualified Code(s): E78.5 - Hyperlipidemia, unspecified Plan: LDL up at 110 mg/dL from October 2024 which is increased from 95 previously. He is already on rosuvastatin 40 mg daily. Says he is adherent to it. Plan: -continue Zetia 10 mg daily -continue rosuvastatin 40 mg daily -ordered lipid panel prior to next visit in January 2025 (4) Type 2 diabetes mellitus with hyperglycemia, with long-term current use of insulin: Code(s): E11.65 - Type 2 diabetes mellitus with hyperglycemia; Z79.4 - termite exterminator (current) use of insulin Category: Medical Plan: 64-year-old male with a history of type 2 diabetes mellitus with long-term insulin use with complications of retinopathy, neuropathy, microalbuminuria. A1c elevated at 8% 11/07/2024. CGM data could not be downloaded as he forgot to bring his reader. However he says his hypoglycemia is much less now that the Humalog is decreased. At this time I will not make any changes to his insulin because I do not have enough data.HE says he is better at taking the insulin now , but now he has been out of jardiance for a week. He said he forgot to call for refills Plan: -continue Lantus 34 units daily -continue Humalog 16 units t.i.d. before meals -continue Jardiance 25 mg daily -follow up in 8 weeks Plan I spent 30 minutes in reviewing the record, seeing the patient and documenting in the medical record. Orders: Orders Free T4 (Free Thyroxine) 7 Weeks E04.2 - Nontoxic multinodular goiter, E05.90 - Thyrotoxicosis, unspecified without thyrotoxic crisis or storm, E78.5 - Hyperlipidemia, unspecified Triiodothyronine T3 Total 7 Weeks E04.2 - Nontoxic multinodular goiter, E05.90 - Thyrotoxicosis, unspecified without thyrotoxic crisis or storm, E78.5 - Hyperlipidemia, unspecified US thyroid 1 Year E04.2 - Nontoxic multinodular goiter Thyroid Stimulating Hormone 7 Weeks E04.2 - Nontoxic multinodular goiter, E05.90 - Thyrotoxicosis, unspecified without thyrotoxic crisis or storm, E78.5 - Hyperlipidemia, unspecified Lipid Panel 7 Weeks E04.2 - Nontoxic multinodular goiter, E05.90 - Thyrotoxicosis, unspecified without thyrotoxic crisis or storm, E78.5 - Hyperlipidemia, unspecified Hemoglobin A1c 7 Weeks E11.65 - Type 2 diabetes mellitus with hyperglycemia, Z79.4 - intermediate (current) use of insulin Patient Instructions: Bring your reader of the sensor to next visit Do fasting blood work 3-4 days prior to your next visit Follow up in 8 weeks Coding Level of Care Code Est Pt Level 4 (67728) Complex EM visit Add On G2211 Diagnoses Subclinical hyperthyroidism E05.90 Multinodular thyroid E04.2 Hyperlipidemia, unspecified hyperlipidemia type E78.5 Hyperlipidemia type: unspecified Type 2 diabetes mellitus with hyperglycemia, with long-term current use of insulin E11.65; Z79.4 Time Spent (min) 30
[2024-12-11 13:32] VITALS: BP 116/68; PULSE 98; O2SAT 96; BMI 30.2
--- OUTSIDE RECORDS SUMMARY | 2024-12-11 15:56 | XMS_ITS | Clinical Summary ---
Author Organization [facility] Address [address] [place] [address] Care Team Providers Care Cia Agent Name Role Phone Marcela Foster DDAnette Primary Care Provider [phone] Source Comments PLEASE NOTE, if this patient [...] Plan of Treatment Not on file Insurance [place] [facility] Care Teams Cia Agent Relationship Specialty Start Date End Date Marcela Foster DDS [address] [place] [id number] PCP - General Dental Cath Lab 05/09/19
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
--- OUTSIDE RECORDS SUMMARY | 2024-12-11 15:56 | XMS_ITS | Referral Summary ---
Author Organization [facility] Address [address] [place] [address] Care Team Providers Care Senior Talent Management Consultant Name Role Phone Sandra Hodges Primary Care Provider [phone] Encounters Date Type Department Care Team Description 11/29/2024 Orders Only [facility] - External Imaging [address] [place] [address] Radiology, External 11/18/2024 Telephone [facility] Colorectal Surgery [address] [place] [address] Application Support Manager: Ruthie Aleman MD 11/15/2024 Telephone [facility] Colorectal Surgery [address] [place] [phone] Application Support Manager: Ruthie Aleman MD 11/14/2024 2:30 PM EST Office Visit [facility] Colorectal Surgery [address] [place] [address] Application Support Manager: Ruthie Aleman MD Anal fistula (Primary Dx) from Last 3 Months Allergies No known active allergies Medications ibuprofen (MOTRIN) 800 mg tablet Take 1 tablet (800 mg total) by mouth every 6 hours as needed for pain for up to 14 days. 30 tablet 11/14/2024 Social History Tobacco Use Types Packs/Day Years [...] Info) Description 12/17/2024 10:00 AM EDT Follow-Up [facility] Colorectal Surgery [address] [place] [address] Application Support Manager: Ruthie Aleman MD [address] [place] [phone] Procedures * Due to [place] law, this organization might not be sharing negative HIV tests. Procedure Name Priority Date/Time Associated Diagnosis Comments MRI PELVIS W WO CONTRAST Routine 11/29/2024 9:40 AM EST Anal fistula AMB EXTERNAL MRI PELVIS, OUTSIDE RESULT 11/29/2024 from Last 3 Months Results * Due to [facility] law, this organization might not be sharing negative HIV tests. * MRI Pelvis W WO Contrast (11/29/2024 9:40 AM EST) Anatomical Region Laterality Modality Body, Pelvis Magnetic Resonan ce 11/29/2024 8:50 AM EST Narrative 11/29/2024 3:33 PM EST [facility] Accession Number: [id number] Patient Name: Gerson Mazariegos Date of : 1960 Date of Exam: 11-29-2024 Referring Physician: Ruthie Dodge ?[facility] Colorectal Surgery ?[address] [place] [address] ?[place] [address] Exam: MR Pelvis (C-/C+) CPT 91152 Room Description: [facility] 3.0T HISTORY: 64 years years old Male [...] MD Procedure Note Provider, Tri - 11/29/2024 [facility] Accession Number: [id number] Patient Name: Gerson Mazariegos Date of : 1960 Date of Exam: 11-29-2024 Referring Physician: Ruthie Dodge [facility] Colorectal Surgery [address] [place] [address] Exam: MR Pelvis (C-/C+) CPT 23175 Room Description: [facility] 3.0T HISTORY: 64 years years old Male [...] patient. Electronically Signed By: Napoleon Pagan MD us Ruthie Dodge MD IM MRI PROCEDURES Final Result * MRI Pelvis,Outside Result (11/29/2024) Anatomical Region Laterality Modality Other 11/29/2024 us Onbase Scan John AMB EXTERNAL RESULT PROCEDURE S Final Result from Last [address] [place] [address] [place] [address] ISAAC RODRIGUEZ [id number] Care Teams Senior Talent Management Consultant Relationship Specialty Start Date End Date Sandra Hodges [address] [place] [address] PCP - General Internal Medicine 11/08/24
--- OUTSIDE RECORDS SUMMARY | 2024-12-11 15:56 | XMS_ITS | Data Portability ---
Author Organization [facility] Address [address] [place] [address] Care Team Providers Care Email Marketing Coordinator Name Role Phone HIM CCA OTHER Assessment Encounter Date Assessment Date Assessment LastModified by Organization Details LastModified Time 03/04/2024 03/04/2024 I have reviewed and agree with the assessment and plan as documented by the door glass installer. I provided real time medical direction for this encounter and was immediately available to provide additional phone based assistance as needed. History as noted by door glass installer. Pt with history of DM, recent surgery [...] to help guide treatment and management. Unfortunately, [facility] [...] BMP, serum or plasma 024 03/04/20 24 [facility] Main [facility], [address] [place] [address], [phone], 10:05:19 Referral None recorded . Procedures None [...] Details Last Updated DateTime 4 98.4 [degF] 32484.8 g 162.56 cm 80 /min 98 % [...] Updated DateTime 4 98 % 98 % 57205.5 6 g 98 /min 172.72 cm 16 [...] SNOMED-CT Code Diagnosis ICD10 Code Diagnosis Note [id number] Marilu Schmid MD [facility] [address] [place] [phone] 09/30/2023 20:02:30 10/01/2023 15:25:02 Viral upper respiratory tract infection [id number] J06.9 I provided real -time medical direction via phone for this encounter, and was available for additional phone based assistance as needed. I have reviewed and agree with the Assessment and Plan as documented by the Restaurant Hospitality Manager. Patient given the opportunit y to ask questions. 63 yo w/ 24h of URI (nasal congestion + fatigue). no cough/sob. covid/flu negative. lungs clear, exam reassuring . recommende d supportive care (nasal rinse, antihistam ine). advised calling back if worsens. [id number] Greyson Wan MD [facility] - [facility] [address] [place] [phone] 03/04/2024 10:03:18 03/06/2024 04:37:12 Diarrhea [id number] R19.7 Health Concerns Section Related Observation LastModified by Organization Detai ls LastModified Time None Recorded Concern Status LastModified by Organization Details LastModified Time None Recorded Advance Directives Directive None Recorded Payers Encounter Date Sequence Insurance Name Policy Number Policy Warner Covered Member ID Warner Member ID Guarantor Name 09/30/2023 1 [facility] - DOS ON OR AFTER 2022 - DUAL ELIGIBLE - DETENTION OPTIONS AND ONE CARE (MEDICARE REPLACEMENT/ADV ANTAGE - HMO) Gerson Allam [id number] Gerson Choe Allam 03/04/2024 1 [facility] - DOS ON OR AFTER 2022 - DUAL ELIGIBLE - DETENTION OPTIONS AND ONE CARE (MEDICARE REPLACEMENT/ADV ANTAGE - HMO) Gerson Allam [id number] Gerson Mazariegos Notes Date Note Type Note [...] ................... ................... ................... ................... ................... ................... ........ Restaurant Hospitality Manager Note From Ramiro Reyes: PT caox3 [...] covid and flu negative via rapid test. [facility] advises supportive care, nasal rinse, steam and antihistamine if needed. Red flags and pt education discussed. Pt assisted with his nasal spray. ................... ................... ................... ................... ................... ................... ................... ........ Disposition: Fulfilled Marilu Schmid MD [address] [facility],[address], [place], [phone], [employer] 10/01/2023 02:50:55 03/04/2024 text/html This was a supervised home visit with door glass installer Teto Beckett. CRC Nurse Triage Notes (Odette Chin): Chief Complaints: Diarrhea PMH: Diabetes Allergies: No Known Comments: Diarrhea ongoing for the past week. Incontinent during sleep. States diarrhea is severe. Vomited last week. No known fever. Since surgical procedure in January member states health has declined. Unsteady balance, dizziness. On Oxycodone 10mg daily since January. Restaurant Hospitality Manager POC Test Results from Teto Beckett [facility] (09:59:37) pH: 7.41 pH units pCO2: 35.8 mmHg pO2: 65.7 mmHg Na: 145 mmol/L K: 4.0 mmol/L iCa: 1.19 mmol/L Cl: 110 mmol/L TCO2: 22.6 mEq/L Hct: 47 % Hb: 15.8 g/dL Glu: 236 mg/dL Lac: 1.7 mmol/L Cr: 0.9 mg/dL BUN: 8 mg/dL A ................... ................... ................... ................... ................... ................... ................... ........ Restaurant Hospitality Manager Note From Teto Beckett: Pt reports [...] ........ Disposition: Fulfilled Greyson Wan MD [address] [facility],[address], [place], [phone], [employer] 03/04/2024 10:43:44
--- OUTSIDE RECORDS SUMMARY | 2024-12-11 15:56 | XMS_ITS | Clinical Summary ---
Author Organization [facility] Address [address] [place] [address] Care Team Providers Care Crimper Assembler Name Role Phone Sandra Hodges Primary Care Provider Allergies No known active allergies Medications ibuprofen (MOTRIN) 800 mg tablet Take 1 tablet (800 mg total) by mouth every 6 hours as needed for pain for up to 14 days. 30 tablet 11/14/2024 Encounters Date Type Department Care Team Description 11/29/2024 Orders Only [facility] - External Imaging [address] [place] [address] Radiology, External 11/18/2024 Telephone [facility] Colorectal Surgery [address] [place] [address] Zinc Miner Blasting: Ruthie Aleman MD 11/15/2024 Telephone [facility] Colorectal Surgery [address] [place] [address] Zinc Miner Blasting: Ruthie Aleman MD 11/14/2024 2:30 PM EST Office Visit [facility] Colorectal Surgery [address] [place] [address] Zinc Miner Blasting: Ruthie Aleman MD Anal fistula (Primary Dx) [...] Info) Description 12/17/2024 10:00 AM EDT Follow-Up [facility] Colorectal Surgery [address] [place] [address] Zinc Miner Blasting: Ruthie Aleman MD [address] [place] [address] Health Maintenance Due Date Last Done Comments [...] Care Proxy Review 09/25/2024 Social Drivers of [employer] Claudia ual Screening 09/25/2024 RSV Vaccine (60+ years old a nd patients) (1 - 1-dose 75+ series) 2033 Hepatitis B Vaccines Aged Out No long er eligible based on patient's age to complete this topic Procedures * Due to [facility] law, this organization might not be sharing negative HIV tests. Procedure Name Priority Date/Time Associated Diagnosis Comments MRI PELVIS W WO CONTRAST Routine 11/29/2024 9:40 AM EST Anal fistula AMB EXTERNAL MRI PELVIS, OUTSIDE RESULT 11/29/2024 from Last 3 Months Results * Due to [place] law, this organization might not be sharing negative HIV tests. * MRI Pelvis W WO Contrast (11/29/2024 9:40 AM EST) Anatomical Region Laterality Modality Body, Pelvis Magnetic Resonan ce 11/29/2024 8:50 AM EST Narrative 11/29/2024 3:33 PM EST [facility] Accession Number: [id number] Patient Name: Gerson Mazariegos Date of : 1960 Date of Exam: 11-29-2024 Referring Physician: Ruthie Dodge ?[facility] - Colorectal Surgery ?[address] [place] [address] ?[place], [place] [address] Exam: MR Pelvis (C-/C+) CPT 84110 Room Description: [facility] 3.0T HISTORY: 64 years years old Male [...] MD Procedure Note Provider, Tri - 11/29/2024 [facility] Accession Number: [id number] Patient Name: Gerson Mazariegos Date of : 1960 Date of Exam: 11-29-2024 Referring Physician: Ruthie Dodge [facility] - Colorectal Surgery [address] [place] [address] Exam: MR Pelvis (C-/C+) CPT 78668 Room Description: [facility] 3.0T HISTORY: 64 years years old Male [...] Napoleon Pagan MD us Ruthie Dodge MD IMG MRI PROCEDURES Final Result * MRI Pelvis,Outside Result (11/29/2024) Anatomical Region Laterality Modality Other 11/29/2024 us Onbase Scan John AMB EXTERNAL RESULT PROCEDURE S Final Result from Last [address] [place] [address] ISAAC RODRIGUEZ [id number] Care Teams Crimper Assembler Relationship Specialty Start Date End Date [place] Sandra [address] [place] [address] PCP - General Internal Medicine 11/08/24
--- OUTSIDE RECORDS SUMMARY | 2024-12-11 15:56 | XMS_ITS | Encounter Summary ---
Author Organization [facility] Address [address] [place] [address] Care Team Providers Care Medicaid Billing Specialist Name Role Phone Sandra Hodges Primary Care Provider Encounter Details Date Type Department Care Team ([facility] st Contact Info) Description 11/15/2024 Telephone [facility] Colorectal Surgery [address] [place] [address] Gm Mobile: Ruthie Aleman MD [address] [place] [phone] Social History Tobacco Use Types Packs/Day Years [...] 11/15/2024 11:06 AM EST 11/15/24- LMOM via touch up painter, MRI information ([facility] [address] [facility], [place] [address] on November 29 at 8:30 am. No food or drink 4 hours prior). Also needs tele health follow up with Dr. Dodge on 12/17 Admin day). [place] documented in this encounter Plan of Treatment Upcoming Encounters Date Type Department Care Team (Late st Contact Info) Description 12/17/2024 10:00 AM EDT Follow-Up [facility] Colorectal Surgery [address] [place] [address] [phone] Gm Mobile: Ruthie Aleman MD [address] [place] [address] [phone] documented as of this encounter Visit Diagnoses Not on filedocumented in this encounter Care Teams Medicaid Billing Specialist Relationship Specialty Start Date End Date Sandra Hodges [address] [place] [address] PCP - General Internal Medicine 11/08/24 documented as of this encounter
--- OUTSIDE RECORDS SUMMARY | 2024-12-11 15:56 | XMS_ITS | Encounter Summary ---
Author Organization [facility] Address [address] [place] [address] Care Team Providers Care Systems Applications Programming Lead Name Role Phone Sandra Hodges Primary Care Provider [phone] Encounter Details Date Type Department Care Team (Late Contact Info) Description 11/18/2024 Telephone [facility] Colorectal Surgery [address] [place] [address] Health Club Attendant: Ruthie Aleman MD [address] [place] [address] Social History Tobacco Use Types Packs/Day Years [...] 11/18/2024 9:16 AM EST 11/18/24- LVM via curator, follow up on 12/17. ks documented in this encounter Plan of Treatment Upcoming Encounters Date Type Department Care Team (Late Contact Info) Description 12/17/2024 10:00 AM EDT Follow-Up [facility] Colorectal Surgery [address] [place] [address] Health Club Attendant: Ruthie Aleman MD [address] [place] [address] [phone] documented as of this encounter Visit Diagnoses Not on filedocumented in this encounter Care Teams Systems Applications Programming Lead Relationship Specialty Start Date End Date Sandra Hodges [address] [place] [address] PCP - General Internal Medicine 11/08/24 documented as of this encounter
--- OUTSIDE RECORDS SUMMARY | 2024-12-11 15:56 | XMS_ITS | Encounter Summary ---
Author Organization [facility] Address [address] [place] [address] Care Team Providers Care Sand Tester Name Role Phone Sandra Hodges Primary Care Provider [phone] Encounter Details Date Type Department Care Team (Late Contact Info) Description 11/29/2024 Orders Only [facility] - External Imaging [address] [place] [address] Radiology, External [address] [place] [address] Social History Tobacco Use Types Packs/Day Years [...] on file documented as of this encounter Plan of Treatment Upcoming Encounters Date Type Department Care Team (Late Contact Info) Description 12/17/2024 10:00 AM EDT Follow-Up [facility] Colorectal Surgery [address] [place] [phone] Planning Associate: Ruthie Aleman MD [address] [place] [address] Pending Results Name Type Priority Associated Diagnoses Date /Time MRI Transfer of Outside Films Lower Extremity Imaging [place] Routine 12/02/2024 9:00 AM EDT Scheduled Orders Name Type Priority Associated Diagnoses Orde r Schedule MRI Transfer of Outside Films Lower Extremity Imaging [place] Routine 1 Occurrences starting 12/02/2024 until 01/02/2026 documented as of this encounter Visit Diagnoses Not on filedocumented in this encounter Care Teams Sand Tester Relationship Specialty Start Date End Date Sandra Hodges [address] [place] [address] PCP - General Internal Medicine 11/08/24 documented as of this encounter
== END 2024-12-11 13:58 | disposition home or self-care (01) ==
LOC: HO.ENCR 13:30
PROVIDERS: PCP Internal Medicine; Visit Provider Student in an Organized Health Care Education/Training Program
DX: E05.90 Thyrotoxicosis, unspecified without thyrotoxic crisis or storm (principal); E04.2 Nontoxic multinodular goiter; E78.5 Hyperlipidemia, unspecified; E11.65 Type 2 diabetes mellitus with hyperglycemia; Z79.4 Long term (current) use of insulin
CPT/HCPCS: 99214; G2211

== ENCOUNTER → 2024-12-11 13:29 | Outpatient (BNVA) | payer OTHER, SELFPAY | PROVIDERS: PCP Internal Medicine; Visit Provider Student in an Organized Health Care Education/Training Program | DX: E11.65 Type 2 diabetes mellitus with hyperglycemia (principal); E04.2 Nontoxic multinodular goiter; E05.90 Thyrotoxicosis, unspecified without thyrotoxic crisis or storm; E78.5 Hyperlipidemia, unspecified; Z79.4 Long term (current) use of insulin | CPT/HCPCS: 99212 ==

== ENCOUNTER 2024-12-26 13:23 | Outpatient (REF) | payer OTHER, SELFPAY ==
[2024-12-26 13:36] LABS: MANUAL DIFF FLAG NO
[2024-12-26 13:47] LABS: Basophils Absolute Auto 0.1 X10*3/uL (0.0-0.2); Basophils Percent Auto 0.8 % (0-2); Eosinophils Absolute Auto 0.3 X10*3/uL (0.0-0.4); Eosinophils Percent Auto 3.7 % (0-4); Hematocrit 44.1 % (42.0-52.0); Hemoglobin 15.1 g/dl (14.0-18.0); Imm Gran Abs Auto 0.05 X10*3/uL (0.00-0.03); Imm Gran Pct Auto 0.6 % (0.0-0.4); Lymphocytes Absolute Auto 3.5 X10*3/uL (1.2-4.9); Mean Corpuscular HGB Conc 34.2 g/dl (31.0-36.0); Mean Corpuscular Volume 90.6 fL (80.0-98.0); Mean Platelet Volume 11.9 fL (9.4-12.4); Monocytes Absolute Auto 0.6 X10*3/uL (0.1-1.2); Monocytes Percent Auto 7.7 % (2-11); Neutrophils Absolute Auto 3.8 x10*3/uL (2.0-8.3); Neutrophils Percent Auto 45.2 % (45-73); Platelet Count 120 X10*3/uL (160-400); Red Blood Count 4.87 X10*6/uL (4.60-5.80); Red Cell Distribution Width 12.3 % (11.0-16.0); White Blood Count 8.4 X10*3/uL (4.8-10.8)
[2024-12-26 13:56] LABS: Estimated Average Glucose 186 mg/dL; Hemoglobin A1C 261.9873 umol/L; Hemoglobin A1c % 8.1 % (<6.0); Total Hemoglobin (HGBA1C) 4019.4488 umol/L
[2024-12-26 14:27] LABS: Alanine Aminotransferase 23 U/L (0-40); Alkaline Phosphatase 77 U/L (39-117); Anion Gap 11 (12-20); Aspartate Amino Transferase 19 U/L (5-37); Bilirubin Total 0.9 mg/dL (0.0-1.0); Blood Urea Nitrogen 10 mg/dL (9-16); Calcium 9.8 mg/dL (8.4-10.2); Carbon Dioxide 26 mmol/L (22-29); Chloride 109 mmol/L (96-108); Cholesterol 147 mg/dL (<200); Estimated Glomerular Filt Rate > 60; Glucose Random 185 mg/dL (60-115); HDL Cholesterol 26 mg/dL (>40); LDL Cholesterol Calculated 89 mg/dL (<100); Potassium 4.6 mmol/L (3.3-5.1); Sodium 141 mmol/L (135-145); Total Protein 7.2 g/dL (6.5-8.0); Triglycerides 160 mg/dL (<150)
[2024-12-26 14:35] LABS: Thyroid Stimulating Hormone 0.45 uIU/mL (0.32-4.0)
[2024-12-26 14:38] LABS: Free T4 (Free Thyroxine) 1.23 ng/dL (0.71-1.85)
--- OUTSIDE RECORDS SUMMARY | 2024-12-26 14:40 | XMS_ITS | Clinical Summary ---
Author Organization [facility] Address [address] [place] [address] Care Team Providers Care Mammalogist Name Role Phone Sandra Hodges Primary Care Provider [phone] Allergies No known active allergies Medications ibuprofen (MOTRIN) 800 mg tablet Take 1 tablet (800 mg total) by mouth every 6 hours as needed for pain for up to 14 days. 30 tablet 11/14/2024 Active Problems No known active problems Encounters Date Type Department Care Team Description 12/18/2024 Telephone [facility] Colorectal Surgery [address] [place] [address] Modeling Agent: Ruthie Aleman MD 12/17/2024 1:00 PM EDT Telehealth [facility] Colorectal Surgery [address] [place] [address] Modeling Agent: Ruthie Aelman MD Anal fistula (Primary Dx) 11/29/2024 Orders Only [facility] - External Imaging [address] [place] [address] Radiology, External 11/18/2024 Telephone [facility] Colorectal Surgery [address] [place] [address] Modeling Agent: Ruthie Aleman MD 11/15/2024 Telephone [facility] Colorectal Surgery [address] [place] [phone] Modeling Agent: KristopherRuthie Connolly MD 11/14/2024 2:30 PM EST Office Visit [facility] Colorectal Surgery [address] [place] [address] Modeling Agent: Ruthie Aleman MD Anal fistula (Primary Dx) [...] Upcoming Encounters Date Type Department Care Team (Latest Contact Info) Description 01/06/2025 12:29 PM EDT Hospital Encounter [facility] Operating Room [address] [place] [address] Ruthie Dodge MD [address] [place] [address] 01/06/2025 12:29 PM EDT - 01/06/2025 1:39 PM EDT Surgery [facility] Operating Room [address] [place] [address] Ruthie Dodge MD [address] [place] [address] ANORECTAL EXAM UNDER ANESTHESIA [23525 (CPT??)] Scheduled Procedures Name Priority Associated Diagnoses Date/Ti me ANORECTAL EXAM UNDER ANESTHESIA Anal fistula 01/06/2025 12:29 PM EDT INCISION AND DRAINAGE OF PERIRECTAL ABSCESS, WITH SUBMUSCULAR FISTULOTOMY AND PLACEMENT OF SETON Anal fistula 01/06/2025 12:29 PM EDT Health Maintenance Due Date Last Done Comments [...] Vaccine (1 - 2023-2 5 season) 2024 Alcohol/Substance Use Screening 09/25/2024 Depression Screening and Follow-Up 09/25/2024 Health Care Proxy Review 09/25/2024 Social Drivers of Health Claudia ual Screening 09/25/2024 Influenza Vaccine (Season Ended) 2025 RSV Vaccine (60+ years old a nd patients) (1 - 1-dose 75+ series) 2033 Hepatitis B Vaccines Aged Out No long er eligible based on patient's age to complete this topic Procedures * Due to [place] law, this organization might not be sharing negative HIV tests. Procedure Name Priority Date/Time Associated Diagnosis Comments MRI PELVIS W WO CONTRAST Routine 11/29/2024 9:40 AM EST Anal fistula AMB EXTERNAL MRI PELVIS, OUTSIDE RESULT 11/29/2024 from Last 3 Months Results * Due to [place] law, this organization might not be sharing negative HIV tests. * MRI Pelvis W WO Contrast (11/29/2024 9:40 AM EST) Anatomical Region Laterality Modality Body, Pelvis Magnetic Resonan ce 11/29/2024 8:50 AM EST Narrative 11/29/2024 3:33 PM EST [facility] Accession Number: [id number] Patient Name: Gerson Mazariegos Date of : 1960 Date of Exam: 11-29-2024 Referring Physician: Ruthie Dodge ?[facility] - Colorectal Surgery ?[address] [place] [address] ?[place] [address] Exam: MR Pelvis (C-/C+) CPT 27825 Room Description: [email or web address] 3.0T HISTORY: 64 years years old Male [...] MD Procedure Note Provider, Tri - 11/29/2024 [facility] Accession Number: [id number] Patient Name: Gerson Mazariegos Date of : 1960 Date of Exam: 11-29-2024 Referring Physician: Ruthie Dodge [facility] - Colorectal Surgery [address] [place] [address] Exam: MR Pelvis (C-/C+) CPT 02328 Room Description: [facility] 3.0T HISTORY: 64 years years old [...] Final Result from Last 3 Months Insurance ISAAC RODRIGUEZ [id number] Care Teams Mammalogist Relationship Specialty Start Date End Date Sandra Hodges [address] [place] [address] PCP - General Internal Medicine 11/08/24
--- OUTSIDE RECORDS SUMMARY | 2024-12-26 14:40 | XMS_ITS | Referral Summary ---
Author Organization [facility] Address [address] [place] [address] Care Team Providers Care Community Artist Name Role Phone Sandra Hodges Primary Care Provider [phone] Encounters Date Type Department Care Team Description 12/18/2024 Telephone [facility] Colorectal Surgery [address] [place] [address] Applied Psychology Teacher: Ruthie Aleman MD 12/17/2024 1:00 PM EDT Telehealth [facility] Colorectal Surgery [address] [place] [address] Applied Psychology Teacher: Ruthie Aleman MD Anal fistula (Primary Dx) 11/29/2024 Orders Only [facility] - External Imaging [address] [place] [address] Radiology, External 11/18/2024 Telephone [facility] Colorectal Surgery [address] [place] [address] Applied Psychology Teacher: Ruthie Aleman MD 11/15/2024 Telephone [facility] Colorectal Surgery [address] [place] [address] Applied Psychology Teacher: Ruthie Aleman MD 11/14/2024 2:30 PM EST Office Visit [facility] Colorectal Surgery [address] [place] [address] Applied Psychology Teacher: Ruthie Aleman MD Anal fistula (Primary Dx) from Last 3 Months Allergies No known active allergies Medications ibuprofen (MOTRIN) 800 mg tablet Take 1 tablet (800 mg total) by mouth every 6 hours as needed for pain for up to 14 days. 30 tablet 11/14/2024 Active Problems No known active problems Social History Tobacco Use Types Packs/Day Years [...] Description 01/06/2025 12:29 PM EDT Hospital Encounter [facility] Operating Room [address] [place] [address] Ruthie Dodge MD [address] [place] [address] 01/06/2025 12:29 PM EDT - 01/06/2025 1:39 PM EDT Surgery [facility] Operating Room [address] [place] [address] Ruthie Dodge MD [address] [place] [address] ANORECTAL EXAM UNDER ANESTHESIA [93962 (CPT??)] Scheduled Procedures Name Priority Associated Diagnoses Date/Ti me ANORECTAL EXAM UNDER ANESTHESIA Anal fistula 01/06/2025 12:29 PM EDT INCISION AND DRAINAGE OF PERIRECTAL ABSCESS, WITH SUBMUSCULAR FISTULOTOMY AND PLACEMENT OF SETON Anal fistula 01/06/2025 12:29 PM EDT Procedures * Due to [place] law, this organization might not be sharing negative HIV tests. Procedure Name Priority Date/Time Associated Diagnosis Comments MRI PELVIS W WO CONTRAST Routine 11/29/2024 9:40 AM EST Anal fistula AMB EXTERNAL MRI PELVIS, OUTSIDE RESULT 11/29/2024 from Last 3 Months Results * Due to [place] law, this organization might not be sharing negative HIV tests. * MRI Pelvis W WO Contrast (11/29/2024 9:40 AM EST) Anatomical Region Laterality Modality Body, Pelvis Magnetic Resonan ce 11/29/2024 8:50 AM EST Narrative 11/29/2024 3:33 PM EST [facility] Accession Number: [id number] Patient Name: Gerson Mazariegos Date of : 1960 Date of Exam: 11-29-2024 Referring Physician: Ruthie Dodge ?[facility] - Colorectal Surgery ?[address] [place] [address] ?[place], [place] [address] Exam: MR Pelvis (C-/C+) CPT 88004 Room Description: [place] [address] HISTORY: 64 years years old Male with [...] MD Procedure Note Provider, Tri - 11/29/2024 [facility] Accession Number: [id number] Patient Name: Gerson Mazariegos Date of : 1960 Date of Exam: 11-29-2024 Referring Physician: Ruthie Dodge troy [facility] - Colorectal Surgery [address] [place] [address] Exam: MR Pelvis (C-/C+) CPT 05746 Room Description: [facility] 3.0T HISTORY: 64 years years old [...] from Last 3 Months Insurance ISAAC RODRIGUEZ [id number] Care Teams Community Artist Relationship Specialty Start Date End Date [address] Sandra [address] [place] [address] PCP - General Internal Medicine 11/08/24
--- OUTSIDE RECORDS SUMMARY | 2024-12-26 14:40 | XMS_ITS | Clinical Summary ---
Author Organization [facility] Address [address] [place] [address] Care Team Providers Care Manual Plate Filler Name Role Phone Marcela Foster DDAnette Primary Care Provider [phone] Source Comments PLEASE NOTE, if this patient [...] Plan of Treatment Not on file Insurance [place] MEDICAID DENT[place] [facility] Care Teams Manual Plate Filler Relationship Specialty Start Date End Date Marcela Foster DDS [address] [place] [address] PCP - General Dental Service Delivery Supervisor 05/09/19
--- OUTSIDE RECORDS SUMMARY | 2024-12-26 14:40 | XMS_ITS | Data Portability ---
Author Organization [facility] Address [address] [place] [address] Care Team Providers Care Body Shop Technician Name Role Phone HIM CCA OTHER Assessment Encounter Date Assessment Date Assessment LastModified by Organization Details LastModified Time 03/04/2024 03/04/2024 I have reviewed and agree with the assessment and plan as documented by the barley steeper. I provided real time medical direction for this encounter and was immediately available to provide additional phone based assistance as needed. History as noted by barley steeper. Pt with history of DM, recent surgery [...] to help guide treatment and management. Unfortunately, [facility] is unable to collect stool samples for [...] BMP, serum or plasma 024 03/04/20 [facility] [address] [place] [address], [phone] 10:05:19 Referral None recorded . Procedures None [...] Details Last Updated DateTime 4 98.4 [degF] 44647.8 g 162.56 cm 80 /min 98 % [...] Updated DateTime 4 98 % 98 % 64717.5 6 g 98 /min 172.72 cm 16 /min 97.3 [degF] 154 mm[Hg] 61 mm[Hg] Not Available [facility] - production 10:03:23 Social History None recorded. Functional Status None recorded. Mental Status None recorded. Family History Nothing Reported. Medical History No medical history recorded. Past Encounters Encounter ID Performer Location Encounter Start Date Encounter Closed Date Diagnosis/Indication Diagnosis SNOMED-CT Code Diagnosis ICD10 Code Diagnosis Note [id number] Marilu Schmid MD Main - [facility] [address] [place] [phone] 09/30/2023 20:02:30 10/01/2023 15:25:02 Viral upper respiratory tract infection [id number] J06.9 I provided real -time medical direction via phone for this encounter, and was available for additional phone based assistance as needed. I have reviewed and agree with the Assessment and Plan as documented by the Hospitality House Supervisor. Patient given the opportunit y to ask questions. 63 yo w/ 24h of URI (nasal congestion + fatigue). no cough/sob. covid/flu negative. lungs clear, exam reassuring . recommende d supportive care (nasal rinse, antihistam ine). advised calling back if worsens. [id number] Greyson Wan [facility] [address] [place], [place] [phone] 03/04/2024 10:03:18 03/06/2024 04:37:12 Diarrhea [id number] R19.7 Health Concerns Section Related Observation LastModified by Organization Detai ls LastModified Time None Recorded Concern Status LastModified by Organization Details LastModified Time None Recorded Advance Directives Directive None Recorded Payers Encounter Date Sequence Insurance Name Policy Number Policy Warner Covered Member ID Warner Member ID Guarantor Name 09/30/2023 1 [facility] - DOS ON OR AFTER 2022 - DUAL ELIGIBLE - DETENTION OPTIONS AND ONE CARE (MEDICARE REPLACEMENT/ADV ANTAGE - HMO) Gerson Allam [id number] Gerson A Allam 03/04/2024 1 [facility] - DOS ON OR AFTER 2022 - DUAL ELIGIBLE - DETENTION OPTIONS AND ONE CARE (MEDICARE REPLACEMENT/ADV ANTAGE - HMO) Gerson Allam [id number] Gerson Mazariegso Notes Date Note Type Note Provider Name [...] ................... ................... ................... ................... ................... ................... ........ Hospitality House Supervisor Note From Ramiro Reyes: PT caox3 complains [...] covid and flu negative via rapid test. [facility] advises supportive care, nasal rinse, steam and antihistamine if needed. Red flags and pt education discussed. Pt assisted with his nasal spray. ................... ................... ................... ................... ................... ................... ................... ........ Disposition: Eduardo Marilu Schmid MD [address] [facility],[address], [place], [address], [employer] 10/01/2023 02:50:55 03/04/2024 text/html This was a supervised home visit with barley steeper Teto Beckett. CRC Nurse Triage Notes (Odette Chin): Chief Complaints: Diarrhea PMH: Diabetes Allergies: No Known Comments: Diarrhea ongoing for the past week. Incontinent during sleep. States diarrhea is severe. Vomited last week. No known fever. Since surgical procedure in January member states health has declined. Unsteady balance, dizziness. On Oxycodone 10mg daily since January. Hospitality House Supervisor POC Test Results from Teto Beckett [facility] (09:59:37) pH: 7.41 pH units pCO2: 35.8 mmHg pO2: 65.7 mmHg Na: 145 mmol/L K: 4.0 mmol/L iCa: 1.19 mmol/L Cl: 110 mmol/L TCO2: 22.6 mEq/L Hct: 47 % Hb: 15.8 g/dL Glu: 236 mg/dL Lac: 1.7 mmol/L Cr: 0.9 mg/dL BUN: 8 mg/dL A ................... ................... ................... ................... ................... ................... ................... ........ Hospitality House Supervisor Note From Teto Beckett: Pt reports having [...] ................... ................... ................... ................... ........ Disposition: Eduardo Wan MD [address] [facility],[address], [place], [address], [employer] 03/04/2024 10:43:44
[2024-12-26 15:21] LABS: Vitamin B12 309 pg/mL (200-900)
[2024-12-27 23:13] LABS: Triiodothyronine T3 Total 109 ng/dL (76-181)
== END 2024-12-26 13:24 | disposition home or self-care (01) ==
LOC: HO.LAB 13:23
PROVIDERS: Psychiatry & Neurology Neurology; Absent Provider Internal Medicine; PCP Internal Medicine; Visit Provider Student in an Organized Health Care Education/Training Program
DX: Z00.01 Encounter for general adult medical examination with abnormal findings (principal); R26.89 Other abnormalities of gait and mobility; R41.3 Other amnesia; F17.210 Nicotine dependence, cigarettes, uncomplicated; I10 Essential (primary) hypertension; E11.65 Type 2 diabetes mellitus with hyperglycemia; Z79.4 Long term (current) use of insulin; E11.42 Type 2 diabetes mellitus with diabetic polyneuropathy; E05.90 Thyrotoxicosis, unspecified without thyrotoxic crisis or storm; E04.2 Nontoxic multinodular goiter; E78.5 Hyperlipidemia, unspecified
CPT/HCPCS: 36415; 80053; 80061; 82607; 83036; 84439; 84443; 84480; 85025

== ENCOUNTER 2025-01-22 12:48 | Outpatient (AMB) | payer OTHER, SELFPAY ==
--- NOTE | 2025-01-22 13:20 | MHC.AMDMED ---
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 Robotics Required: No Accompanied by: Self / Same As Patient Allergies No Known Allergies [No Known Allergies*] Allergy (Verified 12/11/24 13:33) HPI Comprehensive Diabetes Asmnt Most Recent Diabetes Results: Cholesterol 147 mg/dL (<200) 12/26/24 HDL Cholesterol 26 mg/dL (>40) L 12/26/24 Triglycerides 160 mg/dL (<150) H 12/26/24 Creatinine 1.05 mg/dL (0.5-1.4) 12/26/24 Blood Urea Nitrogen 10 mg/dL (9-16) 12/26/24 Sodium 141 mmol/L (135-145) 12/26/24 Potassium 4.6 mmol/L (3.3-5.1) 12/26/24 Chloride 109 mmol/L (96-108) H 12/26/24 Carbon Dioxide 26 mmol/L (22-29) 12/26/24 Calcium 9.8 mg/dL (8.4-10.2) 12/26/24 AST 19 U/L (5-37) 12/26/24 ALT 23 U/L (0-40) 12/26/24 Total Protein 7.2 g/dL (6.5-8.0) 12/26/24 Albumin 4.0 g/dL (3.5-5.0) 12/26/24 [facility] Medical History Encounter for general adult medical examination with abnormal findings Subclinical hyperthyroidism Type 2 diabetes mellitus with hyperglycemia Hyperlipidemia LDL goal <100 Cyst of buttocks Establishing care with new doctor, encounter for Dyspepsia Vocal cord polyp Hospital discharge follow-up Arthrosis Abdominal cramping HTN (hypertension) HLD (hyperlipidemia) Multinodular thyroid Vitamin D deficiency Multinodular thyroid Type 2 diabetes mellitus with hyperglycemia, with long-term current use of insulin Type 2 diabetes mellitus with diabetic polyneuropathy Smoking Lazy eye of left side Arthritis High cholesterol Diabetes type 2, controlled Surgical History Hx of colonoscopy History of surgery History of renal stone (~06/01/20) History of sebaceous cyst (~05/28/20) History of penile implant (~03/17/20) History of hemorrhoids Family History Father No problems noted. Mother History of cardiovascular disorder Social History Household Members: None Housing: Apartment Alcohol intake: never Patient Tobacco Use Status: Current everyday Tobacco user Cigarette Packs Per Day: 1 e-Cigarette/Vaping Use: Currently Using Second Hand Smoke Exposure: No Substance Use Type: Marijuana service: No Current occupational status: retired Cognitive needs: No Hearing needs: No Vision needs: Yes Assessment & Plan Assessment & Plan (1) Type 2 diabetes mellitus with diabetic polyneuropathy: Code(s): E11.42 - Type 2 diabetes mellitus with diabetic polyneuropathy Qualifiers: Diabetes mellitus terminal superintendent insulin use: with terminal superintendent use Qualified Code(s): E11.42 - Type 2 diabetes mellitus with diabetic polyneuropathy; 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 0% Hyperglycemia:? 32% Time in Range:? 68% Average glucose for the last 2 weeks?162 mg/dL Patient's glucose levels are improving, patient had 1 episode of hypoglycemia in the past 14 days, patient reports treating with 4 oz of fruit juice Patient continues to struggle with scanning Mayco 2 sensor frequently, there is missing data on sensor reports. Recommended to patient we upgrade to Mayco 3+ in order to eliminate need for scanning. Patient also reports that approximately once a week he forgets to take his Lantus 34 units, suggested to patient he move Lantus to a time of day where he can consistently take basal insulin. Reviewed with patient insulin action of Lantus, and Humalog. Discussed the importance of eating consistent carbohydrates at meals when on fixed dose of mealtime insulin Patient agreed to plan Patient will follow-up with provider in 3 weeks, patient will contact clinic when he receives new Mayco 3+ supplies to set up appointment with educator Patient able to insert sensor independently at home without issue.? Portions of this note were created using voice recognition software, please excuse any words or phrases that may have been misinterpreted. Coding Level of Care Code Est Pt Level 1 (12433) Diagnoses Type 2 diabetes mellitus with diabetic polyneuropathy, with long-term current use of insulin E11.42; Z79.4 Diabetes mellitus halfway insulin use: with terminal superintendent use
--- OUTSIDE RECORDS SUMMARY | 2025-01-22 14:02 | XMS_ITS | Clinical Summary ---
Author Organization [facility] Address [address] [place] [address] Care Team Providers Care C++ Professor Name Role Phone Sandra Hodges Primary Care Provider [phone] Allergies No known active allergies Medications Jardiance 25 mg SMARTSI Tablet(s) By Mouth Every Morning Active ezetimibe (ZETIA) 10 mg tablet SMARTSI Tablet(s) By Mouth Daily 5 Active fluticasone propionate (FLONASE) 50 mcg/actuation nasal spray Administer 1 spray into each nostril once a day. Active ibuprofen (MOTRIN) 800 mg tablet Take 1 tablet by mouth 3 times daily as needed. Active acetaminophen (TYLENOL) 650 mg 8 hr tablet Take 1 tablet by mouth every 12 hours. Active bisacodyL (DULCOLAX) 5 mg EC tablet SMARTSI Tablet(s) By Mouth Daily 4 Active chlorhexidine (PERIDEX) 0.12% solution RINSE TWICE DAILY WITH 1/2FL OZ FOR 30 SECS, DO NOT SWALLOW, SPIT 5 Active cholecalcifero l (VITAMIN D3) 2,000 unit capsule SMARTSI Capsule(s) By Mouth Daily Active dicyclomine (BENTYL) 20 mg tablet SMARTSI Milligram(s) By Mouth 4 Times Daily 5 Active glucose 4 gram chewable tablet SMARTSI Tablet(s) By Mouth PRN 4 Active docusate sodium (COLACE) 100 mg capsule TAKE 1 CAPSULE BY MOUTH 2 TIMES A DAY NEEDED FOR CONSTIPATION [address] (CYMBALTA) 30 mg capsule Take 1 capsule by mouth 2 times a day. 4 Active gabapentin (NEURONTIN) 100 mg capsule Take 1 capsule by mouth 3 times a day. Active HYDROmorphone (DILAUDID) 2 mg tablet TAKE 2 TABLET BY MOUTH EVERY 6 HOURS NEEDED FOR MODERATE PAIN FOR 5 DAYS Active insulin lispro 100 unit/mL insulin pen 19 UNIT (0.19 ML) SUBCUTANEOUSLY 4 TIMES A DAY 4 Active insulin glargine (Lantus Solostar U-100 Insulin) 100 unit/mL (3 mL) pen injection INJECT 30 UNITS SUBCUTANEOUSLY EVERY EVENING Active lidocaine (LMX) 5 % cream SMARTSIG:Topical 4 Times Daily PRN 4 Active ofloxacin (FLOXIN) 0.3% otic solution INSTILL 10 DROPS INTO BOTH EARS DAILY FOR [address] (PROTONIX) 40 mg tablet SMARTSI Tablet(s) By Mouth Daily Active rosuvastatin (CRESTOR) 40 mg tablet Take 1 tablet by mouth once a day. 4 Active sertraline (ZOLOFT) 25 mg tablet 4 Active Active Problems Problem Noted Date Diagnosed Date Ftqozmo-ax-apn 01/03/2025 Encounters Date Type Department Care Team Description 01/06/2025 12:38 PM EDT Anesthesia Event [facility] Operating Room [address] [place] [phone] Richard Alan MD PhD Tiffany Gandhi NP 01/06/2025 12:14 PM EDT - 01/06/2025 1:24 PM EDT Surgery [facility] Operating Room [address] [place] [address] Ruthie Dodge MD ANORECTAL EXAM UNDER ANESTHESIA [35340 (CPT??)] 01/06/2025 11:09 AM EDT - 01/06/2025 2:34 PM EDT Hospital Encounter [facility] Operating Room [address] [place] [address] Ruthie Dodge MD Discharge Disposition: Home or Self Care () 12/18/2024 Telephone [facility] Colorectal Surgery [address] [place] [address] Semi Automatic Sewing Machine Operator: Ruthie Aleman MD 12/17/2024 1:00 PM EDT Telehealth [facility] Colorectal Surgery [address] [place] [address]643 Semi Automatic Sewing Machine Operator: Ruthie Aleman MD Anal fistula (Primary Dx) 11/29/2024 Orders Only [facility] - External Imaging [address] [place] [address] Radiology, External 11/18/2024 Telephone [facility] Colorectal Surgery [address] [place] [address] Semi Automatic Sewing Machine Operator: Ruthie Aleman MD 11/15/2024 Telephone [facility] Colorectal Surgery [address] [place] [address] Semi Automatic Sewing Machine Operator: Ruthie Aleman MD 11/14/2024 2:30 PM EST Office Visit [facility] Colorectal Surgery [address] [place] [address] Semi Automatic Sewing Machine Operator: Ruthie Aleman MD Anal fistula (Primary Dx) from Last 3 Months Social History Tobacco Use Types Packs/Day Years Used Date Smoking Tobacco: Every Day Cigarettes 1 52.3 Started: 1972 Smokeless Tobacco: Never Tobacco Cessation:Ready to Q uit: Not Asked; [...] Sign Reading Time Taken Comments Blood Pressure 111/65 01/06/2025 2:00 PM EDT Pulse 69 01/06/2025 2:00 PM EDT Temperature 36.1 ??C (97 ??F) 01/06/2025 1:21 PM EDT Respiratory Rate 20 01/06/2025 1:21 PM EDT Oxygen Saturation 97% 01/06/2025 2:00 PM EDT Inhaled Oxygen Concentration - - Weight 88.7 kg (195 lb 8.8 oz) 01/06/2025 11:22 AM EDT Height 172.7 cm (5' 8 ) 01/06/2025 11:22 AM EDT Body Mass Index 29.73 01/06/2025 11:22 AM EDT Plan of Treatment Health Maintenance Due Date Last Done Comments [...] complete this topic Procedures * Due to [place] state law, this organization might not be sharing negative HIV tests. Procedure Name Priority Date/Time Associated Diagnosis Comments POCT GLUCOSE Routine 01/06/2025 1:26 PM EDT [place] SURG DIAGNOSTIC EXAM, ANORECTAL 01/06/2025 12:27 PM EDT Anal fistula Special Needs Miralax dulcolax prep POCT GLUCOSE Routine 01/06/2025 11:32 AM EDT MRI PELVIS W WO CONTRAST Routine 11/29/2024 9:40 AM EST Anal fistula AMB EXTERNAL MRI PELVIS, OUTSIDE RESULT 11/29/2024 from Last 3 Months Results * Due to [place] state law, this organization might not be sharing negative HIV tests. * (ABNORMAL) POCT Glucose, interfaced (01/06/2025 1:26 PM EDT) Only the most recent of2 resultswithin the time period is included. [facility] Glucose, POCT 181(H) 70 - 99 mg/dL 01/06/2025 1:29 PM EDT MIKI DIXON Comment: The president sales and marketing has not determined the efficacy of this test in Critically ill patients. ??[facility] defines Critically ill patients for the purpose of blood glucose monitoring (BGM) by glucometer, as patients meeting one or more of the following criteria: Hypotension- non-ICU patients (systolic blood pressure Less than 90 mmHg) due to shock Hypotension -ICU patients ??(Mean Arterial Pressure (MAP) <60 mmHg or systolic blood pressure < 90 mmHg due to shock Patients receiving Vasopressors (phenylephrine, vasopressin or norepinephrine) Anasarca In all locations, BGM test results should not be relied upon in the above situations, unless these results confirmed with lab-based glucose values. Blood 01/06/2025 1:26 PM EDT 01/06/2025 1:29 PM EDT Ruthie Dodge MD LAB POCT ORDERABLES - DEVICE Fi nal Result MIKI DIXON [address] [place] [address] * MRI Pelvis W WO Contrast (11/29/2024 9:40 AM EST) Anatomical Region Laterality Modality Body, Pelvis Magnetic Resonan ce 11/29/2024 8:50 AM EST Narrative 11/29/2024 3:33 PM EST [facility] Accession Number: [id number] Patient Name: Gerson Mazariegos Date of : 1960 Date of Exam: 11-29-2024 Referring Physician: Ruthie Dodge ?[facility] - Colorectal Surgery ?[address] [place] [address] ?[place], [place] [address] Exam: MR Pelvis (C-/C+) CPT 40338 Room Description: [facility] 3.0T HISTORY: 64 years years old [...] MD Procedure Note Provider, Tri - 11/29/2024 [facility] Accession Number: [id number] Patient Name: Gerson Mazariegos Date of : 1960 Date of Exam: 11-29-2024 Referring Physician: Ruthie Dodge [facility] - Colorectal Surgery [address] [place] [address] Exam: MR Pelvis (C-/C+) CPT 52673 Room Description: [facility] 3.0T HISTORY: 64 [...] Final Result from Last 3 Months Insurance [facility] ALLI[facility] ISAAC RODRIGUEZ [id number] Advance Directives * Full Code (Latest Code Status on File) Date Activated Date Inactivated Comments 01/06/2025 11:24 AM 01/06/2025 4:40 PM Care Teams C++ Professor Relationship Specialty Start Date End Date Sandra Hodges [address] [place] [address] PCP - General Internal Medicine 11/08/24
--- OUTSIDE RECORDS SUMMARY | 2025-01-22 14:02 | XMS_ITS | Referral Summary ---
Author Organization [facility] Address [address] [place] [address] Care Team Providers Care Probation Agent Name Role Phone Sandra Hodges Primary Care Provider [phone] Encounters Date Type Department Care Team Description 01/06/2025 12:14 PM EDT - 01/06/2025 1:24 PM EDT Surgery [facility] Operating Room [address] [place] [address] Ruthie Dodge MD ANORECTAL EXAM UNDER ANESTHESIA [[id number] (CPT??)] 01/06/2025 12:38 PM EDT Anesthesia Event [facility] Operating Room [address] [place] [address] 16[address] Richard Alan MD PhD Tiffany Gandhi NP 01/06/2025 11:09 AM EDT - 01/06/2025 2:34 PM EDT Hospital Encounter [facility] Operating Room [address] [place] [address] Ruthie Dodge MD Discharge Disposition: Home or Self Care () 12/18/2024 Telephone [facility] Colorectal Surgery [address] [place] [address] Fabricator Artificial Breast: Ruthie Aleman MD 12/17/2024 1:00 PM EDT Telehealth [facility] Colorectal Surgery [address] [place] [address] 8[address]98 Fabricator Artificial Breast: Kristopher-Ruthie Serrato MD Anal fistula (Primary Dx) 11/29/2024 Orders Only [facility] - External Imaging [address] [place] [address] Radiology, External 11/18/2024 Telephone [facility] Colorectal Surgery [address] [place] [address] Fabricator Artificial Breast: Ruthie Aleman MD 11/15/2024 Telephone [facility] Colorectal Surgery [address] [place] [address] Fabricator Artificial Breast: Ruthie Aleman MD 11/14/2024 2:30 PM EST Office Visit [facility] Colorectal Surgery [address] [place] [address] Fabricator Artificial Breast: Ruthie Aleman MD Anal fistula (Primary Dx) from Last 3 Months Allergies No known active allergies Medications Jardiance [...] Active Problems Problem Noted Date Diagnosed Date Wyeanxi-gi-unx 01/03/2025 Social History Tobacco Use Types Packs/Day Years [...] 01/06/2025 11:22 AM EDT Plan of Treatment Not on file Procedures * Due to [place] state law, this organization might not be sharing negative HIV tests. Procedure Name Priority Date/Time Associated Diagnosis Comments POCT GLUCOSE Routine 01/06/2025 1:26 PM EDT [place] SURG DIAGNOSTIC EXAM, ANORECTAL 01/06/2025 12:27 PM EDT Anal fistula Special Needs Miralax dulcolax prep POCT GLUCOSE Routine 01/06/2025 11:32 AM EDT MRI PELVIS W WO CONTRAST Routine 11/29/2024 9:40 AM EST Anal fistula AMB EXTERNAL MRI PELVIS, OUTSIDE RESULT 11/29/2024 from Last 3 Months Results * Due to [place] [employer] law, this organization might not be sharing negative HIV tests. * (ABNORMAL) POCT Glucose, interfaced (01/06/2025 1:26 PM EDT) Only the most recent of2 resultswithin the time period is included. [facility] Signature Glucose, POCT 181(H) 70 - 99 mg/dL 01/06/2025 1:29 PM EDT MIKI DIXON Comment: The core java software engineer has not determined the efficacy of this test in Critically ill patients. ??[facility] defines Critically ill patients for the [...] 1:26 PM EDT 01/06/2025 1:29 PM EDT us Ruthie Dodge MD LAB POCT ORDERABLES - DEVICE Fi nal Result TANYA CORLEY, POC [address] [place] [address] * MRI Pelvis W WO Contrast (11/29/2024 9:40 AM EST) Anatomical Region Laterality Modality Body, Pelvis Magnetic Resonan ce 11/29/2024 8:50 AM EST Narrative 11/29/2024 3:33 PM EST [facility] Accession Number: [id number] Patient Name: Gerson Mazariegos Date of : 1960 Date of Exam: 11-29-2024 Referring Physician: Ruthie Dodge ?[facility] - Colorectal Surgery ?[address] [place] [address] ?[place], [place] [address] Exam: MR Pelvis (C-/C+) CPT 20146 Room Description: [facility] 3.0T HISTORY: 64 years years old Male [...] MD Procedure Note Provider, Tri - 11/29/2024 [facility] Accession Number: [id number] Patient Name: Gerson Mazariegos Date of : 1960 Date of Exam: 11-29-2024 Referring Physician: Ruthie Dodge [facility] - Colorectal Surgery [address] [place] [address] Exam: MR Pelvis (C-/C+) CPT 49226 Room Description: [facility] 3.0T HISTORY: 64 years years old Male [...] Final Result from Last [address] [place] [address] Advance Directives * Full Code (Latest Code Status on File) Date Activated Date Inactivated Comments 01/06/2025 11:24 AM 01/06/2025 4:40 PM Care Teams Probation Agent Relationship Specialty Start Date End Date Sandra Hodges [address] [place] [address] PCP - General Internal Medicine 11/08/24
--- OUTSIDE RECORDS SUMMARY | 2025-01-22 14:02 | XMS_ITS | Data Portability ---
Author Organization [employer] Address [address] [place] [address] Care Team Providers Care Prep Person Name Role Phone HIM CCA OTHER Assessment Encounter Date Assessment Date Assessment LastModified by Organization Details LastModified Time 03/04/2024 03/04/2024 I have reviewed and agree with the assessment and plan as documented by the system administration advisor. I provided real time medical direction for this encounter and was immediately available to provide additional phone based assistance as needed. History as noted by system administration advisor. Pt with history of DM, recent surgery [...] to help guide treatment and management. Unfortunately[facility] to [facility] for [...] BMP, serum or plasma 024 03/04/20 [facility], [address] [place] [address], [phone] 10:05:19 Referral None recorded . Procedures None [...] Details Last Updated DateTime 4 98.4 [degF] 49695.8 g 162.56 cm 80 /min 98 % [...] Updated DateTime 4 98 % 98 % 97430.5 6 g 98 /min 172.72 cm 16 /min 97.3 [degF] 154 mm[Hg] 61 mm[Hg] Not Available [employer] - production 10:03:23 Social History None recorded. Functional Status None recorded. Mental Status None recorded. Family History Nothing Reported. Medical History No medical history recorded. Past Encounters Encounter ID Performer Location Encounter Start Date Encounter Closed Date Diagnosis/Indication Diagnosis SNOMED-CT Code Diagnosis ICD10 Code Diagnosis Note [id number] Marilu Schmid MD Main - [facility] [address] [place] [phone] 09/30/2023 20:02:30 10/01/2023 15:25:02 Viral upper respiratory tract infection [id number] J06.9 I provided real -time medical direction via phone for this encounter, and was available for additional phone based assistance as needed. I have reviewed and agree with the Assessment and Plan as documented by the Clinic Manager. Patient given the opportunit y to ask questions. 63 yo w/ 24h of URI (nasal congestion + fatigue). no cough/sob. covid/flu negative. lungs clear, exam reassuring . recommende d supportive care (nasal rinse, antihistam ine). advised calling back if worsens. [id number] Greyson [facility] [address] [place], [place] [phone] 03/04/2024 10:03:18 03/06/2024 04:37:12 Diarrhea [id number] R19.7 Health Concerns Section Related Observation LastModified by Organization Detai ls LastModified Time None Recorded Concern Status LastModified by Organization Details LastModified Time None Recorded Advance Directives Directive None Recorded Payers Encounter Date Sequence Insurance Name Policy Number Policy Warner Covered Member ID Warner Member ID Guarantor Name 09/30/2023 1 [facility] [employer]I[facility] - DOS ON OR AFTER 2022 - DUAL ELIGIBLE - FCI OPTIONS AND ONE CARE (MEDICARE REPLACEMENT/ADV ANTAGE - HMO) Gerson Allam [id number] Gerson A Allam 03/04/2024 1 [facility] - DOS ON OR AFTER 2022 - DUAL ELIGIBLE - FCI OPTIONS AND ONE CARE (MEDICARE REPLACEMENT/ADV ANTAGE - HMO) Gerson Allam [id number] Gerson Mazariegos Notes Date Note Type Note [...] ................... ................... ................... ................... ................... ................... ........ Clinic Manager Note From Ramiro Reyes: PT caox3 [...] covid and flu negative via rapid test. [facility] advises supportive care, nasal rinse, steam and antihistamine if needed. Red flags and pt education discussed. Pt assisted with his nasal spray. ................... ................... ................... ................... ................... ................... ................... ........ Disposition: Eduardo Marilu Schmid MD [address] [facility],[address], [place], [phone], [place]IV[place] 10/01/2023 02:50:55 03/04/2024 text/html This was a supervised home visit with system administration advisor Teto Beckett. CRC Nurse Triage Notes (Odette Chin): Chief Complaints: Diarrhea PMH: Diabetes Allergies: No Known Comments: Diarrhea ongoing for the past week. Incontinent during sleep. States diarrhea is severe. Vomited last week. No known fever. Since surgical procedure in January member states health has declined. Unsteady balance, dizziness. On Oxycodone 10mg daily since January. Clinic Manager POC Test Results from Teto Beckett [facility] (09:59:37) pH: 7.41 pH units pCO2: 35.8 mmHg pO2: 65.7 mmHg Na: 145 mmol/L K: 4.0 mmol/L iCa: 1.19 mmol/L Cl: 110 mmol/L TCO2: 22.6 mEq/L Hct: 47 % Hb: 15.8 g/dL Glu: 236 mg/dL Lac: 1.7 mmol/L Cr: 0.9 mg/dL BUN: 8 mg/dL A ................... ................... ................... ................... ................... ................... ................... ........ Clinic Manager Note From Teto Beckett: Pt reports [...] ................... ........ Disposition: Eduardo Wan MD [address] [facility],[address], [place], [phone], LIVELENZ 03/04/2024 10:43:44
--- OUTSIDE RECORDS SUMMARY | 2025-01-22 14:02 | XMS_ITS | Clinical Summary ---
Author Organization [facility] Address [address] [place] [address] Care Team Providers Care Relish Blender Name Role Phone Marcela Foster DDAnette Primary Care Provider [phone] Source Comments PLEASE NOTE, if this patient [...] Plan of Treatment Not on file Insurance [place] MED[place] D[place] [facility] Care Teams Relish Blender Relationship Specialty Start Date End Date Marcela Foster DDS [address] [place] [id number] PCP - General Dental Winding Inspector 05/09/19
== END 2025-01-22 15:41 | disposition home or self-care (01) ==
LOC: HO.ENCR 12:48
PROVIDERS: PCP Internal Medicine; Visit Provider Registered Nurse Diabetes Educator
DX: E11.42 Type 2 diabetes mellitus with diabetic polyneuropathy (principal); Z79.4 Long term (current) use of insulin

== ENCOUNTER → 2025-01-22 12:48 | Outpatient (BNVA) | payer OTHER, SELFPAY | PROVIDERS: PCP Internal Medicine; Visit Provider Registered Nurse Diabetes Educator | DX: E11.42 Type 2 diabetes mellitus with diabetic polyneuropathy (principal); Z79.4 Long term (current) use of insulin | CPT/HCPCS: 99211 ==

== ENCOUNTER 2025-02-12 13:59 | Outpatient (AMB) | payer OTHER, SELFPAY ==
--- NOTE | 2025-02-12 14:05 | MHC.OFFVIS ---
Vital Signs 02/12/25 14:12 Height 5 ft 8 in Weight 197 lb 12.074 oz BMI 30.1 BP 100/66 Blood Pressure Location Rt brachial Position Sitting Pulse 82 Pulse Source Pulse Oximeter Pulse Oximetry (%) 96 Oxygen Delivery Method Room Air Intake Visit Reasons: MNG, DM Intake Note: Patient present today for Type 2 Diabetes Mellitus and MNG. 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 Accompanied by: Self / Same As Patient Allergies No Known Allergies [No Known Allergies*] Allergy (Verified 02/12/25 14:17) Medication List - Last Reconciled 02/12/25 by Yadi Louie MD acetaminophen ER (Tylenol Arthritis Pain) 650 mg PO Q12H 30 days blood sugar diagnostic (FreeStyle Precision Junaid Strips) DIRECTED TO CHECK BLOOD SUGAR 4X/DAY cholecalciferol (vitamin D3) 50 mcg PO DAILY diazepam mg PO dicyclomine 20 mg PO QID 30 days docusate sodium 100 mg PO BID PRN duloxetine 30 mg PO BID empagliflozin (Jardiance) 25 mg PO QAM ezetimibe 10 mg PO DAILY flash glucose scanning reader (FreeStyle Mayco 2 [place]) DIRECTED flash glucose sensor (FreeStyle Mayco 2 Sensor kit) As directed change every 14 days gabapentin 100 mg PO TID glucose (Dex4 Glucose) 16 grams (4 x 4 gram) PO Q15M PRN insulin glargine (Lantus Solostar U-100 Insulin) 34 units (0.34 mL) subcut QPM insulin lispro (Humalog KwikPen (U-100) Insulin) 19 units (0.19 mL) subcut TID lancets (FreeStyle Lancets) As directed three time a day loperamide mg PO BID pantoprazole 40 mg PO DAILY 90 days pen needle, diabetic five times a day rosuvastatin 40 mg PO DAILY sertraline 25 mg PO DAILY HPI Comments Details: 63 YO M with PMHx T2DM, Multinodular thyroid who is seen in F/U for type 2 diabetes mellitus and multinodular thyroid. Diabetes mellitus: Endo: Dm- Initially diagnosed with T2DM in 1989. currently Lantus 34 units nightly, Humalog 16 units TID Jardiance 25 mg daily/ (has been out of it for a week) Prior therapy -end 2023 we d/cd the metformin which helped lessen the diarrhea. Diarrhea still present and being worked up. He is dealing with a rectal fistula and intermittent infections. Believes this is contributing to elevated glucose readings. -Ozempic cause nausea vomiting. States so severe does not want to try another GLP. Metformin caused diarrhea. 07/19 A1c is 8.1. 11/05/24 A1c 8% 12/26/2024: A1c 8.1% Saw CDE 01/22/2025: With plan for upgrade to Mayco 3+ Has eyes checked yearly, has retinopathy., last eye exam Denies neuropathy, sees podiatry. Has microalbuminuria, mild, from October 2024, urine microalbumin creatinine ratio elevated at 32 not on MINE/ARB. Has HLD, on rosuvastatin 40 mg PO daily. LDL 110 . 11/19 up from 95 previously , started on Zetia 11/19, 12/26/2024: LDL down to 89 Denies CAD. CV: bp today normal GI: dealing with a rectal fistula and getting intermittently infected. Multinodular Thyroid: HPI from prior visit He had an US completed due to a thyroid nodule that was palpated during exam by Parris Neff in 2019 or 2021.? This revealed a multinodular thyroid, and he was then referred to Dr. Barker for FNA biopsy. Dr. Barker performed an FNA biopsy of his RMP 2.5 cm thyroid nodule 08/24/2022 with benign cytology. At that time he was found to have a large goiter with substernal extension.? Eyota sign was positive.? He was complaining of hoarseness of voice and some dysphagia.? He was referred to Dr. Mustafa for a surgical thyroidectomy and also CT of the neck was ordered.? Decision was made not to operate ,He saw Dr. Mustafa but did not want to proceed with thyroidectomy He denies any symptoms of hyper or hypothyroidism currently.? He denies a personal history of head or neck irradiation.? He denies a family history of thyroid cancer. Most recently labs from March 2024 showed low TSH of 0.19. Previously he has always had normal TSH. Free T4 was normal at 0.91. Thyroid uptake and scan April 2024 showed minimal tracer avidity overall consistent with thyroiditis. It did possibly point towards slightly increased uptake in the right inferior and left mid poles. Could possibly have some degree of toxicity from the nodules. Most recent labs from December 2024 showed normal thyroid function. 11/19: Normal thyroid function 10/19: US thyroid showed stable size of previous nodules, new right lower pole 3.4 cm nodule, when I review his old images I see he hs a conglomelerate of nodules on the right side, hard to tell if this nodule is really new, but we will repeat FNA. 11/27/24: Underwent FNA of the right lower 3.4 cm nodule with benign cytology, [place] 2. Reports improvement in diarrhea on medication. Weight stable , reports tremors, denies palpitations Dysphagia persists but not worsened Plan is for next ultrasound to be done November 2025, this is already ordered Physical exam General: sitting comfortably in no acute distress HEENT: normocephalic/atraumatic, moist oral mucosa Neck: supple, palpable 1-2 cm thyroid nodule on the right side, palpable 2 cm thyroid nodule on left side, no dorsocervical or supraclavicular fat pads Cardiac: normal heart sounds Pulm: normal breath sounds B/L, no added breath sounds Abd: not distended, no tenderness Extremities: no edema, no signs of myxedema, no tremors Neuro: AAO x3, Speech: normal, no facial droop, moving all 4 extremities Foot exam: Intact sensation to monofilament, intact pulses, warm and well-perfused Laboratory Tests 09/21/20 08/27/21 09/14/22 10:05 07:13 10:49 TSH 0.55 0.41 0.48 Free T4 0.79 0.87 0.94 03/10/23 10/03/23 03/25/24 14:08 13:25 14:41 TSH 0.44 0.83 0.19 L Free T4 0.98 0.98 0.91 Laboratory Tests 08/27/21 07:13 Thyroglobulin Antibody <1 Thyroid Peroxidase Ab 3 Laboratory Tests 11/05/24 11/05/24 10:46 10:53 Triglycerides 249 H Cholesterol 190 LDL Cholesterol, Calc 111 H HDL Cholesterol 30 L Thyroid Stim Immunoglob <89 Urine Creatinine 73.98 Urine Microalbumin 24.0 Microalb/Creat Ratio 32.4 H Laboratory Tests 11/05/24 10:53 Hemoglobin A1c % 8.0 H Laboratory Tests 12/26/24 12/26/24 13:34 Unknown Hgb 15.1 Hct 44.1 Plt Count 120 L Sodium 141 Potassium 4.6 D Creatinine 1.05 Estimated GFR > 60 Random Glucose 185 H Estimat Average Glucose 186 Hemoglobin A1c % 8.1 H AST 19 ALT 23 Albumin 4.0 Triglycerides 160 H Cholesterol 147 LDL Cholesterol, Calc 89 HDL Cholesterol 26 L Vitamin B12 309 TSH 0.45 Free T4 1.23 Total T3 109 EXAMINATION: US THYROID 10/17/24 HISTORY: E04.2 - Nontoxic multinodular goiter TECHNIQUE: Real-time grayscale ultrasound imaging was performed and images were reviewed. COMPARISON: Comparison is made with the prior examination dated 07/08/2021. FINDINGS: SIZE: The right thyroid lobe measures 6.7 x 4.0 x 3.1 cm. The left thyroid lobe measures 6.2 x 3.2 x 2.8 cm. The isthmus measures 11 mm. FLOW: Flow to the gland is normal. ECHOGENICITY: The echotexture of the gland is heterogeneous. NODULES: Multiple bilateral thyroid nodules are again identified with imaging characteristics is as follows: Nodule #: 1 Location: Right upper pole measuring 2.1 x 1.2 x 2.0 cm (previously 1.4 x 1.1 x 1.8 cm). Shape: Ovoid Margins: Ill-defined Echotexture: Hyperechoic Morphology: Solid Calcifications: None TIRADS: TR3: Mildly suspicious. Nodule #: 2 Location: Interpolar region of the right thyroid lobe measuring 1.2 x 1.0 x 1.3 cm (previously 1.4 x 1.1 x 0.9 cm). Shape: Round Margins: Ill-defined Echotexture: Hypoechoic Morphology: Indeterminate Calcifications: None TIRADS: TR4: Moderately suspicious. Nodule #: 3 Location: Mid to lower pole of the right thyroid lobe measuring 3.4 x 2.0 x 2.5 cm. This is a new nodule from the prior study. Shape: Ovoid Margins: Smooth Echotexture: Hyperechoic Morphology: Solid Calcifications: None TIRADS: TR3: Mildly suspicious. Nodule #: 4 Location: Upper pole of the left thyroid lobe measuring 1.6 x 0.7 x 1.0 cm (previously 1.7 x 0.6 x 1.0 cm. Shape: Ovoid Margins: Smooth Echotexture: Hyperechoic Morphology: Mostly solid Calcifications: None TIRADS: TR3: Mildly suspicious. Nodule #: 4 Location: Midportion of the left thyroid lobe measuring 1.8 x 1.6 x 1.8 cm (previously 1.7 x 1.0 x 1.5 cm). Shape: Ovoid Margins: Smooth Echotexture: Hyperechoic Morphology: Mixed Calcifications: None TIRADS: TR3: Mildly suspicious. US/US thyroid IMPRESSION: Multiple thyroid nodules are again identified as described above. There is a new mildly suspicious 3.4 x 2.0 x 2.5 cm nodule in the mid to lower pole region of the right thyroid lobe for which ultrasound-guided fine needle aspiration is recommended. ACR TI-RADS Guidelines TR1: Benign, No follow-up or biopsy required TR2: Not Suspicious, No biopsy indicated TR3: Mildly Suspicious, FNA if >= 2.5 cm, Follow if >= 1.5 cm TR4: Moderately Suspicious, FNA if >= 1.5 cm, Follow if >= 1.0 cm TR5: Highly Suspicious, FNA if >= 1.0 cm, Follow if >= 0.5 cm Electronically signed by: Yvon Morrison MD 10/21/2024 09:10 AM [facility] THYROID UPTAKE AND SCAN April 2024 CLINICAL INFORMATION: Nontoxic multinodular goiter. COMPARISON: CT of the soft tissue neck done on 09/16/2022. TECHNIQUE: Following the oral administration of 273 microcuries of I-123 sodium iodide, thyroid uptake was performed and expressed as a percentage of the administrated dose. Gamma scintillation camera images of the thyroid in the anterior and right and left anterior oblique views were obtained using a pinhole collimator following the administration of 10 mCi Tc-99m pertechnetate. FINDINGS: The uptake is 3.45% at 4 hours and 11.60% at 24 hours (Normal radioiodine uptake at 4 to 6 hours is about 5-15% and at 24 hours is 10% to 30%). The radioiodine uptake is normal. The radiopertechnetate thyroid scintigram shows minimal tracer avidity within the entire thyroid gland, most consistent with diffuse thyroiditis. Subtle focal asymmetric increased tracer avidity however is noted along the mid medial aspect of the left and mid to inferior aspect of the right lobe of the gland. The findings appear concordant between iodine as well as technetium pertechnetate images. NM/NM thyroid w uptake IMPRESSION: 1. Normal radioiodine uptake. 2. Minimal tracer avidity involving the thyroid gland on both iodine as well as technetium pertechnetate, consistent with nonspecific diffuse thyroiditis. 3. Superimposed mild focal asymmetric warm nodule at inferior medial part of the right and mid medial part of the left lobe of the gland. Laboratory Tests 09/21/20 08/27/21 09/14/22 10:05 07:13 10:49 Glucose (Clinic) Hgb A1c (Clinic) Hemoglobin A1c % TSH 0.55 0.41 0.48 Free T4 0.79 0.87 0.94 Total T3 Thyroglobulin Antibody <1 Thyroid Peroxidase Ab 3 J LUIS Antibody 03/10/23 10/03/23 03/25/24 14:08 13:25 14:41 Glucose (Clinic) Hgb A1c (Clinic) Hemoglobin A1c % TSH 0.44 0.83 0.19 L Free T4 0.98 0.98 0.91 Total T3 Thyroglobulin Antibody Thyroid Peroxidase Ab J LUIS Antibody <5 07/22/24 11/05/24 11/07/24 14:13 10:53 14:16 Glucose (Clinic) 126 H Hgb A1c (Clinic) 8.1 H Hemoglobin A1c % 8.0 H TSH 0.60 Free T4 0.97 Total T3 96 Thyroglobulin Antibody Thyroid Peroxidase Ab J LUIS Antibody CT SOFT TISSUE NECK WITHOUT CONTRAST Sep 15 CLINICAL INFORMATION: Nontoxic multinodular goiter. COMPARISON: Thyroid ultrasound 07/08/2021. TECHNIQUE: Helical imaging was performed in the axial plane with generation of coronal and sagittal reformatted images. This CT examination was performed using dose optimization techniques as appropriate, including one or more of the following: Automated exposure control, iterative reconstruction, and adjustment of technique factors (mA and/or kVp) according to patient size (this includes techniques or standardized protocols for targeted exams where dose is matched to indication/reason for exam). Fleischner Society criteria for the followup of incidental pulmonary nodules was implemented if appropriate. DLP: 410 mGy-cm. FINDINGS: There is an enlarged heterogeneous thyroid gland which coincides with the findings demonstrated on the sonographic imaging from 08/24/2022. There are no pathologically enlarged cervical lymph nodes. No mediastinal or axillary adenopathy is visualized within the [id number] of this examination. Pharyngeal mucosal spaces are symmetric. Parapharyngeal and retromaxillary fat is preserved. [employer] Vice President spaces are normal. The parotid and submandibular glands are normal. The tongue base and epiglottis are normal. Preepiglottic fat is preserved. Glottic and subglottic airways are widely patent. Lung apices are clear. The aortic arch apex is unremarkable. Carotid spaces are unremarkable. There is advanced multilevel degenerative spondylosis of the cervical spine. Disc osteophyte spurring in conjunction with facet degenerative change at C3-C4 causes severe canal stenosis with likely compression of the cervical spinal cord. There is also at least moderate canal stenosis at levels of C2-C3, C4-C5, and C5-C6. There is no acute osseous finding. No worrisome lytic or blastic osseous lesion. There are exuberant anterior disc osteophyte complexes at multiple levels within the cervical spine. The skull base is grossly intact. No mastoid middle ear effusion. Iwic-mo-[id number] paranasal sinus disease. Limited visualization of the intracranial anatomy reveals no abnormal finding. CT/CT soft tissue neck wo IV con IMPRESSION: There is a multinodular thyroid goiter. No pathologically enlarged cervical lymph nodes. There is advanced multilevel degenerative spondylosis of the cervical spine causing severe canal stenosis and likely compression of the cervical cord at C3-C4. There is also at least moderate canal stenosis at levels of C2-C3, C4-C5, and C5-C6. If there are clinical symptoms of compressive myelopathy then a dedicated cervical spine MRI can be obtained for better anatomic characterization of the cord and canal. US THYROID nov 15 CLINICAL INFORMATION: Nontoxic goiter, unspecified. COMPARISON: None TECHNIQUE: Linear transducer blevins-scale and color Doppler examination with attention to the region of the thyroid. FINDINGS: SIZE: Measurements of the thyroid lobes and nodules are given in sagittal, anteroposterior and transverse dimensions respectively. Right Thyroid Lobe: 5.1 x 2.7 x 2.9 cm, volume 21 mL. Parenchyma: The gland echotexture is heterogeneous. Thyroid vascularity is normal. Left Thyroid Lobe: 5.2 x 3.2 x 2.7 cm, volume 23 mL. Parenchyma: The gland echotexture is heterogeneous. Thyroid vascularity is normal. Isthmus: 0.1 cm in maximum AP dimension. Estimated total number of nodules greater than or equal to 1 cm: 5. There are multiple additional bilateral thyroid nodules. Rehabilitation Services Aide nodules are described as follows: 1. Location: Right mid pole. Size: 1.4 x 1.1 x 1.8 cm, volume 1.4 mL. Nodule characteristics: Composition: Solid/almost completely solid (2). Echogenicity: Isoechoic (1). Shape: Not taller than wide (0). Margins: Smooth (0). Echogenic Foci: None (0). ACR TI-RADS total points: 3 ACR TI-RADS category: 3 2. Location: Right lower pole. Size: 1.4 x 1.1 x 0.9 cm, volume 0.68 mL. Nodule characteristics: Composition: Mixed cystic and solid (1). Echogenicity: Hypoechoic (2). Shape: Not taller than wide (0). Margins: Smooth (0). Echogenic Foci: None (0). ACR TI-RADS total points: 3 ACR TI-RADS category: 3 3. Location: Left upper pole. Size: 1.0 x 0.3 x 0.8 cm, volume 0.13 mL. Nodule characteristics: Composition: Solid/almost completely solid (2). Echogenicity: Hypoechoic (2). Shape: Not taller than wide (0). Margins: Smooth (0). Echogenic Foci: None (0). ACR TI-RADS total points: 4 ACR TI-RADS category: 4 4. Location: Left mid pole. Size: 1.8 x 1.0 x 1.5 cm, volume 1.4 mL. Nodule characteristics: Composition: Mixed cystic and solid (1). Echogenicity: Hypoechoic (2). Shape: Not taller than wide (0). Margins: Smooth (0). Echogenic Foci: None (0). ACR TI-RADS total points: 3 ACR TI-RADS category: 3 5. Location: Left mid pole. Size: 1.7 x 0.6 x 1.0 cm, volume 0.53 mL. Nodule characteristics: Composition: Solid/almost completely solid (2). Echogenicity: Isoechoic (1). Shape: Not taller than wide (0). Margins: Smooth (0). Echogenic Foci: None (0). ACR TI-RADS total points: 3 ACR TI-RADS category: 3 NODES: No lymphadenopathy is seen in the tissue surrounding the thyroid gland. US/US thyroid IMPRESSION: Heterogeneous thyroid parenchyma with normal vascularity. Thyromegaly. Multiple bilateral thyroid nodules with ultrasound characteristics consistent with TI-RADS category 3. These nodules measure 1.7 to 1.8 cm in greatest dimension. Followup ultrasound recommended in 1, 3, and 5 years. Upper left thyroid nodule measuring 1.0 cm with ultrasound characteristics consistent with TI-RADS category 4. Followup ultrasound recommended in 1, 2, 3, and 5 years. [facility] Medical History (Updated 02/12/25 @ 14:18 by SOPHIE Morris) Anal fistula Encounter for general adult medical examination with abnormal findings Subclinical hyperthyroidism Type 2 diabetes mellitus with hyperglycemia Hyperlipidemia LDL goal <100 Cyst of buttocks Establishing care with new doctor, encounter for Dyspepsia Vocal cord polyp Hospital discharge follow-up Arthrosis Abdominal cramping HTN (hypertension) HLD (hyperlipidemia) Multinodular thyroid Vitamin D deficiency Multinodular thyroid Type 2 diabetes mellitus with hyperglycemia, with long-term current use of insulin Type 2 diabetes mellitus with diabetic polyneuropathy Smoking Lazy eye of left side Arthritis High cholesterol Diabetes type 2, controlled Surgical History Hx of colonoscopy History of surgery History of renal stone (~06/01/20) History of sebaceous cyst (~05/28/20) History of penile implant (~03/17/20) History of hemorrhoids Family History Father No problems noted. Mother History of cardiovascular disorder Social History Household Members: None Housing: Apartment Alcohol intake: never Patient Tobacco Use Status: Current everyday Tobacco user Cigarette Packs Per Day: 1 e-Cigarette/Vaping Use: Currently Using Second Hand Smoke Exposure: No Substance Use Type: Marijuana service: No Current occupational status: retired Cognitive needs: No Hearing needs: No Vision needs: Yes Office Procedures Glucose Monitoring Details Details: See [facility] [id number] - Glucose monitoring, continuous-physician I&R Procedure code (CPT) selection complete Assessment & Plan Assessment & Plan (1) Type 2 diabetes mellitus with hyperglycemia, with long-term current use of insulin: Code(s): E11.65 - Type 2 diabetes mellitus with hyperglycemia; 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 A1c elevated at 8.1% which is about stable from 8% 11/07/2024. CGM data downloaded which shows that he continues to have overnight hyperglycemia as well as increased fasting numbers. CGM data could not be downloaded as he forgot to bring his reader. However he says his hypoglycemia is much less now that the Humalog is decreased. At this time I will not make any changes to his insulin because I do not have enough data.HE says he is better at taking the insulin now , but now he has been out of jardiance for a week. He said he forgot to call for refills Plan: -increase Lantus to 36 units daily, and if after 5 days of this change you continue to have blood sugars in the morning that is fasting higher than 140 mg/dL, can go up to 38 units daily -continue Humalog 19 units before breakfast and lunch, increase to 21 units with dinner -continue Jardiance 25 mg daily -follow up in 10 weeks (2) HLD (hyperlipidemia): Code(s): E78.5 - Hyperlipidemia, unspecified Category: Medical Qualifiers: Hyperlipidemia type: unspecified Qualified Code(s): E78.5 - Hyperlipidemia, unspecified Plan: LDL up at 110 mg/dL from October 2024 which is increased from 95 previously. He is already on rosuvastatin 40 mg daily. Says he is adherent to it. Started Zetia October 2024. Now LDL done December 2024 down to 89 mg/dL. Plan: -continue Zetia 10 mg daily -continue rosuvastatin 40 mg daily (3) Subclinical hyperthyroidism: Code(s): E05.90 - Thyrotoxicosis, unspecified without thyrotoxic crisis or storm Category: Medical Plan: Patient with labs in March 2024 showing TSH low at 0.19 with normal free T4 of 0.9. He has previously never had abnormal thyroid function. TPO and thyroglobulin antibody levels have been negative in the past. TSI antibody levels negative. Most recent labs from October 2024 showed normal labs. He does not have any history of heart disease, no history of fracture/osteoporosis. However given his age if he has subclinical hyperthyroidism he could qualify for treatment potentially. For now no need for treatment intervention given thyroid function has normalized, I will also repeat his thyroid function testing since before this he has always had normal thyroid function. Less he has a history of nodule so more likely if he does have subclinical hyperthyroidism this is from toxic multinodular goiter. 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 I discussed with him that treatment for these would be total thyroidectomy ideally to get rid of both is nodules and subclinical hyperthyroidism. 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 We can also consider low-dose methimazole for this. Most recent labs from December 2024 showed normal thyroid function. We will plan to repeat thyroid function in 1 year sometime around November 2025 (4) Multinodular thyroid: Code(s): E04.2 - Nontoxic multinodular goiter Category: Medical Plan: Patient with no family history of thyroid cancer with no personal history of head or neck radiation who is coming in for follow up of multinodular goiter. Recently as mentioned above he has developed subclinical hyperthyroidism and a set of labs in March 2024 with thyroid uptake and scan from April 2024 showing heterogenous areas of increased tracer uptake consistent with toxic multinodular goiter. He has had biopsy July [address] Barker of his right midpole nodule which she measured as 2.5 cm during the biopsy, with benign cytology. His last thyroid ultrasound was from 2020 which had not shown such a big nodule. He has had some persistent compressive symptoms such as hoarseness of voice and dysphagia that have not significantly worsened. He was evaluated by Dr. Flavio Mustafa at [facility] in February [address] scan of the soft tissue neck as well, however he did not want to get surgery. 10/19: US thyroid showed stable size of previous nodules, new right lower pole 3.4 cm nodule, when I review his old images I see he hs a conglomelerate of nodules on the right side, hard to tell if this nodule is really new, but we will repeat FNA. 11/27/24: Underwent FNA of the right lower 3.4 cm nodule with benign cytology, [place] 2. At this time he doesnt have any significant compressive symptoms and still does not want to pursue surgery. Plan: -Next US ordered for 1 year in November 2025 Plan I spent 30 minutes in reviewing the record, seeing the patient and documenting in the medical record. 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 To insulin glargine (Lantus Solostar U-100 Insulin) 38 units (0.38 mL) subcut QPM 15 mL 0RF E11.65 - Type 2 diabetes mellitus with hyperglycemia, Z79.4 - senior care (current) use of insulin From insulin lispro (Humalog KwikPen (U-100) Insulin) with meals 19 units (0.19 mL) subcut TID 15 mL 5RF To insulin lispro (Humalog KwikPen (U-100) Insulin) subcutaneously 3 times a day; with meals, 19 units with breakfast and lunch, 21 units with dinner 15 mL 5RF Patient Instructions: -increase Lantus to 36 units daily, and if after 5 days of this change you continue to have blood sugars in the morning that is fasting higher than 140 mg/dL, can go up to 38 units daily -continue Humalog 19 units before breakfast and lunch, increase to 21 units with dinner If you snack on carbs instead of proper lunch, use 2-3 units of humalog before the snack Follow up in 10 weeks 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, call the office to schedule an appointment with the educator 30 minutes of exercise with brisk walking 5 days a week Advised to quit smoking Call the foot doctor office below for an appointment Coding Level of Care Code Est Pt Level 4 (73408) Diagnoses Type 2 diabetes mellitus with hyperglycemia, with long-term current use of insulin E11.65; Z79.4 Hyperlipidemia, unspecified hyperlipidemia type E78.5 Hyperlipidemia type: unspecified Subclinical hyperthyroidism E05.90 Multinodular thyroid E04.2 CPT Codes Details - CPT: 08325 - Glucose monitoring, continuous-physician I&R ([id number]) Time Spent (min) 30
[2025-02-12 14:12] VITALS: BP 100/66; PULSE 82; O2SAT 96; BMI 30.1
[2025-02-12 14:24] LABS: Glucose, Whole Blood 218 mg/dL (60-115)
--- OUTSIDE RECORDS SUMMARY | 2025-02-12 14:30 | XMS_ITS | Clinical Summary ---
Author Organization [facility] Address [address] [place] [address] Care Team Providers Care Full Stack Net Developer Name Role Phone Sandra Hodges Primary Care Provider [phone] Allergies No known active allergies Medications Jardiance [...] Active Problems Problem Noted Date Diagnosed Date Ccrvcft-nn-cds 01/03/2025 Encounters Date Type Department Care Team Description 01/06/2025 12:38 PM EDT Anesthesia Event [facility] Operating Room [address] [place] [address] 61985 Richard Alan MD PhD Tiffany Gandhi NP 01/06/2025 12:14 PM EDT - 01/06/2025 1:24 PM EDT Surgery [facility] Operating Room [address] [place] [address] 42745 Ruthie Dodge MD ANORECTAL EXAM UNDER ANESTHESIA [60211 (CPT??)] 01/06/2025 11:09 AM EDT - 01/06/2025 2:34 PM EDT Hospital Encounter [facility] Operating Room [address] [place] [address] 37425 Ruthie Dodge MD Discharge Disposition: Home or Self Care () 12/18/2024 Telephone [facility] Colorectal Surgery [address] [place] [address]1155 Manager Neonatal: Ruthie Aleman MD 12/17/2024 1:00 PM EDT Telehealth [facility] Colorectal Surgery [address] [place] [address] 37301 Manager Neonatal: Ruthie Aleman MD Anal fistula (Primary Dx) 11/29/2024 Orders Only [facility] - External Imaging [address] [place] [address] Radiology, External 11/18/2024 Telephone [facility] Colorectal Surgery [address] [place] [address]30 Manager Neonatal: Ruthie Aleman MD 11/15/2024 Telephone [facility] Colorectal Surgery [address] [place] [address] 30540 Manager Neonatal: Ruthie Aleman MD from Last 3 Months Social History Tobacco Use Types Packs/Day Years Used Date Smoking Tobacco: Every Day Cigarettes 1 52.4 Started: 1972 Smokeless Tobacco: Never Tobacco Cessation:Ready [...] Aneurysm (A AA) Screening 2023 COVID-19 Vaccine ( - 2023-2 5 season) 2024 Alcohol/Substance Use [...] complete this topic Procedures * Due to [place] Yippy law, this organization might not be sharing negative HIV tests. Procedure Name Priority Date/Time Associated Diagnosis Comments POCT GLUCOSE Routine 01/06/2025 1:26 PM EDT ND SURG DIAGNOSTIC EXAM, ANORECTAL 01/06/2025 12:27 PM EDT Anal fistula Special Needs Miralax dulcolax prep POCT GLUCOSE Routine 01/06/2025 11:32 AM EDT MRI PELVIS W WO CONTRAST Routine 11/29/2024 9:40 AM EST Anal fistula AMB EXTERNAL MRI PELVIS, OUTSIDE RESULT 11/29/2024 from Last 3 Months Results * Due to [place] state law, this organization might not be sharing negative HIV tests. * (ABNORMAL) POCT Glucose, interfaced (01/06/2025 1:26 PM EDT) Only the most recent of2 resultswithin the time period is included. [facility] Glucose, POCT 181(H) 70 - 99 mg/dL 01/06/2025 1:29 PM EDT MIKI DIXON Comment: The neurourologist has not determined the efficacy of this test in Critically ill patients. ??[facility] defines Critically ill patients for the purpose [...] POCT ORDERABLES - DEVICE Fi nal Result ISHANRIATHOMAS CORLEY, POC [address] [place] [address] * MRI Pelvis W WO Contrast (11/29/2024 9:40 AM EST) Anatomical Region Laterality Modality Body, Pelvis Magnetic Resonan ce 11/29/2024 8:50 AM EST Narrative 11/29/2024 3:33 PM EST [facility] Accession Number: [id number] Patient Name: Gerson Mazariegos Date of : 1960 Date of Exam: 11-29-2024 Referring Physician: Ruthie Dodge ?[facility] - Colorectal Surgery ?[address] [place] [address] ?[place], [place] [address] Exam: MR Pelvis (C-/C+) CPT 92724 Room Description: [facility] 3.0T HISTORY: 64 years years old Male [...] MD Procedure Note Provider, Tri - 11/29/2024 [facility] Accession Number: [id number] Patient Name: Gerson Mazariegos Date of : 1960 Date of Exam: 11-29-2024 Referring Physician: Ruthie Dodge troy [facility] - Colorectal Surgery [address] [place] [address] Exam: MR Pelvis (C-/C+) CPT 75221 Room Description: [facility] 3.0T HISTORY: 64 years years old Male [...] Final Result from Last [address] [place] [address] [address] Advance Directives * Full Code (Latest Code Status on File) Date Activated Date Inactivated Comments 01/06/2025 11:24 AM 01/06/2025 4:40 PM Care Teams Full Stack Net Developer Relationship Specialty Start Date End Date Sandra Hodges [address] [place] [address] PCP - General Internal Medicine 11/08/24
--- OUTSIDE RECORDS SUMMARY | 2025-02-12 14:30 | XMS_ITS | Data Portability ---
Author Organization [facility] [employer] Address [address] [place] [address] Care Team Providers Care Cork Floor Installer Name Role Phone HIM CCA OTHER Assessment Encounter Date Assessment Date Assessment LastModified by Organization Details LastModified Time 03/04/2024 03/04/2024 I have reviewed and agree with the assessment and plan as documented by the debt counselor. I provided real time medical direction for this encounter and was immediately available to provide additional phone based assistance as needed. History as noted by debt counselor. Pt with history of DM, recent surgery [...] to help guide treatment and management. [facility] [...] BMP, serum or plasma 024 03/04/[facility] [address] [place] [address], [phone] 10:05:19 Referral None recorded . Procedures None [...] Details Last Updated DateTime 4 98.4 [degF] 55304.8 g 162.56 cm 80 /min 98 % [...] Updated DateTime 4 98 % 98 % 04450.5 6 g 98 /min 172.72 cm 16 /min 97.3 [degF] 154 mm[Hg] 61 mm[Hg] Not Available [facility] - production 10:03:23 Social History None recorded. Functional Status None recorded. Mental Status None recorded. Family History Nothing Reported. Medical History No medical history recorded. Past Encounters Encounter ID Performer Location Encounter Start Date Encounter Closed Date Diagnosis/Indication Diagnosis SNOMED-CT Code Diagnosis ICD10 Code Diagnosis Note [id number] Marilu Schmid MD Main - [facility] [address] [place] [phone] 09/30/2023 20:02:30 10/01/2023 15:25:02 Viral upper respiratory tract infection [id number] J06.9 I provided real -time medical direction via phone for this encounter, and was available for additional phone based assistance as needed. I have reviewed and agree with the Assessment and Plan as documented by the Sand Car Worker. Patient given the opportunit y to ask questions. 63 yo w/ 24h of URI (nasal congestion + fatigue). no cough/sob. covid/flu negative. lungs clear, exam reassuring . recommende d supportive care (nasal rinse, antihistam ine). advised calling back if worsens. [id number] Greyson [facility] [address] [place], [place] [phone] 03/04/2024 10:03:18 03/06/2024 04:37:12 Diarrhea [id number] R19.7 Health Concerns Section Related Observation LastModified by Organization Detai ls LastModified Time None Recorded Concern Status LastModified by Organization Details LastModified Time None Recorded Advance Directives Directive None Recorded Payers Insurance Date Sequence Insurance Name Policy Number Policy Warner Covered Member ID Warner Member ID Guarantor Name 03/06/2024 1 [facility] - DOS ON OR AFTER 2022 - DUAL ELIGIBLE - SNF OPTIONS AND ONE CARE (MEDICARE REPLACEMENT/ADV ANTAGE - HMO) Gerson Allam [id number] Gerson Mazariegos Notes Date Note Type Note [...] ................... ................... ................... ................... ................... ................... ........ Sand Car Worker Note From Ramiro Reyes: PT caox3 complains [...] flu negative via rapid test. [facility] advises supportive care, nasal rinse, steam and antihistamine if needed. Red flags and pt education discussed. Pt assisted with his nasal spray. ................... ................... ................... ................... ................... ................... ................... ........ Disposition: Fulfilled Marilu Schmid MD [address] [facility],[address], [place], [address], [employer] 10/01/2023 02:50:55 03/04/2024 text/html This was a supervised home visit with debt counselor Teto Beckett. CRC Nurse Triage Notes (Odette Chin): Chief Complaints: Diarrhea PMH: Diabetes Allergies: No Known Comments: Diarrhea ongoing for the past week. Incontinent during sleep. States diarrhea is severe. Vomited last week. No known fever. Since surgical procedure in January member states health has declined. Unsteady balance, dizziness. On Oxycodone 10mg daily since January. Sand Car Worker POC Test Results from Teto Beckett [facility] (09:59:37) pH: 7.41 pH units pCO2: 35.8 mmHg pO2: 65.7 mmHg Na: 145 mmol/L K: 4.0 mmol/L iCa: 1.19 mmol/L Cl: 110 mmol/L TCO2: 22.6 mEq/L Hct: 47 % Hb: 15.8 g/dL Glu: 236 mg/dL Lac: 1.7 mmol/L Cr: 0.9 mg/dL BUN: 8 mg/dL A ................... ................... ................... ................... ................... ................... ................... ........ Sand Car Worker Note From Teto Beckett: Pt reports having [...] ........ Disposition: Fulfilled Greyson Wan MD [address] [facility],[address], [place], [address], [facility] 03/04/2024 10:43:44
--- OUTSIDE RECORDS SUMMARY | 2025-02-12 14:30 | XMS_ITS | Clinical Summary ---
Author Organization [facility] Address [address] [place] [address] Care Team Providers Care Musical Instrument Mechanic Name Role Phone Marcela Foster DDAnette Primary Care Provider [phone] Source Comments PLEASE NOTE, if this patient [...] Plan of Treatment Not on file [place] [facility] D[facility] DENTAL Care Teams Musical Instrument Mechanic Relationship Specialty Start Date End Date Marcela Foster DDS [address] [place] [address] PCP - General Dental Health Educator 05/09/19
--- OUTSIDE RECORDS SUMMARY | 2025-02-12 14:30 | XMS_ITS | Referral Summary ---
Author Organization [facility] Address [address] [place] [address] Care Team Providers Care Swimming Professor Name Role Phone Sandra Hodges Primary Care Provider [phone] Encounters Date Type Department Care Team Description 01/06/2025 12:14 PM EDT - 01/06/2025 1:24 PM EDT Surgery [facility] Operating Room [address] [place] [address] Ruthie Dodge MD ANORECTAL EXAM UNDER ANESTHESIA [20327 (CPT??)] 01/06/2025 12:38 PM EDT Anesthesia Event [facility] Operating Room [address] [place] [address] 29391 Richard Alan MD PhD Tiffany Gandhi NP 01/06/2025 11:09 AM EDT - 01/06/2025 2:34 PM EDT Hospital Encounter [facility] Operating Room [address] [place] [address] 48049 Ruthie Dodge MD Discharge Disposition: Home or Self Care () 12/18/2024 Telephone [facility] Colorectal Surgery [address] [place] [address] Research Biostatistician: Ruthie Aleman MD 12/17/2024 1:00 PM EDT Telehealth [facility] Colorectal Surgery [address] [place] [address] 23[address] Research Biostatistician: Kristopher-Ruthie Serrato MD Anal fistula (Primary Dx) 11/29/2024 Orders Only [facility] - External Imaging [address] [place] [address] Radiology, External 11/18/2024 Telephone [facility] Colorectal Surgery [address] [place] [address] Research Biostatistician: Ruthie Aleman MD 11/15/2024 Telephone [facility] Colorectal Surgery [address] [place] [address] Research Biostatistician: Ruthie Aleman MD from Last 3 Months Allergies No known [...] Active Problems Problem Noted Date Diagnosed Date Tfryuac-zm-ngp 01/03/2025 Social History Tobacco Use Types Packs/Day [...] Not on file Procedures * Due to [place] DirectMoney law, this organization might not be sharing negative HIV tests. Procedure Name Priority Date/Time Associated Diagnosis Comments POCT GLUCOSE Routine 01/06/2025 1:26 PM EDT [place] SURG DIAGNOSTIC EXAM, ANORECTAL 01/06/2025 12:27 PM EDT Anal fistula Special Needs Miralax dulcolax prep POCT GLUCOSE Routine 01/06/2025 11:32 AM EDT MRI PELVIS W WO CONTRAST Routine 11/29/2024 9:40 AM EST Anal fistula AMB EXTERNAL MRI PELVIS, OUTSIDE RESULT 11/29/2024 from Last 3 Months Results * Due to [place] DirectMoney law, this organization might not be sharing negative HIV tests. * (ABNORMAL) POCT Glucose, interfaced (01/06/2025 1:26 PM EDT) Only the most recent of2 resultswithin the time period is included. [facility] Signature Glucose, POCT 181(H) 70 - 99 mg/dL 01/06/2025 1:29 PM EDT MIKI DIXON Comment: The adjunct sociology professor has not determined the efficacy of this test in Critically ill patients. ??[facility] defines Critically ill patients for the [...] - DEVICE Fi nal Result TANYA CORLEY, MIKI [address] [place] [address] * MRI Pelvis W WO Contrast (11/29/2024 9:40 AM EST) Anatomical Region Laterality Modality Body, Pelvis Magnetic Resonan ce 11/29/2024 8:50 AM EST Narrative 11/29/2024 3:33 PM EST [facility] Accession Number: [id number] Patient Name: Gerson Mazariegos Date of : 1960 Date of Exam: 11-29-2024 Referring Physician: Ruthie Dodge ?[facility] - Colorectal Surgery ?[address] [place] [address] ?[place] [address] Exam: MR Pelvis (C-/C+) CPT 04446 Room Description: [facility] 3.0T HISTORY: 64 years years old [...] MD Procedure Note Provider, Tri - 11/29/2024 [facility] Accession Number: [id number] Patient Name: Gerson Mazariegos Date of : 1960 Date of Exam: 11-29-2024 Referring Physician: Ruthie Dodge troy [facility] - Colorectal Surgery [address] [place] [address] Exam: MR Pelvis (C-/C+) CPT 67968 Room Description: [facility] 3.0T HISTORY: 64 years years old [...] Final Result from Last [address] [place] [address] [place] [address] ISAAC RODRIGUEZ [id number] Advance Directives * Full Code (Latest Code Status on File) Date Activated Date Inactivated Comments 01/06/2025 11:24 AM 01/06/2025 4:40 PM Care Teams Swimming Professor Relationship Specialty Start Date End Date Sandra Hodges [address] [place] [address] PCP - General Internal Medicine 11/08/24
== END 2025-02-12 14:38 | disposition home or self-care (01) ==
LOC: HO.ENCR 14:02
PROVIDERS: PCP Internal Medicine; Visit Provider Student in an Organized Health Care Education/Training Program
DX: E11.65 Type 2 diabetes mellitus with hyperglycemia (principal); Z79.4 Long term (current) use of insulin; E78.5 Hyperlipidemia, unspecified; E05.90 Thyrotoxicosis, unspecified without thyrotoxic crisis or storm; E04.2 Nontoxic multinodular goiter
CPT/HCPCS: 95251; 99214

== ENCOUNTER → 2025-02-12 13:59 | Outpatient (BNVA) | payer OTHER, SELFPAY | PROVIDERS: PCP Internal Medicine; Visit Provider Student in an Organized Health Care Education/Training Program | DX: E11.65 Type 2 diabetes mellitus with hyperglycemia (principal); E78.5 Hyperlipidemia, unspecified; E05.90 Thyrotoxicosis, unspecified without thyrotoxic crisis or storm; E04.2 Nontoxic multinodular goiter; Z79.4 Long term (current) use of insulin | CPT/HCPCS: 82947; 99212 ==

== ENCOUNTER 2025-05-08 15:58 | Outpatient (AMB) | payer OTHER, SELFPAY ==
--- OUTSIDE RECORDS SUMMARY | 2025-05-08 16:06 | XMS_ITS | Clinical Summary ---
Author Organization [facility] Address [address] [place] [address] Care Team Providers Care Supply Coordinator Name Role Phone Marcela Foster DDAnette Primary Care Provider [phone] Source Comments PLEASE NOTE, if this patient [...] Plan of Treatment Not on file Insurance [place] D[place] [facility] DENT[facility] DENTAL Care Teams Supply Coordinator Relationship Specialty Start Date End Date Marcela Foster DDS [address] [place] [address] PCP - General Dental Senior Hardware Design Engineer 05/09/19
--- OUTSIDE RECORDS SUMMARY | 2025-05-08 16:06 | XMS_ITS | Clinical Summary ---
Author Organization [facility] Address [address] [place] [address] Phone Care Team Providers Care Medical Science Liaison Name Role Phone Sandra Hodges MD Primary Care Provider [phone] Allergies Active Allergy Reactions Criticality Noted Date Comments Vancomycin Rash 05/08/2025 Encounters Date Type Department Care Team Description 05/08/2025 1:30 PM EDT Consult Orthopedic Surgery [facility] [address] [facility] [address] [place] [address] Tani Lilly DPM Controlled type 2 diabetes mellitus with diabetic polyneuropathy, without long-term current use of insulin (CMS/HCC V24, CMS/HCC V28) (Primary Dx); Type 2 diabetes mellitus with hyperglycemia (CMS/HCC V24, CMS/HCC V28); Neuropathy; Onychomycosis; Callus; Localized edema; Venous insufficiency from Last 3 Months Social History Tobacco Use Types Packs/Day Years Used Date Smoking Tobacco: Never Assessed Sex and Gender Information Value Date Recorded Sex Assigned at Not on file Legal Sex Male 11:37 AM EDT Gender Identity Not on file Sexual Orientation Not on file Last Filed Vital Signs Vital Sign Reading Time Taken Comments Blood Pressure 130/80 05/30/2024 1:46 PM EDT Pulse 104 05/30/2024 1:46 PM EDT Temperature - - Respiratory Rate - - Oxygen Saturation - - Inhaled Oxygen Concentration - - Weight 84.8 kg (187 lb) 05/30/2024 1:46 PM EDT Height 172.7 cm (5' 8 ) 05/30/2024 1:46 PM EDT Body Mass Index 28.43 05/30/2024 1:46 PM EDT Plan of Treatment Upcoming Encounters Date Type Department Care Team (Late st Contact Info) Description 07/09/2025 2:30 PM EDT Office Visit Orthopedic Surgery - [place] [address] [facility] [address] [place] [phone] Tani Lilly, DPSamir [address] [facility] [address] [place] [address] Health Maintenance Due Date Last Done Comments Diabetes: Annual GFR (Glomer ular Filtration Rate) 1960 Diabetes: Annual Foot Exam 1968 Diabetes: Annual Retina Eye Exam 1968 DTaP,Tdap,and Td Vaccines (1 - Tdap) 1977 Pneumococcal Vaccine: 50+ Ye ars (1 of 2 - PCV) 1977 Zoster Vaccines (1 of 2) 2008 RSV Immunization Adult Patie nts (1 - Risk 60-74 years 1-dose series) 2018 COVID-19 Vaccine ( - 2023-2 5 season) 2024 Abdominal Aortic Aneurysm (A AA) Screen 07/09/2024 Cholesterol Screening (Lipid Panel) 07/09/2024 Colorectal Cancer Screening: Colonoscopy 07/09/2024 Falls Risk Assessment 07/09/2024 Hepatitis C Screening 07/09/2024 Medicare Annual Wellness Visit 07/09/2024 Social Influencers of Health Screening 07/09/2024 Depression Screening 09/25/2024 Diabetes: Annual Urine Albumin-Creatinine Ratio (uACR) 02/15/2025 Diabetes: Blood Sugar Contro l Test (HGBA1C) 02/15/2025 Influenza Vaccine (#1) 2025 HIB Vaccines Aged Out No longer eligi ble based on patient's age to complete this topic HPV Vaccines Aged Out No longer eligi ble based on patient's age to complete this topic Hepatitis A Vaccines Aged Out No long er eligible based on patient's age to complete this topic Hepatitis B Vaccines Aged Out No long er eligible based on patient's age to complete this topic IPV Vaccines Aged Out No longer eligi ble based on patient's age to complete this topic MMR Vaccines Aged Out No longer eligi ble based on patient's age to complete this topic Meningococcal ACWY Vaccine Aged Out N o longer eligible based on patient's age to complete this topic Meningococcal B Vaccine Aged Out No l onger eligible based on patient's age to complete this topic RSV Immunization Patients Un bo 20 months Aged Out No longer eligible b ased on patient's age to complete this topic Varicella Vaccines Aged Out No longer eligible based on patient's age to complete this topic Insurance [employer] MEDICARE Member Subscriber Plan / Payer (Ef fective 2023-Present) Name:MengMartha minayaal Relation to Subscriber:Self Name:Delilah Gerson Payer ID:[id number] Group ID:[id number] Type:Not on file Address: [place] [address] ISAAC RODRIGUEZ [id number] Care Teams Medical Science Liaison Relationship Specialty Start Date End Date Sandra Hodges MD [address] [place] [address] PCP - General 04/17/24
--- OUTSIDE RECORDS SUMMARY | 2025-05-08 16:06 | XMS_ITS | Clinical Summary ---
Author Organization [facility] Address [address] [place] [address] Care Team Providers Care Sheet Folder Name Role Phone Sandra Hodges Primary Care Provider [phone] Allergies No known active allergies Medications Jardiance [...] Active Problems Problem Noted Date Diagnosed Date Yycvmbz-de-ssy 01/03/2025 Encounters Date Type Department Care Team Description 04/22/2025 Telephone [facility] Colorectal Surgery [address] [place] [address] Uncrater: Tomas Mares MA 03/19/2025 Telephone [facility] Colorectal Surgery [address] [place] [address] Uncrater: Tonia Flores NP 03/18/2025 11:40 AM EDT Follow-Up [facility] Colorectal Surgery [address] [place] [address] Uncrater: Tonia Flores NP Anal fistula (Primary Dx); 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 Telephone [facility] Colorectal Surgery [address] [place] [address] Uncrater: Floyd Goodman Telephone Intake, Staff PAC Jury Duty from Last 3 Months Social History Tobacco Use Types Packs/Day Years Used Date Smoking Tobacco: Every Day Cigarettes 1 52.6 Started: 1974 Smokeless Tobacco: Never Tobacco Cessation:Ready [...] Sign Reading Time Taken Comments Blood Pressure 129/79 03/18/2025 11:19 AM EDT Pulse 90 03/18/2025 11:19 AM EDT Temperature 36.3 C (97.3 F) 03/18/2025 11:19 AM EDT Respiratory Rate 20 01/06/2025 1:21 PM EDT Oxygen Saturation 94% 03/18/2025 11:19 AM EDT Inhaled Oxygen Concentration - - Weight 90.3 kg (199 lb) 03/18/2025 11:19 AM EDT Height 172.7 cm (5' 8 ) 01/06/2025 11:22 AM EDT Body Mass Index 30.26 01/06/2025 11:22 AM EDT Plan of Treatment Upcoming Encounters Date Type Department Care Team (Late st Contact Info) Description 06/30/2025 11:45 AM EDT Procedure visit [facility] Colorectal Surgery [address] [place] [address] Uncrater: Floyd Goodman Health Maintenance Due Date Last Done Comments [...] Health Claudia ual Screening 09/25/2024 Influenza Vaccine (#1) 2025 RSV Vaccine (60+ years old a nd patients) (1 - 1-dose 75+ series) 2033 Hepatitis B Vaccines Aged Out No long er eligible based on patient's age to complete this topic Insurance ISAAC RODRIGUEZ [id number] Advance Directives * Full Code (Latest Code Status on File) Date Activated Date Inactivated Comments 01/06/2025 11:24 AM 01/06/2025 4:40 PM Care Teams Sheet Folder Relationship Specialty Start Date End Date Sandra Hodges [address] [place] [address] PCP - General Internal Medicine 11/08/24
--- NOTE | 2025-05-08 16:18 | A.OFFVIS_ITS ---
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 Accompanied by: Self / Same As Patient Allergies No Known Allergies (No Known Allergies*) Allergy (Verified 02/12/25 14:17) HPI Comprehensive Diabetes Asmnt Most Recent Diabetes Results: 2 Cholesterol, (<200) 147 mg/dL 12/26/24 HDL Cholesterol, (>40) 26 mg/dL L 12/26/24 Triglycerides, (<150) 160 mg/dL H 12/26/24 Creatinine, (0.5-1.4) 1.05 mg/dL 12/26/24 BUN, (9-16) 10 mg/dL 12/26/24 Sodium, (135-145) 141 mmol/L 12/26/24 Potassium, (3.3-5.1) 4.6 mmol/L Δ 12/26/24 Chloride, (96-108) 109 mmol/L H 12/26/24 Carbon Dioxide, (22-29) 26 mmol/L 12/26/24 Calcium, (8.4-10.2) 9.8 mg/dL 12/26/24 AST, (5-37) 19 U/L 12/26/24 ALT, (0-40) 23 U/L 12/26/24 Total Protein, (6.5-8.0) 7.2 g/dL 12/26/24 Albumin, (3.5-5.0) 4.0 g/dL 12/26/24 [facility] Medical History (Updated 02/12/25 @ 14:18 by SOPHIE Morris) Anal fistula Encounter for general adult medical examination with abnormal findings Subclinical hyperthyroidism Type 2 diabetes mellitus with hyperglycemia Hyperlipidemia LDL goal <100 Cyst of buttocks Establishing care with new doctor, encounter for Dyspepsia Vocal cord polyp Hospital discharge follow-up Arthrosis Abdominal cramping HTN (hypertension) HLD (hyperlipidemia) Multinodular thyroid Vitamin D deficiency Multinodular thyroid Type 2 diabetes mellitus with hyperglycemia, with long-term current use of insulin Type 2 diabetes mellitus with diabetic polyneuropathy Smoking Lazy eye of left side Arthritis High cholesterol Diabetes type 2, controlled Surgical History Hx of colonoscopy History of surgery History of renal stone (~06/01/20) History of sebaceous cyst (~09/03/20) History of penile implant (~03/17/20) History of hemorrhoids Family History Father No problems noted. Mother History of cardiovascular disorder Social History Household Members: None Housing: Apartment Alcohol intake: never Patient Tobacco Use Status: Current everyday Tobacco user Cigarette Packs Per Day: 1 e-Cigarette/Vaping Use: Currently Using Second Hand Smoke Exposure: No Substance Use Type: Marijuana service: No Current occupational status: retired Cognitive needs: No Hearing needs: No Vision needs: Yes Assessment & Plan Assessment & Plan (1) Type 2 diabetes mellitus with hyperglycemia, with long-term current use of insulin: Code(s): E11.65 - Type 2 diabetes mellitus with hyperglycemia; Z79.4 - FPC (current) use of insulin Plan: Personal Continuous Glucose Monitor: Patients CGM information reviewed, Pt uses Mayco 3+ with reader or smart phone torrey Patient at visit to find out why he can not connect Mayco 3 sensor to smart phone torrey Explained to patient he can use either the Mayco 3 reader or the torrey to start the sensor he can not connect a single sensor to both devices. Patient having episodes of hypoglycemia between 6 and 9pm. Patient reports a 10:00 he has breakfast which is 2 donuts on a coffee, then he does not eat until 12am Explained to patient rapid acting and long-acting insulins Going 12-14 hours between meals can lead to hypoglycemia Recommended patient add complex carbohydrate snack between 4 and 5 pm to see if this stops evening hypoglycemia Reviewed with patient below: Hypoglycemia or blood glucose under 70 use the rule of 15's: If you have your blood glucose meter test your blood glucose, if you do not have your meter still follow below instruction: Keep quick-sugar foods with you at all times.? Take 15 grams of fast acting carbohydrates. Examples are 4 ounces of fruit juice or regular soda pop, 8 ounces fat-free milk, 1 tablespoon of table sugar, honey or corn syrup, jam, one miniature box of raisins, 7-8 gumdrops or Life Savers candy, 4 glucose tablets, and glucose gel.? Retest blood glucose in 15 minutes, if blood glucose is still under 80, repeat rule of 15's. If blood glucose is under 50, take 30 grams of fast acting carbohydrates Patient reports in the past he has taken 2 glucose tabs to treat hypoglycemia, instructed patient to use 3-4 glucose tabs to equal the 15 g of carbohydrate If you are having hypoglycemia, or insulin reaction, more that a few times a week, call MD or natural resources extension educator Introduction to Nutrition Importance of healthy diet in managing DM Diet is personalized to individual preference Review patient?s regular diet/food preferences How diet effects glucose Eating 3 balanced meals a day with small, healthy snacks between meals Review food groups Carbohydrates: What is a carbohydrate/Which food/food groups are considered carbohydrates Effect of carbohydrates on blood glucose Portion sizes Plate method Meal planning Recommendations: Follow plate method. Patient able to insert sensor independently at home without issue.? Portions of this note were created using voice recognition software, please excuse any words or phrases that may have been misinterpreted. Patient Instructions: Follow-up with natural resources extension educator as needed Coding Level of Care Code Est Pt Level 1 (91836) Diagnoses Type 2 diabetes mellitus with hyperglycemia, with long-term current use of insulin E11.65; Z79.4
== END 2025-05-08 16:23 | disposition home or self-care (01) ==
LOC: HO.ENCR 15:58
PROVIDERS: PCP Internal Medicine; Visit Provider Registered Nurse Diabetes Educator
DX: E11.65 Type 2 diabetes mellitus with hyperglycemia (principal); Z79.4 Long term (current) use of insulin

== ENCOUNTER → 2025-05-08 15:58 | Outpatient (BNVA) | payer OTHER, SELFPAY | PROVIDERS: PCP Internal Medicine; Visit Provider Registered Nurse Diabetes Educator | DX: E11.65 Type 2 diabetes mellitus with hyperglycemia (principal); E11.42 Type 2 diabetes mellitus with diabetic polyneuropathy; Z79.4 Long term (current) use of insulin | CPT/HCPCS: 99211 ==

== ENCOUNTER 2025-05-15 14:53 | Outpatient (AMB) | payer OTHER, SELFPAY ==
--- OUTSIDE RECORDS SUMMARY | 2025-05-15 14:56 | XMS_ITS | Clinical Summary ---
Author Organization [facility] Address [address] [place] [address] Care Team Providers Care Livestock Farmer Name Role Phone Marcela Foster DDAnette Primary Care Provider [phone] Source Comments PLEASE NOTE, if this patient [...] Plan of Treatment Not on file [place] DENT[place] [facility] DENTAL DENTAL Care Teams Livestock Farmer Relationship Specialty Start Date End Date Marcela Foster DDS [address] [place] [id number] PCP - General Dental Kennel Worker 05/09/19
--- OUTSIDE RECORDS SUMMARY | 2025-05-15 14:57 | XMS_ITS | Clinical Summary ---
Author Organization [facility] Address [address] [place] [address] Care Team Providers Care Solid Waste Truck Driver Name Role Phone Sandra Hodges Primary Care Provider [phone] Allergies No known active allergies Medications Jardiance [...] Active Problems Problem Noted Date Diagnosed Date [id number] 01/03/2025 Encounters Date Type Department Care Team Description 04/22/2025 Telephone [facility] [address] [place] [id number] Binding Folder Machine: Tomas Mares MA 03/19/2025 Telephone [facility] [address] [place] [id number] Binding Folder Machine: Tonia Flores NP 03/18/2025 11:40 AM EDT Follow-Up [facility] [address] [place] [id number] Binding Folder Machine: Tonia Flores NP Anal fistula (Primary Dx); 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 Telephone [facility] [address] [place] [id number] Binding Folder Machine: Floyd Goodman Telephone Intake, Staff PAC Jury [...] Description 06/30/2025 11:45 AM EDT Procedure visit [facility] [address] [place] [address] Binding Folder Machine: Floyd Goodman Health Maintenance Due Date Last [...] to complete this topic Insurance [place] RODRIGUEZ [id number] Advance Directives * Full Code (Latest Code Status on File) Date Activated Date Inactivated Comments 01/06/2025 11:24 AM 01/06/2025 4:40 PM Care Teams Solid Waste Truck Driver Relationship Specialty Start Date End Date Sandra Hodges [address] [place] [address] PCP - General Internal Medicine 11/08/24
--- OUTSIDE RECORDS SUMMARY | 2025-05-15 14:57 | XMS_ITS | Clinical Summary ---
Author Organization [address] [facility] Address [address] [place] [address] Phone Care Team Providers Care Telecom Billing Analyst Name Role Phone Sandra Hodges MD Primary Care Provider [phone] Allergies Active Allergy Reactions Criticality Noted Date Comments Vancomycin Rash 05/08/2025 Medications ammonium lactate (AMLACTIN) 12 % cream Apply topically if needed for dry skin. 560 g 2 5 05/08/20 26 Active Encounters Date Type Department Care Team Description 05/08/2025 1:30 PM EDT Consult [facility] - [place] [address] [facility] [address] [place] [address] Tani Lilly DPM Controlled type 2 diabetes with neuropathy (CMS/HCC V24, CMS/HCC V28) (Primary Dx); Arthritis of both feet; Hammertoes of both feet; PAD (peripheral artery disease) (CMS/HCC V24); Onychomycosis from Last 3 Months Social History Tobacco [...] PM EDT Office Visit [facility] [place] [address] [facility] [address] [place] [id number] Tani Lilly, DPSamir [address] [address] Health Maintenance Due Date Last Done Comments [...] 60-74 years 1-dose series) 2018 COVID-19 Vaccine (1 - 2023-2 5 season) 2024 Abdominal Aortic Aneurysm (A AA) Screen 07/09/2024 Cholesterol Screening (Lipid Panel) 07/09/2024 Colorectal Cancer Screening: Colonoscopy 07/09/2024 Falls Risk Assessment 07/09/2024 Hepatitis C Screening 07/09/2024 Lung Cancer Screening (Low Dose CT) 07/09/2024 Medicare Annual Wellness Visit 07/09/2024 Social [...] patient's age to complete this topic Insurance [place] [place] [address] MEDICARE Member Subscriber Plan / Payer (Ef fective 2023-Present) Name:MengMartha minayaal Relation to Subscriber:Self Name:Gerson Mazariegos Payer ID:[id number] Group ID:[id number] Type:Not on file Address: [place] [address] [place] [id number] Care Teams Telecom Billing Analyst Relationship Specialty Start Date End Date Sandra Hodges MD [address] [place] [address] PCP - General 04/17/24
[2025-05-15 15:00] VITALS: BP 108/78; PULSE 87; O2SAT 96; BMI 29.5
--- NOTE | 2025-05-15 15:00 | A.OFFVIS_ITS ---
Vital Signs 3 05/15/25 15:00 Height 5 ft 8 in Weight 194 lb 0.108 oz BMI 29.5 BP 108/78 Blood Pressure Location Rt brachial Position Sitting Pulse 87 Pulse Source Pulse Oximeter Pulse Oximetry (%) 96 Oxygen Delivery Method Room Air Intake Visit Reasons: MNG, DM Intake Note: Patient present today for Type 2 Diabetes Mellitus and MNG. Last Diabetic eye exam: 11/2024 Last Podiatry Visit: Doesn't have one HgA1C: 7.7%, 05/15/2025 Random Glucose: 250 mg/dL L [employer] Required: No Accompanied by: Self / Same As Patient Allergies No Known Allergies (No Known Allergies*) Allergy (Verified 02/12/25 14:17) HPI Comments Details: 63 YO M with PMHx T2DM, Multinodular thyroid who is seen in F/U for type 2 diabetes mellitus and multinodular thyroid. Last seen 02/12/2025 Diabetes mellitus: Endo: Dm- Initially diagnosed with T2DM in 1989. currently Lantus 36 units nightly, Humalog 19 to 21 units TID Jardiance 25 mg daily/ (has been out of it for a week) Prior therapy -end of 2023 we d/cd the metformin which helped lessen the diarrhea. Diarrhea still present and being worked up. He is dealing with a rectal fistula and intermittent infections. Believes this is contributing to elevated glucose readings. -Ozempic cause nausea vomiting. States so severe does not want to try another GLP. Metformin caused diarrhea. Mayco 3+ downloaded from May 02 to 05/15/2025 Time CGM active 97% Average glucose 165 mg/dL G DE 7.3% Glucose variability 31.4% Within target range 63% High 29% Very high 7% Low 1% Very low 0% Interpretation: Continues to have highs overnight and post lunch afternoon with the lows in the evening. The lows are better now that he is trying to eat in the middle of the day and not going to end to 12 hours without any food. Over the past 3 days he has had much better numbers. 07/18 A1c is 8.1. 11/05/24 A1c 8% 12/26/2024: A1c 8.1% 05/15/25 POC A1c 7.7% Saw CDE 05/08/2025 Has eyes checked yearly, has retinopathy., last eye exam Denies neuropathy, sees podiatry. Has microalbuminuria, mild, from October 2024, urine microalbumin creatinine ratio elevated at 32 not on MINE/ARB. Has HLD, on rosuvastatin 40 mg PO daily. LDL 110 . 11/19 up from 95 previously , started on Zetia 11/19, 12/26/2024: LDL down to 89 Denies CAD. CV: bp today normal GI: dealing with a rectal fistula and getting intermittently infected. Multinodular Thyroid: HPI from prior visit He had an US completed due to a thyroid nodule that was palpated during exam by Parris Neff in 2019 or 2021.? This revealed a multinodular thyroid, and he was then referred to Dr. Barker for FNA biopsy. Dr. Barker performed an FNA biopsy of his RMP 2.5 cm thyroid nodule 08/24/2022 with benign cytology. At that time he was found to have a large goiter with substernal extension.? Mayco sign was positive.? He was complaining of hoarseness of voice and some dysphagia.? He was referred to Dr. Mustafa for a surgical thyroidectomy and also CT of the neck was ordered.? Decision was made not to operate ,He saw Dr. Mustafa but did not want to proceed with thyroidectomy He denies any symptoms of hyper or hypothyroidism currently.? He denies a personal history of head or neck irradiation.? He denies a family history of thyroid cancer. Most recently labs from March 2024 showed low TSH of 0.19. Previously he has always had normal TSH. Free T4 was normal at 0.91. Thyroid uptake and scan April 2024 showed minimal tracer avidity overall consistent with thyroiditis. It did possibly point towards slightly increased uptake in the right inferior and left mid poles. Could possibly have some degree of toxicity from the nodules. Most recent labs from December 2024 showed normal thyroid function. 11/19: Normal thyroid function 10/19: US thyroid showed stable size of previous nodules, new right lower pole 3.4 cm nodule, when I review his old images I see he hs a conglomelerate of nodules on the right side, hard to tell if this nodule is really new, but we will repeat FNA. 11/27/24: Underwent FNA of the right lower 3.4 cm nodule with benign cytology, [place] 2. Reports improvement in diarrhea on medication. Weight stable , reports tremors, denies palpitations Dysphagia persists but not worsened Plan is for next ultrasound to be done November 2025, this is already ordered Physical exam General: sitting comfortably in no acute distress HEENT: normocephalic/atraumatic, moist oral mucosa Neck: supple, palpable 1-2 cm thyroid nodule on the right side, palpable 2 cm thyroid nodule on left side, no dorsocervical or supraclavicular fat pads Cardiac: normal heart sounds Pulm: normal breath sounds B/L, no added breath sounds Abd: not distended, no tenderness Extremities: no edema, no signs of myxedema, no tremors Neuro: AAO x3, Speech: normal, no facial droop, moving all 4 extremities Foot exam: Intact sensation to monofilament, intact pulses, warm and well- perfused Laboratory Tests 09/21/20 08/27/21 09/14/22 10:05 07:13 10:49 TSH 0.55 0.41 0.48 Free T4 0.79 0.87 0.94 03/10/23 10/03/23 03/25/24 14:08 13:25 14:41 TSH 0.44 0.83 0.19 L Free T4 0.98 0.98 0.91 Laboratory Tests 08/27/21 07:13 Thyroglobulin Antibody <1 Thyroid Peroxidase Ab 3 Laboratory Tests 11/05/24 11/05/24 10:46 10:53 Triglycerides 249 H Cholesterol 190 LDL Cholesterol, Calc 111 H HDL Cholesterol 30 L Thyroid Stim Immunoglob <89 Urine Creatinine 73.98 Urine Microalbumin 24.0 Microalb/Creat Ratio 32.4 H Laboratory Tests 11/05/24 10:53 Hemoglobin A1c % 8.0 H Laboratory Tests 12/26/24 12/26/24 13:34 Unknown Hgb 15.1 Hct 44.1 Plt Count 120 L Sodium 141 Potassium 4.6 D Creatinine 1.05 Estimated GFR > 60 Random Glucose 185 H Estimat Average Glucose 186 Hemoglobin A1c % 8.1 H AST 19 ALT 23 Albumin 4.0 Triglycerides 160 H Cholesterol 147 LDL Cholesterol, Calc 89 HDL Cholesterol 26 L Vitamin B12 309 TSH 0.45 Free T4 1.23 Total T3 109 EXAMINATION: US THYROID 10/17/24 HISTORY: E04.2 - Nontoxic multinodular goiter TECHNIQUE: Real-time grayscale ultrasound imaging was performed and images were reviewed. COMPARISON: Comparison is made with the prior examination dated 07/08/2021. FINDINGS: SIZE: The right thyroid lobe measures 6.7 x 4.0 x 3.1 cm. The left thyroid lobe measures 6.2 x 3.2 x 2.8 cm. The isthmus measures 11 mm. FLOW: Flow to the gland is normal. ECHOGENICITY: The echotexture of the gland is heterogeneous. NODULES: Multiple bilateral thyroid nodules are again identified with imaging characteristics is as follows: Nodule #: 1 Location: Right upper pole measuring 2.1 x 1.2 x 2.0 cm (previously 1.4 x 1.1 x 1.8 cm). Shape: Ovoid Margins: Ill-defined Echotexture: Hyperechoic Morphology: Solid Calcifications: None TIRADS: TR3: Mildly suspicious. Nodule #: 2 Location: Interpolar region of the right thyroid lobe measuring 1.2 x 1.0 x 1.3 cm (previously 1.4 x 1.1 x 0.9 cm). Shape: Round Margins: Ill-defined Echotexture: Hypoechoic Morphology: Indeterminate Calcifications: None TIRADS: TR4: Moderately suspicious. Nodule #: 3 Location: Mid to lower pole of the right thyroid lobe measuring 3.4 x 2.0 x 2.5 cm. This is a new nodule from the prior study. Shape: Ovoid Margins: Smooth Echotexture: Hyperechoic Morphology: Solid Calcifications: None TIRADS: TR3: Mildly suspicious. Nodule #: 4 Location: Upper pole of the left thyroid lobe measuring 1.6 x 0.7 x 1.0 cm (previously 1.7 x 0.6 x 1.0 cm. Shape: Ovoid Margins: Smooth Echotexture: Hyperechoic Morphology: Mostly solid Calcifications: None TIRADS: TR3: Mildly suspicious. Nodule #: 4 Location: Midportion of the left thyroid lobe measuring 1.8 x 1.6 x 1.8 cm (previously 1.7 x 1.0 x 1.5 cm). Shape: Ovoid Margins: Smooth Echotexture: Hyperechoic Morphology: Mixed Calcifications: None TIRADS: TR3: Mildly suspicious. US/US thyroid IMPRESSION: Multiple thyroid nodules are again identified as described above. There is a new mildly suspicious 3.4 x 2.0 x 2.5 cm nodule in the mid to lower pole region of the right thyroid lobe for which ultrasound-guided fine needle aspiration is recommended. ACR TI-RADS Guidelines TR1: Benign, No follow-up or biopsy required TR2: Not Suspicious, No biopsy indicated TR3: Mildly Suspicious, FNA if >= 2.5 cm, Follow if >= 1.5 cm TR4: Moderately Suspicious, FNA if >= 1.5 cm, Follow if >= 1.0 cm TR5: Highly Suspicious, FNA if >= 1.0 cm, Follow if >= 0.5 cm Electronically signed by: Yvon Morrison MD 10/21/2024 09:10 AM [facility] THYROID UPTAKE AND SCAN April 2024 CLINICAL INFORMATION: Nontoxic multinodular goiter. COMPARISON: CT of the soft tissue neck done on 09/16/2022. TECHNIQUE: Following the oral administration of 273 microcuries of I-123 sodium iodide, thyroid uptake was performed and expressed as a percentage of the administrated dose. Gamma scintillation camera images of the thyroid in the anterior and right and left anterior oblique views were obtained using a pinhole collimator following the administration of 10 mCi Tc-99m pertechnetate. FINDINGS: The uptake is 3.45% at 4 hours and 11.60% at 24 hours (Normal radioiodine uptake at 4 to 6 hours is about 5-15% and at 24 hours is 10% to 30%). The radioiodine uptake is normal. The radiopertechnetate thyroid scintigram shows minimal tracer avidity within the entire thyroid gland, most consistent with diffuse thyroiditis. Subtle focal asymmetric increased tracer avidity however is noted along the mid medial aspect of the left and mid to inferior aspect of the right lobe of the gland. The findings appear concordant between iodine as well as technetium pertechnetate images. NM/NM thyroid w uptake IMPRESSION: 1. Normal radioiodine uptake. 2. Minimal tracer avidity involving the thyroid gland on both iodine as well as technetium pertechnetate, consistent with nonspecific diffuse thyroiditis. 3. Superimposed mild focal asymmetric warm nodule at inferior medial part of the right and mid medial part of the left lobe of the gland. Laboratory Tests 09/21/20 08/27/21 09/14/22 10:05 07:13 10:49 Glucose (Clinic) Hgb A1c (Clinic) Hemoglobin A1c % TSH 0.55 0.41 0.48 Free T4 0.79 0.87 0.94 Total T3 Thyroglobulin Antibody <1 Thyroid Peroxidase Ab 3 J LUIS Antibody 03/10/23 10/03/23 03/25/24 14:08 13:25 14:41 Glucose (Clinic) Hgb A1c (Clinic) Hemoglobin A1c % TSH 0.44 0.83 0.19 L Free T4 0.98 0.98 0.91 Total T3 Thyroglobulin Antibody Thyroid Peroxidase Ab J LUIS Antibody <5 07/22/24 11/05/24 11/07/24 14:13 10:53 14:16 Glucose (Clinic) 126 H Hgb A1c (Clinic) 8.1 H Hemoglobin A1c % 8.0 H TSH 0.60 Free T4 0.97 Total T3 96 Thyroglobulin Antibody Thyroid Peroxidase Ab J LUIS Antibody CT SOFT TISSUE NECK WITHOUT CONTRAST Sep 15 CLINICAL INFORMATION: Nontoxic multinodular goiter. COMPARISON: Thyroid ultrasound 07/08/2021. TECHNIQUE: Helical imaging was performed in the axial plane with generation of coronal and sagittal reformatted images. This CT examination was performed using dose optimization techniques as appropriate, including one or more of the following: Automated exposure control, iterative reconstruction, and adjustment of technique factors (mA and/or kVp) according to patient size (this includes techniques or standardized protocols for targeted exams where dose is matched to indication/reason for exam). Fleischner Society criteria for the followup of incidental pulmonary nodules was implemented if appropriate. DLP: 410 mGy-cm. FINDINGS: There is an enlarged heterogeneous thyroid gland which coincides with the findings demonstrated on the sonographic imaging from 08/24/2022. There are no pathologically enlarged cervical lymph nodes. No mediastinal or axillary adenopathy is visualized within the [id number] of this examination. Pharyngeal mucosal spaces are symmetric. Parapharyngeal and retromaxillary fat is preserved. Stonecutter Hand spaces are normal. The parotid and submandibular glands are normal. The tongue base and epiglottis are normal. Preepiglottic fat is preserved. Glottic and subglottic airways are widely patent. Lung apices are clear. The aortic arch apex is unremarkable. Carotid spaces are unremarkable. There is advanced multilevel degenerative spondylosis of the cervical spine. Disc osteophyte spurring in conjunction with facet degenerative change at C3-C4 causes severe canal stenosis with likely compression of the cervical spinal cord. There is also at least moderate canal stenosis at levels of C2-C3, C4-C5, and C5-C6. There is no acute osseous finding. No worrisome lytic or blastic osseous lesion. There are exuberant anterior disc osteophyte complexes at multiple levels within the cervical spine. The skull base is grossly intact. No mastoid middle ear effusion. Dcir-[id number]-[id number] paranasal sinus disease. Limited visualization of the intracranial anatomy reveals no abnormal finding. CT/CT soft tissue neck wo IV con IMPRESSION: There is a multinodular thyroid goiter. No pathologically enlarged cervical lymph nodes. There is advanced multilevel degenerative spondylosis of the cervical spine causing severe canal stenosis and likely compression of the cervical cord at C3-C4. There is also at least moderate canal stenosis at levels of C2-C3, C4-C5, and C5-C6. If there are clinical symptoms of compressive myelopathy then a dedicated cervical spine MRI can be obtained for better anatomic characterization of the cord and canal. US THYROID nov 15 CLINICAL INFORMATION: Nontoxic goiter, unspecified. COMPARISON: None TECHNIQUE: Linear transducer blevins-scale and color Doppler examination with attention to the region of the thyroid. FINDINGS: SIZE: Measurements of the thyroid lobes and nodules are given in sagittal, anteroposterior and transverse dimensions respectively. Right Thyroid Lobe: 5.1 x 2.7 x 2.9 cm, volume 21 mL. Parenchyma: The gland echotexture is heterogeneous. Thyroid vascularity is normal. Left Thyroid Lobe: 5.2 x 3.2 x 2.7 cm, volume 23 mL. Parenchyma: The gland echotexture is heterogeneous. Thyroid vascularity is normal. Isthmus: 0.1 cm in maximum AP dimension. Estimated total number of nodules greater than or equal to 1 cm: 5. There are multiple additional bilateral thyroid nodules. Head Operator Sulfide nodules are described as follows: 1. Location: Right mid pole. Size: 1.4 x 1.1 x 1.8 cm, volume 1.4 mL. Nodule characteristics: Composition: Solid/almost completely solid (2). Echogenicity: Isoechoic (1). Shape: Not taller than wide (0). Margins: Smooth (0). Echogenic Foci: None (0). ACR TI-RADS total points: 3 ACR TI-RADS category: 3 2. Location: Right lower pole. Size: 1.4 x 1.1 x 0.9 cm, volume 0.68 mL. Nodule characteristics: Composition: Mixed cystic and solid (1). Echogenicity: Hypoechoic (2). Shape: Not taller than wide (0). Margins: Smooth (0). Echogenic Foci: None (0). ACR TI-RADS total points: 3 ACR TI-RADS category: 3 3. Location: Left upper pole. Size: 1.0 x 0.3 x 0.8 cm, volume 0.13 mL. Nodule characteristics: Composition: Solid/almost completely solid (2). Echogenicity: Hypoechoic (2). Shape: Not taller than wide (0). Margins: Smooth (0). Echogenic Foci: None (0). ACR TI-RADS total points: 4 ACR TI-RADS category: 4 4. Location: Left mid pole. Size: 1.8 x 1.0 x 1.5 cm, volume 1.4 mL. Nodule characteristics: Composition: Mixed cystic and solid (1). Echogenicity: Hypoechoic (2). Shape: Not taller than wide (0). Margins: Smooth (0). Echogenic Foci: None (0). ACR TI-RADS total points: 3 ACR TI-RADS category: 3 5. Location: Left mid pole. Size: 1.7 x 0.6 x 1.0 cm, volume 0.53 mL. Nodule characteristics: Composition: Solid/almost completely solid (2). Echogenicity: Isoechoic (1). Shape: Not taller than wide (0). Margins: Smooth (0). Echogenic Foci: None (0). ACR TI-RADS total points: 3 ACR TI-RADS category: 3 NODES: No lymphadenopathy is seen in the tissue surrounding the thyroid gland. US/US thyroid IMPRESSION: Heterogeneous thyroid parenchyma with normal vascularity. Thyromegaly. Multiple bilateral thyroid nodules with ultrasound characteristics consistent with TI-RADS category 3. These nodules measure 1.7 to 1.8 cm in greatest dimension. Followup ultrasound recommended in 1, 3, and 5 years. Upper left thyroid nodule measuring 1.0 cm with ultrasound characteristics consistent with TI-RADS category 4. Followup ultrasound recommended in 1, 2, 3, and 5 years. [facility] Medical History (Updated 02/12/25 @ 14:18 by SOPHIE Morris) Anal fistula Encounter for general adult medical examination with abnormal findings Subclinical hyperthyroidism Type 2 diabetes mellitus with hyperglycemia Hyperlipidemia LDL goal <100 Cyst of buttocks Establishing care with new doctor, encounter for Dyspepsia Vocal cord polyp Hospital discharge follow-up Arthrosis Abdominal cramping HTN (hypertension) HLD (hyperlipidemia) Multinodular thyroid Vitamin D deficiency Multinodular thyroid Type 2 diabetes mellitus with hyperglycemia, with long-term current use of insulin Type 2 diabetes mellitus with diabetic polyneuropathy Smoking Lazy eye of left side Arthritis High cholesterol Diabetes type 2, controlled Surgical History Hx of colonoscopy History of surgery History of renal stone (~06/01/20) History of sebaceous cyst (~05/28/20) History of penile implant (~03/17/20) History of hemorrhoids Family History Father No problems noted. Mother History of cardiovascular disorder Social History Household Members: None Housing: Apartment Alcohol intake: never Patient Tobacco Use Status: Current everyday Tobacco user Cigarette Packs Per Day: 1 e-Cigarette/Vaping Use: Currently Using Second Hand Smoke Exposure: No Substance Use Type: Marijuana service: No Current occupational status: retired Cognitive needs: No Hearing needs: No Vision needs: Yes Physical Exam Vital Signs: Last Vital Signs Pulse 87 05/15/25 15:00 BP 108/78 05/15/25 15:00 Pulse Ox 96 05/15/25 15:00 Oxygen Delivery Method Room Air 05/15/25 15:00 BMI result Body Mass Index 29.5 Office Procedures Glucose Monitoring Details Details: See HPI 19434 - Glucose monitoring, continuous-physician I&R Procedure code (CPT) selection complete Results AMB Hemoglobin A1c 2 AMB Hemoglobin A1c 7.7 % Last Edit by SOPHIE Ayon on 05/15/25 15:17 Results Reviewed Results Reviewed: Laboratory Last Values Glucose (Clinic) 250 mg/dL (60-115) H 05/15/25 15:05 Hgb A1c (Clinic) 7.7 % (4.0-6.0) H 05/15/25 15:16 Assessment & Plan Assessment & Plan (1) Type 2 diabetes mellitus with hyperglycemia, with long-term current use of insulin: Code(s): E11.65 - Type 2 diabetes mellitus with hyperglycemia; Z79.4 - kettle operator head (current) use of insulin Category: Medical Plan: 64-year-old male with a history of type 2 diabetes mellitus with long-term insulin use with complications of retinopathy, neuropathy, microalbuminuria. A1c down to 7.7% POC 05/15/2025 down from at 8.1% in December 2024.. CGM data downloaded, he does have some overnight hyperglycemia but over the last 3-4 days his blood sugars have been within good range. He was also having hypoglycemia later in the evening, and it was identified very correctly that he goes on without eating for 10-12 hours. I told him to incorporate more protein in his diet as well as do 3 meals a day. Plan: -continue Lantus to 36 units daily, and if you continue to have blood sugars in the morning that is fasting higher than 140 mg/dL, can go up to 38 units daily -continue Humalog 19 to 21 units t.i.d. before meals -continue Jardiance 25 mg daily -follow up in 2 months (2) HLD (hyperlipidemia): Code(s): E78.5 - Hyperlipidemia, unspecified Category: Medical Qualifiers: Hyperlipidemia type: unspecified Qualified Code(s): E78.5 - Hyperlipidemia, unspecified Plan: LDL up at 110 mg/dL from October 2024 which is increased from 95 previously. He is already on rosuvastatin 40 mg daily. Says he is adherent to it. Started Zetia October 2024. Now LDL done December 2024 down to 89 mg/dL. Plan: -continue Zetia 10 mg daily -continue rosuvastatin 40 mg daily (3) Subclinical hyperthyroidism: Code(s): E05.90 - Thyrotoxicosis, unspecified without thyrotoxic crisis or storm Category: Medical Plan: Patient with labs in March 2024 showing TSH low at 0.19 with normal free T4 of 0.9. He has previously never had abnormal thyroid function. TPO and thyroglobulin antibody levels have been negative in the past. TSI antibody levels negative. Most recent labs from October 2024 showed normal labs. He does not have any history of heart disease, no history of fracture/osteoporosis. However given his age if he has subclinical hyperthyroidism he could qualify for treatment potentially. For now no need for treatment intervention given thyroid function has normalized, I will also repeat his thyroid function testing since before this he has always had normal thyroid function. Less he has a history of nodule so more likely if he does have subclinical hyperthyroidism this is from toxic multinodular goiter. He had a thyroid uptake and scan in April 2024 which showed decreased avidity overall consistent with thyroiditis but did show slightly warmer areas in the region of right inferior and left mid poles this portfolio assistant with heterogenous appearance and likely toxic multinodular goiter. I discussed with him that treatment for these would be total thyroidectomy ideally to get rid of both is nodules and subclinical hyperthyroidism. 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 We can also consider low-dose methimazole for this. Most recent labs from December 2024 showed normal thyroid function. We will plan to repeat thyroid function in 1 year sometime around November 2025 (4) Multinodular thyroid: Code(s): E04.2 - Nontoxic multinodular goiter Category: Medical Plan: Patient with no family history of thyroid cancer with no personal history of head or neck radiation who is coming in for follow up of multinodular goiter. Recently as mentioned above he has developed subclinical hyperthyroidism and a set of labs in March 2024 with thyroid uptake and scan from April 2024 showing heterogenous areas of increased tracer uptake consistent with toxic multinodular goiter. He has had biopsy July [address] Barker of his right midpole nodule which she measured as 2.5 cm during the biopsy, with benign cytology. His last thyroid ultrasound was from 2020 which had not shown such a big nodule. He has had some persistent compressive symptoms such as hoarseness of voice and dysphagia that have not significantly worsened. He was evaluated by Dr. Flavio Mustafa at [facility] in February [address] scan of the soft tissue neck as well, however he did not want to get surgery. 10/19: US thyroid showed stable size of previous nodules, new right lower pole 3.4 cm nodule, when I review his old images I see he hs a conglomelerate of nodules on the right side, hard to tell if this nodule is really new, but we will repeat FNA. 11/27/24: Underwent FNA of the right lower 3.4 cm nodule with benign cytology, [place] 2. At this time he doesnt have any significant compressive symptoms and still does not want to pursue surgery. Plan: -Next US ordered for 1 year in November 2025 Plan I spent 30 minutes in reviewing the record, seeing the patient and documenting in the medical record. Orders: Orders 2 AMB Hemoglobin A1c Today E11.65 - Type 2 diabetes mellitus with hyperglycemia, Z79.4 - detention (current) use of insulin AMB Glucose Monitoring Today E11.65 - Type 2 diabetes mellitus with hyperglycemia, Z79.4 - detention (current) use of insulin Medications: Refilled 2 empagliflozin (Jardiance) 25 mg PO QAM 90 tabs 4RF E11.65 - Type 2 diabetes mellitus with hyperglycemia, Z79.4 - kettle operator head (current) use of insulin Patient Instructions: Continue current insulin use Follow up end of June 2025 Coding Level of Care Code Est Pt Level 4 (06787) Diagnoses Type 2 diabetes mellitus with hyperglycemia, with long-term current use of insulin E11.65; Z79.4 Hyperlipidemia, unspecified hyperlipidemia type E78.5 Hyperlipidemia type: unspecified Subclinical hyperthyroidism E05.90 Multinodular thyroid E04.2 CPT Codes Details - CPT: 80914 - Glucose monitoring, continuous-physician I&R ([id number]) Time Spent (min) 30
[2025-05-15 15:10] LABS: Glucose, Whole Blood 250 mg/dL (60-115)
== END 2025-05-15 15:20 | disposition home or self-care (01) ==
LOC: HO.ENCR 14:53
PROVIDERS: PCP Internal Medicine; Visit Provider Student in an Organized Health Care Education/Training Program
DX: E11.65 Type 2 diabetes mellitus with hyperglycemia (principal); Z79.4 Long term (current) use of insulin; E78.5 Hyperlipidemia, unspecified; E05.90 Thyrotoxicosis, unspecified without thyrotoxic crisis or storm; E04.2 Nontoxic multinodular goiter
CPT/HCPCS: 95251; 99214

== ENCOUNTER → 2025-05-15 14:53 | Outpatient (BNVA) | payer OTHER, SELFPAY | PROVIDERS: PCP Internal Medicine; Visit Provider Student in an Organized Health Care Education/Training Program | DX: E11.65 Type 2 diabetes mellitus with hyperglycemia (principal); E04.2 Nontoxic multinodular goiter; E05.90 Thyrotoxicosis, unspecified without thyrotoxic crisis or storm; E78.5 Hyperlipidemia, unspecified; Z79.4 Long term (current) use of insulin | CPT/HCPCS: 82947; 83036; 99212 ==

== ENCOUNTER 2025-08-04 13:23 | Outpatient (AMB) | payer OTHER, SELFPAY ==
--- OUTSIDE RECORDS SUMMARY | 2025-08-01 15:15 | XMS_ITS | Encounter Summary ---
Author Organization [facility] Address [address] [id number] Care Team Providers Care Steel Pourer Helper Name Role Phone Sandra Hodges Primary Care Provider [phone] Reason for Referral * MRI/CAT/PET Scan (Routine) - Pending Review Specialty Diagnoses / Procedures Referred By Stewart t Referred To Contact Radiology Diagnoses Anal fistula Procedures MRI Pelvis with and without Contrast Ruthie Dodge MD [address] [place] [address] Phone: tel: fax: Referral ID Status Reason Start Date Expiration Date V isits Requested Visits Authorized [id number] Pending Review 08/01/2025 01/31/2027 1 1 Encounter Details Date Type Department Care Team (Late st Contact Info) Description 08/01/2025 3:15 PM EST Follow-Up [facility] Colorectal Surgery [address] [place] [address] Us Administrative Law Judge: Ruthie Aleman MD [address] [place] [address] [phone] Anal fistula (Primary Dx) Social History Tobacco Use Types Packs/Day Years Used Date Smoking Tobacco: Every Day Cigarettes 1 52.9 Started: 1972 Smokeless Tobacco: Never Alcohol Use Standard Drinks/Week Comments Never 0 [...] Sign Reading Time Taken Comments Blood Pressure 104/66 08/01/2025 3:22 PM EST Pulse 96 08/01/2025 3:22 PM EST Temperature 36.8 C (98.3 F) 08/01/2025 3:22 PM EST Respiratory Rate 18 08/01/2025 3:22 PM EST Oxygen Saturation 94% 08/01/2025 3:22 PM EST Inhaled Oxygen Concentration - - Weight 85.7 kg (189 lb) 08/01/2025 3:22 PM EST Height 172.7 cm (5' 8 ) 08/01/2025 3:22 PM EST Body Mass Index 28.74 08/01/2025 3:22 PM EST documented in this encounter Plan of Treatment Scheduled Orders Name Type Priority Associated Diagnoses Orde r Schedule MRI Pelvis with and without Contrast Imaging [place] Routine Anal fistula Expected: 08/01/2025, Expires: 08/31/2026 documented as of this encounter Visit Diagnoses Diagnosis Anal fistula- Primary documented in this encounter Care Teams Steel Pourer Helper Relationship Specialty Start Date End Date Sandra Hodges [address] [place] [address] PCP - General Internal Medicine 11/08/24 documented as of this encounter
--- NOTE | 2025-08-04 13:28 | A.OFFVIS_ITS ---
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 He has undergone 14 surgeries, most recently at a hospital in [place], to treat recurrent infections and fistulous tract formation. He reports lymph node pain and significant fatigue, which he attributes to infection and surgical pain. His balance is impaired, with a loss of control frequently noted. He experiences joint pain and weakness in his hands, associated with arthritis, worsened when standing. Medications include duloxetine and sertraline, now increased to 50 mg daily. Another surgery is scheduled for August. Ibuprofen is used sparingly. [facility] Medical History Anal fistula Encounter for general adult medical examination with abnormal findings Subclinical hyperthyroidism Type 2 diabetes mellitus with hyperglycemia Hyperlipidemia LDL goal <100 Cyst of buttocks Establishing care with new doctor, encounter for Dyspepsia Vocal cord polyp Hospital discharge follow-up Arthrosis Abdominal cramping HTN (hypertension) HLD (hyperlipidemia) Multinodular thyroid Vitamin D deficiency Multinodular thyroid Type 2 diabetes mellitus with hyperglycemia, with long-term current use of insulin Type 2 diabetes mellitus with diabetic polyneuropathy Smoking Lazy eye of left side Arthritis High cholesterol Diabetes type 2, controlled Surgical History Hx of colonoscopy History of surgery History of renal stone (~06/01/20) History of sebaceous cyst (~05/28/20) History of penile implant (~03/17/20) History of hemorrhoids Family History Father No problems noted. Mother History of cardiovascular disorder Social History Household Members: None Housing: Apartment Alcohol intake: never Patient Tobacco Use Status: Current everyday Tobacco user Cigarette Packs Per Day: 1 e-Cigarette/Vaping Use: Currently Using Second Hand Smoke Exposure: No Substance Use Type: Marijuana service: No Current occupational status: retired Cognitive needs: No Hearing needs: No Vision needs: Yes Review of Systems Narrative Constant pain in legs and rectal area Constant fatigue and tiredness Physical Exam Neuro Other: Mental Status: Alert and oriented to person, place, and time. Normal attention. Normal spontaneous speech, fluency, and comprehension. No obvious issues with mood and memory. Affect is appropriate. Cranial Nerves: CN II: Visual hodgson full to confrontation, visual acuity intact. CN III, IV, : Pupils equal, round, reactive to light and accommodation. Extraocular movements are normal. CN V: Facial sensation is normal. CN VII: Facial movements symmetrical. CN VIII: Hearing intact to bedside conversation is normal. CN IX, X: Palate elevates symmetrically. CN XI: Shoulder shrug and head turn symmetrical. CN XII: Tongue midline without atrophy or fasciculations. Walking cautiously Extrapyramidal: Full facial expressions and blinking. No rigidity. Movements are appropriate with no tremor or abnormality. Speech: Normal; no dysarthria or tremor. Assessment & Plan Assessment & Plan (1) Diabetic neuropathy: Comment: NCV/EMG ALL 08/26/19 Moderately severe chronic axonal sensory and motor peripheral neuropathy. EMG/NCS at office in 2014: Moderately severe chronic axonal sensory and motor peripheral Code(s): E11.40 - Type 2 diabetes mellitus with diabetic neuropathy, unspecified Category: Medical Qualifiers: Diabetes mellitus type: type 2 Diabetes mellitus complication detail: with other neurological complication Qualified Code(s): E11.49 - Type 2 diabetes mellitus with other diabetic neurological complication Plan Impression: 1. Chronic diabetic painful neuropathy 2. Chronic issues with rectal fistula with more than it does not surgical procedures already done and another 1 in pipeline Recommendations: 1. Increase sertraline dose to 50 mg in the morning 2. Duloxetine 30 mg twice a day 3. Pregabalin 50 mg twice a day for pain control Medications: New pregabalin 50 mg PO BID 180 caps 1RF duloxetine 30 mg PO BID 180 caps 1RF sertraline 50 mg PO DAILY 90 tabs 1RF Coding Level of Care Code Est Pt Level 3 (34004) Diagnoses Other diabetic neurological complication associated with type 2 diabetes mellitus E11.49 Diabetes mellitus type: type 2 Diabetes mellitus complication detail: with other neurological complication
--- OUTSIDE RECORDS SUMMARY | 2025-08-04 15:30 | XMS_ITS | Clinical Summary ---
Author Organization [facility] Address [address] [place] [address] Care Team Providers Care Track Supervisor Name Role Phone Sandra Hodges Primary Care Provider [phone] Allergies No known active allergies Medications Jardiance [...] Active Problems Problem Noted Date Diagnosed Date Uofnish-lf-rti 01/03/2025 Encounters Date Type Department Care Team Description 08/01/2025 3:15 PM EST Follow-Up [facility] Colorectal Surgery [address] [place] [id number] Java Web User Interface Developer: Ruthie Aleman MD Anal fistula (Primary Dx) 07/15/2025 1:00 PM EDT Follow-Up [facility] Colorectal Surgery [address] [place] [id number] Java Web User Interface Developer: Tonia Flores NP Levator syndrome (Primary Dx) 06/30/2025 11:45 AM EDT Procedure visit [facility] Colorectal Surgery [address] [place] [id number] Java Web User Interface Developer: Floyd Goodman Chronic idiopathic constipation (Primary Dx); Levator syndrome; Fecal soiling due to fecal incontinence; Anal or rectal pain from Last 3 Months Social History Tobacco Use Types Packs/Day Years Used Date Smoking Tobacco: Every Day Cigarettes 1 52.9 Started: 1972 Smokeless Tobacco: Never Tobacco Cessation:Ready [...] Mass Index 28.74 08/01/2025 3:22 PM EST Plan of Treatment Health Maintenance Due Date Last Done Comments Cologradha 1960 Colon Cancer Screening 1960 Colonoscopy 1960 FOBT / Fit Test 1958 Hepatitis C Screening 1958 Sigmoidoscopy 1958 Pneumococcal Vaccine: 50+ Years (1 of 2 - PCV) 1977 DTaP,Tdap,and Td Vaccines (1 - Tdap) 1980 CT Lung Cancer Screening (Baseline) 2008 Zoster Vaccines (1 of 2) 2008 Abdominal Aortic Aneurysm (AAA) Screening 2023 Alcohol/Substance Use Screening 09/25/2024 Depression Screening and Follow-Up 09/25/2024 Health Care Proxy Review 09/25/2024 Social Drivers of Health Annual Screening 09/25/2024 COVID-19 Vaccine (1 - 2024-2 6 season) 2025 Influenza Vaccine (#1) 2025 Fall Risk Screening 01/06/2026 01/06/2025 Diabetes Screening 01/07/2028 01/06/2025, 01/06/2025 RSV Vaccine (60+ years old a nd patients) (1 - 1-dose 75+ series) 2033 Hepatitis B Vaccines Aged Out No long er eligible based on patient's age to complete this topic Procedures * Due to [facility] law, this organization might not be sharing negative HIV tests. Procedure Name Priority Date/Time Associated Diagnosis Comments POCT GLUCOSE Routine 01/06/2025 11:32 AM EDT from Last 3 Months or Most Recently Relevant to Health Maintenance Results * Due to [place] state law, this organization might not be sharing negative HIV tests. * (ABNORMAL) POCT Glucose, interfaced (01/06/2025 11:32 AM EDT) [facility] Glucose, POCT 170(H) 70 - 99 mg/dL 01/06/2025 11:33 AM EDT MIKI DIXON Comment: The inspector hairspring has not determined the efficacy of this test in Critically ill patients. [facility] defines Critically ill patients for the purpose of blood glucose monitoring (BGM) by glucometer, as patients meeting one or more of the following criteria: Hypotension- non-ICU patients (systolic blood pressure Less than 90 mmHg) due to shock Hypotension -ICU patients (Mean Arterial Pressure (MAP) <60 mmHg or systolic blood pressure < 90 mmHg due to shock Patients receiving Vasopressors (phenylephrine, vasopressin or norepinephrine) Anasarca In all locations, BGM test results should not be relied upon in the above situations, unless these results confirmed with lab-based glucose values. Blood 01/06/2025 11:3 2 AM EDT 01/06/2025 11:33 AM EDT Ruthie Dodge MD LAB POCT ORDERABLES - DEVICE Fi nal Result MIKI DIXON [address] [place] [address] from Last 3 Months or Most Recently Relevant to Health Maintenance Insurance Advance Directives * Full Code (Latest Code Status on File) Date Activated Date Inactivated Comments 01/06/2025 11:24 AM 01/06/2025 4:40 PM Care Teams Track Supervisor Relationship Specialty Start Date End Date Sandra Hodges [address] [place] [address] PCP - General Internal Medicine 11/08/24
--- OUTSIDE RECORDS SUMMARY | 2025-08-04 15:30 | XMS_ITS | Clinical Summary ---
Author Organization [facility] Address [address] [place] [address] Care Team Providers Care Director River Restoration Name Role Phone Marcela Foster DDAnette Primary Care Provider [phone] Source Comments PLEASE NOTE, if this patient [...] Plan of Treatment Not on file Insurance [place] [facility] Care Teams Director River Restoration Relationship Specialty Start Date End Date Marcela Foster DDS [address] [place] [id number] PCP - General Dental Drawer In Stitch Bonding Machine 05/09/19
--- OUTSIDE RECORDS SUMMARY | 2025-08-04 15:30 | XMS_ITS | Data Portability ---
Author Organization [place] [facility] [employer] [facility] [employer] [facility] Address [address] [place] [address] Care Team Providers Care Pattern Repair Person Name Role Phone HIM CCA OTHER Assessment Encounter Date Assessment Date Assessment LastModified by Organization Details LastModified Time 03/04/2024 03/04/2024 I have reviewed and agree with the assessment and plan as documented by the dog behaviorist. I provided real time medical direction for this encounter and was immediately available to provide additional phone based assistance as needed. History as noted by dog behaviorist. Pt with history of DM, recent surgery [...] to help guide treatment and management. Unfortunately, [employer] is unable to collect stool samples for [...] BMP, serum or plasma 024 03/04/[address], [phone] 10:05:19 Referral None recorded . Procedures None [...] blood by Pulse oximetry Respiratory rate Systolic And Diastolic Provider Name and Address Organization Details Last Updated DateTime 4 98.4 [degF] 66685.8 g 162.56 cm 80 /min 98 % 98 % 14 /min 125/84 mm[Hg] Not Available [facility] - production 4 20:02:34 Date Recorded Oxygen saturation Oxygen saturation in Arterial blood by Pulse oximetry Body weight Heart rate Body height Respiratory rate Body temperature Systolic And Diastolic Provider Name and Address Organization Details Last Updated DateTime 4 98 % 98 % 23286.5 6 g 98 /min 172.72 cm 16 /min 97.3 [degF] 154/61 mm[Hg] Not Available [facility] 10:03:23 Social History None recorded. Functional Status None recorded. Mental Status None recorded. Family History Nothing Reported. Medical History No medical history recorded. Past Encounters Encounter ID Performer Location Encounter Start Date Encounter Closed Date Diagnosis/Indication Diagnosis SNOMED-CT Code Diagnosis ICD10 Code Diagnosis IMO Codes Diagnosis Note [id number] Marilu Schmid MD [facility] [address] [place] [phone] 09/30/2023 20:02:30 10/01/2023 15:25:02 Viral upper respiratory tract infection 914512591 J06.9 I provided real -time medical direction via phone for this encounter, and was available for additional phone based assistance as needed. I have reviewed and agree with the Assessment and Plan as documented by the Quality Compliance Coordinator. Patient given the opportunit y to ask questions. 63 yo w/ 24h of URI (nasal congestion + fatigue). no cough/sob. covid/flu negative. lungs clear, exam reassuring . recommende d supportive care (nasal rinse, antihistam ine). advised calling back if worsens. [id number] Greyson Wan MD [facility] [address] [place], [place] [phone] 03/04/2024 10:03:18 03/06/2024 04:37:12 Diarrhea [id number] R19.7 Health Concerns Section Related Observation LastModified by Organization Detai ls LastModified Time None Recorded Concern Status LastModified by Organization Details LastModified Time None Recorded Advance Directives Directive None Recorded Payers Insurance Date Sequence Insurance Name Policy Number Policy Warner Covered Member ID Warner Member ID Guarantor Name 03/06/2024 1 [facility] - DOS ON OR AFTER 2022 - DUAL ELIGIBLE - GROUP HOME OPTIONS AND ONE CARE (MEDICARE REPLACEMENT/ADV ANTAGE - HMO) Gerson Allam [id number] Gerson Mazariegos Notes Date Note Type Note [...] ................... ................... ................... ................... ................... ................... ........ Quality Compliance Coordinator Note From Ramiro Reyes: PT caox3 complains [...] and flu negative via rapid test. [facility] advises supportive care, nasal rinse, steam and antihistamine if needed. Red flags and pt education discussed. Pt assisted with his nasal spray. ................... ................... ................... ................... ................... ................... ................... ........ Disposition: Fulfilled Marilu Schmid MD [address] [facility], [place], [address], [employer] 10/01/2023 02:50:55 03/04/2024 text/html ROS as noted in the HPI This was a supervised home visit with dog behaviorist Teto Beckett. CRC Nurse Triage Notes (Odette Chin): Chief Complaints: Diarrhea PMH: Diabetes Allergies: No Known Comments: Diarrhea ongoing for the past week. Incontinent during sleep. States diarrhea is severe. Vomited last week. No known fever. Since surgical procedure in January member states health has declined. Unsteady balance, dizziness. On Oxycodone 10mg daily since January. Quality Compliance Coordinator POC Test Results from Teto Beckett [facility] (09:59:37) pH: 7.41 pH units pCO2: 35.8 mmHg pO2: 65.7 mmHg Na: 145 mmol/L K: 4.0 mmol/L iCa: 1.19 mmol/L Cl: 110 mmol/L TCO2: 22.6 mEq/L Hct: 47 % Hb: 15.8 g/dL Glu: 236 mg/dL Lac: 1.7 mmol/L Cr: 0.9 mg/dL BUN: 8 mg/dL A ................... ................... ................... ................... ................... ................... ................... ........ Quality Compliance Coordinator Note From Teto Beckett: Pt reports having 13 surgeries over the past 4 years to treat his anal fissures. Most recent surgery was 02/09/24. Today pt s evere watery diarrhea 4-6 times per day. Pt [...] ........ Disposition: Fulfilled Greyson Wan MD [address] [facility], [place], [address], [place] [facility] - [employer] [facility] 03/04/2024 10:43:44
--- OUTSIDE RECORDS SUMMARY | 2025-08-04 15:30 | XMS_ITS | Clinical Summary ---
Author Organization [address] [facility] Address [address] [place] [address] Phone Care Team Providers Care Family Consultant Name Role Phone Sandra Hodges MD Primary Care Provider [phone] Allergies Active Allergy Reactions Criticality Noted Date Comments Vancomycin Rash 05/08/2025 Medications ammonium lactate (AMLACTIN) 12 % cream Apply topically if needed for dry skin. 560 g 2 5 05/08/20 26 Active meloxicam (MOBIC) 7.5 mg tablet Take 1 tablet (7.5 mg total) by mouth 1 (one) time each day. 30 each 1 5 09/07/20 25 Active Encounters Date Type Department Care Team Description 07/09/2025 2:30 PM EDT Office Visit Orthopedic Surgery [address] [phone] Tani Lilly, DPM Controlled type 2 diabetes with neuropathy ([facility] V24, [facility] V28) (Primary Dx); Arthritis of both feet; Hammertoes of both feet; PAD (peripheral artery disease) ([facility] V24); Onychomycosis; Achilles tendinitis, left leg 05/08/2025 1:30 PM EDT Consult Orthopedic [facility] [address] [phone] Tani Lilly A, DPM Controlled type 2 diabetes with neuropathy ([facility] V24, [facility] V28) (Primary Dx); Arthritis of both feet; Hammertoes of both feet; PAD (peripheral artery disease) ([facility] V24); Onychomycosis from Last 3 Months Social [...] Care Team (Late st Contact Info) Description 09/10/2025 2:15 PM EST Office Visit Orthopedic Surgery - [place] [address] [phone] Tani Lilly, DPM [address] [address] 10/02/2025 12:00 PM EST Ancillary Procedure [facility] [address] [facility] [address] [place] [phone] Health Maintenance Due Date Last Done Comments Colorectal Cancer Screening: Colonoscopy 1958 Diabetes: Annual GFR (Glomer ular Filtration Rate) 1958 Diabetes: Annual Foot Exam 1968 Diabetes: Annual Retina Eye Exam 1968 DTaP,Tdap,and Td Vaccines (1 - Tdap) 1977 Pneumococcal Vaccine: 50+ Ye ars (1 of 2 - PCV) 1977 RSV Immunization Adult Patie nts (1 - Risk 50-74 years 1-dose series) 2008 Zoster Vaccines (1 of 2) 2008 Abdominal Aortic Aneurysm (A AA) Screen 07/09/2024 Cholesterol Screening (Lipid Panel) 07/09/2024 Falls Risk Assessment 07/09/2024 Hepatitis C Screening 07/09/2024 Lung Cancer Screening (Low Dose CT) 07/09/2024 Medicare Annual Wellness Visit 07/09/2024 Social Influencers of Health Screening 07/09/2024 Depression Screening 09/25/2024 Diabetes: Annual Urine Albumin-Creatinine Ratio (uACR) 02/15/2025 Diabetes: Blood Sugar Contro l Test (HGBA1C) 02/15/2025 COVID-19 Vaccine (2023-2 5 season) 2025 Influenza Vaccine (#1) 2025 HIB Vaccines Aged [...] patient's age to complete this topic Insurance [place] [address] MEDICARE Member Subscriber Plan / Payer (Ef fective 2023-Present) Name:Gerson Mazariegos Relation to Subscriber:Self Name:Gerson Mazariegos Payer ID:[id number] Group ID:[id number] Type:Not on file Address: [address] [address] [address] [place] [id number] Care Teams Family Consultant Relationship Specialty Start Date End Date Sandra Hodges MD [address] [place] [address] PCP - General 04/17/24
== END 2025-08-04 13:37 | disposition home or self-care (01) ==
LOC: HO.HSM 13:24
PROVIDERS: PCP Internal Medicine; Referring Provider Internal Medicine; Visit Provider Psychiatry & Neurology Neurology
DX: E11.49 Type 2 diabetes mellitus with other diabetic neurological complication (principal)
CPT/HCPCS: 99213

== ENCOUNTER → 2025-08-04 13:23 | Outpatient (BNVA) | payer OTHER, SELFPAY | PROVIDERS: PCP Internal Medicine; Referring Provider Internal Medicine; Visit Provider Psychiatry & Neurology Neurology | DX: E11.49 Type 2 diabetes mellitus with other diabetic neurological complication (principal); K60.40 Rectal fistula, unspecified; R53.83 Other fatigue | CPT/HCPCS: 99212 ==

== ENCOUNTER 2025-09-08 13:50 | Outpatient (REF) | payer OTHER, SELFPAY ==
--- NOTE | ~2025-09-08 | US_ITS ---
EXAMINATION: US THYROID CLINICAL INFORMATION: Nontoxic multinodular goiter. COMPARISON: Thyroid biopsy 11/27/2024. Thyroid ultrasound 10/17/2024. Thyroid biopsy 08/24/2022. Thyroid ultrasound 07/08/2021. TECHNIQUE: Linear transducer grayscale and color Doppler examination with attention to the region of the thyroid. FINDINGS: SIZE: Measurements of the thyroid lobes and nodules are given in sagittal, anteroposterior and transverse dimensions respectively. Right Thyroid Lobe: 6.8 x 4.0 x 3.0 cm, volume 42.0 mL. (Previously 44.1 mL) Parenchyma: The gland echotexture is heterogeneous. Thyroid vascularity is increased. Left Thyroid Lobe: 6.2 x 3.0 x 2.8 cm, volume 27.4 mL. (Previously this same) Parenchyma: The gland echotexture is heterogeneous. Thyroid vascularity is increased. Isthmus: 0.4 cm in maximum AP dimension. Estimated total number of nodules greater than or equal to 1 cm: 4. Coin Machine Supervisor nodules are described as follows: 1. Location: Right mid to lower pole. Size: 5.6 x 3.7 x 3.2 cm, volume 35.4 mL. (Previously 9.0 mL) Nodule characteristics: Composition: Solid (2). Echogenicity: Isoechoic (1). Shape: Not taller than wide (0). Margins: Ill-defined (0). Echogenic Foci: None (0). ACR TI-RADS total points: 3 ACR TI-RADS category: 3 (previously the same) 2. Location: Right lower pole. Size: 2.6 x 1.7 x 2.4 cm, volume 6.0 mL. (Previously not characterized). Nodule characteristics: Composition: Mixed cystic and solid (1). Echogenicity: Cannot be determined (1). Shape: Not taller than wide (0). Margins: Ill-defined (0). Echogenic Foci: Punctate echogenic foci (3). ACR TI-RADS total points: 5 ACR TI-RADS category: 4 3. Location: [Mid pole. Size: 1.9 x 1.5 x 1.7 cm, volume 2.6 mL. (Previously this same) Nodule characteristics: Composition: Mixed cystic and solid (1). Echogenicity: Cannot be determined (1). Shape: Not taller than wide (0). Margins: Ill-defined (0). Echogenic Foci: None (0). ACR TI-RADS total points: 2 ACR TI-RADS category: 2 (previously characterized as a TR category 3) 4. Location: Left lower pole. Size: 1.5 x 1.5 x 1.3 cm, volume 1.6 mL. (Previously not characterized) Nodule characteristics: Composition: Cannot be determined (2). Echogenicity: Isoechoic (1). Shape: Not taller than wide (0). Margins: Ill-defined (0). Echogenic Foci: None (0). ACR TI-RADS total points: 3 ACR TI-RADS category: 3 NODES: No lymphadenopathy is seen in the tissue surrounding the thyroid gland. US/US thyroid IMPRESSION: 1. There is a 5.6 cm TR category 3 nodule in the right mid to lower pole. FNA advised as detailed below unless already performed. 2. There is a 2.6 cm TR category 4 nodule in the right lower pole, new from the prior exam. FNA advised as detailed below. 3. There is a 1.9 cm TR category 2 nodule in the left midpole. No follow-up recommended. 4. There is a 1.5 cm TR category 3 nodule in the left lower pole. Follow-up suggested as detailed below. 5. Intervening thyroid parenchyma is heterogeneous and hyperemic in keeping with thyroiditis. ACR TI-RADS RECOMMENDATION REFERENCE: Ultrasound-guided fine-needle aspiration, followup ultrasound, no further follow up. * TR1 (0 point) and TR2 (2 points): No FNA or follow up. * TR3 (3 points): FNA if more than or equal to 2.5 cm in maximum dimension, followup ultrasound in 1, 3 and 5 years if 1.5 to 2.4 cm in maximum dimension. * TR4 (4-6 points): FNA if more than or equal to 1.5 cm in maximum dimension, followup ultrasound in 1, 2, 3 and 5 years if 1 to 1.4 cm in maximum dimension. * TR5 (more than or equal to 7 points): FNA if more than or equal to 1 cm in maximum dimension, followup ultrasound every year for 5 years if 0.5 to 0.9 cm in maximum dimension. * TR3, TR4 or TR5 nodules that are below the size threshold for followup receive no follow up. Electronically signed by: Fermín Mathews MD 09/08/2025 04:41 PM [facility]
--- OUTSIDE RECORDS SUMMARY | 2025-09-08 20:03 | XMS_ITS | Data Portability ---
Author Organization [place] - [facility], [place] [facility] Address [address] [place] [address] Care Team Providers Care Used Car Lot Porter Name Role Phone HIM CCA OTHER Assessment Encounter Date Assessment Date Assessment LastModified by Organization Details LastModified Time 03/04/2024 03/04/2024 I have reviewed and agree with the assessment and plan as documented by the hospitality workers. I provided real time medical direction for this encounter and was immediately available to provide additional phone based assistance as needed. History as noted by hospitality workers. Pt with history of DM, recent surgery [...] to help guide treatment and management. Unfortunately, [facility] is unable to collect stool samples for [...] BMP, serum or plasma 024 03/04/[address], [phone] 10:05:19 Referral None recorded . Procedures None [...] weight Body height Heart rate Oxygen saturation Respiratory rate Systolic And Diastolic Provider Name and Address Organization Details Last Updated DateTime 4 98.4 [degF] 97718.8 g 162.56 cm 80 /min 98 % 14 /min 125/84 mm[Hg] Not Available [facility] - production 4 20:02:34 Date Recorded Oxygen saturation Body weight Heart rate Body height Respiratory rate Body temperature Systolic And Diastolic Provider Name and Address Organization Details Last Updated DateTime 4 98 % 06577.5 6 g 98 /min 172.72 cm 16 [...] ICD10 Code Diagnosis IMO Codes Diagnosis Note [id number] Marilu Schmid MD Main - [facility] [address] [place] [phone] 09/30/2023 20:02:30 10/01/2023 15:25:02 Viral upper respiratory tract infection [id number] J06.9 I provided real -time medical direction via phone for this encounter, and was available for additional phone based assistance as needed. I have reviewed and agree with the Assessment and Plan as documented by the [facility]. Patient given the opportunit y to ask questions. 63 yo w/ 24h of URI (nasal congestion + fatigue). no cough/sob. covid/flu negative. lungs clear, exam reassuring . recommende d supportive care (nasal rinse, antihistam ine). advised calling back if worsens. [id number] Greyson Wan MD Main - [facility] [address] [place] [phone] 03/04/2024 10:03:18 03/06/2024 04:37:12 Diarrhea [id number] R19.7 Health Concerns Section Related Observation LastModified by Organization Detai ls LastModified Time None Recorded Concern Status LastModified by Organization Details LastModified Time None Recorded Advance Directives Directive None Recorded Payers Insurance Date Sequence Insurance Name Policy Number Policy Warner Covered Member ID Warner Member ID Guarantor Name 03/06/2024 1 [facility] - DOS ON OR AFTER 2022 - DUAL ELIGIBLE - SHELTER OPTIONS AND ONE CARE (MEDICARE REPLACEMENT/ADV ANTAGE - HMO) Gerson Allam [id number] Gerson Mazariegos Notes Date Note Type Note [...] ................... ................... ................... ................... ................... ................... ........ [facility] Note From Ramiro Reyes: PT caox3 complains [...] covid and flu negative via rapid test. [facility] advises supportive care, nasal rinse, steam and antihistamine if needed. Red flags and pt education discussed. Pt assisted with his nasal spray. ................... ................... ................... ................... ................... ................... ................... ........ Disposition: Fulfilled Marilu Schmid MD [address] [facility],[address], [place], [phone], [employer] 10/01/2023 02:50:55 03/04/2024 text/html ROS as noted in the HPI This was a supervised home visit with hospitality workers Teto Beckett. [facility] Nurse Triage Notes (Odette Chin): Chief Complaints: Diarrhea PMH: Diabetes Allergies: No Known Comments: Diarrhea ongoing for the past week. Incontinent during sleep. States diarrhea is severe. Vomited last week. No known fever. Since surgical procedure in January member states health has declined. Unsteady balance, dizziness. On Oxycodone 10mg daily since January. [facility] POC Test Results from Teto Beckett [facility], [facility] (09:59:37) pH: 7.41 pH units pCO2: 35.8 mmHg pO2: 65.7 mmHg Na: 145 mmol/L K: 4.0 mmol/L iCa: 1.19 mmol/L Cl: 110 mmol/L TCO2: 22.6 mEq/L Hct: 47 % Hb: 15.8 g/dL Glu: 236 mg/dL Lac: 1.7 mmol/L Cr: 0.9 mg/dL BUN: 8 mg/dL A ................... ................... ................... ................... ................... ................... ................... ........ [facility] Note From Teto Beckett: Pt reports having [...] Disposition: Fulfilled Greyson Wan MD [address] [facility],[address], [place], [address], [place] [employer] 03/04/2024 10:43:44
--- OUTSIDE RECORDS SUMMARY | 2025-09-08 20:03 | XMS_ITS | Clinical Summary ---
Author Organization [facility] Address [address] [place] [address] Care Team Providers Care Superintendent Generating Plant Name Role Phone Sandra Hodges Primary Care Provider [phone] Allergies No known active allergies Medications Jardiance [...] Active Problems Problem Noted Date Diagnosed Date [id number] 01/03/2025 Encounters Date Type Department Care Team Description 08/01/2025 3:15 PM EST Follow-Up [facility] Colorectal Surgery [address] [place] [address] Poultry Husbandman: Ruthie Aleman MD Anal fistula (Primary Dx) 07/15/2025 1:00 PM EDT Follow-Up [facility] Colorectal Surgery [address] [place] [phone] Poultry Husbandman: Tonia Flores NP Levator syndrome (Primary Dx) 06/30/2025 11:45 AM EDT Procedure visit [facility] Colorectal Surgery [address] [place] [address] Poultry Husbandman: Floyd Goodman Chronic idiopathic constipation (Primary Dx); Levator syndrome; Fecal soiling due to fecal incontinence; Anal or rectal pain from Last 3 Months Social History Tobacco Use Types Packs/Day Years Used Date Smoking Tobacco: Every Day Cigarettes 1 53 Started: 1972 Smokeless Tobacco: Never Tobacco Cessation:Ready [...] Social Drivers of Health Annual Screening 09/25/2024 Influenza Vaccine (#1) 2025 COVID-19 Vaccine (1 - 2024-2 6 season) 2025 Fall Risk Screening 01/06/2026 01/06/2025 Diabetes Screening 01/07/2028 01/06/2025, 01/06/2025 RSV Vaccine (60+ years old a nd patients) (1 - 1-dose 75+ series) 2033 Hepatitis B Vaccines Aged Out No long er eligible based on patient's age to complete this topic Procedures * Due to [facility] law, this organization might not be sharing negative HIV tests. Procedure Name Priority Date/Time Associated Diagnosis Comments MRI PELVIS W WO CONTRAST Routine 09/01/2025 3:40 PM EST Anal fistula AMB EXTERNAL MRI PELVIS, OUTSIDE RESULT 09/01/2025 POCT GLUCOSE Routine 01/06/2025 11:32 AM EDT from Last 3 Months or Most Recently Relevant to Health Maintenance Results * Due to [place] [employer] law, this organization might not be sharing negative HIV tests. * MRI Pelvis with and without Contrast (09/01/2025 3:40 PM EST) Anatomical Region Laterality Modality Body, Pelvis Magnetic Resonan ce 09/01/2025 2:50 PM EST Narrative 09/02/2025 1:33 PM EST [facility] Accession Number: [id number] Patient Name: Gerson Mazariegos Date of : 1960 Date of Exam: 09-01-2025 Referring Physician: Ruthie Dodge [facility] - Colorectal Surgery [address] [place] [address] Exam: MR Pelvis (C-/C+) CPT 62708 Room Description: [facility] 3.0T MRI Pelvis W+W/O Contrast CLINICAL INDICATION: rule out persistent fistula hx of fistula - TECHNIQUE: Multiplanar, multisequence pre and post contrast MRI evaluation of the pelvis was performed. 9 cc of Elucirem was administered intravenously. Perianal fistula protocol was utilized. COMPARISON: MRI pelvis 11/29/2024. FINDINGS: Rectal and anal findings: Similar appearance of postoperative changes in the lower mid anal canal with surrounding T2 heterogeneous scar tissue and susceptibility artifact. No focal fluid collection or abscess. Unchanged configuration of the distal anal canal. No clear fistula or abnormal enhancement demonstrated. Remaining bowel: Normal caliber loops without acute inflammatory changes. A few isolated sigmoid diverticula without diverticulitis. Reproductive organs: The prostate is unremarkable. There is a penile prosthesis with a reservoir in the right inguinal region. Bladder: No wall thickening or suspicious abnormality. Lymph nodes: No enlarged pelvic or inguinal lymph nodes. Peritoneum and retroperitoneum: No free fluid. Vessels: Patent vasculature. Bones: No suspicious osseous lesion. Mild degenerative changes of both hips. IMPRESSION: Similar postoperative changes of the mid and distal anal canal with associated scar tissue. No clear evidence of residual fistula. No abscess. WSN: [id number] Ordering Physician: Not on Staff, GERDA FREGOSO Electronically Signed By: James Wynne MD Procedure Note Provider, [place] - 09/02/2025 [facility] Accession Number: [id number] Patient Name: Gerson Mazariegos Date of : 1960 Date of Exam: 09-01-2025 Referring Physician: Ruthie Dodge [facility] Colorectal Surgery [address] [place] [address] Exam: MR Pelvis (C-/C+) CPT 93358 Room Description: [facility] 3.0T MRI Pelvis W+W/O Contrast CLINICAL INDICATION: rule out persistent fistula hx of fistula - TECHNIQUE: Multiplanar, multisequence pre and post contrast MRI evaluationof the pelvis was performed. 9 cc of Elucirem was administered intravenously. Perianal fistula protocol was utilized. COMPARISON: MRI pelvis 11/29/2024. FINDINGS: Rectal and anal findings: Similar appearance of postoperative changes in the lower mid anal canalwith surrounding T2 heterogeneous scar tissue and susceptibility artifact. Nofocal fluid collection or abscess. Unchanged configuration of the distal analcanal. No clear fistula or abnormal enhancement demonstrated. Remaining bowel: Normal caliber loops without acute inflammatory changes.A few isolated sigmoid diverticula without diverticulitis. Reproductive organs: The prostate is unremarkable. There is a penileprosthesis with a reservoir in the right inguinal region. Bladder: No wall thickening or suspicious abnormality. Lymph nodes: No enlarged pelvic or inguinal lymph nodes. Peritoneum and retroperitoneum: No free fluid. Vessels: Patent vasculature. Bones: No suspicious osseous lesion. Mild degenerative changes of bothhips. IMPRESSION: Similar postoperative changes of the mid and distal anal canal withassociated scar tissue. No clear evidence of residual fistula. No abscess. WSN: [id number] Ordering Physician: Not on Staff, GERDA FREGOSO Electronically Signed By: James Wynne MD us Ruthie Dodge MD IMG MRI PROCEDURES Final Result * MRI Pelvis,Outside Result (09/01/2025) 09/01/2025 us Onbase Scan John AMB EXTERNAL RESULT PROCEDURE S Final Result * (ABNORMAL) POCT Glucose, interfaced (01/06/2025 11:32 AM EDT) [facility] Signature Glucose, POCT 170(H) 70 - 99 mg/dL 01/06/2025 11:33 AM EDT MIKI DIXON Comment: The mechanical designer has not determined the efficacy of this test in Critically ill patients. [facility] defines Critically ill patients for the [...] 2 AM EDT 01/06/2025 11:33 AM EDT us Ruthie Dodge MD LAB POCT ORDERABLES - DEVICE Fi nal Result MIKI DIXON [address] [place] [address] from Last 3 Months or Most Recently Relevant to Health Maintenance Insurance ([address] [id number] [facility] [place] [id number] Advance Directives * Full Code (Latest Code Status on File) Date Activated Date Inactivated Comments 01/06/2025 11:24 AM 01/06/2025 4:40 PM Care Teams Superintendent Generating Plant Relationship Specialty Start Date End Date Sandra Hodges [address] [place] [phone] PCP - General Internal Medicine 11/08/24
--- OUTSIDE RECORDS SUMMARY | 2025-09-08 20:03 | XMS_ITS | Clinical Summary ---
Author Organization [address] [facility] Address [address] [place] [address] Phone Care Team Providers Care Flap Presser Name Role Phone Sandra Hodges MD Primary Care Provider [phone] Allergies Active Allergy Reactions Criticality Noted Date Comments Vancomycin Rash 05/08/2025 Medications ammonium lactate (AMLACTIN) 12 % cream Apply topically if needed for dry skin. 560 g 2 5 05/08/20 26 Active meloxicam (MOBIC) 7.5 mg tablet Take 1 tablet (7.5 mg total) by mouth 1 (one) time each day. 30 each 1 5 09/07/20 25 Encounters Date Type Department Care Team Description 07/09/2025 2:30 PM EDT Office Visit Orthopedic Surgery [facility] [address] [facility] [address] [place] [address] Tani Lilly DPM Controlled type 2 diabetes with neuropathy (CMS/HCC V24, CMS/HCC V28) (Primary Dx); Arthritis of both feet; Hammertoes of both feet; PAD (peripheral artery disease) (CMS/HCC V24); Onychomycosis; Achilles tendinitis, left leg from Last 3 Months Social History Tobacco [...] PM EST Office Visit [facility] - [place] [address] [phone] Tani Lilly, ARNEL [address] [address] 10/02/2025 12:00 PM EST Ancillary Procedure [facility] [address] [facility] [address] [place] [phone] Health Maintenance Due Date Last Done Comments [...] Contro l Test (HGBA1C) 02/15/2025 COVID-19 Vaccine (1 - 2024-2 6 season) 2025 Influenza Vaccine (#1) 2025 HIB [...] patient's age to complete this topic [place] [address] [place] [address] MEDICARE Member Subscriber Plan / Payer (Ef fective 2023-Present) Name:Gerson Mazariegos Relation to Subscriber:Self Name:Gerson Mazariegos Payer ID:[id number] Group ID:[id number] Type:Not on file Address: [place] [address] [place] [id number] Care Teams Flap Presser Relationship Specialty Start Date End Date Sandra Hodges MD [address] [place] [address] PCP - General 04/17/24
== END 2025-09-08 13:51 | disposition home or self-care (01) ==
LOC: HO.US 13:50
PROVIDERS: PCP Internal Medicine; Visit Provider Student in an Organized Health Care Education/Training Program
DX: E04.2 Nontoxic multinodular goiter (principal)
CPT/HCPCS: 76536

== ENCOUNTER → 2025-09-08 13:52 | Outpatient (BNV) | payer OTHER, SELFPAY | PROVIDERS: PCP Internal Medicine; Visit Provider Radiology Diagnostic Radiology | DX: E04.2 Nontoxic multinodular goiter (principal) | CPT/HCPCS: 76536 ==